=== PATIENT | female | born 2000 | race Caucasian/White ===

== ENCOUNTER 2022-05-25 07:00 | Outpatient (RCR) | payer OTHER, SELFPAY ==
--- NOTE | 2022-05-25 09:00 | BH.COMM_ITS ---
Communication Note - Communication with Client Communication Note: Met with pt to complete initial paperwork. Completed [facility] Screening which indicated high risk due in large part to SI with thoughts of methods which resulted in 2 psych admits in the last 30 days. She reports since discharge from in on 05/11/22 she has had only passive thoughts of and survival ambivalence. Denies active SI, plan, or intent today. Reports that her baseline is passive thoughts about which can be followed by [facility] ghts of methods, however never plan or intent. Consulted with Dr. Mustafa with plan to admit to [facility] level of care with dx of F31.9
--- NOTE | 2022-05-25 09:05 | BH.SGPN.GN ---
Behaviors/Verbalizations/Mental Status: [] Eye contact is good. Motor activity is appropriate. Appearance is casual. Speech is Appropriate. Mood is euthymic. Affect is full. Thoughts are linear and logical. No evidence of psychosis. Reviewed daily check in sheet and pt reports 4/5 for suicidal thoughts and 2/5 for intent. [place] was completed just prior to this and she reports passive thoughts of (long-standing) with no plan or intent. Client Response/Progress/Benefit: [] Pt participated when prompted. Attentive. Daily symptom tracker notes 5/5 for depression and self-harm urges (she superficially cut herself last night), 4/5 for anxiety and 2/5 for irritability. Shared with ther group that this was her first day in PHP. States that her goals for treatment are to get better coping skills for depression, anxiety, stress, and anger. Limited participation as this was her first day in IOP, however was attentive. Plan is to continue in PHP to maintain safety, increase healthy coping, and prevent decompensation/re-admission. Narrative Note: []
--- NOTE | 2022-05-25 10:05 | BH.SGPN.GN ---
Behaviors/Verbalizations/Mental Status: []Pt alert and oriented, neatly dressed and groomed. Eye contact good. Motor activity appropriate. Speech within normal limits. Affect constricted, mood anxious and depressed Thoughts linear, logical, no signs of hallucinations or delusions. Client Response/Progress/Benefit: []Pt participated at times during the group discussion. Attentive during psychoeducation. Participated in experiential activity. Pt took notes during interactive discussion on the consequences of unhealthy expression of emotions.? Attentive while peers identified several consequences which included; pushing people away, ?exploding,? and losing relationships. Attentive during interactive discussion on common potholes to effectively communicating which included; shutting down, assuming, fear of judgement, and not knowing what to say. Pt reported personally struggling with feeling overwhelmed, assuming, and not knowing what to say impacting her ability to communicate. ?Pt was able to relate and make connections between the experiential activity and the overall topic. Benefited from increased awareness of how stress and emotions can impact one's ability to communicate. Will continue in PHP tx to prevent decompensation, maintain safety, and gain healthy coping skills. Narrative Note: []
--- NOTE | 2022-05-25 11:05 | BH.SGPN.GN ---
Behaviors/Verbalizations/Mental Status: []Pt alert and oriented, neatly dressed and groomed. Eye contact good. Motor activity appropriate. Speech within normal limits. Affect constricted, mood anxious. Thoughts linear, logical, no signs of hallucinations or delusions. Client Response/Progress/Benefit: []Pt engaged in session AEB pt listening attentively to peers and taking notes. Attentive during psychoeducation on 4 zones of regulation. Pt able to identify feelings and behaviors for each zone.? Pt identified coping skills one can use to support self in each zone. Pt stated belief that pt is in the yellow/red zones today as pt feels impulsive and fearful. Pt reports playing with her cat and talking with supports she can trust will help pt get out of the yellow and red zone today. Benefited from increased education on zones of regulation or stages of alertness for emotions and healthy coping skills to use for each zone. Pt will continue PHP tx to prevent decompensation, maintain safety, and gain healthy coping skills. Narrative Note: []
--- NOTE | 2022-05-25 13:05 | BH.MDN ---
Multi-Disciplinary Note - Note 45-min Individual Time Started:: 12:05 Date: 05/26/22 Purpose of session/treatment goals addressed:: Met with pt to begun to work with pt on developing treatment plan and gain pertinent history. Met with pt in collaboration with Physician Assistance Student to reduce need for patient to be asked similar questions by different staff. Eye Contact:: Good Motor Activity:: Appropriate Appearance:: Casual Speech:: Appropriate Mood:: Anxious, Depressed Affect:: Congruent Thoughts:: Linear, Logical, No evidence of hallucinations/delusions noted Staff Interventions:: rapport building, treatment planning, goal setting, other - gathered pertinent history Client Response:: Pt reports that her first day in [facility] was anxiety-producing. States that she was so anxious about starting that she utilized unhealthy coping last night and cut her left forearm. She has 5 superficial cuts. Long-standing hx of self-injurious behaviors which have increased in the past several months. Shared that she was admitted to inpatient psychiatric units twice in the past 30 days both for depression and suicidal ideations. No specific trigger to worsening depression. Was admitted to [facility] from 05/02/22-05/09/22 and the night of her discharge returned to the ER with SI. She remained in the ER overnight and was then admitted to [facility] from 05/11/22-05/18/22. Her goals for [facility] are too increase my coping skills and decrease suicidal thoughts. Reports daily passive thoughts of and survival ambivalence. She also discussed panic attacks which occur 1-2 x weekly. Currently on FMLA from work due to mental health. She has been at her job for 5 years. Currently living with a roommate. Conflicted relationship with her father and brother, however gets along with mother. Limited support. Connected with therapist (Radha) and addiction psychiatrist (Harper) at [place] [id number]. Medication compliant. Risks/Concerns:: Denies active suicidal ideations, plan, or intent. Discharged from psych unit on 05/18/22 and reports passive thoughts of and survival ambivalence however denies any suicidal ideations since discharge. Progress Toward Goals/Plan:: No progress noted as this was pt's first day in [facility]. Reports being motivated for treatment. She was quiet however attentive during groups this AM. Plan is to continue in [facility] to maintain safety, increase health coping, and prevent decompensation/re-admission. Time Stopped:: 12:45
--- NOTE | 2022-05-26 09:00 | BH.SGPN.GN ---
Behaviors/Verbalizations/Mental Status: []Pt alert and oriented, casually dressed and groomed. Eye contact good, motor activity appropriate. Mood depressed. Affect flat. Speech within normal limits. Thoughts linear, logical, no signs of delusions or hallucinations. Reviewed pt's symptom tracker, pt's SI is within pt's baseline. Client Response/Progress/Benefit: []Pt responded somewhat well to session, appeared to connect with peers, but quiet. Pt declined to check-in this morning but did participate in the ice-breaker question. Pt started PHP tx yesterday so pt is likely still getting used to the group setting and peers. Pt still appeared to benefit from connecting with peers and getting encouragement on coming to the program. Pt will continue PHP tx to prevent decompensation, maintain safety, and gain healthy coping skills. Narrative Note: []
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
--- NOTE | 2022-05-26 10:31 | BH.MTP ---
Master Treatment Plan - Patient Information Program Physician:: Shari Mustafa Primary Therapist:: Yogesh Hyde - Psychiatric Diagnoses Psychiatric Diagnoses:: Bipolar disorder, NOS (F31.9) Diagnosis Code(s):: F31.9 - Estimated LOS Estimated LOS (in weeks):: 2 Problem/Goal #1 - Problem/Goal #1 Stated Goal:: Stabilize the suicidal crisis AEB reduction of suicide domain on the DSM-5 outcome and self-report reduction in SI and increase in hope. Description of Barriers: Limited coping skills, 2 psychiatric admissions in past 30 days, hopelessness, financial stressors, limited support, low frustration tolerance. Functional Impact: Pt has not been to work since 05/02/22 due to mental health symptoms and daily suicidal thoughts. Goal Relevant Strengths/Supports: Limited supports aside from roommate, unable to identify strengths. - Objectives Objective #1 Stated Objective: Client will work with therapist to develop a ?crisis plan? which includes emergency telephone numbers, 3-4 coping strategies for SI/overwhelming emotions, lists of supports, warning signs, positive aspects of life, and motivations.? Interventions: Therapist will provide patient with safety plan worksheet and work with pt. to develop individualized plan Discharge Criteria: Complete safety plan and begin to implement internal and external coping skills. Target Date: 06/15/22 Review Date: 06/10/22 Problem/Goal #2 - Problem/Goal #2 Stated Goal:: Stabilize anxiety level while increasing ability to function on a daily basis AEB self-report. Description of Barriers: Anxiety/worry about finances, future, and other psychosocial stressors impacting depression and SI. Functional Impact: Has not been to work since 05/02/22 due to mental health. - Objectives Objective #1 Stated Objective: Develop a concrete list of calming skills for anxiety to use when in crisis or overwhelmed with thoughts. Interventions: Through individual and group counseling will teach the client calming/relaxation skills (e.g., muscle relaxation, mindful breathing) and how to discriminate better between relaxation and tension; teach the client how to apply these skills to his/her daily life. Discharge Criteria: Will have completed concrete list of skills to utilize when in crisis. Target Date: 06/10/22 Review Date: 06/15/22
--- NOTE | 2022-05-26 14:49 | BH.MDN ---
Multi-Disciplinary Note - Note 45-min Individual Time Started:: 12:05 Date: 05/26/22 Purpose of session/treatment goals addressed:: Reviewed current symptoms and progress in PHP. Reviewed current safety plans. Introduced mistaken beliefs. Eye Contact:: Good Motor Activity:: Appropriate Appearance:: Casual Speech:: Appropriate Mood:: Depressed Affect:: Flat Thoughts:: Linear, Logical, No evidence of hallucinations/delusions noted Staff Interventions:: psychoeducation on: - mistaken beliefs, completed risk assessment / safety planning - reviewed safety plans Client Response:: Pt reports that her anxiety is less today than yesterday. No self-injurious behaviors last evening. Stressor is that her friend is out of town this week meaning she will be home alone. When asked about current safety plan pt reports I have 4 of those. Shared that at home she has safety plan from an ER visit in [place], [facility] (psych unit), [facility] (psych unit), and a plan that she created with her outpatient therapist ([phone]). Grounding skills are her primary choice to manage her overwhelming emotions. She is also aware of crisis numbers to call and states if it gets bad I will get to the ER. Her goal in [facility] is to learn coping skills and when asked what skills she has worked on in the past she listed CBT skills, mindfulness, distraction, progressive muscle relaxation, deep breathing, and few others. She has not seen much benefit from any of these interventions. Agreeable to working on mistaken beliefs which will incorporate the above skills and some increased focus on core perceptions/thoughts which are impacting emotions/behaviors. Attentive and engaged during psychoeducation. Risks/Concerns:: Denies active suicidal ideations, plan, or intent. Reports passive thoughts of and survival ambivalence. She states things may get worse though. When asked to elaborate she states well my roommate is out of town stating that she has less distractions and more time alone. Asked about possibility of spending week with parents or other support however she declined. Denies access to guns. No active SI however pt suspects this will occur this evening. Aware of safety plan and crisis numbers. Progress Toward Goals/Plan:: Limited progress noted and is disheartened with current and past coping skills. I been in counseling for 10 years so I know most everything. Admits to low frustration tolerance when depressed as trigger to 2nd psych admission was coming home and the apartment being a mess. Overwhelmed and angry that she had to clean which led to catastrophizing and ultimately going to the ER to get re-admitted. While she has knowledge of cognitive distortions, thought-reframing skills, and numerous other coping skills she has not been able to consistently implement these skills in the past 30 days. Consistent and attentive for first 2 days of PHP. Reports being motivated and responded well to discussion on identifying core mistaken beliefs. We reviewed previous safety plans and will create another one tomorrow. Time Stopped:: 12:45
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
[2022-05-27 10:53] VITALS: BP 119/74; PULSE 64
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
--- NOTE | 2022-05-27 12:26 | BH.DR.ITP ---
Initial Treatment Plan Patient Information Visit Information: ADMISSION DATE: EXPECTED LOS: 4-6 weeks Problems/Symptoms Problem #1:: Depression Symptom:: Sadness, hopelessness, worthlessness, anhedonia, passive thoughts of , passive suicidal ideation, low energy, guilt, thoughts of self-harm Problem #2:: Anxiety Symptom:: Rumination, worry, avoidance, exaggerated startle, flashbacks
--- NOTE | 2022-05-27 14:54 | BH.MDN_ITS ---
Multi-Disciplinary Note - Note 45-min Individual Time Started:: 12:05 Date: 05/27/22 Purpose of session/treatment goals addressed:: Reviewed progress and current symptoms. Risk assessment. Safety planning. Eye Contact:: Fair Motor Activity:: Appropriate Appearance:: Neat Speech:: Appropriate Mood:: Depressed Affect:: Flat Thoughts:: Linear, Logical, No evidence of hallucinations/delusions noted Staff Interventions:: completed risk assessment / safety planning Client Response:: Pt reports that after she returned home yesterday she implemented distraction skills mostly to make it through the night. She reports deep cleaning her living room. She also played with her cat. She was tired after this and feel asleep at a reasonable time. She reported urges to perform self-injurious behaviors however did not. She woke up this AM and checked her bank account which indicated that she has was only paid half of what she expected. This led to stress and rumination regarding financial stress I will be short this month. She prepared for PHP today and while driving reported thoughts about crashing her car. Having these thoughts is not uncommon for patient as she reports fleeting SI (mainly passive) most days in the past 3 months. Completed [place] Suicide screener (since last visit) and pt endorses wish to be , thoughts of wanting to end her life, and thoughts about methods; however denies specific plan, intent, nor has she started to do anything or prepared to end her life. Screener indicates moderate risk and she is currently in PHP program and this is close to baseline for patient since 05/02/22 as she fluctuates between fleeting SI with methods and passive thoughts depending on situational stressors (today was financial stress). Pt declined seeking voluntary admission and verbalized that if urges became overwhelming she was go to [facility] or call crisis (which she has done in the past). Protective factors reported are her family, friend, and pet. When asked how she managed suicidal thoughts this AM she stated I didn't want to hurt anyone on the road. Also thought about her family. Allowed pt to vent her financial stressors and we problem-solved in which she is going to set a budget, call hospital where she received a bill, and therapist will send in her disability paperwork this afternoon. With assistance able to see that this stressor is temporary and can be alleviated. Towards the end of the session she was less flat, smiling, and future-oriented discussing [place] plan to return to work. We completed an additional safety plan and she contracted for safety. Developed plan for this evening which included self-care skills and distraction. Risks/Concerns:: Refer above for risk assessment. Long-standing fleeting SI which has resulted in 2 psychiatric admissions since 05/02/22. Currently close to baseline since discharge and able to contract for safety. Future-oriented. Protective factors. Does not present as imminent danger to herself due to no specific plan or intent. Thoughts to crash car are noted to be common fleeting thoughts and she was able to control them this AM with little difficulty. Reduced intensity since this AM after groups, distractions, and processing with therapist. Progress Toward Goals/Plan:: Has consistently attended [facility] for the past 2 days. Limited engagement in groups however interacts and smiling with peers during breaks and experiential activities. Limited progress noted. She is resistant to most treatment interventions reporting that I've tried most coping skills and they don't work. Low frustration tolerance and limited support. Medication non- compliant as she has missed the past 2 days. When therapist began to have discussion about incorporating strategies to remember to take pills she appears dismissive. Reports that she knows all about CBT, mindfulness, and cognitive distortions as well as thought reframing however does not utilize these strategies. Rolls her eyes when discussing safety plans (which she has 4). When talking about her psychiatric admission to [facility] she smiles and reports good relationship with psychiatrist there I'm sure will be happy to see me again when we discussed voluntary admission. She was irritated when they did not re-admit her on 05/11/22. She has reached out when in crisis in the past and is familiar with crisis. She has strong positive experiences at [facility] psychiatric unit as she presented to their ER on two occasions 05/02/22 and 05/11/22 (day after she was discharged from [facility]) and [facility] which is good and indicates if in crisis will reach out. Plan is to continue in [facility] level of care to maintain safety, stabilize mood, prevent decompensation, and increase healthy coping. Will reach out to outpatient therapist for collateral. Time Stopped:: 12:45
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
--- NOTE | 2022-05-28 13:09 | BH.DS ---
Discharge Summary - Demographics Date of Admission:: 05/25/22 Discharge Date: 05/28/22 Presenting Problems at Admission:: Pt is a 21-year-old female with a history of BPD, bipolar NOS, PTSD, and Bulimia who was referred to [facility] tx after discharging from [facility] due to suicidal ideations with a plan to OD and cut her wrists. Pt was at [facility] from 05/11/22-05/18/22. At admission to [facility], pt reported daily suicidal ideations that are chronic, but at the time not active. Pt also endorsed a depressed mood, increased irritability, poor memory, lack of energy, worthlessness, poor sleep, and frequent mood changes. Pt is off work on FMLA due to mental health symptoms and pt has not been able to complete ADLs. Pt also reported history of binging and purging, self-harm, and pt has history of a suicide attempt via overdose 10 years ago. Discharge Diagnoses:: Bipolar disorder, NOS (F31.9); Borderline personality disorder; Generalized anxiety disorder; Bulimia nervosa with purging by emesis; Rule out PTSD Reason for Discharge:: Due to presenting suicidal ideations with intent and plan to OD or wreck her car, it was determined that pt was in need of higher level of care to maintain safety. Pt voluntarily went to the [facility] Emergency Room to be further evaluated for her suicidal ideations. Pt will be discharged from [facility] at this time due to needing a higher level of care. - Treatment Progress During Treatment & Response: Limited progress while in [facility] level of care. Pt started [facility] on 05/25 and discharged on 05/28. Per pt's self-report, pt's symptoms were worsening each day this week, so pt was not seeing benefit from [facility] level of care. Pt admitted she was not taking her medications consistently and pt was passive during group sessions. In individual sessions, pt reported she knows a lot of coping skills but these do not work for pt. See multidisciplinary notes for additional details. Issues Still to be Addressed:: Mood instability, SI, low distress and frustration tolerance, lack of support, negative thinking, use of unhelpful coping skills, self-harm, work stress, and medication noncompliance. Discharge Recommendations/Instructions:: Due to presenting suicidal ideations with a plan to either drive her car off the road or overdose on her medications at home, and inability to contract for safety, it was determined that pt was in need of higher level of care to maintain safety. Pt voluntarily went to the [facility] Emergency Room to be further evaluated for her suicidal ideations. Pt will be discharged from [facility] at this time due to needing a higher level of care. Pt will follow up with the recommendations of the inpatient treatment team. Discharge Handout: Complete Discharge Handout with client on aftercare options and continuity of care.
== END 2022-05-28 12:10 | disposition short-term general hospital (02) ==
LOC: BHPHP 07:00
PROVIDERS: PCP Nurse Practitioner Family; Visit Provider Psychiatry & Neurology Psychiatry
DX: F31.9 Bipolar disorder, unspecified (principal); F60.3 Borderline personality disorder; F50.2 Bulimia nervosa; R45.851 Suicidal ideations; F41.1 Generalized anxiety disorder; Z79.899 Other long term (current) drug therapy
CPT/HCPCS: H0035; 90832; 90834; G0410

== ENCOUNTER 2022-05-28 10:47 | Emergency (ER) | payer OTHER, SELFPAY ==
[2022-05-28 10:48] VITALS: BP 125/88; PULSE 90; RESP 17; TEMP 36.3; O2SAT 97; BMI 38.7
--- NOTE | 2022-05-28 10:50 | CM.ED ---
Social Work Note SW received call from JONATHAN Otero therapist at [facility]. Shanna states she is bringing pt to [facility] ED. Shanna states pt is suicidal with plans to drive her car off the road or OD on pills. Shanna rolon pt was not able to contract for safety. Pt here at [facility]. Shanna stopped and spoke to this worker more. Shanna rolon pt has been to [facility] before and states it was a bad experience. Shanna again states pt was not able to contract for safety and pt lives alone, would not have any supervision. Shanna rolon pt has chronic suicidal ideations but states they have been more frequent lately. ABAD to assess pt. Jennifer Patel [employer], [employer]
--- NOTE | 2022-05-28 11:10 | EDS_ITS ---
HPI HPI - Psych History of Present Illness Chief Complaint: Suicidal Narrative Narrative: 21-year-old female presenting for evaluation of suicidal thoughts with a plan to kill herself by writing her car into something at high-speed or taking her leftover antidepressants. She states she has been depressed for a very long time and has a history of Tylenol overdose distantly. Patient states has been at [facility] twice this month inpatient and she states that she there voluntarily. Patient states that she is on Lamictal and Abilify and does not feel any different. She denies any homicidal ideation. She has been trying to deal with the feelings that she is having by cutting behavior on her left arm. [facility] Medical History Bipolar disorder, unspecified Borderline personality disorder Bulimia nervosa, purging type Generalized anxiety disorder Home Medications aripiprazole 5 mg tablet (Abilify) 5 mg PO QHS 05/27/22 [History Last Taken Unknown] hydroxyzine pamoate 50 mg capsule (Vistaril) 50 mg PO BID PRN PRN Anxiety 05/27/22 [History Last Taken Unknown] lamotrigine 25 mg tablet (Lamictal) 50 mg PO DAILY 05/27/22 [History Last Taken Unknown] meclizine 25 mg tablet 25 mg PO TID PRN PRN Nausea And Vomiting 05/27/22 [History Last Taken Unknown] Allergy/AdvReac Type Severity Reaction Status Date / Time amoxicillin [From Augmentin] Allergy Rash Verified 05/28/22 10:47 clavulanic acid Allergy Rash Verified 05/28/22 10:47 [From Augmentin] Penicillins Allergy Rash Verified 05/28/22 10:47 Social History Smoking Status: Never smoker ROS ROS ED Constitutional Constitutional ED: Denies chills, fever(s) or subjective Eyes Eyes: Denies change in vision or diplopia ENT ENT ED: Denies ear pain or rhinorrhea Cardiovascular Cardiovascular: Denies chest pain or palpitations Respiratory/Chest Respiratory/Chest: Denies cough, dyspnea or dyspnea on exertion Gastrointestinal Gastrointestinal: Denies abdominal pain or constipation Genitourinary Genitourinary ED: Denies dysuria Musculoskeletal Musculoskeletal: Reports other Integumentary Reports other Details: Superficial abrasions to left forearm Neurologic Neurologic: Denies headache(s) or paresthesias Psychiatric Psychiatric: Reports anxiety, depression and suicidal ideation EXAM Physical Exam Const Vital Signs: 05/28/22 10:48 05/28/22 13:09 05/28/22 15:00 Temperature 97.3 F L Temperature Source Temporal Pulse Rate 90 72 Respiratory Rate 17 18 18 Blood Pressure 125/88 H 126/71 H Blood Pressure Mean 100 89 Pulse Ox 97 100 Oxygen Delivery Method Room Air Room Air Room Air Positive well nourished General Appearance ED: NAD; Negative for pallor HEENT Reports moist mucous membranes normocephalic Eyes PERRL and EOMs intact bilaterally Resp normal respiratory effort and clear to auscultation bilaterally Auscultation: Negative for rales, rhonchi or wheezes Cardio Rate: regular rate Rhythm: regular rhythm GI non-tender Extremity General Extremety ED: Negative for edema or tenderness General Extremity: Negative for edema Neuro oriented x3 and CN's II-XII intact bilaterally Sensorium / Orientation: alert Psych speech normal and denies homicidal ideation Attitude: calm Activity / Motor Behavior: appropriate eye contact Speech: normal speech Mood & Affect: depressed and flat affect; Negative for tearful or fearful Thought Content: suicidality and No homicidality Attention / Concentration: attention grossly intact and concentration grossly intact Insight: poor Judgement: poor Skin Skin Narrative: Superficial linear abrasions and a horizontal lie on the left volar forearm. No active bleeding. No crepitance. No evidence of cellulitic change. General Skin Exam: Negative for jaundice or pallor MDM MDM MDM Narrative Medical decision making narrative: Patient presenting with suicidal thoughts and a plan to kill herself either by crashing her car into something a high-speed or overdosing on her antidepressants. She has a distant history of Tylenol overdose. Patient was pink slipped. Blood work is obtained and her CBC and BMP are normal. Urine drug screen negative. EtOH negative. test negative. Patient was evaluated by social work and given her suicidal thoughts with a plan currently she will be placed. Patient is medically cleared. Currently working on a bed. Patient will be signed out to incoming ED physician for monitoring until placement can be achieved. Impression: 1. Suicidal ideation with plan assignment 2. history of suicide attempt 3. Depression 4. history of bipolar disorder Lab Data Attestation: I reviewed the patient's lab results. Labs: Laboratory Results - last 24 hr 05/28/22 05/28/22 05/28/22 11:00 11:10 11:10 WBC 11.6 H RBC 5.09 Hgb 14.2 Hct 42.3 MCV 83.1 MCH 27.9 MCHC 33.6 RDW Std Deviation 38.5 RDW Coeff of Seth 12.9 Plt Count 333 MPV 8.4 Immature Gran % (Auto) 0.500 Neut % (Auto) 64.3 Lymph % (Auto) 28.4 Curry % (Auto) 4.3 Eos % (Auto) 1.7 Baso % (Auto) 0.8 Absolute Neuts (auto) 7.5 Absolute Lymphs (auto) 3.29 Nucleated RBC % 0 Sodium 140 Potassium 4.0 Chloride 107 Carbon Dioxide 28.0 Anion Gap 5 BUN 15 Creatinine 0.73 Estim Creat Clear Calc 113.16 Est GFR (MDRD) Af Amer 127 Est GFR (MDRD) Non-Af 105 BUN/Creatinine Ratio 20.5 H Glucose 110 H Calcium 9.2 Serum , Qual Urine Opiates Screen NEGATIVE Urine Methadone Screen NEGATIVE Ur Barbiturates Screen NEGATIVE Ur Phencyclidine Scrn NEGATIVE Ur Amphetamines Screen NEGATIVE MDMA (Ecstasy) Screen NEGATIVE U Benzodiazepines Scrn NEGATIVE Urine Cocaine Screen NEGATIVE U Cannabinoids Screen NEGATIVE Ur Drug Screen Comment Ethyl Alcohol 05/28/22 05/28/22 11:10 11:10 WBC RBC Hgb Hct MCV MCH MCHC RDW Std Deviation RDW Coeff of Seth Plt Count MPV Immature Gran % (Auto) Neut % (Auto) Lymph % (Auto) Curry % (Auto) Eos % (Auto) Baso % (Auto) Absolute Neuts (auto) Absolute Lymphs (auto) Nucleated RBC % Sodium Potassium Chloride Carbon Dioxide Anion Gap BUN Creatinine Estim Creat Clear Calc Est GFR (MDRD) Af Amer Est GFR (MDRD) Non-Af BUN/Creatinine Ratio Glucose Calcium Serum , Qual NEGATIVE Urine Opiates Screen Urine Methadone Screen Ur Barbiturates Screen Ur Phencyclidine Scrn Ur Amphetamines Screen MDMA (Ecstasy) Screen U Benzodiazepines Scrn Urine Cocaine Screen U Cannabinoids Screen Ur Drug Screen Comment Ethyl Alcohol < 3.0 Discharge Plan Triage Chief Complaint: Suicidal ED Provider: Jason Shi Dx/Rx/DC Orders Prescriptions: No Action lamotrigine [Lamictal] 25 mg Tablet 50 mg PO DAILY hydroxyzine pamoate [Vistaril] 50 mg Capsule 50 mg PO BID PRN PRN (Reason: Anxiety) meclizine [Antivert] 25 mg Tablet 25 mg PO TID PRN PRN (Reason: Nausea And Vomiting) aripiprazole [Abilify] 5 mg Tablet 5 mg PO QHS Primary Care Provider: Hellen Phillips Referrals: Hellen Phillips, [employer] [Primary Care Provider] -
[2022-05-28 11:27] LABS: Absolute Lymphocyte Count 3.29 X10^3/uL (0.83-4.51); Absolute Neutrophil Count 7.5 X10^3/uL (2.0-7.7); Basophil# 0.09 X10^3/uL; Basophil% 0.8 % (0-1); Eosinophils% 1.7 % (0-5); Hematocrit 42.3 % (37-47); Hemoglobin 14.2 g/dL (12.0-15.0); Lymphocyte # 3.29 X10^3/ul (0.83-4.51); Lymphocyte % 28.4 % (19-41); Mean Corp Hgb Conc 33.6 g/dL (32-36); Mean Corpuscular Hgb 27.9 pg (27.0-32.0); Mean Corpuscular Volume 83.1 fL (81-99); Mean Platelet Vol. 8.4 fl (6.2-12.0); Monocyte% 4.3 % (0-10); NRBC Flagged by Analyzer 0 % (0-5); Neutrophil # 7.45 X10^3/uL (2.7-7.7); Neutrophil % 64.3 % (47-70); Platelet Count 333 K/mm3 (150-450); RBC Distribution Width CV 12.9 % (11.6-14.6); RBC Distribution Width SD 38.5 fl (35.1-43.9); Red Blood Count 5.09 M/mm3 (4.2-5.4); White Blood Count 11.6 K/mm3 (4.4-11.0)
[2022-05-28 11:46] LABS: Anion Gap 5 (5-15); BUN 15 mg/dL (7-18); BUN/Creat Ratio 20.5 RATIO (10-20); Calcium,Total 9.2 mg/dL (8.5-10.1); Chloride 107 mmol/L (98-107); Creatinine, Serum 0.73 mg/dL (0.55-1.02); EST Glomerular Filtration Rate 105 mL/min (>60); Est Glom Filt Rate - Afr Amer 127 mL/min (>60); Estimated Creatinine Clearance 113.16 ml/min; Glucose 110 mg/dL (74-106); Sodium Level 140 mmol/L (136-145)
[2022-05-28 11:47] LABS: Amphetamine Urine VISTA NEGATIVE (<1000 ng/mL); Barbiturate Urine VISTA NEGATIVE (< 200 ng/mL); Benzodiazepine Urine VISTA NEGATIVE (< 200 ng/mL); Cocaine Urine VISTA NEGATIVE (< 300 ng/mL); Ecstacy Urine VISTA NEGATIVE (< 500 ng/mL); Methadone Urine VISTA NEGATIVE (< 300 ng/mL); PCP Urine VISTA NEGATIVE (< 25 ng/mL); THC Urine VISTA NEGATIVE (< 50 ng/mL); Vista UDS pH Range 5
[2022-05-28 11:48] LABS: Internal QC Validated? YES +Cl - CLEAR BKGD; Pregnancy, Serum, hCG Quali. NEGATIVE Negative
[2022-05-28 11:54] LABS: Alcohol, Blood (Medical)-Serum < 3.0 mg/dL
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
--- NOTE | 2022-05-28 12:17 | CM.ED ---
Social Work Note Since pt was recently at [facility], ABAD placed a call to [facility] and spoke with Edyta. Edyta states they should have female adult beds available and to fax referral over. ABAD faxed referral to [facility]. Jennifer Patel SHIP'S OFFICER, SKIP HOIST OPERATOR
[2022-05-28 13:09] VITALS: BP 126/71; PULSE 72; RESP 18; O2SAT 100
[2022-05-28 15:00] VITALS: RESP 18
--- NOTE | 2022-05-28 16:18 | CM.ED ---
Addendum entered by Jennifer Patel 05/28/22 17:29: SW in to speak with pt. SW updated pt that she has been accepted to [facility]. Pt states understanding, agreeable to signing the voluntary form. SW faxed voluntary form over to [facility]. [facility] to call this worker back with accepting information once they received the signed voluntary form. ABAD updated etl informatica developer. Jennifer Patel MSW, REVENUE STAMPER Original Note: Social Work Note ABAD received message from Edyta at [facility] requesting call back. ABAD placed a call back to Edyta. Edyta states Dr. Rodriguez is able to accept pt. Edyta states that she will fax over the voluntary form for pt to sign and then states to have SW fax the form back to her. Edyta states that she will review the form and make sure it is correct and then SW will put pt in the system. Edyta states once that is completed she will call this worker back with accepting information. Edyta states that they are receiving a few other admissions from their own hospital so when she calls back with accepting information she will also let this SW know what time transportation can be arranged. SW to continue to facilitate inpatient psych hospitalization for pt. Jennifer Patel MSW, REVENUE STAMPER
[2022-05-28 18:20] VITALS: BP 122/82; PULSE 72; RESP 18; O2SAT 99
--- NOTE | 2022-05-28 18:56 | CM.ED ---
Addendum entered by Jennifer Patel 05/28/22 19:08: ABAD updated MD Camacho on acceptance to [facility]. Original Note: Social Work Note ABAD received call from Edyta stating their fax machine is acting up, states it looks like the signed voluntary form was attempted to send to them. Edyta asked if pt signed the voluntary. ABAD informed Edyta that pt did sign the Voluntary. Edyta states to just make sure the original copy comes with pt. ABAD informed Edyta that there is also a [place] for pt and Edyta states that can come with pt too as their doctor likes to see the [place]. Edyta states Accepting physician is Dr. Rodriguez. Pt is going to [address] Room 3309. RN to RN [phone]. ABAD updated water main inspector. Jennifer Patel GRAPHITE GRINDER, WAREHOUSE MATERIAL HANDLER
--- NOTE | 2022-05-28 19:35 | ED.RN ---
report tried to be given at 1930. RN stated they would call back. Report not given at this time.
--- NOTE | 2022-05-28 19:49 | ED.RN ---
report given to laura SALEH @ [id number].
== END 2022-05-28 19:27 ==
LOC: ED 11:14
PROVIDERS: Emergency Provider Student in an Organized Health Care Education/Training Program; PCP Nurse Practitioner Family; Visit Provider Student in an Organized Health Care Education/Training Program
DX: F31.9 Bipolar disorder, unspecified (principal); F60.3 Borderline personality disorder; R45.851 Suicidal ideations; Z79.899 Other long term (current) drug therapy; Z91.51 Personal history of suicidal behavior; F41.1 Generalized anxiety disorder
CPT/HCPCS: 36415; 80048; 80307; 82077; 84703; 85025; 87811; 99283

== ENCOUNTER 2022-06-11 09:00 | Outpatient (RCR) | payer OTHER, SELFPAY ==
--- NOTE | 2022-06-11 09:05 | BH.SGPN.GN ---
Behaviors/Verbalizations/Mental Status: [] Client alert and oriented, casually dressed and groomed. Eye contact good. Motor activity appropriate. Speech within normal limits. Affect constricted, mood depressed. Thoughts linear, logical, no signs of hallucinations or delusions. Reviewed client?s symptom tracker, no risk for suicidal ideation, plan, or intent as of 06/11/22 Client Response/Progress/Benefit: [] Client's first day back in program and getting adjusted into group dynamic again. Client did not share too much with indicating that she was tired. Client was attentive to other group members as they shared. Client seemed to benefit from group discussion. She will continue PHP tx to decrease cognitive distortions,increase functioning, and prevent decompensation. Narrative Note: []
--- NOTE | 2022-06-11 10:10 | BH.SGPN.GN ---
Behaviors/Verbalizations/Mental Status: [ ] Client alert and oriented, casually dressed and groomed. Eye contact good. Motor activity appropriate. Speech within normal limits. Affect congruent, mood euthymic. Thoughts linear, logical, no signs of hallucinations or delusions. Client Response/Progress/Benefit: [] Client responded well to session, contributing to discussion and engaged during the activity. Attentive during discussion with connecting to quote and discussed that when she genuinely wants to get better, it invokes change. Group identified the things that keep them stuck and prevent change that included: lack of supports, relying on other's opinions of us, and fear of failure. Client identified things she want's to get rid of and take control in her life are not setting boundaries, lashing out, and poor communication. Client shared that if these things were gone she would be more secure. Client reported she started changes so far by reducing over-sharing info to her co workers. Benefited from increased awareness and understanding of emotions, benefits, and barriers related to change. Will continue IOP tx to prevent decompensation, gain healthy coping skills, and increase overall functioning. Narrative Note: []
--- NOTE | 2022-06-11 11:10 | BH.SGPN.GN ---
Behaviors/Verbalizations/Mental Status: []Pt alert and oriented, casually dressed and groomed. Eye contact good. Motor activity appropriate. Speech within normal limits. Affect constricted, mood dysthymic. Thoughts linear, logical, no signs of hallucinations or delusions. Client Response/Progress/Benefit: []Pt was an active participant in group discussion. Attentive during psychoeducation on the Zones of Change which included the comfort zone, learning zone, and danger zone. Pt along with peers participated in interactive discussion regarding behaviors, thoughts, and feelings associated with each zone. Participated in group activity in which they developed a plan to take action on something they wished to change. Pt chose to take action on poor communication skills with feelings in which pt identified a SMART goal to ?write down how certain situations make me feel once a week.? Identified supports that pt needed as setting a reminder, journaling apps, and self-awareness. Benefited from increased self-aware of zones of change and developing an action plan. Will continue PHP level of care to prevent rehospitalization, reduce SI, and improve distress tolerance skills. ? Narrative Note: []
--- NOTE | 2022-06-11 13:46 | BH.COMM_ITS ---
Communication Note - Communication with Client Communication Note: Met with pt to update intake assessment. Pt was in [facility] 2 weeks ago and due to danger to self was admitted to a higher level of care. She was discharged from [facility] Psych unit on 06/05/22 and presents today to be admitted to [facility]. Completed intake and she meets criteria. Consulted with Dr. Mustafa with plan to admits to [facility] with dx of Bipolar, NOS.
--- NOTE | 2022-06-11 13:46 | BH.COMM ---
Communication Note - Communication with Client Communication Note: Met with pt to update intake assessment. Pt was in [facility] 2 weeks ago and due to danger to self was admitted to a higher level of care. She was discharged from [facility] Psych unit on 06/05/22 and presents today to be admitted to [facility]. Completed intake and she meets criteria. Consulted with Dr. Mustafa with plan to admits to [facility] with dx of Bipolar, NOS.
--- NOTE | 2022-06-11 14:36 | BH.MDN_ITS ---
Multi-Disciplinary Note - Note 45-min Individual Time Started:: 12:10 Date: 06/11/22 Purpose of session/treatment goals addressed:: Met with pt to begin to discuss treatment plan and goals for [facility] level of care. Safety planning. Eye Contact:: Good Motor Activity:: Appropriate Appearance:: Casual Speech:: Appropriate Mood:: Depressed Affect:: Flat Thoughts:: Linear, Logical, No evidence of hallucinations/delusions noted Staff Interventions:: treatment planning Client Response:: Pt report being more motivated and open-minded than she was during last PHP visit. Admits that she had likes being in the hospital due to routines, structure, and feeling safe. Less urges to do bad things b/c staff is always around. States that there are times when she misses aspects of the hospital however knows that I can't spend the rest of my life there. She was more engaged in PHP group this AM and was interacting with peers. Smiling more and reports increased confidence in herself. We talked at length regarding the importance of a routine and structure. She feels [facility] will provide this during the AM and we brainstormed strategies for routine in the afternoon She was able to identify some possibilities. Given goal to identify routines this afternoon so we can discuss more. Currently fighting with her roommate who is her primary support. According to pt her roommate is struggling with mental health and depression as well which has made effective communication difficult. Currently they are avoiding each other. Insight that she struggles with maintaining relationships and making new friends due to oversharing about her mental health. Risks/Concerns:: No risks or concerns identified. Albert active SI, plan, or intent. Has had fleeting SI (minutes) since discharge however its not as in tense as before hospitalization. Contracts for safety. Aware of crisis numbers. Progress Toward Goals/Plan:: Limited progress as this is her first day in [facility]. Staff did identify that she was more engaged in 2nd and 3rd group today than she was during previous [facility] admission before hospitalization. She was also interacting more with peers during and between groups than previous admission. Smiling and joking at times during session which is significant improvement again from previous PHP. Pt identified oversharing, difficulty with maintaining relationships, and lack of routine and structure as choi areas to work on to prevent decompensation, maintain safety, and stabilize mood. Time Stopped:: 12:50
--- NOTE | 2022-06-12 09:05 | BH.SGPN.GN ---
Behaviors/Verbalizations/Mental Status: [] Eye contact is good. Motor activity is appropriate. Appearance is disheveled. Speech is Appropriate. Mood is depressed. Affect is flat. Thoughts are linear and logical. No evidence of psychosis. Reviewed daily check in sheet and pt reports 2/5 for suicidal thoughts and 1/5 for intent which is below previous baseline. Client Response/Progress/Benefit: [] Pt participated at times during the group discussion. Attentive. Daily symptom tracker notes 3/5 for depression and 2/5 for anxiety, anger, and self-harm urges. Mental health win was that she created a daily routine yesterday. Shared the importance of a routine for her mental health and to keep from being re-admitted to psych hospital. She also reports that she continues to be medication compliant since discharge from the hospital. Emotion for today is ?anxious?. Stressors are ?financial stuff?. Progress noted per pt report. Benefited from group support, encouragement, and feedback. Will continue in PHP to maintain safety, prevent decompensation/re-admission, and to improve functioning to return to work. Narrative Note: []
--- NOTE | 2022-06-12 11:10 | BH.SGPN.GN ---
Behaviors/Verbalizations/Mental Status: []Pt alert and oriented, casually dressed and groomed. Eye contact good. Motor activity appropriate. Speech within normal limits. Affect flat, mood depressed. Thoughts linear, logical, no signs of hallucinations or delusions. Client Response/Progress/Benefit: []Pt receptive of session, engaged throughout AEB pt actively listening and contributing to discussion, as well as taking notes.? Pt participated in the experiential activity and did well to communicate ideas with peers and manage emotions. Pt identified she felt frustrated and anxious and wanted to quit. Pt and group processed how the emotions and perspective of the group impacted the activity. Group worked together to identify different coping skills to help manage pitfalls. Pt identified pitfalls they struggle with such as high expectations for self and others and not saying ?no.? Pt plans to work on these pitfalls by slowing down and breathing before reacting. Benefited from identifying personal pitfalls and strategies to overcome these pitfalls. Will continue PHP tx to maintain safety, prevent rehospitalization, and increase distress tolerance skills. ??? Narrative Note: []
--- NOTE | 2022-06-12 14:05 | BH.MDN ---
Multi-Disciplinary Note - Note 45-min Individual Time Started:: 12:10 Date: 06/12/22 Purpose of session/treatment goals addressed:: Met with patient and Dr. 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 Eye Contact:: Good Motor Activity:: Appropriate Appearance:: Casual Speech:: Appropriate Mood:: Depressed Affect:: Flat Thoughts:: Linear, Logical, No evidence of hallucinations/delusions noted Staff Interventions:: treatment planning, goal setting Client Response:: Pt answered questions and both psychosocial and psychiatric evaluation was update. We thought it best to meet with pt together to avoid her unnecessarily repeating herself. Once this was complete PA student left and pt continued with therapist. Pt followed through with her assignment to develop a routine for herself which she reviewed with therapist. Her routine was very detailed and started at 6am and went through bedtime. She feels confident that she can maintain this routine and it will be helpful to her mental health. Pt was also open to discussion on previous dx of Borderline Personality Disorder however has limited understanding of it. Brief psychoeducation was provided and she is agreeable too working on some worksheets from the Borderline Personality Workbook. This may be helpful in her goal to improve relationships in her life. She describes her mood as anxious. Risks/Concerns:: Denies any suicidal ideations, plan, or intent. No self-harm behaviors since last session. Progress Toward Goals/Plan:: Progress noted. States I'm actually putting effort into things this time. Shared decreased conflict with her roommate since yesterday which is beneficial. Followed through with developing a routine. She has plans for the weekend. More hopeful and future-oriented. Continues to reports passive thoughts of or survival ambivalence however this has not escalated to SI. No self-harm behaviors since last meeting. Plan is continue in PHP to maintain safety, prevent decompensation/re-admission, and to increase healthy coping skills. Time Stopped:: 12:50
--- NOTE | 2022-06-12 14:18 | BH.MTP_ITS ---
Master Treatment Plan - Patient Information Program Physician:: Shari Mustafa Primary Therapist:: Yogesh Hyde - Psychiatric Diagnoses Psychiatric Diagnoses:: Bipolar disorder, NOS (F31.9) Diagnosis Code(s):: F31.9 - Estimated LOS Estimated LOS (in weeks):: 2 Problem/Goal #1 - Problem/Goal #1 Stated Goal:: Stabilize the suicidal crisis AEB reduction of suicide domain on the DSM-5 outcome and self-report reduction in SI and increase in hope. Description of Barriers: Limited coping skills, 3 psychiatric admissions in past 30 days, hopelessness, financial stressors, limited support, low frustration tolerance. Functional Impact: Pt has not been to work since 05/02/22 due to mental health symptoms and daily suicidal thoughts. Goal Relevant Strengths/Supports: Limited supports aside from roommate and pt's mother. Pt reports self-esteem and struggled to identify supports. - Objectives Objective #1 Stated Objective: Client will work with therapist to develop daily routine, track medication compliance, and update and review ?crisis plan? which includes emergency telephone numbers, 3-4 coping strategies for SI/overwhelming emotions, lists of supports, warning signs, positive aspects of life, and motivations. Interventions: Through individual and group counseling will provide education and resources on internal/external coping skills as well as developing healthy routines. Discharge Criteria: Pt will have developed and followed through with daily routine plan, medication compliance, and completion of crisis/safety plan. Target Date: 06/25/22 Review Date: 06/22/22 Problem/Goal #2 - Problem/Goal #2 Stated Goal:: Stabilize anxiety level while increasing ability to function on a daily basis AEB self-report. Description of Barriers: Anxiety/worry about finances, future, and other psycho social stressors impacting depression and SI. Functional Impact: Has not been to work since 05/02/22 due to mental health. Goal Relevant Strengths/Supports: Has not been to work since 05/02/22 due to mental health. - Objectives Objective #1 Stated Objective: Develop a concrete list of calming skills for anxiety to use when in crisis or overwhelmed with thoughts. Interventions: Through individual and group counseling will teach the client calming/relaxation skills (e.g., muscle relaxation, mindful breathing) and how to discriminate better between relaxation and tension; teach the client how to apply these skills to his/her daily life. Discharge Criteria: Will have completed concrete list of skills to utilize when in crisis. Target Date: 06/25/22 Review Date: 06/22/22
--- NOTE | 2022-06-15 09:00 | BH.SGPN.GN ---
Behaviors/Verbalizations/Mental Status: []Pt alert and oriented, neatly dressed and groomed. Eye contact good. Motor activity appropriate. Speech within normal limits. Affect incongruent-smiling while reporting being suicidal, mood depressed and anxious. Thoughts linear, logical, no signs of hallucinations or delusions. Reviewed pt?s symptom tracker and pt will need further assessing today as pt is expressing increased urges to harm self. Client Response/Progress/Benefit: [] Pt was restless during session, but attentive. Pt reports feeling depressed this morning and stated that she is not coping well. Pt had many stressors over the weekend and this resulted in pt having increased urges to self-harm and increase suicidality. Pt's mental health win today is that I didn't off myself. Pt will meet with her individual therapist today to further assess. Group and agricultural service worker helped pt identify resilience traits, but pt struggled to accept these due to her distress. Pt will continue PHP tx to prevent rehospitalization and maintain safety. Narrative Note: []
--- NOTE | 2022-06-15 10:00 | BH.SGPN.GN ---
Behaviors/Verbalizations/Mental Status: [] Eye contact is poor. Motor activity is appropriate. Appearance is casual. Speech is Appropriate. Mood is depressed. Affect is flat. Thoughts are linear and logical. No evidence of psychosis. Client Response/Progress/Benefit: [] Pt did not participate in group discussions. Attentive during psychoeducation. Participated with peers in experiential activity. Attentive during interactive discussion in which peers worked together to define what coping skills are. Attentive as peers identified unhealthy coping skills which included; lashing out, hurting oneself, isolating, substance abuse, ignoring, sleeping to escape, and retail therapy. Psychoeducation on internal vs external coping skills. After experiential activity pt identified that I would benefit from building both my external and internal coping skills. Benefited from increased awareness and education the benefits of have both internal and external coping skills. Will continue in [facility] to maintain safety and prevent decompensation/re-admission. Narrative Note: []
--- NOTE | 2022-06-15 14:57 | BH.MDN_ITS ---
Multi-Disciplinary Note - Note 60-min Individual Time Started:: 12:00 Date: 06/15/22 Purpose of session/treatment goals addressed:: Reviewed progress and current symptoms. Pt notes /5 for SI and 2/5 for suicidal intent this AM. Risk assessment. Eye Contact:: Poor Motor Activity:: Appropriate Appearance:: Casual Speech:: Appropriate Mood:: Irritable, Depressed Affect:: Flat Thoughts:: Linear, Logical, No evidence of hallucinations/delusions noted Staff Interventions:: thought challenging, CBT techniques, mindfulness skills, rapport building, strengths perspective, completed risk assessment / safety planning, taught coping skills Client Response:: Pt reports that yesterday was bad. She last attended [facility] on Wednesday06/12/22 and was worried about the weekend. She was encouraged to develop a routine or plan for the weekend which she did on Wednesday which went well, however reports depressive episode on Wednesday afternoon. Trigger revolved around ongoing conflict with her roommate and feelings of abandonment and rejection. Roommate took the cat over another friend's house on Wednesday and did not talk with pt over the weekend. They are avoiding each other. According to pt she thinks that I'm always grumpy. The act of leaving the apartment with the cat and going over another friend's house led to negative thoughts including She doesn't want to be around me, We will never be friends again and then suicidal thoughts. Pt had suicidal thoughts with plan to overdose at that point. She denies that she took any pills. Also denies any self-injurious behaviors. The thoughts with plan lasted about 1-3 hours. I just got in the car and drove around for an hour and then I thought well this is just stupid and she returned home. Very low frustration tolerance as single stressor (roommate going over a friends) led thoughts of killing herself. Very absolute thinking. Well I just erased any progress that I had. This happens every time I leave the hospital ... I'm back where I started. We challenged these thoughts. Pt did implement coping skills when she was suicidal which included thought reframing and challenging. Also utilized distraction. We went over skills and safety plans and identified other skills she could have utilized including calling support, mindfullness, grounding, breathing, and affirmations. I also encouraged her to call crisis if needed as well. Pointed out that she managed through a crisis event and was resilient as she did not follow through with plan, did not utilize unhealthy coping like self-injurious behaviors, and implemented skills. Pointed out progress. She reports not feeling as bad today. Long-standing SI which she continues to have however denies plan or intent. Contracts for safety. Future- oriented talking about her appointment with her outpatient psychiatrist and therapist tomorrow. Protective factors reported. Motivated to follow through with her daily routine schedule this afternoon. We briefly discussed the importance of her relationship with her roommate and went over some healthy ways to initiate conversation this evening to mend relationship as pt has been avoiding and isolating from roommate not making any effort. Risks/Concerns:: Refer above. Pt has had long standing fleeting SI with thoughts of methods since 04/22/22 which has resulted in 3 psychiatric admissions. The intensity varies with situational stressors. Pt has SI with plan last evening which lasted 1-3 hours. Currently reports fleeing SI however denies plan or intent. Contract for safety. Future-oriented. States numerous times during the session I don't need to go to the hospital again. Worked through crisis last evening by utilizing skills and is feeling better today. Progress Toward Goals/Plan:: Regression noted last evening however per pt report she did implement skills and did not utilize unhealthy coping (cutting). Notes feeling better today. Pt has low frustration tolerance and absolute thinking I'm either doing OK or I want to kill myself. Insight and awareness and we reviewed crisis management plan and added new skills. Developed plan for this afternoon and evening. We discussed the role of Borderline PD in feelings of abandonment and began to work on psychoeducation. Will continue in PHP to maintain safety, prevent decompensation, and stabilize mood. She is aware of crisis numbers and has called in the past. Encouraged her to phone crisis or go to the ER if urge to harm self and she is agreeable. I don't want to go back to hospital but I know I can. Time Stopped:: 12:50
--- NOTE | 2022-06-16 09:05 | BH.SGPN.GN ---
Behaviors/Verbalizations/Mental Status: [] Eye contact is good. Motor activity is appropriate. Appearance is casual. Speech is Appropriate. Mood is depressed. Affect is flat. Thoughts are linear and logical. No evidence of psychosis. Reviewed daily check in sheet and pt reports 5/5 for suicidal ideations and self-harm urges. Will be seen by therapist for risk assessment. Client Response/Progress/Benefit: [] Pt did not participated in group discussions and declined to show when called on. Daily symptom tracker notes 5/5 for depression, 4/ for anger and 5/5 for suicidal ideations and self-harm urges. Stated her win was ?I didn?t off myself?. Appeared irritable and disengaged throughout the group. No progress noted. Appears to have regressed. Limited benefit from group. Therapist will meet with her to complete risk assessment. Will continue in IOP to maintain safety. Narrative Note: []
--- NOTE | 2022-06-16 12:35 | BH.MDN ---
Multi-Disciplinary Note - Note 60-min Individual Time Started:: 10:15 Date: 06/16/22 Purpose of session/treatment goals addressed:: Risk assessment Eye Contact:: Poor Motor Activity:: Appropriate Appearance:: Disheveled Speech:: Appropriate Mood:: Irritable, Depressed Affect:: Flat Thoughts:: Linear, Logical, No evidence of hallucinations/delusions noted Staff Interventions:: completed risk assessment / safety planning Client Response:: Pt reported a 5/5 for suicidal ideations and a 3/5 for intent on symptom tracker this AM. During process group she verbalized that her only win yesterday was I didn't off myself. She is very resistant to any discussion on skills or following through with safety plan today stating Nothing works Nothing is changing I constantly just want to kill myself I just want to kill myself 26/04. Pt has had 3 psychiatric admissions since 05/02/22 and there is concern she is becoming very dependent on hospitalization to make her feel safe therefore the team has been focused on not re-admitting her since her most recent admission. She was suicidal with plan and intent on Wednesday night reporting that she was driving around with a bag of pills. Last evening she was again suicidal all evening which resulted in calling crisis twice. Attempted to develop a plan again for this evening however she was again resistant and dismissive of all suggestions and skills. Attempted to safety plan for the afternoon until appointment with her outpatient therapist and she was unwilling. Active SI, with plan and intent. She presented to [facility] with a bag of pills today which she willing handed over the therapist. States I can always find ways to kill myself or get more pills. The pills brought in today are reported to be previously prescribed medications. Attempted to highlight resiliency and her ability to manage thoughts yesterday however states I will be all alone tonight which is bad. She continued to make remarks throughout the session which were suggestive of killing herself which was concerning and could not be overlooked. Joaquin discussion was had regarding benefits and consequences of another hospital admission and she made a decision to walk to the ER for an admission. Therapist was agreeable with her decision for her own safety and was walked over to the hospital. Pt stopped at car on the way over and already had a bag packed for hospitalization. Risks/Concerns:: Refer above. SI with plan and intent. Unable to contract for safety. Progress Toward Goals/Plan:: No progress noted. Pt has reported decompensation since 06/14/22 with primary trigger noted to be conflict with roommate and fear of rejection/abandonment. Treatment team has been working on safety planning, encouragement, and crisis management coping skills with pt and while she initially responded well, was engaged in groups, and was medication compliant she has had significant struggles since 06/14/22. Non-compliant with medications this AM, did not participate in groups yesterday, and is dismissive of safety plan, crisis management skills, or any suggested interventions. Due to SI, plan, intent, and refusal to contract for safety she was walked over to the ER for evaluation and admission. Time Stopped:: 11:30
--- NOTE | 2022-06-16 14:00 | BH.DS_ITS ---
Discharge Summary - Demographics Date of Admission:: 06/11/22 Discharge Date: 06/16/22 Presenting Problems at Admission:: Pt is a 21 y/o F with hx of Bipolar, NOS, Borderline PD, ARMIN, and Bulimia Nervosa. Referred back to [facility] after psychiatric admission to [facility] for SI with plan on 05/28/22. Pt was sent to [facility] ER on 05/28/22 from [facility] program as she was unable to contract for safety. Her inpatient admission is her 3rd since 05/02/22 for SI with plan. Pt reported that most recent hospitalization was helpful due to medication changes. Upon re-admission to [facility] on 06/11/22 she denied active suicidal ideations, plan, or intent. Reported fleeting SI since discharge from [facility] however her thoughts were not as intense. Has been on FMLA from work since 05/02/22 due to mental health symptoms. Primary stressors are relationship with supports and work. Currently lives with a roommate. Hx of suicide attempt 10 years ago. Denies substance abuse. Discharge Diagnoses:: Bipolar, Depressed, Severe (F31.4) per discharge notes from [facility]. Borderline PD Reason for Discharge:: Pt presented this AM reporting suicidal ideations with plan an intent. She was unable to contract for safety and was escorted to [facility] ER for evaluation. After evaluation in the ER she was placed in a higher level of care. Transferred to [facility] Inpatient Psych Unit. - Treatment Progress During Treatment & Response: No progress noted during [facility] admission. Pt was admitted on 06/11/22 and was sent to higher level of care on 06/16/22. Pt appeared motivated and engaged in treatment for the first two days in [facility] however noted decompensation since 06/14/22. She noted today that her medications were not working, her skills were ineffective, and there is no point in trying. She was unwilling to safety plan or identify skills to manage distress and avoid hospitalization. Hx of non-compliance with medications and she reported that she did not take her medications this AM. Significant decompensation. Primary trigger and stressor is conflict with roommate. This will be her fourth psych admission since 05/02/22 and there is concern that she is becoming dependent on hospitalization to ease distress rather than attempting to implement coping skills. Issues Still to be Addressed:: Mood instability, SI, low distress and frustration tolerance, lack of support, negative thinking, use of unhelpful coping skills, self-harm, work stress, and medication noncompliance. Discharge Recommendations/Instructions:: This therapist reached out to pt's Psychiatric Nurse Practitioner (Harper Siddiqui) to discuss the case. Pt has failed [facility] PHP for the second-time and team is concerned that this level of care has not been beneficial. This therapist believes that pt's strong Borderline traits are a significant factor in her inability to mange any type of distress. Her fear of rejection and abandonment as the result of her conflicted relationship with her roommate is an ongoing trigger which has led to numerous hospitalizations. We strongly recommended an intensive DBT program and psychologist chief was in agreement. Discharge Handout: Complete Discharge Handout with client on aftercare options and continuity of care.
== END 2022-06-17 07:31 ==
LOC: BHPHP 09:00
PROVIDERS: PCP Nurse Practitioner Family; Visit Provider Psychiatry & Neurology Psychiatry
DX: F31.9 Bipolar disorder, unspecified (principal); Z79.899 Other long term (current) drug therapy
CPT/HCPCS: H0035; 90834; 90837; G0410

== ENCOUNTER 2022-06-16 11:30 | Emergency (ER) | payer OTHER, SELFPAY ==
[2022-06-16] VITALS (9 sets, daily range): BP systolic 117–150; BP diastolic 74–92; PULSE 71–102; RESP 14–16; TEMP 36.3; O2SAT 97–99; BMI 38.7
--- NOTE | 2022-06-16 11:42 | EX.ED.VIS.PS ---
HPI HPI - Psych History of Present Illness Chief Complaint: Suicidal Informant: patient Onset/Context/Timing Onset: Yesterday Context: Gradual Onset Timing: Continuous Worsened by: - (Being by herself) Relieved by: Nothing Associated Symptoms Associated Symptoms - Psych: Positive for Depressed and Suicidal Thoughts; Negative for Paranoia, Visual Hallucinations or Auditory Hallucinations Specific plan (suicidal thought): Overdose on medications Narrative Narrative: Patient presents with suicidal ideations that have been getting progressively worse since yesterday. Patient states it is gradually gotten worse. Patient states nothing in particular brought it on. Patient states she has been having thoughts of overdosing on medications. Patient states her feelings are worse whenever she is by herself. Patient states nothing seems to help. Patient denies any paranoid ideations. Patient denies any visual or auditory hallucinations. [facility] Medical History (Updated 06/16/22 @ 14:[address] Eric Olivares DO) Bipolar disorder, unspecified Borderline personality disorder Bulimia nervosa, purging type Generalized anxiety disorder Hypothyroidism Home Medications lamotrigine 25 mg tablet (Lamictal) 50 mg PO BID 05/27/22 [History Last Taken Unknown] meclizine 25 mg tablet 25 mg PO TID PRN PRN Nausea And Vomiting 05/27/22 [History Last Taken Unknown] bupropion HCl 150 mg 24 hr tablet, extended release 150 mg PO LUNCH 06/16/22 [History Last Taken Unknown] levothyroxine 175 mcg tablet 175 mcg PO DAILY 06/16/22 [History Last Taken Unknown] quetiapine 200 mg tablet,extended release 24 hr 200 mg PO QHS 06/16/22 [History Last Taken Unknown] Allergy/AdvReac Type Severity Reaction Status Date / Time amoxicillin [From Augmentin] Allergy Rash Verified 06/16/22 11:31 clavulanic acid Allergy Rash Verified 06/16/22 11:31 [From Augmentin] Penicillins Allergy Rash Verified 06/16/22 11:31 Surgical History (Updated 06/16/22 @ 11:[address] Eric Olivares DO) Hx of eye surgery Social History Smoking Status: Never smoker ROS ROS ED Constitutional Constitutional ED: Denies chills or fever(s) Eyes Eyes: Denies blurry vision or change in vision ENT ENT ED: Denies rhinorrhea or sore throat Cardiovascular Cardiovascular: Denies chest pain or palpitations Respiratory/Chest Respiratory/Chest: Denies cough or dyspnea Gastrointestinal Gastrointestinal: Denies nausea or vomiting Genitourinary Genitourinary ED: Denies dysuria or hematuria Musculoskeletal Musculoskeletal: Denies back pain or neck pain Integumentary Denies abscess or rash Neurologic Neurologic: Denies headache(s) or weakness Psychiatric Psychiatric: Reports depression, suicidal ideation and suicidal thoughts Allergic/Immunologic Allergic/Immunologic ED: Denies mouth swelling or urticaria EXAM Physical Exam Const Vital Signs: 06/16/22 11:31 06/16/22 12:36 06/16/22 13:26 Temperature 97.4 F L Temperature Source Temporal Pulse Rate 102 H Respiratory Rate 14 16 14 Blood Pressure 150/92 H Blood Pressure Mean 111 Pulse Ox 98 Oxygen Delivery Method Room Air Room Air 06/16/22 14:27 Temperature Temperature Source Pulse Rate 71 Respiratory Rate 16 Blood Pressure 117/74 Blood Pressure Mean 88 Pulse Ox 99 Oxygen Delivery Method Room Air Positive well nourished and well developed General Appearance ED: well developed HEENT normocephalic and atraumatic Neck supple and no JVD Resp normal respiratory effort and clear to auscultation bilaterally Cardio no murmurs Rate: regular rate Rhythm: regular rhythm GI non-tender and non-distended Auscultation: normoactive bowel sounds Palpation: soft Extremity normal to inspection General Extremety ED: Negative for edema or tenderness General Extremity: Negative for edema Neuro oriented x3, CN's II-XII intact bilaterally and no sensory deficits noted Sensorium / Orientation: alert Motor Exam: strength 5/5 throughout Psych mental status grossly normal Appearance: grossly normal, appropriate and well kempt Attitude: calm Activity / Motor Behavior: appropriate eye contact Speech: minimal and soft Mood & Affect: depressed and flat affect Thought Content: suicidality and No homicidality Skin Rashes: no rashes MDM MDM MDM Narrative Medical decision making narrative: CBC shows a mild leukocytosis of 12.4. Basic metabolic profile was obtained and was within normal limits. TSH was slightly low at 0.21. Serum alcohol level was negative. Serum hCG was negative. Urine tox screen was positive for MDMA. Patient is medically cleared. pond worker was in to evaluate the patient and felt the patient would benefit from inpatient treatment. She will attempt to have the patient transferred to a psychiatric facility. Patient understands and is agreeable with the plan. All questions were answered. Lab Data Attestation: I reviewed the patient's lab results. Labs: Laboratory Results - last 24 hr 06/16/22 06/16/22 06/16/22 12:00 12:00 12:00 WBC 12.4 H RBC 4.87 Hgb 13.5 Hct 40.7 MCV 83.6 MCH 27.7 MCHC 33.2 RDW Std Deviation 39.5 RDW Coeff of Seth 13.0 Plt Count 303 MPV 8.2 Immature Gran % (Auto) 0.400 Neut % (Auto) 71.6 H Lymph % (Auto) 21.7 Dickinson % (Auto) 4.4 Eos % (Auto) 1.3 Baso % (Auto) 0.6 Absolute Neuts (auto) 8.9 H Absolute Lymphs (auto) 2.69 Nucleated RBC % 0 Sodium 139 Potassium 4.0 Chloride 107 Carbon Dioxide 23.0 Anion Gap 9 BUN 15 Creatinine 0.75 Estim Creat Clear Calc 110.14 Est GFR (MDRD) Af Amer 123 Est GFR (MDRD) Non-Af 102 BUN/Creatinine Ratio 19.9 Glucose 100 Calcium 9.2 TSH 0.21 L Serum , Qual Urine Opiates Screen Urine Methadone Screen Ur Barbiturates Screen Ur Phencyclidine Scrn Ur Amphetamines Screen MDMA (Ecstasy) Screen U Benzodiazepines Scrn Urine Cocaine Screen U Cannabinoids Screen Ur Drug Screen Comment Ethyl Alcohol < 3.0 06/16/22 06/16/22 12:00 12:00 WBC RBC Hgb Hct MCV MCH MCHC RDW Std Deviation RDW Coeff of Seth Plt Count MPV Immature Gran % (Auto) Neut % (Auto) Lymph % (Auto) Dickinson % (Auto) Eos % (Auto) Baso % (Auto) Absolute Neuts (auto) Absolute Lymphs (auto) Nucleated RBC % Sodium Potassium Chloride Carbon Dioxide Anion Gap BUN Creatinine Estim Creat Clear Calc Est GFR (MDRD) Af Amer Est GFR (MDRD) Non-Af BUN/Creatinine Ratio Glucose Calcium TSH Serum , Qual NEGATIVE Urine Opiates Screen NEGATIVE Urine Methadone Screen NEGATIVE Ur Barbiturates Screen NEGATIVE Ur Phencyclidine Scrn NEGATIVE Ur Amphetamines Screen NEGATIVE MDMA (Ecstasy) Screen POSITIVE H U Benzodiazepines Scrn NEGATIVE Urine Cocaine Screen NEGATIVE U Cannabinoids Screen NEGATIVE Ur Drug Screen Comment Ethyl Alcohol Discharge Plan Triage Chief Complaint: Suicidal ED Provider: Eric Olivares Dx/Rx/DC Orders Clinical Impression: Depression with suicidal ideation, Hypothyroidism Prescriptions: No Action lamotrigine [Lamictal] 25 mg Tablet 50 mg PO BID meclizine [Antivert] 25 mg Tablet 25 mg PO TID PRN PRN (Reason: Nausea And Vomiting) levothyroxine 175 mcg tablet 175 mcg PO DAILY bupropion HCl 150 mg tablet extended release 24 hr 150 mg PO LUNCH quetiapine 200 mg tablet extended release 24 hr 200 mg PO QHS Primary Care Provider: Hellen Phillips Referrals: Hellen Phillips, [facility] [Primary Care Provider] - Disposition Disposition: Psychiatric Hospital or Unit Discharge Location: [facility]
[2022-06-16 12:09] LABS: Absolute Lymphocyte Count 2.69 X10^3/uL (0.83-4.51); Absolute Neutrophil Count 8.9 X10^3/uL (2.0-7.7); Basophil# 0.08 X10^3/uL; Basophil% 0.6 % (0-1); Eosinophil# 0.16 X10^3/uL; Eosinophils% 1.3 % (0-5); Hematocrit 40.7 % (37-47); Hemoglobin 13.5 g/dL (12.0-15.0); Lymphocyte # 2.69 X10^3/ul (0.83-4.51); Lymphocyte % 21.7 % (19-41); Mean Corp Hgb Conc 33.2 g/dL (32-36); Mean Corpuscular Hgb 27.7 pg (27.0-32.0); Mean Corpuscular Volume 83.6 fL (81-99); Mean Platelet Vol. 8.2 fl (6.2-12.0); Monocyte# 0.55 X10^3/uL; Monocyte% 4.4 % (0-10); NRBC Flagged by Analyzer 0 % (0-5); Neutrophil # 8.89 X10^3/uL (2.7-7.7); Neutrophil % 71.6 % (47-70); Platelet Count 303 K/mm3 (150-450); RBC Distribution Width SD 39.5 fl (35.1-43.9); Red Blood Count 4.87 M/mm3 (4.2-5.4); White Blood Count 12.4 K/mm3 (4.4-11.0)
[2022-06-16 12:19] LABS: Internal QC Validated? YES +Cl - CLEAR BKGD; Pregnancy, Serum, hCG Quali. NEGATIVE Negative
[2022-06-16 12:22] LABS: Amphetamine Urine VISTA NEGATIVE (<1000 ng/mL); Barbiturate Urine VISTA NEGATIVE (< 200 ng/mL); Benzodiazepine Urine VISTA NEGATIVE (< 200 ng/mL); Cocaine Urine VISTA NEGATIVE (< 300 ng/mL); Ecstacy Urine VISTA POSITIVE (< 500 ng/mL); Methadone Urine VISTA NEGATIVE (< 300 ng/mL); PCP Urine VISTA NEGATIVE (< 25 ng/mL); THC Urine VISTA NEGATIVE (< 50 ng/mL); Vista UDS pH Range 5
[2022-06-16 12:32] LABS: Anion Gap 9 (5-15); BUN 15 mg/dL (7-18); BUN/Creat Ratio 19.9 RATIO (10-20); Calcium,Total 9.2 mg/dL (8.5-10.1); Chloride 107 mmol/L (98-107); Creatinine, Serum 0.75 mg/dL (0.55-1.02); EST Glomerular Filtration Rate 102 mL/min (>60); Est Glom Filt Rate - Afr Amer 123 mL/min (>60); Estimated Creatinine Clearance 110.14 ml/min; Glucose 100 mg/dL (74-106); Sodium Level 139 mmol/L (136-145); Thyroid Stim Hormone (TSH) 0.21 uIU/mL (0.358-3.74)
[2022-06-16 12:52] LABS: Alcohol, Blood (Medical)-Serum < 3.0 mg/dL
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
--- NOTE | 2022-06-16 15:23 | ED.RN ---
1st attempt made to call report to receiving facility. terence weinstein, rn [id number]
--- NOTE | 2022-06-16 15:48 | CM.ED ---
ABAD Note SW received call from [facility]. [facility] advised that they can accept patient and the accepting MD is Dr. Cr. Patient is going to [address] and the phone number is [phone]. ABAD received call from [facility]. Patient has already found placement. SW called [facility] and advised placement is not needed. SW was called to patient's room and patient said that she was on the phone with her therapist. Patient gave consent to speak to her counselor from [facility]. [facility] said that patient is concerned about going to [facility] as it is so far away and there is no visitors currently. Patient said that she has no ride home. Patient said that she wanted to go someplace closer to home. Patient voiced that she is not going to get treatment at [facility]. SW encouraged patient to have a positive attitude regarding placement. Patient said that [facility] has visiting hours currently. Patient said that she didn't realize I lost all my rights when I came here. SW noted that patient presents as suicidal. Patient said well I can drive to [facility] and psych social worker explained that since patient presents with SI she cannot go and drive to [facility]. Patient again voiced that she is not going to get anything from [facility]. SW called Yogesh at [facility] and updated him that patient is going to [facility]. Plan: [facility] Ara MURRAY
[2022-06-16] MEDS: LORazepam 1 MG Tablet PO (18:35)
== END 2022-06-16 19:48 ==
PROVIDERS: Emergency Provider Emergency Medicine; PCP Nurse Practitioner Family; Visit Provider Emergency Medicine
DX: R45.851 Suicidal ideations (principal); F60.3 Borderline personality disorder; F31.9 Bipolar disorder, unspecified; E03.9 Hypothyroidism, unspecified; Z79.899 Other long term (current) drug therapy; F41.1 Generalized anxiety disorder; F16.90 Hallucinogen use, unspecified, uncomplicated
CPT/HCPCS: 36415; 80048; 80307; 82077; 84443; 84703; 85025; 87811; 99284

== ENCOUNTER 2022-06-23 08:47 | Outpatient (RCR) | payer OTHER, SELFPAY ==
--- NOTE | 2022-06-23 09:00 | BH.SGPN.GN ---
Behaviors/Verbalizations/Mental Status: [] Eye contact is good. Motor activity is appropriate. Appearance is casual. Speech is Appropriate. Mood is depressed. Affect is flat. Thoughts are linear and logical. No evidence of psychosis. Reviewed daily check in sheet and pt reports 2/5 for suicidal ideations and 0/5 for intent. Client Response/Progress/Benefit: []P Pt was an active participant in group discussion. Attentive. Daily symptom tracker notes 4/5 for anxiety and 2/5 for self-harm urges. Mental health win was I kept myself out of the hospital this weekend. Pt was admitted to inpatient psychiatric unit last week due to SI with plan. She returns today to enter into [facility] for a 3rd time. She is engaged and volunteered to share first. When asked what skills she used this weekend she reported distraction and spending time with support. Her emotion for today is scrambled stating that she feels like a hot potato referring to her 4 psych admissions, 3 PHP admissions, and continuing to see her outpatient providers. Group and therapist emphasized with her feelings. She appears motivated today. No progress noted as this is her first day in [facility]. Benefited from group support, encouragement, and feedback. Will continue in [facility] to maintain safety and prevent re-admission. Narrative Note: []
--- NOTE | 2022-06-23 11:02 | BH.SGPN.GN ---
Behaviors/Verbalizations/Mental Status: []Client alert and oriented, casually dressed and groomed. Eye contact fair to good. Motor activity appropriate. Speech within normal limits. Affect congruent, mood depressed. Thoughts linear, logical, no signs of hallucinations or delusions. Client Response/Progress/Benefit: []Client responded well to session AEB completing the resilience worksheet provided. Client participated in the discussion of how each resiliency component can help increase personal resiliency and worked cooperatively with group to identify strategies to enhance each of the components discussed. Client reported she feels she is doing well with the resilience traits of ?take decisive action? and ?move towards your goals?. Client stated she would like to continue to develop resilience trait of ?avoid seeing crises as insurmountable? by challenging herself to remind herself she can make it through this as she has made it through crises in the past. Client seemed to benefit from discussing strategies for improving personal resilience and identifying resilience traits client already possesses. Progress limited as pt still new to IOP program following recent hospitalization. Will continue IOP tx to prevent decompensation, continue to promote use of healthy coping skills, and maintain safety. Narrative Note: []
--- NOTE | 2022-06-23 13:42 | BH.MTP ---
Master Treatment Plan - Patient Information Program Physician:: Dr. Shari Modi Primary Therapist:: Shanna WANG - Psychiatric Diagnoses Psychiatric Diagnoses:: Bipolar disorder, NOS (F31.9); borderline personality disorder Diagnosis Code(s):: F 31.9 - Estimated LOS Estimated LOS (in weeks):: 1 Problem/Goal #1 - Problem/Goal #1 Stated Goal:: Stabilize the suicidal crisis AEB reduction of suicide domain on the DSM-5 outcome and self-report reduction in SI and increase in resilience. Description of Barriers: Limited coping skills, 4 psychiatric admissions in past 30 days, hopelessness, financial stressors, limited support, low frustration tolerance, and self-reported lack of motivation. Functional Impact: Pt has not been to work since 05/02/22 due to mental health symptoms and daily suicidal thoughts. Pt's relationships are impacted by pt's daily SI and hospitalizations. Pt reported not working impacts pt's self-esteem. Goal Relevant Strengths/Supports: Limited supports aside from roommate and pt's mother. Connected to outpatient counseling and psychiatry. Pt will do the DBT group through [id number] when she finishes PHP/IOP. - Objectives Objective #1 Stated Objective: Pt will identify 2 triggers and 2 coping skills to use when pt experiences mood dysregulation and has increased urges to engage in unhealthy, impulsive coping skills. Interventions: through individual and group counseling pt will be provided with education on healthy coping skills to manage mood symptoms, impulse, and crisis behaviors. Therapist will provide information on healthy alternatives to emotion release. Individual therapist will teach pt DBT techniques to increase emotional regulation and distress tolerance. Therapist will also use the BPD workbook to help pt gain insight to her symptoms, behaviors, and thought patterns. Discharge Criteria: pt will have accomplished this goal when pt can identify at least 2 triggers and 2 coping skills to increase mood stability and reduce unhealthy action urges. Target Date: 06/30/22 Review Date: 06/30/22 Status: open Objective #2 Stated Objective: Pt will learn and utilize 2-3 healthy coping strategies to better manage mood symptoms as shown by reduced DSM-5 scores. Interventions: Through group and individual sessions, therapist will help pt identify triggers and warning signs of depression and emotional dysregulation including emotional, physical, and behavioral changes. Therapist will teach pt various coping skills to manage her symptoms and give pt tangible resources to use to regulate emotions. Therapist will help pt incorporate behavioral activation and assist pt in setting SMART goals. Discharge Criteria: Pt will have met this goal when she can report learning and using at least 2 coping skills to manage mood symptoms and show a reduction in DSM-5 symptoms. Target Date: 06/30/22 Review Date: 06/30/22 Status: open
--- NOTE | 2022-06-23 13:42 | BH.MDN_ITS ---
Multi-Disciplinary Note - Note 60-min Individual Time Started:: 12:00 Date: 06/23/22 Purpose of session/treatment goals addressed:: To gather information on pt's current stressors, symptoms, triggers, and tx goals. Another goal was to build rapport and provide emotional support. Eye Contact:: Fair Motor Activity:: Appropriate Appearance:: Casual Speech:: Appropriate Mood:: Dysthymic Affect:: Flat Thoughts:: Linear, Logical, No evidence of hallucinations/delusions noted Staff Interventions:: motivational interviewing, mindfulness skills, rapport building, strengths perspective, completed risk assessment / safety planning, taught coping skills, other - DBT skills- distress tolerance and behavior chain analysis. Client Response:: Pt responded well to session, open to meeting with therapist. Pt shared her goals for [facility] as staying out of the hospital and understanding why I go there, gain stability, set boundaries without ghosting or being mean, and coping with suicidal ideations. Pt shared feeling like she is a hot potato being tossed around from the hospital to [facility]. Pt receptive to emotional support from therapist and validation. Discussed why pt keeps going to the hospital and pt self-reported that anytime there is stress or a stressor, pt has thoughts of killing herself. Pt shared the thoughts are more as a form of escape and pt connected with the behavior-chain analysis provided by therapist of the cycle of chronic SI. Pt shared she has thoughts of I'd rather not deal with this which then leads to calling crisis, going to the ER, or researching ways to kill self. Pt able to see how going to the hospital has been causing more issues for pt such as more lack of stability, issues with her relationships, and not getting better. Discussed how the hospital is still a support, but pt wants to use it as a last resort instead of an initial coping skills. Pt receptive to learning about distress tolerance and completing a worksheet. Pt will practice the self-talk statements for homework and tomorrow pt will work on identifying ways her supports can help her. Risks/Concerns:: Pt admits to chronic suicidal ideations that are triggered by stress. Pt reports last night she had fleeting SI triggered by anxiety of coming back to [facility]. Pt was able to control these thoughts with little difficulty. Pt denies any active SI, plan, or intent today. Future oriented. Reports ability to maintain safety. Progress Toward Goals/Plan:: First day back in PHP tx. Pt reports her ultimate goal this time is to stay out of the hospital. Pt self-reported she has been over-relying on the hospital which is progress. Pt continues to endorse daily, chronic SI, low self-worth, negative thinking, mood instability, and a depressed mood. Pt plans to participate in the DBT group through [id number] following her discharge from PHP/IOP. Pt will continue PHP tx to prevent decompensation and rehospitalization. Time Stopped:: 12:53
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
--- NOTE | 2022-06-24 09:00 | BH.SGPN.GN ---
Behaviors/Verbalizations/Mental Status: []Pt alert and oriented, casually dressed and groomed. Eye contact good. Motor activity appropriate. Speech within normal limits. Affect incongruent-smiling while talking about stressors, mood agitated. Thoughts linear, logical, no signs of hallucinations or delusions. Reviewed pt?s symptom tracker, no risk for suicidal ideation, plan, or intent as of 06/24/22. Pt's scores are at pt's baseline per her report. Client Response/Progress/Benefit: [] Pt responded well to session, engaged and receptive to peer feedback. Pt report feeling agitated this morning as pt and her roommate continue to have ongoing tension. Pt reported on the daily symptom tracker that she has been taking her medications and pt self-reported that she used healthy coping skills last night. Pt wanted to self-harm and was able to stop herself which is progress. The group offered pt additional ideas to prevent self-harm. Pt's stressor is feeling like her supports are overwhelming pt. Appeared to benefit from peers support and thought challenging. Pt will continue PHP tx to prevent rehospitalization and increase distress tolerance skills. Narrative Note: []
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
--- NOTE | 2022-06-24 11:10 | BH.SGPN.GN ---
Behaviors/Verbalizations/Mental Status: []Client alert and oriented, casually dressed and groomed. Eye contact fair to good. Motor activity appropriate. Speech within normal limits. Affect congruent, mood depressed and anxious. Thoughts linear, logical, no signs of hallucinations or delusions. Client Response/Progress/Benefit: []Client engaged during activity and contributed some input when prompted as group brainstormed ideas on how to cope with internal barriers that keep clients stuck from moving towards goals. Able to identify barriers to desired reality. Client identified wanting to work on overcoming the barrier of intrusive suicidal thoughts by more consistently challenging herself to practice ?riding the wave? and remember that thoughts are thoughts, not facts. Shared that this will help to reduce overall depression levels and prevent escalating to point of crisis. Benefited from group by identifying obstacles and solutions to desired reality. Client will continue IOP tx to continue to promote use of healthy coping skills, as well as further improve mood management, prevent decompensation, and improve and overall functioning. Narrative Note: []
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
--- NOTE | 2022-06-24 11:45 | PCM.BH.PN_ITS ---
Progress Note Progress Note: History of Present Illness/Interim History: [] The patient is a 21-year-old female who is known to the [facility] IOP program having participated in the program several times in May 2022. She was last seen by me on May 27, 2022 and the patient has since been sent to the emerg ency room and been admitted to psychiatric units 2 times since that visit. This center is an interim note and for further detail please see the initial psychiatric evaluation done on May 27, 2022. This is the third time the patient has started the PHP program in the past month. She for started on May 25 but was subsequently discharged on May 28 when she was admitted for suicidal ideation to [facility] from May 28 to June 05. She then again started the PHP program but was sent to the emergency room for suicidal ideation with a plan to overdose on June 16 and was then admitted to the [facility] again and was discharged from [facility] on June 19, 2022. At the time of her second admission she had suicidal ideation with a plan to overdose on a mixture of old pills which included Wellbutrin, trazodone, Abilify, Celexa and Seroquel. Since discharge from the hospital the patient states her mood remains depressed and she does still endorse feeling hopelessness. She is still guilty but denies worthlessness. She is sleeping 7 to 8 hours a night and her energy level is okay overall. She is a worrier still and somewhat fearful at times of what she does not know. She has constant chronic suicidal ideation for the past year which is currently passive only for the last week although it does occur daily and she has no definite plan for how she would commit suicide now. She does endorse passive thoughts that she would not care if she . She did not denies hallucinations or delusions. She denies homicidal ideation or thoughts of self-harm. The patient was supposed to return to work on May 29, 2022 and needs to extend her short-term disability and request this during the visit. Current Psychiatric Medications: [] Lamictal 50 mg p.o. twice daily; Seroquel 200 mg p.o. nightly (started May 30, 2022); Wellbutrin 150 mg p.o. once in the afternoon (started May 30 while inpatient 2021); levothyroxine 175 MCG p.o. every morning (started May 30, 2022); Antivert 25 mg p.o. as needed for vertigo due to patient's history of nystagmus and for previous eye surgeries. Mental Status Examination: [] The patient is an overweight 21-year-old female who appears her normal for stated age and is casually dressed and groomed with good hygiene. She is cooperative during the evaluation and he is ambulatory with a normal gait. She has no psychomotor retardation or agitation. Eye contact is good and speech is regular rate and rhythm and fluent with no pressure. Mood is anxious and depressed. Affect is constricted. Thought process is goal-directed and organized. Thought content: The patient admits to passive thoughts that she would not care if she . The patient states admits that she has constant chronic suicidal ideation but in recent days it has been passive only and she there is no evidence of a plan. Reality testing is intact. There is no evidence of homicidal ideation, hallucinations or delusions. Intelligence is average. Impulsivity is high. Judgment is poor. Insight is limited. Diagnoses: [] 1. Bipolar disorder, NOS (F31.9) 2. Borderline personality disorder 3. Generalized anxiety disorder 4. Bulimia nervosa with purging by emesis 5. Primary support and work issues 6. Rule out PTSD Plan: [] The patient will start the PHP program at [facility] as the structure, support, education, group and individual therapy will hopefully prevent worsening of the patient's symptoms which could require another rehospitalization. She felt safe during the interview and if any at anytime she does not feel safe she agrees to let us know or go to the emergency room. The risks, options, possible complications and side effects of the medications were again discussed with the patient and she understands and accepts these. No medication changes were made today. The patient will continue to follow-up with her outpatient psychiatric providers and I will see the patient in follow-up in several in 1 week.
--- NOTE | 2022-06-24 11:52 | BH.DR.ITP ---
Initial Treatment Plan Patient Information Visit Information: ADMISSION DATE: EXPECTED LOS: 4-6 weeks Problems/Symptoms Problem #1:: Mood instability Symptom:: Depression, sadness, hopelessness, guilt, passive thoughts of , passive, chronic suicidal ideation, thoughts of self-harm Problem #2:: Anxiety Symptom:: Worry, rumination, avoidance
[2022-06-24 12:02] VITALS: BP 108/72; PULSE 76
--- NOTE | 2022-06-24 14:10 | BH.MDN ---
Multi-Disciplinary Note - Note 45-min Individual Time Started:: 12:15 Date: 06/24/22 Purpose of session/treatment goals addressed:: To process current stressors, triggers, and application of coping skills. To practice the DBT STOP and ho mind skills. Eye Contact:: Good Motor Activity:: Appropriate Appearance:: Casual Speech:: Soft Mood:: Irritable, Dysthymic Affect:: Constricted - mostly constricted, but at times pt would smile while talking about her stressors. Thoughts:: Linear, No evidence of hallucinations/delusions noted Staff Interventions:: thought challenging, motivational interviewing, mindfulness skills, strengths perspective, other - DBT skills including ho mind and stop Client Response:: Pt responded well to session, open to meeting with therapist. Pt reports last night she was frustrated with her roommate because her roommate did not turn off the lights. Pt shared she wanted to self-harm, but she was able to prevent herself from doing so. Pt looked over her DBT worksheet, watched a movie, and took her nighttime medications instead of self-harming. Discussed the pros and cons of her relationship with her roommate. Pt sees that this is unhealthy, but pt reports she is not able to tell her roommate how she feels without backlash. Pt also reports she cannot move out, so pt has to make the most of her current situation. Used ho mind and radical acceptance to help with this stressor. Pt is still encouraged to have more direct communication as pt admits right now she and her roommate are most passive or passive-aggressive to each other. Pt also created her three intentions for the day which included doing the dishes, writing in her journal, and cleaning the litterbox. Risks/Concerns:: Pt admits to passive suicidal ideations today that are chronic and always there per pt's report. Pt denies any active SI, plan, or intent today. Reports ability to control the thoughts. Future oriented. Progress Toward Goals/Plan:: Second day of PHP and pt continues to report motivation to stay out of the hospital and get better. Pt practiced coping skills last night that were discussed in session. Pt continues to have interpersonal relationship issues with her roommate, chronic SI, support issues, and mood instability. Pt is receptive to learning skills in session, but will state I don't know if that will help. Pt will continue PHP tx to prevent rehospitalization and increase distress tolerance skills. Time Stopped:: 12:55
--- NOTE | 2022-06-25 09:05 | BH.SGPN.GN ---
Behaviors/Verbalizations/Mental Status: [] Eye contact is good. Motor activity is appropriate. Appearance is casual. Speech is Appropriate. Mood is depressed. Affect is flat. Thoughts are linear and logical. No evidence of psychosis. Reviewed daily check in sheet. Pt utilizes a special check in sheet for chronic SI which is reviewed daily by therapist Client Response/Progress/Benefit: [] Pt participated at times during the group discussion. Attentive. Daily symptom tracker notes 4/5 for depression, 2/5 for anxiety, and 5/5 for self-harm urges. Mental health win was that she completed ? 2 out of 3 good intentions? which was an assignment given to her by her therapist. She briefly explained this to the group. Shared that she utilized an unhealthy coping skill last night (cutting) and believes that she is a failure. Group worked hard to reframe and challenge absolute thinking. Pt utilized several health coping and completed multiple responsibilities yesterday which group pointed out. Emphasized that with mental health progress should be praised. Pt focused entirely on one negative yesterday and discounted all positive and healthy skills utilized. Benefited from group support and encouragement. She continues to be reporting daily SI which is triggered by the slighted stressor. Will continue in PHP to maintain safety, stabilize mood, and prevent re-admission. Narrative Note: []
--- NOTE | 2022-06-25 10:10 | BH.SGPN.GN ---
Behaviors/Verbalizations/Mental Status: []Pt alert and oriented, casually dressed and groomed. Eye contact good. Motor activity appropriate. Speech within normal limits. Affect congruent, mood stressed and depressed. Thoughts linear, logical, no signs of hallucinations or delusions. Client Response/Progress/Benefit: []Pt responded well to session AEB taking notes throughout and listening attentively to others. Pt was attentive throughout group activity identifying famous individuals and how they overcame failure to be successful. Pt helped group identify how fear of failure can impact mental health and relationships. Pt personally identified it leads to avoiding asking for help and getting ?better.? Pt participated in experiential activity and pt made the connect of progress requires challenging assumptions. Appeared to benefit from increased knowledge of fear of failure. Pt showing progress in her consistent engagement in group all week. Will continue PHP tx to prevent rehospitalization and increase distress tolerance skills. ?? Narrative Note: []
--- NOTE | 2022-06-25 11:10 | BH.SGPN.GN ---
Behaviors/Verbalizations/Mental Status: []Pt alert and oriented, casually dressed and groomed. Eye contact good. Motor activity appropriate. Speech within normal limits. Affect constricted, mood depressed. Thoughts linear, logical, no signs of hallucinations or delusions. Client Response/Progress/Benefit: []Pt responded well to session, engaged in the experiential activity and attentive throughout group processing. Pt reported fear of failure has kept pt from healthy relationships, trying new things, and getting better. Pt completed fear of failure worksheet and was able to identify thoughts and behaviors that reinforce personal fear of failure including all or nothing thinking, expecting immediate results, and fear of vulnerability. Pt participated in small group discussion regarding strategies to overcome fear of failure. Identified wanting to work on ?finding the locke? to combat all or nothing thinking. Appeared to benefit from increased knowledge of strategies to combat fear of failure and gaining self-awareness. Pt will continue PHP tx to prevent rehospitalization and increase distress tolerance skills. ? Narrative Note: []
--- NOTE | 2022-06-25 14:43 | BH.MDN ---
Multi-Disciplinary Note - Note 45-min Individual Time Started:: 12:10 Date: 06/25/22 Purpose of session/treatment goals addressed:: To work on distress tolerance skills, thought challenging, and harms reduction strategies. Another goal was to help pt give self credit. Eye Contact:: Fair Motor Activity:: Appropriate Appearance:: Casual Speech:: Soft Mood:: Depressed Affect:: Other - incongruent- often smiles when talking about stressors and SI Thoughts:: Circular, No evidence of hallucinations/delusions noted Staff Interventions:: thought challenging, motivational interviewing, strengths perspective, completed risk assessment / safety planning, goal setting, other - DBT skills- dialectical thinking. Also discussed beginning an accomplishment log Client Response:: Pt responded well to session, open to meeting with therapist. Pt reported feeling embarrassed because she cut herself last night and now is struggling to give herself credit. Pt used did accomplish other goals and tried using healthier coping skills before this, so there were some positives. Pt acknowledges her all or nothing thinking keeps her stuck and feeling like a failure when she has a setback. Pt able to challenge these thoughts in session and realize that she cannot quit unhealthy coping skills cold turkey. Pt receptive to keeping a log of her wins/accomplishments. Also discussed pt spending more time out her room when her roommate is away. Pt is anxious about returning to work and we discussed what this may look like. Pt is not ready to go back to work, but she also struggles because work gave her routine and structure. Therapist attempted to help pt develop a routine outside of work, but pt shared nothing has been working. Pt reports this is very frustrating for her as in the past coping skills did work. Discussed pt's mindset towards using the coping skills and practicing thinking in the duran about her progress/skill application. Pt is learning more about her chronic suicidality and reports using a more descriptive suicide scale has been helpful for pt. This also takes away some anxiety of returning to the hospital. Pt has homework to begin her thought log and practice distress tolerance skills. Risks/Concerns:: Pt admits to having fleeting suicidal ideations last night and pt did research methods online, but pt denied intent to act. Pt relapsed with self-harm last night with the intention to deal with her emotions, not to kill herself. Pt denies any active SI, plan, or intent today. Pt able to contract for safety. Progress Toward Goals/Plan:: Pt continues to be motivated to stay out of the hospital and her engagement in group sessions has been active the past three days which is progress. Pt continues to have daily, chronic SI that is fleeting and mostly passive. Pt is still able to contract for safety. Pt is still reliant on external support or unhealthy coping skills to manage her negative thinking and SI. Pt will continue PHP tx to prevent rehospitalization and increase distress tolerance skills. Time Stopped:: 12:50
--- NOTE | 2022-06-26 10:00 | BH.SGPN.GN ---
Behaviors/Verbalizations/Mental Status: [] Eye contact is good. Motor activity is appropriate. Appearance is casual. Speech is Appropriate. Mood is depressed. Affect is congurent. Thoughts are linear and logical. No evidence of psychosis. Client Response/Progress/Benefit: [] Pt participated at times during the group discussion. Attentive during psychoeducation. Active during experiential activity. Participated during interactive discussion on aspects of fixed mindset. Group identified several aspects of fixed mindset which included; inflexible, belief that one cannot grow, absolute thinking, and all of one's skills, traits, and behaviors are set in stone and can't change. Group then identified examples of fixed thinking which included; Im never going to get better, I'm always going to be like this, I'm going to fail, I'm broken and will always be like this. Pt did well in experiential activity in which they were given a seemingly impossible task and were asked to identify fixed thoughts that arose. Benefited from increased understanding of fixed mindsets and how they can impact mental health. Will continue in [facility] to prevent decompensation/ re-admission, maintain safety, and improve functioning to return to work. Narrative Note: []
--- NOTE | 2022-06-26 11:00 | BH.SGPN.GN ---
Behaviors/Verbalizations/Mental Status: []Pt alert and oriented, casually dressed and groomed. Eye contact good. Motor activity appropriate. Speech within normal limits. Affect incongruent and self-reported she laughs and smiles when struggling, mood overwhelmed and depressed. Thoughts linear, logical, no signs of hallucinations or delusions. Client Response/Progress/Benefit: []Pt was an active participant in group discussion. Participated in their small group and was attentive during group psychoeducation on growth mindset vs fixed mindset. Pt and peers identified and shared examples of growth mindset. Pt participated in interactive discussion and practiced changing a fixed mindset thought to a growth mindset thought. Pt reframed his fixed thought of ?I have to do this by myself? and challenged this with ?I don?t have a lot of support, but I have some support.? Benefited from increased awareness and insight of growth mindset and strategies to change from fixed mindset thoughts to growth mindset thoughts. Plan to continue in PHP tx to prevent rehospitalization, increase distress tolerance skills, and improve functioning. Narrative Note: []
--- NOTE | 2022-06-26 15:51 | BH.MDN ---
Multi-Disciplinary Note - Note 30-min Individual Time Started:: 12:05 Date: 06/26/22 Purpose of session/treatment goals addressed:: To create a plan for the weekend to promote structure, routine, and distress tolerance. Another goal was to identify recent wins to increase self-motivation. Eye Contact:: Fair Motor Activity:: Appropriate Appearance:: Casual Speech:: Appropriate Mood:: Anxious, Dysthymic Affect:: Other - incongruent at times AEB smiling while talking about thoughts of and stressors. Thoughts:: Linear, Logical, No evidence of hallucinations/delusions noted Staff Interventions:: thought challenging, motivational interviewing - regarding returning to the hospital vs using distress tolerance skills., strengths perspective, completed risk assessment / safety planning, other - created a routine for the weekend Client Response:: Pt responded well to session, open to meeting with therapist. It has been over a week that pt was last admitted to a psychiatric hospital and pt is able to acknowledge this as progress. Pt reports feeling torn because pt both wants to stay out of the hospital and return to the hospital. Pt can admit that she gets a secondary gain from going to the hospital. Pt identified the things she likes about the hospital including: the structure, less stimulation and no phone, safety (from self and others), control over who she sees, and no roommate. Pt able to see how returning to the hospital has short-term gains and many long-term consequences such as less stability and more interpersonal stressors. Process which of these pt could incorporate into her daily life in which pt identified structure, reducing her phone use, and creating a routine. Pt used an hourly schedule and wrote out different things she will do this weekend. Pt put down coping skills such as journaling, her three intentions, and writing down one thing she looks forward to each day. Pt is also going to work on improving her hygiene and regulating her sleep schedule to help for when she returns to work. Pt receptive to this plan and willing to practice the skills discussed as well as write down what additional tasks she does over the weekend. Risks/Concerns:: Pt denies any active SI, plan, or intent as of 06/26/22. Pt did not self-harm last night even though she had urges. Pt had chronic SI that is passive today per her report. Still able to contract for safety. Pt self-reports she is wanting to go to the hospital as pt likes the structure and safety. So there is a concern that pt will admit themselves this weekend due to wanting that structure and safety. Does not present as an immediate threat to self. Progress Toward Goals/Plan:: Pt is making progress towards her treatment goals AEB pt staying out of the hospital for over a week. Pt has also been consistently more engaged in group sessions and she is connecting with peers. Pt also reports she has been incorporating coping skills more consistently, but pt still has daily passive suicidal ideations and urges to self-harm. Pt also admits that without work she does not have a routine which impacts pt's mood and thinking patterns. Pt will continue PHP tx to prevent rehospitalization, increase distress tolerance skills, and improve daily functioning. Time Stopped:: 12:40
--- NOTE | 2022-06-29 09:00 | BH.SGPN.GN ---
Behaviors/Verbalizations/Mental Status: []Pt alert and oriented, casually dressed and groomed. Eye contact good. Motor activity appropriate. Speech within normal limits. Affect full-smiling and laughing with peers, mood euthymic. Thoughts linear, logical, no signs of hallucinations or delusions. Reviewed pt?s symptom tracker, no risk for suicidal ideation, plan, or intent as of 06/29/22. Client Response/Progress/Benefit: []Pt responded well to session, attentive and providing supportive feedback to others. Pt reports feeling both exhausted and content this morning. Pt's mental health wins included not going to the hospital over the weekend and getting out of the house with her mother. Pt shared on Wednesday she wanted to go to the hospital, but pt told herself no I don't I just want an escape. Pt also followed through with her goal to write down her mental health wins and stressors in a journal. Pt's stressor today is her recent medication change. Pt appeared to benefit from connecting with peers and reflecting on progress. Will continue PHP tx to increase distress tolerance skills and further reduce SI. Narrative Note: []
--- NOTE | 2022-06-29 10:10 | BH.SGPN.GN ---
Behaviors/Verbalizations/Mental Status: []Client alert and oriented, casually dressed and groomed. Eye contact good. Motor activity appropriate. Speech normal. Affect congruent, mood anxious and depressed, Thoughts linear, logical, no signs of hallucinations or delusions. Client Response/Progress/Benefit: []Client was engaged participant AEB listening attentively to others and providing input in group. Attentive during psychoeducation on communication styles. Assisted group with identifying barriers of effective communication which included: ?assumptions, shutting down, and mood.? Client identified they most often use passive or passive-aggressive communication styles, which often leads to increased stress and anger when their needs are not met as a result.? Client reports using passive communication with her roommate which has continued to cause conflict in the relationship. Reports trying to be more assertive within interpersonal relationships. Benefited from increased awareness of different communication barriers, styles, and the importance of communicating effectively to improve mental wellness. Will continue PHP tx to prevent decompensation and maintain safety, as well as increase healthy communication, and stabilize functioning. Narrative Note: []
--- NOTE | 2022-06-29 10:10 | BH.SGPN.GN ---
Behaviors/Verbalizations/Mental Status: []Client alert and oriented, casually dressed and groomed. Eye contact good. Motor activity appropriate. Speech within normal limits. Affect congruent, mood anxious and depressed, Thoughts linear, logical, no signs of hallucinations or delusions Client Response/Progress/Benefit: []Client responded well to session AEB client listening attentively to others and providing input during group discussion on the pay offs and costs of the different communication styles. Client recognizes negative impact on her ability to get her needs met and prevent crisis escalation when she doesn't use healthy communication. Client did well in the activity to be assertive and ask for help and direction from the group. Recognizes if group couldn?t actively listen to one another in the activity, they wouldn?t have been successful. Attentive during psychoeducation on interpersonal DBT skill PETERSON. Client set a goal to work on being more expressive in communicating with goal of trying to use more ?I? statements to communicate her needs. Client seemed to benefit from increasing awareness of healthy strategies to improve communication. Client will continue PHP tx to improve successful communication, improve stability, and prevent decompensation. Narrative Note: []
--- NOTE | 2022-06-29 15:43 | BH.MDN ---
Multi-Disciplinary Note - Note 45-min Individual Time Started:: 12:15 Date: 06/29/22 Purpose of session/treatment goals addressed:: To process current stressors, triggers, and symptoms over the weekend. Another goal was to review coping skills pt used and homework from last session. Eye Contact:: Good Motor Activity:: Appropriate Appearance:: Casual Speech:: Appropriate Mood:: Euthymic, Anxious Affect:: Congruent Thoughts:: Linear, Logical, No evidence of hallucinations/delusions noted Staff Interventions:: thought challenging, CBT techniques, strengths perspective, goal setting, other - Worked on beliefs and behaviors that keep her stuck from the [employer] workbook. Client Response:: Pt responded well to session, open to meeting with therapist. Pt shared she had some conflict with her roommate this weekend and pt wanted to go to the hospital. Pt reported I told myself I just want to escape, so I didn't. This is significant progress for pt as the hospital has been her safety net. Pt followed her routine over the weekend and had some positive moments like going shopping with her mother. Pt receptive to learning about the beliefs that keep her stuck and pt connected with the belief that she cannot make mistakes and she cannot trust others. Pt shared these stem from previous experiences and fear of not being perfect. Pt receptive to completing homework on identifying patterns that keep her stuck. Risks/Concerns:: Pt admits to having fleeting SI with thoughts of wrecking her car over the weekend, but denied any intent. Pt also had urges to hospitalize herself on Wednesday night due to stressors with her roommate, but pt was able to self-sooth and talk with the crisis line. Denies any active SI, plan, or intent today. Continues to respond well to the new SI self-assessment. Progress Toward Goals/Plan:: Pt demonstrated progress as pt did not self-harm or go to the ER over the weekend despite dealing with stressors. Pt completed her goals and followed her routine that pt established last week. Pt continues to struggle with negative thinking, low distress tolerance, poor sleep, and is having some medication withdrawal. Pt was encouraged to call her outpatient psych provider today. Pt will continue PHP tx to further reduce SI and self-harm and increase distress tolerance. Pt understands and is agreeable to drop down to IOP later this week. Time Stopped:: 13:00
--- NOTE | 2022-06-30 09:00 | BH.SGPN.GN ---
Behaviors/Verbalizations/Mental Status: [] Client alert and oriented, casually dressed and groomed. Eye contact good. Motor activity appropriate. Speech within normal limits. Affect constricted, mood euthymic. Thoughts linear, logical, no signs of hallucinations or delusions. Reviewed client?s symptom tracker, no risk for suicidal ideation, plan, or intent as of 06/30/22. Client Response/Progress/Benefit: [] Client responded well to group by participating and being attentive in group. Reported that her emotion was exhausted. Client shared that she has been being more mindful as of lately with last night taking a shower for relaxation. Client reported that she is feeling some stress with medication changes. Client seemed to benefit from feedback from group members, along with validation and encouragement. She will continue IOP tx to increase coping skills and increase overall functioning. Narrative Note: []
--- NOTE | 2022-06-30 10:10 | BH.SGPN.GN ---
, Behaviors/Verbalizations/Mental Status: [] Client alert and oriented, casually dressed and groomed. Eye contact good. Motor activity appropriate. Speech within normal limits. Affect congruent, mood euthymic. Thoughts linear, logical, no signs of hallucinations or delusions. Client Response/Progress/Benefit: [] Client responded well to session AEB sharing and listening attentively to others. Client provided examples of benefits of having social support indicating that you are not doing things alone. Clinician provided psychoeducation on types of support including internal and external support, with client identifying family and hobbies as other supports. Client participated in experiential activity illustrating the importance of having multiple social supports. Client provided supportive feedback and problem solving throughout group activity. Client participated in group processing of the activity. Client appeared to benefit from increased knowledge of the benefits of social support and greater self-awareness. Will continue IOP treatment to continue increasing use of coping skills, prevent decompensation and improve daily functioning. Narrative Note: []
--- NOTE | 2022-06-30 11:10 | BH.SGPN.GN ---
Behaviors/Verbalizations/Mental Status: [] Client alert and oriented, casually dressed and groomed. Eye contact good. Motor activity appropriate. Speech within normal limits. Affect congruent, mood euthymic. Thoughts linear, logical, no signs of hallucinations or delusions. Client Response/Progress/Benefit: [] Client was an active participant throughout AEB contributing to discussion, providing personal examples, and taking notes. Client provided input during discussion on the types of support our supports can provide. Client able to identify current support system and barriers that get in the way of using supports by drawing out their own support net. Client reported after identifying what type of supports they receive; they gained awareness that they could benefit from more emotional supports. Client identified steps to achieve this by reconnecting with friends and family and get into a support group. Client shared increasing emotional supports will help her have healthier outlets. Client seemed to benefit from identifying the type of support client needs to work on improving. Client recommended to continue IOP tx to prevent decompensation, reduce isolation, and increase emotional regulation skills. Narrative Note: []
--- NOTE | 2022-06-30 13:39 | BH.MDN_ITS ---
Multi-Disciplinary Note - Note 30-min Individual Time Started:: 12:00 Date: 06/30/22 Purpose of session/treatment goals addressed:: To identify and begin challenging dysfunctional beliefs. Eye Contact:: Good Motor Activity:: Appropriate Appearance:: Casual Speech:: Soft Mood:: Other - tired and in pain per her report Affect:: Constricted Thoughts:: Linear, Logical, No evidence of hallucinations/delusions noted Staff Interventions:: thought challenging, strengths perspective, taught coping skills, other - reviewed homework and began identifying and challenging dysfunctional beliefs. Client Response:: Pt responded well to session, open to meeting with therapist. Pt shared she took a long shower yesterday because the shower is the only place I don't feel like garbage. Pt is having some withdrawal symptoms from being ta [place] off of Seroquel, but she spoke with her psychiatrist and they are putting her back on it. Pt will then be weaned slowly. Pt completed her homework from last session and identified one of her patterns of thinking as I'm perfect or I'm nothing. Pt able to see how this belief leads to burnout, isolation, and not asking for help. Pt receptive to learning how to begin challenging this belief and other dysfunctional beliefs. Pt practiced reframing these beliefs in session and is encouraged to practice this again for homework. Pt also will keep up with her goals from earlier this week for self-care and maintaining a routine. Risks/Concerns:: Pt's daily symptom tracker scores for SI are the lowest they have been in over a week. Pt continues to report daily SI that is passive, but denies any active SI, plan, or intent. Pt is managing stressor much better and has been isolating less. Denies that she self-harmed last night. Progress Toward Goals/Plan:: Pt continues to make progress towards her tx goals AEB her daily symptom tracker scores decreasing for SI, staying out of the hospital for over a week, and consistently following through with her homework. Pt continues to struggle with negative core beliefs, low distress tolerance (but this is improving), and sleep issues. Pt is having some side effects since being taken off her Seroquel, but pt spoke with her outpatient psych today. Pt will continue with PHP tx for one more day and discharge to [facility] level of care. Time Stopped:: 12:35
--- NOTE | 2022-07-01 09:02 | BH.SGPN.GN ---
Behaviors/Verbalizations/Mental Status: []Pt alert and oriented, casually dressed and groomed. Eye contact good. Motor activity appropriate. Speech within normal limits. Affect congruent, mood depressed and anxious. Thoughts linear, logical, no signs of hallucinations or delusions. Reviewed pt?s symptom tracker, risk for suicidal ideation reported as within pt baseline, denies plan, or intent as of 07/01/22 Client Response/Progress/Benefit: []Pt responded well to session, attentive and providing supportive feedback. Pt reports feeling distressed this morning as pt shared she is worried about returning to work the end of next month. Recognizes she has time to develop more skills and create a return to work plan prior to doing so. Noted mental health wins as addressing her medication concerns with outpatient psychiatrist, as well as practicing self-care yesterday. Pt appeared to benefit from reflecting on her use of coping skills and reduced depressive sx. Pt will drop down to IOP level of care as pt has made significant gains and is no longer expressing acute suicidality. Pt in agreement to begin IOP tx tomorrow to continue to improve emotional regulation skills, reduce negative thinking, and further improve mood stability. Narrative Note: []
--- NOTE | 2022-07-01 10:10 | BH.SGPN.GN ---
Behaviors/Verbalizations/Mental Status: []Pt alert and oriented, disheveled appearance but hair looked clean. Eye contact good. Motor activity appropriate. Speech within normal limits. Affect constricted, mood anxious. Thoughts linear, logical, no signs of hallucinations or delusions. Client Response/Progress/Benefit: []Pt engaged throughout AEB taking notes, listening attentively, and providing input throughout. Attentive during psychoeducation and discussed the importance of goal-setting with the group. Group identified potential benefits of having goals to include: they motivate, increase self-confidence, provide a sense of accomplishment and give direction. Group also worked together to identify barriers to goal-setting which included; high expectations, negative thinking, and lack of motivation. Pt identified personal barriers to include wanting instant gratification and lack of motivation. Benefited from increased awareness of benefits and barriers to goal-setting. Pt will discharge from [facility] level of care and continue in IOP tx to increase mood stability, reduce impulsivity, and improve daily functioning. Narrative Note: []
--- NOTE | 2022-07-01 11:45 | PCM.BH.PN ---
Progress Note Progress Note: History of Present Illness/Interim History: [] The patient is a 21-year-old female who is seen in follow-up at the [facility] PHP program. The patient has participated in the program several times in May and has been sent to the emergency room and been admitted to the psych unit 2 times since we started seeing her. I last saw the patient 1 week ago. When asked how she has been doing in the past week since I saw her last the patient says well I am not in the hospital. Patient states that she has had suicidal ideation in the past week since being discharged from the hospital but it has been passive and has only been intense or lasting longer a few days last week. She was able to not have it become active suicidal ideation and she was able to not attempt suicide she states by using her coping skills. The patient was stopped taken off her Seroquel last week but said she had withdrawal and was put back on it now they are weaning slowly. The patient did engage in self-harm 3 days ago but it was a superficial cut only and did not require any treatment. She still feels hopeless on occasion but not all the time. Sleep is still good and energy level is okay. She denies passive thoughts of , active suicidal ideation, hallucinations or delusions. Letter was sent to extend her short-term disability. Current Psychiatric Medications: [] 1. Lamictal 50 mg p.o. twice daily; Seroquel now 150 mg p.o. nightly and weaning it down every week by her outpatient provider; Wellbutrin 150 mg p.o. once in the afternoon; Celexa 10 mg p.o. daily (started 4 days ago); levothyroxine and Antivert as needed for vertigo Mental Status Examination: [] The patient is an overweight 21-year-old female who appears normal for stated age and is casually dressed and groomed with good hygiene and he has purple hair. She is ambulatory with a normal gait and is has no psychomotor retardation or agitation. Eye contact is good and speech is regular rate and rhythm and fluent with no pressure. Mood is depressed. Affect is minimally constricted. Thought process is goal-directed and organized. Thought content: The patient admits to passive suicidal ideation off and on in the last week. She denies passive thoughts of , active suicidal ideation, homicidal ideation, hallucinations or delusions. Reality testing is intact. Intelligence is average. Impulsivity is very high. Judgment is poor and insight is limited. Diagnoses: [] 1. Bipolar disorder, NOS (F31.9) 2. Borderline personality disorder 3. Generalized anxiety disorder 4. History of bulimia nervosa with purging by emesis 5. Primary support and work issues Plan: [] The patient will drop down from PHP down to IOP this week as she appears to be somewhat more stable then in recent weeks. She will continue the IOP program as the structure, support, education and group therapy will hopefully prevent worsening of the patient's symptoms which could require another rehospitalization. She felt safe during the interview and if it anytime she does not feel safe she agrees to let us know or go to the emergency room. The risks, options, possible complications and side effects of the medications were again discussed with the patient and she understands and accepts these. No medication changes were made today. The patient will continue to follow-up with her outpatient providers and I will see the patient in follow-up on a regular basis while in the IOP program.
--- NOTE | 2022-07-01 14:29 | BH.DS_ITS ---
Discharge Summary - Demographics Date of Admission:: 06/23/22 Discharge Date: 07/01/22 Presenting Problems at Admission:: Pt is a 21 y/o F with hx of Bipolar, NOS, Borderline PD, ARMIN, and Bulimia Nervosa. Referred back to [facility] after [facility] to [facility]/16[facility]-06/18/22. Fourth hospitalization since 05/02/22 for SI with plan. Has been on FMLA from work since 05/02/22 due to mental health symptoms. Primary stressors are relationship with supports and work. Currently lives with a roommate. Hx of suicide attempt 10 years ago. Denies substance abuse. Discharge Diagnoses:: Bipolar disorder, NOS (F31.9); borderline personality disorder Reason for Discharge:: Pt has successfully competed [facility] tx AEB pt not being hospitalized in two weeks, report of no self-harm in two weeks, and pt's reduced intensity of SI. Pt will step down to IOP level of care. - Treatment Progress During Treatment & Response: Pt responded well to tx AEB her consistent attendance and engagement in group and individual sessions. Pt demonstrated progress in reducing self-harm and preventing rehospitalization. Pt will continue to work on increasing distress tolerance skills to improve her daily functioning. Issues Still to be Addressed:: Chronic SI, negative core beliefs, poor communication and distress tolerance, work stress, interpersonal relationship issues, medication concerns (Seroquel), sleep issues, and mood instability. Discharge Recommendations/Instructions:: Pt will begin IOP tx tomorrow, 07/02/22. Pt will continue with her outpatient providers when she finishes IOP. Discharge Handout: Complete Discharge Handout with client on aftercare options and continuity of care.
--- NOTE | 2022-07-01 14:29 | BH.MDN ---
Multi-Disciplinary Note - Note 30-min Individual Time Started:: 12:00 Date: 07/01/22 Purpose of session/treatment goals addressed:: To review progress made in [facility] level of care, help pt give self credit, and identify IOP tx goals. Eye Contact:: Fair Motor Activity:: Appropriate Appearance:: Casual Speech:: Soft Mood:: Anxious Affect:: Constricted Thoughts:: Linear, Logical, No evidence of hallucinations/delusions noted Staff Interventions:: strengths perspective, treatment planning, other - reviewed progress in PHP. Processed returning to work stress. Client Response:: Pt responded well to session, open to meeting with therapist. Pt feels better today after getting back on Seroquel. Pt felt that she was having side effects from going off her Seroquel cold turkey so her outpatient therapist is slowly weaning her. Pt is anxious about returning to work on the 27 of July as well as finances, but pt recognizes that it is more helpful to focus on what is in her control this week. Pt and therapist will begin working on returning to work this Wednesday. Pt reflected on her progress since starting IOP tx which included not isolating as much, coping better with stressors, not always wanting to kill myself, and staying out of the hospital despite stressors. Pt still struggles with managing her moods and challenging her negative thoughts. Pt's goals for IOP tx include improving work-related functioning, combating distortions, and creating more of a routine and structure while off work. Risks/Concerns:: Pt continues to endorse chronic, daily suicidal ideations that are passive. However, the intensity of pt's suicidal ideations have decreased since admission and pt can manage her suicidal thoughts better now. Pt has reduced self-harm and has not been to the hospital in over a week. Pt is future oriented and reports ability to maintain safety. Progress Toward Goals/Plan:: Pt has made progress and has accomplished her PHP tx goals. Pt's suicidality has decreased, pt has been able to stay out of the hospital, and pt is improving with distress tolerance. Pt continues to have severe anxiety about returning to work, but she is not wanting to kill herself because of the stress now which is significant. Pt's thought patterns are still very negative, pt has interpersonal conflict, and pt struggles with lack of motivation. Pt will begin IOP tx tomorrow, 07/02/22. Time Stopped:: 12:25
== END 2022-07-01 12:31 | disposition home or self-care (01) ==
LOC: BHPHP 08:47
PROVIDERS: PCP Nurse Practitioner Family; Visit Provider Psychiatry & Neurology Psychiatry
DX: F31.9 Bipolar disorder, unspecified (principal); F60.3 Borderline personality disorder; F41.9 Anxiety disorder, unspecified; Z79.899 Other long term (current) drug therapy
CPT/HCPCS: H0035; S9480; 90832; 90834; 90837; G0410

== ENCOUNTER 2022-07-02 08:00 | Outpatient (RCR) | payer OTHER, SELFPAY ==
--- NOTE | 2022-07-02 09:01 | BH.SGPN.GN ---
Behaviors/Verbalizations/Mental Status: [] Pt eye contact poor, casually dressed, motor activity appropriate, speech normal rate and tone, mood anxious and dysthymic, congruent affect, tearful, thoughts linear and intact, no evidence of delusions or hallucinations. Per client's daily symptom tracker she indicated passive thoughts of , denies current intention and indicated able to self-soothe. Client does not appear to be imminent risk to harm self or others. Client Response/Progress/Benefit: [] Client respond well to session as evidenced by her sharing thoughts and feelings and listening attentively to others. Client stated she is having a rough morning because she got a speeding ticket which she stated is her first ever. Client reports she is already feeling stressed coming to group today because it is her first day in IOP after being in PHP for a while. Client admitted her first automatic negative thought when she got pulled over was I want to kill myself. Client recognizes this is her typical immediate thought following a crisis situation from her perception. Client receptive to feedback from peers about allowing self to feel upset about the situation but not allowing it to control the rest of her day. Client seemed to benefit from support and feedback from peers. Affect appeared to improve after having a chance to talk about current emotions. Client to continue IOP to increase utilization of healthy coping skills, continue to challenge disorder thought patterns, and prevent decompensation. Narrative Note: []
--- NOTE | 2022-07-02 10:15 | BH.SGPN.GN ---
Behaviors/Verbalizations/Mental Status: []Eye contact is good. Motor activity is appropriate. Appearance is casual. Speech is Appropriate. Mood is anxious and depressed. Affect is flat. Thoughts are linear and logical. No evidence of psychosis. Client Response/Progress/Benefit: []Pt was disengaged during group discussion. Attentive during psychoeducation on problem-solving strategies. Participated in group experiential activity. Pt participated during interactive group discussion in which pt and peers worked through an example of a problem (Managing Anxiety) in which they identified a goal (minimizing anxiety) and identified barriers. Group was able to complete the activity and pt was able to practice in the moment problem-solving and make connections between problem-solving for activity and in real-life situations. Increased awareness of how pt often shuts down or gets overwhelmed when faced with problems. Will continue IOP tx to prevent decompensation, increase distress tolerance, and help pt increase mood stability to return to work. Narrative Note: []
--- NOTE | 2022-07-02 11:12 | BH.SGPN.GN ---
Behaviors/Verbalizations/Mental Status: []Pt alert and oriented, casual dress, hygiene tended to. Eye contact fair. Motor activity WNL. Speech appropriate rate and tone. Affect constricted, mood anxious and depressed.? Thoughts linear, logical, no signs of hallucinations or delusions. Client Response/Progress/Benefit: []Pt engaged in session as evidenced by pt listening to others throughout, though provided limited input herself. Reports struggling with her own intrusive thoughts today regarding a stressor which occurred prior to group. Reports this has impeded her ability to focus in the session and pt did not complete the problem solving worksheet provided as a result. Pt seemed to benefit from learning about problem solving method and reviewing strategies for implementing this skill with her own mental health issues. Pt will continue IOP tx to promote gains, further increase mood management, and further reduce depressive sx. Narrative Note: []
--- NOTE | 2022-07-02 14:40 | BH.MTP_ITS ---
[facility] Treatment Plan - Patient Information Program Physician:: Dr. Shari Modi Primary Therapist:: Shanna WANG - Psychiatric Diagnoses Psychiatric Diagnoses:: Bipolar disorder, NOS (F31.9); borderline personality disorder Diagnosis Code(s):: F 31.9 - Estimated LOS Estimated LOS (in weeks):: 6 Problem/Goal #1 - Problem/Goal #1 Stated Goal:: Pt will decrease depressive symptoms, hopelessness, worthlessness, negative self-talk, and reduce chronic SI. Description of Barriers: self-report of limited benefit from coping skills, 4 psychiatric admissions in past 30 days, hopelessness, financial stressors, limited support, low frustration tolerance, and self-reported lack of motivation. Functional Impact: Pt has not been to work since 05/02/22 due to mental health symptoms and daily suicidal thoughts. Pt's relationships are impacted by pt's daily SI and hospitalizations. Pt reported not working impacts pt's self-esteem. Ongoing difficulty with completing ADLs and easily overwhelmed which triggers SI. Goal Relevant Strengths/Supports: Pt successfully completed PHP and prevent rehospitalization. Pt has outpatient therapy and psychiatry. Pt will be participating in [place] [id number]'s DBT group after IOP tx. - Objectives Objective #1 Stated Objective: Pt will learn and utilize 2-3 healthy coping strategies to better manage depressive symptoms and decrease DMS-5 symptoms for depression. Interventions: Through group and individual sessions, therapist will help pt identify triggers and warning signs of depression and guilt including emotional, physical, and behavioral changes. Therapist will teach pt various coping skills to manage symptoms and give pt tangible resources to use to regulate emotions. Therapist will use cognitive restructuring techniques and help pt gain awareness of negative thoughts that reinforce guilt and depression. Therapist will provide psychoeducation on maintenance cycles and help pt learn ways to break unhealthy maintenance cycles. Therapist will help pt incorporate behavioral activation and assist pt in setting SMART goals. Discharge Criteria: Pt will have met this goal when can report learning and using at least 2 coping skills to manage depressive symptoms and when pt's DSM- 5 scores for depression decrease. Target Date: 08/13/22 Review Date: 07/23/22 Status: open Objective #2 Stated Objective: Pt will identify at least 2-3 negative self-talk messages used to reinforce negative core beliefs, worthlessness, and isolation and replace thoughts with balanced, realistic messages. Interventions: Therapist will help pt identify distorted, negative beliefs about self and replace with more realistic, affirmative messages. Therapist will use CBT and DBT to help pt increase insight to the connection between thoughts, emotions, and behaviors. Therapist will encourage pt to practice thought challenging. Discharge Criteria: Pt will have achieved this goal when can verbalize at least 2 cognitive distortions and effectively replace those thoughts with affirmative messages. Target Date: 08/13/22 Review Date: 07/23/22 Status: open Problem/Goal #2 - Problem/Goal #2 Stated Goal:: Will reduce impulsivity and anxiety through increasing emotional regulation and distress tolerance skills Description of Barriers: self-report of limited benefit from coping skills, 4 psychiatric admissions in past 30 days, hopelessness, financial stressors, limited support, low frustration tolerance, and self-reported lack of motivation. Functional Impact: Pt has not been to work since 05/02/22 due to mental health symptoms and daily suicidal thoughts. Pt's relationships are impacted by pt's daily SI and hospitalizations. Pt reported not working impacts pt's self-esteem. Ongoing difficulty with completing ADLs and easily overwhelmed which triggers SI. Goal Relevant Strengths/Supports: Pt successfully completed PHP and prevent rehospitalization. Pt has outpatient therapy and psychiatry. Pt will be participating in [place] [id number]'s DBT group after IOP tx. - Objectives Objective #1 Stated Objective: Pt will identify 2 triggers and 2 coping skills to use when pt experiences mood dysregulation and has increased urges to engage in unhealthy, impulsive coping skills. Interventions: Through individual and group counseling pt will be provided with education on healthy coping skills to manage mood symptoms, impulse, and crisis behaviors. Therapist will provide information on healthy alternatives to emotion release. Individual therapist will teach pt DBT techniques to increase emotional regulation and mindfulness. Therapist will also engage pt to use self-compassion while working to change behaviors. Discharge Criteria: pt will have accomplished this goal when pt can identify at least 2 triggers and 2 coping skills to increase mood stability and reduce unhealthy action urges. Target Date: 08/13/22 Review Date: 07/23/22 Status: open Objective #2 Stated Objective: Pt will identify 2-3 anxiety/panic triggers and 2 coping skills to use when feeling anxious to manage anxiety as shown by reducing DSM-5 scores for anxiety. Interventions: Therapist will provide education on anxiety, avoidance behaviors, and maintenance cycles. Therapist will help pt explore personal symptoms and warning signs of anxiety. Therapist will teach pt coping skills to improve emotional regulation, mindfulness, and distress tolerance to help pt cope with anxiety in the moment. Discharge Criteria: Pt will have accomplished this goal when he can identify at least 2 triggers and report using 2 coping skills to manage anxiety. Additionally, pt will have accomplished this goal AEB reduction of DSM-5 scores for anxiety. Target Date: 08/13/22 Review Date: 07/23/22 Status: open
--- NOTE | 2022-07-03 10:10 | BH.SGPN.GN ---
Behaviors/Verbalizations/Mental Status: []Eye contact is good. Motor activity is appropriate. Appearance is casual. Speech is Appropriate. Mood is depressed. Affect is constricted. Thoughts are linear and logical. No evidence of psychosis. Client Response/Progress/Benefit: []Pt was an active participant in group discussions. Attentive during psychoeducation and participated in interactive discussions in which group defined self-care, discussed the benefits to self-care, and identified common myths surrounding self-care. Pt shared that she was struggling with rumination about her own stressors which has prevented engagement in personal self-care in the past. Group identified that self-care myths include; self-care is selfish, self-care is just personal hygiene, self-care should be fun, self-care is too time consuming, and I don?t deserve it. Pt and peers broke into smaller group and worked together to bust the myths associated with self-care. Benefited from increased awareness of the importance of self-care and its benefits. Progress limited as pt continues to struggle with limited ability to self-regulate when experiencing new and unexpected stressors. Will continue in IOP to prevent decompensation, increase emotion regulation skills and depression management, and improve functioning. Narrative Note: []
--- NOTE | 2022-07-03 11:10 | BH.SGPN.GN ---
Behaviors/Verbalizations/Mental Status: []Pt alert and oriented, casually dressed and groomed. Eye contact good. Motor activity appropriate. Speech within normal limits. Affect constricted, mood anxious and agitated. Thoughts linear, logical, no signs of hallucinations or delusions. Client Response/Progress/Benefit: []Pt engaged participant AEB completing self-assessment worksheet, but pt was mostly quiet during discussion. Participated throughout group discussion on the various areas of self-care. Pt completed worksheet which identified current self-care practices and what self-care activities pt wants to start using. Pt selected psychological self-care to begin practicing more consistently. Pt plans to do this by continuing to come to IOP and being honest in therapy. Appeared to benefit from completing the self-care evaluation and gaining insights into current self-care practices, as well as identifying areas in which she would like to improve upon. Will continue IOP tx to prevent decompensation, increase use of distress tolerance skills, and improve ability to manage stressors. Narrative Note: []
--- NOTE | 2022-07-03 14:39 | BH.MDN ---
Multi-Disciplinary Note - Note 30-min Individual Time Started:: 09:20 Date: 07/03/22 Purpose of session/treatment goals addressed:: To work on goal #1 of pt's treatment plan as well as process recent stressor of getting a speeding ticket. Eye Contact:: Fair Motor Activity:: Slowed Appearance:: Casual Speech:: Soft Mood:: Dysthymic Affect:: Flat Thoughts:: Other - ruminating, No evidence of hallucinations/delusions noted Staff Interventions:: thought challenging, motivational interviewing, strengths perspective, goal setting, other - problem-solving Client Response:: Pt responded well to session, open to meeting with therapist. Pt reported she is struggling since getting a speeding ticket yesterday. Pt shared I know I'm not the only person in the world that has gotten one, but this is terrible. Pt is also having increase suicidal ideations because of this stressor. Pt has gained awareness that suicidal ideations are her automatic thoughts when she is stressed. Pt reports the thoughts are because she wants an escape and that she does not have any intention to act on the thoughts. Practiced calming skills in session, but pt did share feeling like nothing is working. Pt is having urges to stop using her healthy coping skills, but was able to challenge this. Pt receptive to problem-solving her speeding ticket stressor. Discussed what anxiety does to her thinking and reminded pt that she has resources and time to pay off this ticket. Pt was still anxious at the end of session, but less anxious per her report. Risks/Concerns:: Pt admits to having suicidal thoughts today with thoughts of overdosing on her Seroquel. Pt has chronic SI and reports she is able to control these thoughts and self-soothe. Pt does not have any intent today. Pt is future oriented. Progress Toward Goals/Plan:: Pt continues to make progress towards her tx goals AEB her report of no self-harm in the last two weeks and the prevention of rehospitalization. Pt's distress tolerance is improving from admission, but it is still low as pt continues to have increased SI especially when under stress. Continues to endorse negative thinking patterns, poor distress tolerance, low motivation, and anxiety. Pt is highly upset about getting a speeding ticket and returning to work, but she is still able to manage her suicidal ideations which is significant progress for pt. Will continue IOP tx to prevent decompensation, improve overall functioning, and increase distress tolerance skills. Time Stopped:: 09:55
--- NOTE | 2022-07-08 08:55 | BH.SGPN.GN ---
Behaviors/Verbalizations/Mental Status: []Eye contact fair, casually dressed, motor activity appropriate, speech normal rate and tone, mood depressed and anxious, flat affect, thoughts linear and intact, no evidence of delusions or hallucinations. Reviewed pt's symptom tracker, reports suicidal ideation, however indicates this is within pt typical baseline and denies plan or intent as of this date 07/08/22. Client Response/Progress/Benefit: []Pt responded well to session, attentive and nodding as other?s shared throughout. Pt reports feeling indifferent this morning and shared that she was able to get some laundry done and come to group despite not wanting to which was a win. Current stressor identified as managing her finances but noted trying to use healthier coping skills to cope with stress related to this. Expressed some progress in being able to better manage her emotions without escalating to point of crisis. Pt appeared to benefit from group support and encouragement. Recommended continued IOP tx to continue to improve consistency of healthy skill application, reduce depressive sx, and further improve mood stability. Narrative Note: []
== END 2022-07-03 23:59 ==
LOC: BHIOP 08:00
PROVIDERS: PCP Nurse Practitioner Family; Visit Provider Psychiatry & Neurology Psychiatry
DX: F31.9 Bipolar disorder, unspecified (principal); F60.3 Borderline personality disorder
CPT/HCPCS: S9480; 90832; 90853

== ENCOUNTER 2022-07-06 09:01 | Outpatient (RCR) | payer OTHER, SELFPAY ==
--- NOTE | 2022-07-06 09:05 | BH.SGPN.GN ---
Behaviors/Verbalizations/Mental Status: []Pt alert and oriented, casually dressed and groomed. Eye contact good. Motor activity appropriate. Speech within normal limits. Affect constricted, mood anxious and depressed. Thoughts linear, logical, no signs of hallucinations or delusions. Reviewed pt?s symptom tracker, no risk for suicidal ideation, plan, or intent as of 07/06/22 Client Response/Progress/Benefit: []Pt responded well to session, open to feedback and attentive. Pt reports feeling stressed this morning due to worry about returning to work in a few weeks. Pt received encouragement from shoe folder and peers about pt's return to work, reminding pt of her strengths. Pt reflected on her progress in preventing rehospitalization and improving functioning at home. Pt continues to report fear of regression and she is receptive when thought challenged. Pt will continue IOP tx to prevent decompensation, improve distress tolerance, and improve resilience. Narrative Note: []
--- NOTE | 2022-07-06 10:10 | BH.SGPN.GN ---
Behaviors/Verbalizations/Mental Status: [] Eye contact is poor.. Motor activity is appropriate. Appearance is casual. Speech is Appropriate. Mood is depressed. Affect is mojgan. Thoughts are linear and logical. No evidence of psychosis. Client Response/Progress/Benefit: [] Pt participated at times in group discussion. Attentive AEB by note taking during psychoeducation on the types cognitive distortions, the CBT triangle, and automatic thoughts. This group was very information heavy as group was introduced to the various cognitive distortions however pt did participate at times in interactive discussions with peers in which they gave examples of certain cognitive distortions. Benefited from increased awareness and education on cognitive distortions and how they impact mental health. Will continue in IOP to prevent decompensation/re-admission, maintain safety, and increase healthy coping skills. Narrative Note: []
--- NOTE | 2022-07-06 15:18 | BH.MDN ---
Multi-Disciplinary Note - Note 45-min Individual Time Started:: 11:20 Date: 07/06/22 Purpose of session/treatment goals addressed:: To process negative, anxious thoughts and practice coping skills in the moment. Another goal was to review return to work strategies to reduce anxiety. Eye Contact:: Fair Motor Activity:: Restless Appearance:: Casual Speech:: Soft Mood:: Anxious, Irritable, Depressed Affect:: Flat Thoughts:: Circular, No evidence of hallucinations/delusions noted Staff Interventions:: thought challenging, motivational interviewing, mindfulness skills, strengths perspective, completed risk assessment / safety planning, other - discussed strategies to help pt return to work Client Response:: Pt responded somewhat well to session, restless and slightly irritable. Pt was receptive to practicing grounding skills in the moment. Therapist walked pt through a progressive muscle relaxation and pt reported it kind of helped. Pt can identify coping skills and often reports that she knows many, but pt struggles with self-implementation. Pt shared today that I've regressed a lot and reports feeling this way since Wednesday. Discussed triggers and pt admitted that she stopped using coping skills and taking her medications Wednesday. Pt has refrained from cutting which is progress, but pt shared she is having increased urges to cut. Pt receptive to motivational interviewing and encouragement to get back into using her healthy skills. Processed stress and anxious about returning to work in a few weeks. Identified things pt can do and ways she can advocate for herself. 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 Pt encouraged to practice mindfulness again today before she leaves. Risks/Concerns:: Pt reports increased passive SI today due to stress around returning to work in a few weeks. Pt's self-report on the daily symptom tracker was at her baseline as pt has chronic, passive SI. Pt denies any active SI, plan, or intent today. Pt able to contract for safety and is future oriented. Pt has increased urges to self-harm, but has not self-harmed in two weeks. Pt does not want to self-harm with the intent to kill herself. Progress Toward Goals/Plan:: Pt continues to make progress towards her tx goals AEB her report of no self-harm in the last two weeks and the prevention of rehospitalization. Pt's distress tolerance is improving from admission, but it is still low as pt continues to have increased SI when under stress. Continues to endorse negative thinking patterns, lack of interest, low motivation, and anxiety. Pt is not ready to return to work and she is ruminating excessively about this. Will continue IOP tx to prevent decompensation, improve overall functioning, and increase distress tolerance skills. Time Stopped:: 12:00
--- NOTE | 2022-07-08 10:00 | BH.SGPN.GN ---
Behaviors/Verbalizations/Mental Status: []Pt alert and oriented, neatly dressed and groomed. Eye contact fair. Motor activity appropriate. Speech within normal limits. Affect flat, mood anxious and depressed. Thoughts linear, logical, no signs of hallucinations or delusions. Client Response/Progress/Benefit: []Pt responded well to session AEB sharing when prompted and listening attentively to others. Pt ?was quiet throughout group, but she appeared to be taking notes and nodding at times. Pt appeared to connect to psychoeducation on types of boundaries, including physical, emotional, and intellectual. Pt listened attentively and nodding throughout discussion in which group members shared personal examples of different types of boundaries. Pt appeared to benefit from increased knowledge of the types of boundaries and increased self-awareness of personal boundaries. Will continue IOP tx to prevent decompensation, increase overall functioning, and increase distress tolerance. Narrative Note: []
--- NOTE | 2022-07-08 11:52 | PCM.BH.PN ---
Progress Note Progress Note: History of Present Illness/Interim History: [] The patient is a 21-year-old female who has a history of bipolar disorder, NOS, anxiety and borderline personality disorder who is seen in follow-up at the [facility] behavioral health PHP program. I last saw the patient 1 week ago and since that time the patient has been engaged in treatment with good attendance and compliance with medication. Patient has been able to stay out of the hospital after being admitted twice since starting the PHP program. The patient states that her mood has been up-and-down lately. She says today her mood is more down than up. She states that she feels she is learning from the IOP program how to manage her mental health issues. She has some financial stressors as some of her bills are due soon. She admits to some thoughts of wanting to cut herself but she has not engaged in any self-harm for several weeks now. She does say that at times she has passive thoughts that she would not care if she . She had some passive, suicidal ideation in the last few days but she has not had any suicidal ideation today so far. Sleep is good and energy level is okay. She denies homicidal ideation, active suicidal ideation, plan for suicide, hallucinations, delusions or symptoms of lolis. Current Psychiatric Medications: [] Lamictal 50 mg p.o. twice daily; Seroquel 150 mg p.o. nightly and weaning it down by her outpatient provider; Wellbutrin 150 mg p.o. once in the afternoon according to the patient; Celexa 10 mg p.o. daily (started 11 days ago); levothyroxine and Antivert Mental Status Examination: [] The patient is an overweight 21-year-old female who appears normal for stated age and is casually dressed and groomed with good hygiene. She is ambulatory with a normal gait and has no psychomotor return eye contact is fair only and speech is regular rate and rhythm and fluent with no pressure. Mood is depressed. Affect is mildly constricted. Thought process is goal-directed and organized. Thought content: The patient admits to urges to self-harm. She also admits to passive thoughts of and occasional passive suicidal ideation. There is no evidence of active suicidal ideation, homicidal ideation, hallucinations or delusions. Reality testing is intact. Intelligence is average. Impulsivity is very high. Judgment is limited and insight is limited. Diagnoses: [] 1. Bipolar disorder, NOS (F31.9 2. Borderline personality disorder 3. Generalized anxiety disorder 4. History of bulimia nervosa with purging by emesis 5. Primary support and work issues Plan: [] The patient will drop down from [facility] to [facility] this week as she has continued to be relatively stable. She will be continued in [facility] as the structure, support, education and group therapy will hopefully prevent rehospitalization. She felt safe during the interview and if it anytime she does not feel safe she agrees to let us know or go to the emergency room. The risk, options, possible complications and side effects of the medications were again discussed with the patient and she understands accepts these. No medication changes were made today. She will continue to follow-up with her outpatient providers and I will see the patient in follow-up on a regular basis while in the IOP program.
--- NOTE | 2022-07-08 11:58 | BH.DR.ITP ---
Initial Treatment Plan Patient Information Visit Information: ADMISSION DATE: EXPECTED LOS: 4-6 weeks Problems/Symptoms Problem #1:: Depression Symptom:: Sadness, mood instability and lability, hopelessness, thoughts of self-harm, passive thoughts of , Symptom:: Suicidal ideation Problem #2:: Anxiety Symptom:: Worry, rumination
--- NOTE | 2022-07-08 16:25 | BH.MDN ---
Multi-Disciplinary Note - Note 45-min Individual Time Started:: 11:50 Date: 07/08/22 Purpose of session/treatment goals addressed:: To work on goal #2 of pt's treatment plan and to practice thought challenging for all or nothing thinking. Eye Contact:: Fair Motor Activity:: Appropriate Appearance:: Casual Speech:: Soft Mood:: Anxious, Dysthymic Affect:: Congruent - tearful Thoughts:: Other - ruminations, No evidence of hallucinations/delusions noted Staff Interventions:: thought challenging, CBT techniques, mindfulness skills, strengths perspective, other - helped pt challenge distorted thinking patterns and write down positive self-talk statements. Client Response:: Pt responded well to session, open to meeting with therapist. Pt was visibly anxious and therapist commented on pt's change in engagement in group throughout the week. Pt admitted that she has not been able to engage or focus because she has been stuck in my head. Pt is anxious about returning to work and has thoughts of what if I go back and I mess up and I go back to the hospital. Pt fears not only disappointing people, but the financial component if this were to happen. Pt self-reports that she has not tried in group or with using her skills because what if I try and then I mess up and this was all for nothing. Pt was tearful and receptive to emotional support and validation. Pt completed two rounds of deep breathing which helped calm pt's breathing. Pt did well with gentle thought challenging and willing to write down some reframed thoughts. Pt struggled to give herself credit, but pt was able to see how she has progressed in two weeks. Discussed how this progress seemed impossible to pt a month ago, but pt has been able to avoid the hospital and cutting. Pt encouraged to remind herself of this when she convinces herself that she cannot cope with returning to work in three weeks. Pt wrote out four different reframed messages and will keep these in her car. Pt also is working on writing out a message to her supervisor [employer] to advocate for herself. Pt understands this therapist will be gone on vacation starting Wednesday07/10/22 and pt will meet with one of the other [facility] therapists during that time. Risks/Concerns:: Pt admits to having passive suicidal ideations today triggered by stress and fear of failure. Pt did self-harm via purging last night, but has not cut in over two weeks. Pt reports she is still able to self-soothe and contracts for safety. Pt denies any plan or intent as of 07/08/22. Pt is future oriented. Progress Toward Goals/Plan:: Pt's stressors are ongoing and pt has significant anxiety about returning to work and then regressing with her mental health. Pt receptive to thought challenging and emotional support. Pt is still managing her anxiety and stressors much better than she was a month ago. A month ago a trigger like this would have led to a hospitalization. Pt admits to not using healthy coping skills and shutting down in group due to her negative thinking. Pt will continue IOP tx to prevent decompensation, improve distress tolerance, and help pt increase skills to return to work. Time Stopped:: 12:28
--- NOTE | 2022-07-10 09:05 | BH.SGPN.GN ---
Behaviors/Verbalizations/Mental Status: [] Eye contact is good. Motor activity is appropriate. Appearance is casual. Speech is Appropriate. Mood is euthymic. Affect is full. Thoughts are linear and logical. No evidence of psychosis. Reviewed daily check in sheet and pt reports 3/5 for suicidal ideations and 3/5 for intent on chronic SI check-in sheet (baseline). Client Response/Progress/Benefit: [] Pt was an active participant in group discussion. Attentive. Daily symptom tracker notes 3/5 for depression and self-harm urges. Mental health win was that she spoke with her employer regarding her return to work. She went in to discuss this face to face which she reports helped her ?get a better feel? and decrease her overall anxiety regarding returning to work. The conversation went well and has somewhat decrease her stress, anxiety, and fear about returning to work. Asked and received feedback on language to use to discus her absence with her co-workers. Emotion is ?cautiously optimistic?. Benefited from support and feedback from peers. Will continue in IOP to maintain safety and prevent decompensation/re-admission. Narrative Note: []
--- NOTE | 2022-07-10 10:13 | BH.SGPN.GN ---
Behaviors/Verbalizations/Mental Status: []Client alert and oriented, casually dressed and groomed. Eye contact good. Motor activity WNL. Speech appropriate rate/tone. Affect congruent, mood dysthymic. Thoughts linear, logical, no signs of hallucinations or delusions.?? Client Response/Progress/Benefit: []Pt responded well to session, provided input and supportive feedback throughout. Pt participated in group discussion regarding mental health benefits of change. Noted that change can result in improved mood and prevent depression maintenance cycles. Pt identified three small personal changes to improve their mental health as: increased consistency of healthy coping, improved self-care, and better boundaries. Identified current barriers keeping pt from making those changes to be fear of other?s reactions, lack of motivation, and not knowing where to begin. Pt appeared to benefit from gaining awareness of personal changes that would improve mental health and the barriers keeping client stuck. Progress noted in pt reports of reduced anxiety and improved overall mood. Pt to continue IOP tx to further increase healthy coping skills, improve mood stability, and maintain current gains. Narrative Note: []
--- NOTE | 2022-07-10 11:14 | BH.SGPN.GN ---
Behaviors/Verbalizations/Mental Status: []Client alert and oriented, casually dressed and groomed. Eye contact fair to good. Motor activity appropriate. Speech within normal limits. Affect congruent, mood anxious and dysthymic. Thoughts linear, logical, no signs of hallucinations or delusions. Client Response/Progress/Benefit: []Pt responded well to session, participating in activity, and providing input throughout which is progress for pt. Did well to process the activity and identify how skills used in accomplishing the task related to making healthy changes in one?s own life. Pt selected one change they would like to make and created a SMART goal to help make this change. Shared she wants to work on increasing her ability to make self-care a priority daily. Discussed that this change would help client reduce depression and feel more positive. Client?s goal was to start actively identifying small self-care goals she can begin completing each day at the same time. Client benefited from working with group to identify strategies to overcome barriers to change and create a plan for implementing one small change promoting personal growth. Client recommended to continue IOP tx to improve stress management and further stabilize moods, as well as prevent decompensation. Narrative Note: []
--- NOTE | 2022-07-13 09:05 | BH.SGPN.GN ---
Behaviors/Verbalizations/Mental Status: [] Client alert and oriented, casually dressed and groomed. Eye contact avoidant Motor activity appropriate. Speech normal. Affect constricted, mood dysthymic, Thoughts linear, logical, no signs of hallucinations or delusions. Reviewed client?s symptom tracker, no risk for suicidal ideation, plan, or intent as of 07/13/22 Client Response/Progress/Benefit: []Client responded to session by being attentive in listening to peers. Client reports feeling anxious this morning as client reflected on anxiety with going back to work in two weeks. Client initially said she did not have any MH wins, but was able to identify that she set healthy boundaries with her boss at work to ensure her mental health and stress levels stay healthy. Client appeared to benefit from receiving validation of her progress in group. Client will continue IOP tx as client continues to struggle with negative self-talk, and anxious thoughts. Narrative Note: []
--- NOTE | 2022-07-13 10:10 | BH.SGPN.GN ---
Behaviors/Verbalizations/Mental Status: [] Client alert and oriented, casually dressed and groomed. Eye contact good. Motor activity appropriate. Speech within normal limits. Affect congruent, mood euthymic. Thoughts linear, logical, no signs of hallucinations or delusions. Client Response/Progress/Benefit: [] Client responded well to session, attentive and providing input throughout. Participated in discussion of things that can keep people feeling trapped or stuck in life including; avoidance, unhealthy coping, isolation, inconsistent boundaries, and surrounding self with toxic people. Group discussed the connection between thoughts, emotions, and behaviors as well as how negative thinking can keep a person stuck. Client attentive during psychoeducation on maintenance cycles. Client able to identify negative thoughts that have kept client stuck which included ? everything is a mess and I don't deserve to feel good. Appeared to benefit from gaining awareness of how negative thoughts reinforce mental health symptoms and keep people stuck. Will continue IOP tx to prevent decompensation, increase coping skills and increase overall functioning. Narrative Note: []
--- NOTE | 2022-07-13 11:10 | BH.SGPN.GN ---
Behaviors/Verbalizations/Mental Status: [ ]Client alert and oriented, casually dressed and groomed. Eye contact good. Motor activity appropriate. Speech within normal limits. Affect constricted, mood dysthymic. Thoughts linear, logical, no signs of hallucinations or delusions. Client Response/Progress/Benefit: [] Client responded well to session, contributing to discussion and providing supportive feedback. Client identified a negative thought that has kept her stuck. Client's thought was I feel not control of myself. Client reported when she thinks this way, she shuts down and lets responsibilities go. Client worked to reframe the thought by finding more rational, realistic ways to look at the thoughts and then processed within group setting. Client reframed the thought to ?I can control my actions.? Client stated she will use positive self-talk to continue challenging negative self-talk. Client appeared to benefit from practicing challenging negative thinking. Client will continue IOP tx to promote use of healthy coping skills that will support client in her return to work. Narrative Note: []
--- NOTE | 2022-07-13 16:18 | BH.COMM ---
Communication Note - Communication with Client Communication Note: Pt's primary therapist is on vacation this week therefore briefly met with pt to check-in. Denies active SI, plan, or intent. Future-oriented (work, nephew's constitution party this afternoon). We briefly discussed progress over the past week. Praised pt for her effort. Briefly reviewed strategies and ways to discuss her absence and hospitalizations with family this afternoon which helped ease anxiety.
--- NOTE | 2022-07-15 09:00 | BH.SGPN.GN ---
Behaviors/Verbalizations/Mental Status: [] Eye contact is good. Motor activity is appropriate. Appearance is casual. Speech is Appropriate. Mood is euthymic. Affect is full. Thoughts are linear and logical. No evidence of psychosis. Reviewed daily check in sheet and pt reports 3/5 for SI and 2/5 for intent which is baseline. Client Response/Progress/Benefit: [] Pt participated at times during the group discussion on skills to combat negative thoughts. Attentive. Daily symptom tracker notes 3/5 for depression and 2/5 for anxiety, irritability, and self-harm urges. Mental health win was that she completed tasks such as laundry around the house. She why this is a mental health win for her. Her stressor is that she is starting TMS for her depression this afternoon. She briefly described the procedure to the group. Anxious that ?something will go wrong? or that ?they will find something and not be able to start?. Group challenged and reframed these thoughts which was beneficial. Will continue in IOP to maintain safety, prevent decompensation/re-admission, stabilize mood, and improve functioning to return to work. Narrative Note: []
--- NOTE | 2022-07-15 10:05 | BH.SGPN.GN ---
Behaviors/Verbalizations/Mental Status: [] Client alert and oriented, neatly dressed and groomed. Eye contact good. Motor activity appropriate. Speech within normal limits. Affect congruent, mood euthymic. Thoughts linear, logical, no signs of hallucinations or delusions. Client Response/Progress/Benefit: [] Client active in group AEB taking notes. Attentive during psychoeducation on 4 types of conflict styles (Competing, Collaborating, Avoiding, and Accommodating). Worked with group to define conflict and identify how conflict is helpful. With peers identified barriers to addressing or managing conflict which included: wanting to avoid difficult feelings/emotions, lack of communication skills, and cognitive distortions. Client believes they use the accommodating style the most. Client shared when she utilize this style she feels that she doesn't think for herself and taking on what the other person wants. Benefited from group due to increase insight and awareness of benefits to conflict, conflict styles, and obstacles to managing conflict. Will continue in IOP to increase overall functioning, gain healthier core beliefs, and increase healthy communication. Narrative Note: []
--- NOTE | 2022-07-15 11:10 | BH.SGPN.GN ---
Behaviors/Verbalizations/Mental Status: [] Client alert and oriented, neatly dressed and groomed. Eye contact good. Motor activity appropriate. Speech within normal limits. Affect congruent, mood euthymic. Thoughts linear, logical, no signs of hallucinations or delusions. Client Response/Progress/Benefit: [] Client engaged in session AEB contributing to discussion and engaging in activity. Client did well to review current conflict style and its impact on mental health. Attentive and taking notes during discussion on strategies for more effectively managing conflict in personal life. Client participated in activity and did well to be assertive and collaborating. Client given handout on fair fighting rules and identified that they want to work on asking themselves why they are upset when faced with conflict. Appeared to benefit from gaining strategies to help client better manage conflict. Will continue IOP tx to increase self care, increase overall functioning, and prevent decompensation. Narrative Note: []
--- NOTE | 2022-07-16 09:05 | BH.SGPN.GN ---
Behaviors/Verbalizations/Mental Status: [] Eye contact is poor. Motor activity is appropriate. Appearance is casual. Speech is Appropriate. Mood is depressed. Affect is flat. Thoughts are linear and logical. No evidence of psychosis. Reviewed daily check and pt reports 3/5 for suicidal ideations and 2/5 for intent which is baseline. Client Response/Progress/Benefit: [] pt participated at times during the group discussions. Attentive. Daily symptom tracker notes 3/5 for depression and 2/5 for anxiety, anger, and self-harm urges. Mental health win includes that she ?made it through TMS? yesterday. This was her first session. She briefly described it to the group. Feeling emotionally exhausted due to IOP and then TMS yesterday. Stressor is that ?all my support with be out of town next week?. She reports that ?last time this happened I ended up in the hospital?. Cognitive distortions such as Catastrophizing and predicting the future causing anxiety and fear that she will decompensate next week. Group pointed out cognitive distortions and attempted to reframe and challenge with realistic thoughts which was beneficial. Will continue in IOP to maintain safety, prevent decompensation/re-admission, and improve functioning to transition back to work Narrative Note: []
--- NOTE | 2022-07-16 10:05 | BH.SGPN.GN ---
Behaviors/Verbalizations/Mental Status: [] Client alert and oriented, casually dressed and groomed. Eye contact good. Motor activity appropriate. Speech within normal limits. Affect congruent, mood dysthymic, Thoughts linear, logical, no signs of hallucinations or delusions. Client Response/Progress/Benefit: [] Client was an active participant in group discussions and activity. Attentive during psychoeducation. Client along with peers were able to identify several negatives on the picture given to the group. Client and peers also identified positives in the picture and made the connect that finding positives is much more difficult. Interactive discussion on the definition of perspective, how perspective is formed, and why perspective is important in treatment. Client along with group members came up with benefits of having a hopeful perspective for their mental health, which included feeling more encouraged, feeling less depressed, and increased motivation. Will continue in IOP to promote gains, increase overall functioning and prevent decompensation. Narrative Note: []
--- NOTE | 2022-07-16 11:05 | BH.SGPN.GN ---
Behaviors/Verbalizations/Mental Status: [] Client alert and oriented, casually dressed and groomed. Eye contact good. Motor activity appropriate. Speech within normal limits. Affect congruent, mood dysthymic. Thoughts linear, logical, no signs of hallucinations or delusions Client Response/Progress/Benefit: [] Client was attentive and contributed in small and larger group discussion. Client completed strengths exploration worksheet. Client able to acknowledge how these strengths are helping her and can continue to help client in her mental health journey. Shared wanting to focus on journaling her thoughts and strengths as a way of giving gratitude to them. Benefited from identifying personal strengths and strategies for enhancing use of identified strengths. Client to continue IOP tx to promote use of healthy coping skills, increase overall functioning and reduce negative thinking patterns. Narrative Note: []
--- NOTE | 2022-07-20 10:10 | BH.SGPN.GN ---
Behaviors/Verbalizations/Mental Status: [] Client alert and oriented, casually dressed and appropriately groomed. Eye contact fair. Motor activity appropriate. Speech within normal limits. Affect flat, mood depressed. Thoughts linear, logical, no signs of hallucinations or delusions. Client Response/Progress/Benefit: [] Client connected with topic of anxiety and participated throughout, providing input and taking notes. Attentive during psychoeducation on different anxiety disorders and participated throughout interactive discussion defining anxiety and identifying cognitive and physiological symptoms of anxiety. Common cognitive symptoms identified by group included: ?what if thoughts?, all or nothing thinking, and predicting the future type thoughts. Physiological symptoms reported by patient included: leg twitch, light headed, nausea, temperature regulation issues, and stomach issues. Benefited from increased awareness and insight on anxiety and its impact. Will continue IOP tx to continue use of healthy coping and thought challenge skills and prevent decompensation.
--- NOTE | 2022-07-20 11:15 | BH.SGPN.GN ---
Behaviors/Verbalizations/Mental Status: []Pt alert and oriented, casually dressed and groomed. Eye contact good. Motor activity appropriate. Speech within normal limits. Affect flat, mood anxious and depressed. Thoughts linear, logical, no signs of hallucinations or delusions. Client Response/Progress/Benefit: []Pt was a passive participant, but engaged when prompted. Reviewed safety behaviors she engages in that reinforce anxiety. Attentive during psychoeducation on mindfulness coping skills and their impact on mental health wellness. The group worked together to brainstorm anxiety reduction strategies. Pt participated as group practiced two mindfulness strategies. Pt selected using the 5-senses today to practice mindfulness. Pt seemed to benefit from increased repertoire of anxiety reduction skills. ?Pt will continue IOP tx to improve work-related functioning, improve distress tolerance skills, and prevent decompensation. ? Narrative Note: []
--- NOTE | 2022-07-20 13:17 | BH.MDN ---
Multi-Disciplinary Note - Note 30-min Individual Time Started:: 09:15 Date: 07/20/22 Purpose of session/treatment goals addressed:: To work on goal #2 of pt's treatment plan as well as practice thought challenging. Eye Contact:: Fair Motor Activity:: Appropriate Appearance:: Casual Speech:: Soft Mood:: Anxious, Depressed Affect:: Flat - tearful Thoughts:: Racing, No evidence of hallucinations/delusions noted Staff Interventions:: thought challenging, CBT techniques, strengths perspective, completed risk assessment / safety planning, goal setting Client Response:: Pt responded well to session, open to meeting with therapist. Pt tearful and sharing that last night was really hard and that pt cut. Pt was critical of herself and stated all her progress is erased. Pt receptive to thought challenging and was able to see how this thinking is all or nothing. Pt able to recognize progress in staying out of the hospital and increased distress tolerance skills. Pt's self-harm and increased anxiety were triggered by her mother leaving for [place] and her roommate leaving for a trip. Pt will be without support all week per her report. Therapist attempted to identify other supports pt could reach out to, but pt shared there's no one. Discussed coming an extra day, going to a community center, and scheduling one thing to do each day. Pt is going to TMS treatment after IOP each day this week which is giving pt something to do. Pt is looking forward to some things and is still future oriented. Overwhelmed about returning to work and feeling like this but did much better than she has in the past with problem-solving solutions. 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 Pt able to regulate better by the end of session. Pt will attend tomorrow. Risks/Concerns:: Pt denies any active suicidal ideations, plan, or intent today. Pt admits to cutting last night with the intent to feel emotional release, not to kill herself. Pt reports ability to keep herself safe today. Pt's supports are all going out of town this week which is a significant stressor and pt will be encouraged to attend an extra day this week to avoid hospitalization. Progress Toward Goals/Plan:: Pt reports self-harming last night which was the first time in a month. Pt is disappointed in this, but overall that is progress. Pt was able to control her suicidal ideations last night and not act on impulse which is also progress. Pt very tearful and anxious today about her supports being gone and returning to work. Pt responded well to thought challenging and less tearful by the end of session. Due pt's history of hospitalizations triggered by significant stress, pt was encouraged to attend an extra day of IOP this week to prevent hospitalization. Pt still plans to return to work two days next week. Time Stopped:: 09:45
--- NOTE | 2022-07-20 14:21 | BH.MTP_ITS ---
Treatment Plan Review Date of Admission:: 07/02/22 Date of Treatment Plan Review:: 07/20/22 Admitting Diagnoses:: Bipolar disorder, NOS (F31.9); borderline personality disorder Current Diagnoses:: Bipolar disorder, NOS (F31.9); borderline personality disorder Patient's Response to Treatment:: Pt has responded well to treatment AEB pt consistently attending IOP sessions and reduction of symptoms by 20% since admission. Pt's engagement in group and individual sessions is variable and depends on pt's mood for the day. Pt has been able to prevent rehospitalization and has reduced self-harm since admission. Status of Current Problems and Symptoms: Pt's symptoms and stressors are ongoing, but pt's depression and SI are resolving AEB 33% reduction in both of these areas on the DSM-5. Pt is improving in her distress tolerance skills, but pt still endorses low distress tolerance. Pt's biggest stressors are returning to work, maintaining progress, her living situation, and lack of support. Pt struggles with communicating needs to supports and stressors are often trigger crisis thinking. Pt is doing better with managing her moods instead of going to the ER. Problem #1 Problem Name:: Chronic SI, depression, hopelessness, and negative self-talk Status of Goals:: Objective 1-complete with ongoing work encouraged. Pt?s DSM-5 scores for depression and suicidal ideations have decreased by 33% since admission. Pt can identify healthy coping skills such as cleaning, showering, and challenging thoughts. Pt has a lot of stressors this week which often trigger SI, so ongoing work is recommended. Objective 2- in progress. Pt has practiced cognitive reframing and pt can identify distortions. Pt struggles to challenge thoughts without the help of support and pt does not believe the reframed thoughts yet. Team Recommendations:: Treatment team encourages pt to continue working on these goals to reinforce healthy coping skills, increase ability to combat distortions, and improve daily functioning. Therapist continues to encourage pt to build her support system and pt will be participating in the DBT group at [place] [id number] after IOP. Problem #2 Problem Name:: Impulsivity, anxiety, and low distress tolerance Status of Goals:: Objective 1- in progress. Pt has learned about the different kinds of distress tolerance skills and has gained awareness of her self- sabotaging behaviors. Pt has been able to prevent rehospitalization and has reduced self-harm. Pt continues to struggle when her supports are gone/not available. Objective 2-in progress. Pt?s anxiety has not decreased from admission, but it has not increased which is progress. Pt returns to work next week which in the past would have triggered panic and SI, but pt is managing better. Team Recommendations:: Treatment team encourages pt to continue working on this goal as pt's anxiety did not decrease from admission. Pt is improving with distress tolerance skills AEB pt's reduced intensity of SI and prevention of hospitalization. Pt is returning to work next week and this is a significant st ressor for pt. 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
--- NOTE | 2022-07-21 09:05 | BH.SGPN.GN ---
Behaviors/Verbalizations/Mental Status: [] Eye contact is good. Motor activity is appropriate. Appearance is casual. Speech is Appropriate. Mood is depressed. Affect is congruent. Thoughts are linear and logical. No evidence of psychosis. Reviewed daily check in sheet and pt reports a 4 for suicidal ideations and 2 for intent. This is baseline and improved from yesterday. Client Response/Progress/Benefit: [] Pt was an active participant in group discussions. Attentive. Provided appropriate feedback. Daily symptom tracker notes 3/5 for anxiety, depression, and self-harm urges. Mental health wins include not utilizing unhealthy coping skills last evening (self-injurious behaviors). Another win was recognizing that she needs additional support this week, so she asked to come to IOP an extra day. She discussed the challenges of asking for support b/c she feels like ?I don?t deserve it?. She shared several other thoughts that have caused distress including fear that when IOP is completed she will decompensate. Group worked to reframe and challenge some of these thoughts and she was praised for verbalizing them rather than keeping the thoughts to herself and ruminating. She continues with TMS through her outpatient provider. Narrative Note: []
--- NOTE | 2022-07-21 10:10 | BH.SGPN.GN ---
Behaviors/Verbalizations/Mental Status: Client alert and oriented, casually dressed and groomed. Eye contact fair to good. Motor activity appropriate. Speech within normal limits. Affect congruent, mood anxious and dysthymic. Thoughts linear, logical, no signs of hallucinations or delusions. [] Client Response/Progress/Benefit: [] Client receptive to session AEB contributing to discussion, which is progress for pt, as well listening attentively to others. Taking notes. Worked with group to brainstorm the positive and negative aspects of stress on physical and mental health. Group did well to identify the benefits of stress as well as the impact of distress on performance and mental health. Client identified their personal top stressors as: returning to work, managing her mental health, and finances. Client reports when the stress overflows client reacts with isolating, increased SI, and dissociate. Client seemed to benefit from increased awareness of current stressors and impact stress has on mental health. Recommended to continue IOP tx to stabilize moods, reduce anxiety, and prevent decompensation. Narrative Note: []
--- NOTE | 2022-07-21 11:10 | BH.SGPN.GN ---
Behaviors/Verbalizations/Mental Status: []Pt alert and oriented, casually dressed and groomed. Eye contact good. Motor activity appropriate. Speech within normal limits. Affect constricted, mood dysthymic and anxious. Thoughts linear, logical, no signs of hallucinations or delusions. Client Response/Progress/Benefit: []Pt participated at times during group discussions. Attentive during psychoeducation on the 4 A's of Coping with Stress (Avoid, Alter, Adapt, Accept). Participated in experiential activity in which group members had to utilize stress management skills in the moment, providing more input during activity than in psychoeducation portion. Pt agreed with peers that their cooperation and communication was a helpful resource and pt worked well with peers to problem-solve the stressors presented. Pt engaged in review of the 4 A?s and picked wanting to work on adapting her mindset about returning to work using more positive self-talk. Benefited from processing in the moment stress management strategies and identifying new ways to cope with stress. Will continue in IOP to reduce intensity of symptoms, improve consistent skill application, as well as prevent decompensation. Narrative Note: []
--- NOTE | 2022-07-22 09:05 | BH.SGPN.GN ---
Behaviors/Verbalizations/Mental Status: []Pt alert and oriented, casually dressed and groomed. Eye contact good. Motor activity restless. Speech within normal limits. Affect incongruent-smiling while talking about self-harm, mood agitated. Thoughts linear, logical, no signs of hallucinations or delusions. Reviewed pt?s symptom tracker, no risk for suicidal ideation, plan, or intent as of 07/22/22 Client Response/Progress/Benefit: []Pt responded well to session, receptive to feedback. Pt reports feeling overwhelmed today as pt continues to struggle with coping with her supports being gone. Pt shared day two alone and I'm not doing great but pt did not give herself credit for being able to avoid hospitalization. Pt self-reports her all or nothing thinking makes pt feel like she is back at square one whenever she has urges to self-harm or has fleeting SI. Group helped pt see how this is not regression and how pt is coping better than she would have a month ago. Pt appeared to benefit from gorup support. Pt will continue IOP tx to prevent rehospitalization, increase distress tolerance skills, and improve work-related functioning. Narrative Note: []
--- NOTE | 2022-07-22 10:10 | BH.SGPN.GN ---
Behaviors/Verbalizations/Mental Status: [] Eye contact is poor. Motor activity is appropriate. Appearance is casual. Speech is Appropriate. Mood is depressed. Affect is flat. Thoughts are linear and logical. No evidence of psychosis. Client Response/Progress/Benefit: [] Pt participated when prompted. Attentive during psychoeducation AEB note-taking. Attentive during interactive discussion amongst peers on the definition and examples of crisis. Attentive as peers identified unhealthy responses to crisis which included; substance use, avoidance, isolation, sleeping, risky behaviors, retail therapy, over-eating, etc. Pt identified her bella signs to crisis which included self-harm, crying spells, and isolation. Benefited from increased of crisis and personal warning signs. Will continue in IOP to prevent decompensation/re-admission, decrease intrusive thoughts, and stabilize mood. Narrative Note: []
--- NOTE | 2022-07-22 11:10 | BH.SGPN.GN ---
Behaviors/Verbalizations/Mental Status: []Pt alert and oriented, casually dressed and appropriately groomed. Eye contact poor. Motor activity appropriate. Speech within normal limits. Affect constricted, mood anxious. Thoughts linear, logical, no signs of hallucinations or delusions. Client Response/Progress/Benefit: []Pt appeared distracted at times throughout session AEB pt staring off and not contributing to session. Pt made comment in small group she didn't want to be here. Pt identified personal warning signs for crisis and gained further awareness of earliest warning signs. Pt created a crisis action plan to help better manage warning signs for crisis. Pt able to create action plan for warning sign of isolating. Pt's action plan included: reach out to supports, open up to supports, change environment, go outside, grounding, and schedule hangout. Pt appeared to benefit from creating a crisis action plan and increasing self-awareness. Pt will continue IOP tx to increase ability to manage emotions independently, continue consistent use of healthy coping and prevent decompensation.
--- NOTE | 2022-07-24 09:05 | BH.SGPN.GN ---
Behaviors/Verbalizations/Mental Status: []Eye contact good, casually dressed, motor activity appropriate, speech normal rate and tone, mood anxious and depressed, constricted affect, thoughts linear and intact, no evidence of delusions or hallucinations. Reviewed pt's symptom tracker, suicidal ideation within pt baseline, denies any current plan, or intent as of this date 07/24/22. Client Response/Progress/Benefit: []Pt receptive of session. Pt reports feeling ?overwhelmed and stressed this morning. Identified this is related to her upcoming return to work in two days. Shared fears of not being able to maintain stability or manage her emotions when facing potential negative comments from peers. Tearful throughout and struggling to initially identify healthy coping skills she can use or resiliency factors pt has. Receptive of and appearing to benefit from supportive feedback and suggestions from the group. Reports she can try to be more present today to aid in reducing anxiety in the moment. Pt to continue IOP tx to improve healthy coping skills, reduce anxiety, and further improve mood stability. Narrative Note: []
--- NOTE | 2022-07-24 10:20 | BH.SGPN.GN ---
Behaviors/Verbalizations/Mental Status: []Pt alert and oriented, casually dressed and groomed. Eye contact good. Motor activity appropriate. Speech within normal limits. Affect constricted, mood anxious. Thoughts linear, logical, no signs of hallucinations or delusions. Client Response/Progress/Benefit: []Pt was a passive?participant in group discussion. Group worked together to identify benefits of healthy relationships which include; improves mental health, encouragement, motivation, accountability, validation, connection, and personal growth. Group identified factors that lead to unhealthy relationships which included; co-dependence, gaslighting, not addressing issues, name-calling, and not setting boundaries.?Pt did not identify her personal factors, but pt nodding at fear of change and high expectations. Actively participated in group experiential activity and expressed ideas to group. Benefited from increased insight and awareness of benefits of healthy relationships and factors that contribute to unhealthy relationships. Will continue IOP tx to increase work-related functioning and improve distress tolerance skills. ? Narrative Note: []
--- NOTE | 2022-07-28 09:00 | BH.SGPN.GN ---
Behaviors/Verbalizations/Mental Status: [] Eye contact is good. Motor activity is appropriate. Appearance is casual. Speech is Appropriate. Mood is euthymic. Affect is full. Thoughts are linear and logical. No evidence of psychosis. Reviewed daily check in sheet and no reports 3/5 for suicidal ideations and 1/5 for intent which is below baseline. Client Response/Progress/Benefit: [] Pt was an active participant in group discussions. Attentive. Provided appropriate feedback. Daily symptom tracker notes 2/5 for depression, anxiety, and self-harm urges. Emotion for today is ?chilling?. Mental health win was returning to work yesterday. This has been a significant source of fear, anxiety, and depression for the past several weeks. Pt states ? it wasn?t as bad as I thought it would be?. She shared that she had a mild panic attack while driving to work and didn?t sleep well the night before however was surprised that her co-workers were very welcoming. She also reports that she took a break, which she had not done in the past, which was helpful. Insight that self-care and breaks are important to prevent burnout. She continues to catastrophize. Narrative Note: []
--- NOTE | 2022-07-28 10:10 | BH.SGPN.GN ---
Behaviors/Verbalizations/Mental Status: []Pt alert and oriented, casually dressed and groomed. Eye contact good. Motor activity appropriate. Speech within normal limits. Affect constricted, mood euthymic. Thoughts linear, logical, no signs of hallucinations or delusions. Client Response/Progress/Benefit: []Pt was an active participant in group discussions. Attentive during psychoeducation. Participated with peers in experiential activity. Pt participated in an interactive discussion with peers in which they worked together to define what coping skills are. Indicates that she, like peers, struggle with replacing unhealthy coping skills. Group then identified unhealthy coping skills which included; avoidance, distraction, taking on others problems, and shutting down. Pt stated unhealthy coping skills are easier and habitual. Benefited from increased awareness and education the benefits of have both internal and external coping skills. Will continue in IOP to help pt increase distress tolerance skills and emotional regulation skills that will help pt function at work and home. Narrative Note: []
--- NOTE | 2022-07-28 13:11 | BH.MDN_ITS ---
Multi-Disciplinary Note - Note 30-min Individual Time Started:: 11:28 Date: 07/28/22 Purpose of session/treatment goals addressed:: To process pt's first day back to work, evaluate pt's distress tolerance skills, and review strategies for success. Eye Contact:: Good Motor Activity:: Appropriate Appearance:: Casual Speech:: Appropriate Mood:: Euthymic, Anxious Affect:: Full Thoughts:: Linear, Logical, No evidence of hallucinations/delusions noted Staff Interventions:: thought challenging, discharge planning, strengths perspective, other - problem-solving skills Client Response:: Pt responded well to session, open to meeting with therapist. Pt went back to work yesterday and reported it went well. Pt shared she got to take breaks and her coworkers were happy to see her. Pt was very anxious about returning which led to self-harming on Wednesday night, but pt was able to combat negative self-talk and remind herself this is not a failure. Pt continues to talk to her supervisor webbing to advocate for herself at work. Pt still worries about interactions with one of her coworkers, but pt problem-solved ways to prevent pt from getting into conflicts. Also reviewed ways pt could be proactive about cooking, cleaning, and self-care to help pt the first week back to work. Pt reflected on her progress since starting IOP and discussed ideas for aftercare. Pt hopes to complete the DBT group at [place] [id number] and pt has an appointment sche duled with her outpatient therapist on 08/14/22. Risks/Concerns:: Pt admits to self-harming via cutting on Wednesday, but pt reports she was able to stop herself quickly. Pt denies any active SI, plan, or intent today. Pt reports ability to self-soothe and maintain safety. Future oriented. Progress Toward Goals/Plan:: Pt is making progress towards her treatment goals AEB pt's consistent decrease in suicidal ideations, ability to make it through a work day, and increased distress tolerance skills. Pt is improving with challenging distortions and being alone without it resulting in crisis. Pt's distress tolerance skills can continue to improve, but pt is making gains. Pt still endorses low self-esteem, mood dysregulation, negative thinking, and chronic SI. Pt will continue IOP tx and discharge next week. Can benefit from another week of IOP to reinforce healthy coping skills to promote functioning at work. Time Stopped:: 11:58
--- NOTE | 2022-07-30 10:10 | BH.SGPN.GN ---
Behaviors/Verbalizations/Mental Status: []Pt alert and oriented, casually dressed and groomed. Eye contact good. Motor activity appropriate. Speech within normal limits. Affect congruent, mood euthymic. Thoughts linear, logical, no signs of hallucinations or delusions. Client Response/Progress/Benefit: []Pt responded well to session AEB contributing to discussion, taking notes, and listening attentively to others. Group discussed the benefits of managed anger and anger as a secondary emotion. Pt shared perspective on negatives from acting out in anger as stress and more mental health issues.? Pt completed worksheet on anger triggers and personal warning signs of anger. Pt identified her biggest triggers as feeling let down, not getting help, and when people say untrue/hurtful things. Appeared to benefit from increased knowledge of the anger cycle as well as personal triggers. Will continue IOP tx to further reduce negative thinking and promote use of distress tolerance skills. Narrative Note: []
--- NOTE | 2022-07-30 11:10 | BH.SGPN.GN ---
Behaviors/Verbalizations/Mental Status: []Client alert and oriented, casually dressed and groomed. Eye contact good. Motor activity appropriate. Speech within normal limits. Affect constricted at times, mood euthymic. Thoughts linear, logical, no signs of hallucinations or delusions. Client Response/Progress/Benefit: []Pt was engaged throughout AEB contributing to group discussion and self-reflection. Group finished processing cues to anger worksheet. Pt identified behavioral cues to anger include: snapping at others, isolating, doing tasks rapidly, and becoming short with words. Pt contributed as group brainstormed healthy coping skills for better managing anger which included: music, walking/exercise, changing the environment, communicating with supports, and journaling. Pt appeared to benefit from identifying different techniques to manage anger as well as gaining awareness of potential consequences of unmanaged anger. Will continue IOP tx to promote the use of healthy coping skills and prevent decompensation.
--- NOTE | 2022-07-31 09:05 | BH.SGPN.GN ---
Behaviors/Verbalizations/Mental Status: []Eye contact good, casually dressed, motor activity appropriate, speech normal rate and tone, mood euthymic and anxious, congruent affect, thoughts linear and intact, no evidence of delusions or hallucinations. Reviewed pt's symptom tracker pt denies any active SI plan, or intent as of this date 07/31/22. Client Response/Progress/Benefit: [] Pt responded well to session, attentive and engaged. Pt reports feeling content and worn out today as it was pt's first week back to work. Pt reflected on her progress since admission and shared that five weeks ago she thought she would not have been able to make it through work. Pt has been consistently reporting less suicidal ideations and improved ability to manage stressors. Pt shared that her improved mood is also slightly triggering as pt fears it could be lolis, but pt receptive to gentle thought challenging. Pt appeared to benefit from reflecting on her gains and challenging anxious thoughts. Pt will continue IOP tx to promote mood stability, further improve functioning, and increase self-confidence. Narrative Note: []
--- NOTE | 2022-07-31 11:10 | BH.SGPN.GN ---
Behaviors/Verbalizations/Mental Status: []Pt alert and oriented, casually dressed and groomed. Eye contact fair. Motor activity appropriate. Speech within normal limits. Affect constricted, mood dysthymic. Thoughts linear, logical, no signs of hallucinations or delusions. Client Response/Progress/Benefit: []Pt was disengaged at times AEB pt making comments she didn't want to be here and not engaging in discussion. At times appeared attentive during psychoeducation on the Zones of Change which included the comfort zone, learning zone, and danger zone. Pt listened to peers interactive discussion regarding behaviors, thoughts, and feelings associated with each zone. Participated in group activity in which they developed a plan to take action on something they wished to change. Pt chose to take action on negative body image in which pt identified a SMART goal is writing down 3 positive qualities about herself every day. Identified supports that pt needed as getting a journal and using self compassion. Benefited from increased self-aware of zones of change and developing an action plan. Will continue in IOP to improve emotion regulation, challenge negative thoughts and prevent decompensation.
== END 2022-08-03 23:59 ==
LOC: BHIOP 09:01
PROVIDERS: PCP Nurse Practitioner Family; Visit Provider Psychiatry & Neurology Psychiatry
DX: F31.9 Bipolar disorder, unspecified (principal); F60.3 Borderline personality disorder
CPT/HCPCS: S9480; 90832; 90834; 90853

== ENCOUNTER 2022-08-04 08:06 | Outpatient (RCR) | payer OTHER, SELFPAY ==
--- NOTE | 2022-08-04 09:00 | BH.SGPN.GN ---
Behaviors/Verbalizations/Mental Status: []Eye contact good, casually dressed, motor activity appropriate, speech normal rate and tone, mood stressed, congruent affect, thoughts linear and intact, no evidence of delusions or hallucinations. Reviewed pt's symptom tracker pt denies any SI plan, or intent as of this date 08/04/22. Client Response/Progress/Benefit: [] Pt responded well to session, attentive and providing supportive statements. Pt report feeling stressed this morning as pt had to work two days in a row and pt is anxious to leave IOP. Pt reflected on how her stressors are also part of her progress as pt will successfully complete IOP and she has been able to successfully return to work. Pt is anxious about the future, but pt also can give herself credit for the progress she has made. Pt reports plan to continue working on managing her BPD and will participate in aftercare. Pt will continue IOP tx to reinforce healthy coping skills and establish aftercare. Narrative Note: []
--- NOTE | 2022-08-04 10:05 | BH.SGPN.GN ---
Behaviors/Verbalizations/Mental Status: [] Eye contact is good. Motor activity is appropriate. Appearance is casual. Speech is Appropriate. Mood is euthymic. Affect is full. Thoughts are linear and logical. No evidence of psychosis. Client Response/Progress/Benefit: [] Pt was an active participant in group discussions. Attentive during psychoeducation on SMART goals (Specific, Measurable, Achievable, Realistic, and Time-bound) Engaged in group experiential activity. Participated in an interactive discussion with peers in which they worked together to define what a goal is and the benefits of having goals. Benefits identified included; something to look forward too, needed for growth, keeps one motivated, helps us track our progress, given one a sense of purpose, and keeps one busy and engaged. Participated in interactive discussion in which group identified barrier to setting goals and following through with goals. Barriers identified included; too much time and effort, criticism from self/others, unrealistic expectations, outside stressors, and fear of failure. Benefited from increased awareness of benefits and strategies for goal-setting. Will continue in IOP to prevent decompensation/re-admission, maintain safety, and transition back to full-time work. Narrative Note: []
--- NOTE | 2022-08-04 11:10 | BH.SGPN.GN ---
Behaviors/Verbalizations/Mental Status: []Eye contact is fair. Alert and oriented. Motor activity is appropriate. Appearance is casual. grooming is appropriate. Speech is Appropriate. Mood is euthymic. Affect is congruent.. Thoughts are linear and logical. No evidence of psychosis or hallucinations. Client Response/Progress/Benefit: []Client was engaged during discussion, did well to complete activity and process with the group. Client was willing to complete the worksheet in which was challenged to develop a personal SMART goal. Client chose the goal of completing three tasks in one room of apartment each day for a week. Client stated this will benefit her by alleviating stress and negative feelings about having a messy house. Client identified barriers which included: lack of motivation, lack of time, unsure where to start and feeling overwhelmed. Client receptive to identifying solutions for these barriers and willing to begin working on this goal. Benefited from this group by developing a short-term SMART goal related to mental health. Will continue IOP tx to maintain gains and prevent decompensation.
--- NOTE | 2022-08-06 10:05 | BH.SGPN.GN ---
Behaviors/Verbalizations/Mental Status: [] Eye contact is good. Motor activity is appropriate. Appearance is casual. Speech is Appropriate. Mood is euthymic. Affect is full. Thoughts are linear and logical. No evidence of psychosis. Client Response/Progress/Benefit: [] Pt was an active participant in group discussions. Attentive during psychoeducation on Communication Styles (Passive, Passive-Aggressive, Aggressive, and Assertive). Participated during interactive discussion on obstacles to effective communication which included; assumptions, unmanaged emotions, minimizing symptoms, resentment, etc. Participated during interactive discussion on benefits to effective communication which included; getting needs met, increased trust, improved relationships, ability to better manage conflict, decreased stress, increased self-worth, and decreased anxiety. Pt was placed in small group and was engaged in identifying benefits and consequences of each communication style. Benefited from increased understanding of communication styles and the impact they have on mental wellness. Narrative Note: []
--- NOTE | 2022-08-06 11:10 | BH.SGPN.GN ---
Behaviors/Verbalizations/Mental Status: []Client alert and oriented, casually dressed and appropriately groomed. Eye contact good. Motor activity appropriate. Speech WNL. Affect constricted, mood euthymic. Thoughts linear, logical, no signs of hallucinations or delusions. Client Response/Progress/Benefit: []Client responded well to session AEB client listening attentively to others and providing input during group discussion on the pay offs and costs of the different communication styles. Client reported in the past she used mostly passive communication which contributed to not getting needs met. Client stated she is more assertive now and is able to see positive outcomes more often with improvement in communication. Client engaged in activity, worked cooperatively with peers to accomplish task. Connected with peers comments about importance of using assertive communication. Client seemed to benefit from increasing awareness of healthy strategies to improve communication. Will continue IOP tx to continue use of healthy coping, maintain gains, and prevent decompensation.
--- NOTE | 2022-08-06 15:27 | BH.IGGP_ITS ---
Aftercare Plan - Demographics Treatment End Date:: 08/07/22 Psychiatrist:: Shari Modi Psychiatrist Office #:: [id number] [facility] Therapist:: Shanna Pradhan Therapist Phone #:: [phone] - Plan Details Progress/Aftercare Plan Details:: Joan has made significant strides since starting IOP as shown by her improved mood, reduced anxiety and depression, and change in perspective. Joan's symptoms have reduced by 23% overall since admission! When Joan started IOP she was experiencing significant depression, anxiety, irritability, and suicidal ideations. Now, Joan can catch and manage thoughts that reinforce depression and suicidal ideations, use healthy coping skills more easily, and she has much higher distress tolerance. Joan has been able to manage triggers better and has made healthier habits. Joan was active in both group and individual therapy sessions. Joan contributed to group discussions, offered emotional support to peers, and followed through with her goals. In individual sessions, Joan was receptive to feedback, consistent with homework, and willing to push herself. Joan plans to follow up [facility] aftercare group and her outpatient providers at [place] [id number]. Strategies for Success:: 1. Opposite action! Continue to break that cycle of anxiety and depression by getting up and getting going. 2. Remember that thoughts are thoughts NOT facts! You have power in if you give thoughts the time of day or not. 3. self-care! You deserve to take time for you and you also deserve to face the not so fun self-care 4. Self-compassion! You are human and you will make a mistake?BUT that doesn?t mean you are a failure or not good enough. Setbacks do not equal restarting. Give yourself credit for all the wonderful things you do. 5. continue to identify the little things that you look forward to each day 6. Remember that even if it feels uncomfortable, it is good to be assertive and advocate for your needs. Don't wait for others to do this for you 7. Practice positive self-talk and keep track of your wins. 8. Remember progress isn?t linear! You may have a setback or bump in the road, but that doesn?t mean you?ve lost all progress. 9. self-reflect to help understand what your body needs vs what your emotions want you to do. 10. Live in the locke!! - Appointments Appointments/Referrals to Other Services:: 1. IOP aftercare starting 08/13/22 from 2:00-3:30pm 2. Radha Villanueva on 08/14/22. 3. Last saw Harper Siddiqui on 07/24/22. 4. DBT group at [place] [id number]. - Medications Home Medications: Home Medications lamotrigine 25 mg tablet (Lamictal) 50 mg PO BID 05/27/22 meclizine 25 mg tablet 25 mg PO TID PRN PRN Nausea And Vomiting 05/27/22 bupropion HCl 150 mg 24 hr tablet, extended release 150 mg PO LUNCH 06/16/22 levothyroxine 175 mcg tablet 175 mcg PO DAILY 06/16/22 citalopram 10 mg tablet (Celexa) 10 mg PO DAILY 07/01/22 quetiapine 100 mg tablet (Seroquel) 150 mg PO DAILY 07/01/22
--- NOTE | 2022-08-07 09:10 | BH.SGPN.GN ---
Behaviors/Verbalizations/Mental Status: [] Eye contact is poor. Motor activity is appropriate. Appearance is casual. Speech is Appropriate. Mood is euthymic. Affect is congruent. Thoughts are linear and logical. No evidence of psychosis. Reviewed daily check in sheet and pt reports 1/5 for SI and intent which is significant improvement since last week. Client Response/Progress/Benefit: [] Pt was an active participant in group discussions. Attentive. Daily symptom tracker notes 2/5 for anxiety and 1/5 for depression. Shared that today is her last day in IOP which is making her very nervous. Tearful at times. Anxious that she will regress w/o support from IOP level of care. Group was able to challenge these thoughts which was beneficial. Pt also states Its been 11 days since I used unhealthy coping referring to self-harm. She briefly shared her struggles early on in PHP/IOP which resulted in her being sent the ER twice while in the program. Praised for her continued effort and progress. Pt will be discharged from IOP today. Narrative Note: []
--- NOTE | 2022-08-07 10:08 | BH.SGPN.GN ---
Behaviors/Verbalizations/Mental Status: []Pt alert and oriented, casually dressed and appropriately groomed. Eye contact good. Motor activity appropriate. Speech within normal limits. Affect congruent, mood euthymic. Thoughts linear, logical, no signs of hallucinations or delusions. Client Response/Progress/Benefit: []Pt was an engaged participant AEB providing input, listening to others, and taking notes. Participated in interactive group discussion on internal and external barriers to mental health progress. Pt described current reality as using her resources to not eliminate barriers but better be able to work with and manage them. Reported desired reality is continuing to make progress in maintaining stability and effectively managing her barriers without becoming overwhelmed by them. Client shared personal barriers to desired realty include: difficulties communicating with supports, distortions, and low self-confidence. Benefited from increased awareness of current barriers to progress as well as current/desired realities. Pt will d/c from IOP on this date and continue with outpatient tx to maintain gains, increase consistent use of healthy coping, and prevent decompensation. Narrative Note: []
--- NOTE | 2022-08-07 11:10 | BH.SGPN.GN ---
Behaviors/Verbalizations/Mental Status: []Pt alert and oriented, neatly dressed and groomed. Eye contact good. Motor activity appropriate. Speech within normal limits. Affect congruent, mood euthymic and anxious. Thoughts linear, logical, no signs of hallucinations or delusions. Client Response/Progress/Benefit: []Pt engaged during activity, encouraging peers, and contributed as group brainstormed ideas on how to cope with internal barriers that keep pts stuck from moving towards goals. Able to identify barriers to desired reality. Identified barriers to current reality to include: fear of failure, negative self-talk, and fear of being ?okay?. Pt wants to work on overcoming the barrier of fear of failure by continuing to practice self-compassion, keeping an accomplishment journal, and reflecting on progress. Benefited from group by identifying obstacles and solutions to desired reality.? Pt will discharge from IOP tx today as pt has accomplished her tx goals and no longer meets criteria for IOP level of care. Narrative Note: []
--- NOTE | 2022-08-07 12:43 | BH.DS ---
Discharge Summary - Demographics Date of Admission:: 07/02/22 Discharge Date: 08/07/22 Presenting Problems at Admission:: At admission to [facility], pt had completed PHP at [facility] and had not been to work since 05/02/22 due to mental health symptoms and daily suicidal thoughts. PT had four hospitalizations within two months. Pt's relationships were impacted by pt's daily SI and hospitalizations. Pt reported not working was impacting pt's self-esteem and causing financial stress. Pt had ongoing difficulty with completing ADLs and was easily overwhelmed which triggered SI. Pt was self-harming and calling crisis frequently to cope with her stress and suicidal ideations. Discharge Diagnoses:: Bipolar disorder, NOS (F31.9); borderline personality disorder Reason for Discharge:: Pt has accomplished her treatment goals AEB her overall symptom reduction, ability to return to work successfully, and increased distress tolerance skills. Pt no longer meets criteria for [facility] level of care and will transition to outpatient counseling. - Treatment Progress During Treatment & Response: Pt has made significant strides since starting [facility] as shown by her improved mood, reduced anxiety and depression, and change in perspective. Pt's symptoms have reduced by 23% overall since admission with depression decreasing by 33%, anxiety by 14% and thoughts of hurting herself by 33%. When Pt started IOP she was experiencing significant depression, anxiety, irritability, and suicidal ideations. Now, Pt can catch and manage thoughts that reinforce depression and suicidal ideations, use healthy coping skills more easily, and she has much higher distress tolerance. Pt has been able to manage triggers better and has made healthier habits. Pt was active in both group and individual therapy sessions. Pt contributed to group discussions, offered emotional support to peers, and followed through with her goals. In individual sessions, Pt was receptive to feedback, consistent with homework, and willing to push herself. Pt plans to follow up [facility] aftercare group and her outpatient providers at [place] [address]. Issues Still to be Addressed:: Pt can continue to work on increasing distress tolerance skills, improving self-compassion and self-esteem, and increasing social supports. Discharge Recommendations/Instructions:: Pt will continue with her outpatient providers at [place] [address]. Pt is currently getting TMS therapy daily from [place] [address] and this will continue for several more weeks. Pt has an appointment with Harper Siddiqui for medication management on 08/21/22 and Radha Villanueva for counseling on 08/14/22. Pt plans to participate in IOP aftercare starting 08/13/22. Discharge Handout: Complete Discharge Handout with client on aftercare options and continuity of care.
--- NOTE | 2022-08-07 14:02 | BH.COMM ---
Communication Note - Communication with Client Communication Note: Met with pt briefly to review aftercare plan, appointments, and progress. Pt plans to start IOP aftercare next week.
== END 2022-08-07 13:20 | disposition home or self-care (01) ==
LOC: BHIOP 08:06
PROVIDERS: PCP Nurse Practitioner Family; Visit Provider Psychiatry & Neurology Psychiatry
DX: F31.9 Bipolar disorder, unspecified (principal); F60.3 Borderline personality disorder
CPT/HCPCS: S9480; 90853

== ENCOUNTER 2022-08-13 14:02 | Outpatient (RCR) | payer OTHER, SELFPAY ==
--- NOTE | 2022-08-13 14:00 | BH.SGPN.GN ---
Behaviors/Verbalizations/Mental Status: []Pt alert and oriented, casually dressed. Eye contact good. Motor activity appropriate. Speech within normal limits. Affect congruent, mood anxious/dysthymic. Thoughts linear, logical, no signs of hallucinations or delusions. Client Response/Progress/Benefit: []Pt responded well to session, engaged and providing input throughout. Pt checked in using aftercare worksheet and pt reports she did not see her therapist but has an appointment scheduled tomorrow, she meets with psychiatry tomorrow, and pt has been taking medications. Pt has been using coping skills such as thought challenging, removing herself from toxic settings, and opposite action. Pt participated in the discussion of self-love and how one can increase this. Pt reported it is challenging to have self-love when you don?t know how to practice it/what to do, but this is something pt continues to work on. Pt selected strategies to improve self-love and shared this week pt is going to focus on expressing gratitude for one thing about she appreciates about her life daily. Pt appeared to benefit from increasing skills to build self-love. Pt will continue IOP aftercare to further increase mood stability and promote gains made in IOP. Narrative Note: []
--- NOTE | 2022-08-13 14:42 | BH.MTP ---
Master Treatment Plan - Patient Information Program Physician:: Dr. Mustafa Primary Therapist:: Sushila Prather [facility] - Psychiatric Diagnoses Psychiatric Diagnoses:: Bipolar disorder, NOS (F31.9); borderline personality disorder Diagnosis Code(s):: F31.9 - Estimated LOS Estimated LOS (in weeks):: 8 Problem/Goal #1 - Problem/Goal #1 Stated Goal:: client will maintain or see a reduction in symptoms AEB client score on the DSM 5 cross-cutting measure and improve client's daily functioning. - Objectives Objective #1 Stated Objective: Client will continue to consistently apply healthy coping skills to maintain progress made in IOP tx. Interventions: Through group therapy, client will review warning signs and triggers as well as healthy coping skills learned in IOP tx to successfully maintain gains while transitioning into outpatient therapy. Discharge Criteria: Client will have accomplished this goal when client's score on the DSM-5 cross-cutting measure has either maintained or reduced over a 8 week period. Objective #2 Stated Objective: Client will learn and utilize 2-3 maintenance strategies to prevent decompensation. Interventions: Through group therapy, client will be provided with education on healthy maintenance behaviors, relapse prevention techniques, and healthy coping strategies. Discharge Criteria: Client will have accomplished this goal when can report using at least 2 maintenance skills to prevent decompensation.
--- NOTE | 2022-08-14 14:00 | BH.COMM ---
Communication Note - Communication with Client Communication Note: Presented completed IOP and presents today to starting relapse prevention group which meets once weekly (1.5 hours) for 10 weeks. Case discussed with Dr. Mustafa with plan to admit with dx of F31.9
--- NOTE | 2022-08-20 14:00 | BH.SGPN.GN ---
Behaviors/Verbalizations/Mental Status: []Pt alert and oriented, casually dressed and groomed. Eye contact good. Motor activity appropriate. Speech within normal limits. Affect congruent, mood stressed. Thoughts linear, logical, no signs of hallucinations or delusions. Client Response/Progress/Benefit: []Pt receptive of session, engaged throughout. Pt shared they have been taking their medications and maintaining appointments with her outpatient mental health providers. Pt reports using PMR, deep breathing, and challenging negative thoughts to cope with stressors and negative thoughts. Receptive of discussion on sitting with the uncomfortable and emotional urges. Pt contributed to the discussion of distress tolerance including benefits and pt identified personal examples of what happens if their distress tolerance is low. Pt shared to improve distress tolerance, pt is going to work on sitting in silence and accepting the quiet to help pt sit with the uncomfortable. Pt seemed to benefit from support from peers and increasing understanding of distress tolerance. Will continue IOP aftercare to reinforce healthy coping skills and maintain gains. ? Narrative Note: []
== END 2022-09-02 23:59 ==
LOC: BHOG 14:02
PROVIDERS: PCP Nurse Practitioner Family; Referring Provider Psychiatry & Neurology Psychiatry; Visit Provider Psychiatry & Neurology Psychiatry
DX: F31.9 Bipolar disorder, unspecified (principal); F60.3 Borderline personality disorder
CPT/HCPCS: 90853

== ENCOUNTER 2022-09-03 08:16 | Outpatient (RCR) | payer OTHER, SELFPAY ==
--- NOTE | 2022-09-03 14:00 | BH.SGPN.GN ---
Behaviors/Verbalizations/Mental Status: []Client alert and oriented, casually dressed and groomed. Eye contact fair to good. Motor activity appropriate. Speech within normal limits. Affect congruent, mood depressed. Thoughts linear, logical, no signs of hallucinations or delusions. Client Response/Progress/Benefit: []Responded well to session, reports feeling ?numb? today as she is continuing to struggle with managing occupational stressors and burnout. Pt shared she is struggling with using her coping skills as a result and is afraid she may be experiencing some regression as she has been inconsistent with medications as well. Able to identify the importance of healthy skill use to prevent further decompensating. Attentive during discussion of vulnerability and benefits of practicing vulnerability. Shared being vulnerable has not been easy for her as she has had negative experiences in trying to do so in the past. Pts discussed ways we avoid feeling vulnerable and how this negatively affects mental health and relationships. Appeared to benefit from group discussion reflecting on the positive impact vulnerability can have on mental health; however, struggled in identifying one way in which she could practice being vulnerable in the next week. Will continue IOP aftercare to promote gains and reinforce healthy coping skills. Narrative Note: []
--- NOTE | 2022-09-10 14:00 | BH.SGPN.GN ---
Behaviors/Verbalizations/Mental Status: []Pt alert and oriented, casually dressed and groomed. Eye contact good. Motor activity appropriate. Speech within normal limits. Affect congruent, mood stressed. Thoughts linear, logical, no signs of hallucinations or delusions. Client Response/Progress/Benefit: []Pt responded well to session AEB sharing and listening attentively to others. Pt has been consistently seeing her mental health providers, but she has been struggling to take her medication consistently. Pt shared she has been struggling more lately which pt believes is ?environmental? due to work. Pt recently applied for a new job which is significant for pt. Pt participated in group discussion defining affirmations and why they are important. Pt provided insight throughout clinician?s presentation of tips for writing personal affirmations. Pt wrote own affirmations, including ?you?re on the right track, keep going.? Pt appeared to benefit from increased knowledge of affirmation writing and increased self-awareness. Will continue aftercare treatment to reinforce healthy coping skills and promote gains. ? Narrative Note: []
--- NOTE | 2022-09-17 14:00 | BH.SGPN.GN ---
Behaviors/Verbalizations/Mental Status: []Pt alert and oriented, casually dressed and groomed. Eye contact good. Motor activity appropriate. Speech within normal limits. Affect congruent, mood euthymic. Thoughts linear, logical, no signs of hallucinations or delusions. Client Response/Progress/Benefit: []Pt responded well to session, Pt reports following through with outpatient counseling and seeing her psychiatrist. Pt continues to struggle with medication noncompliance, but pt is talking with her psychiatrist about other options tomorrow. Pt reports using deep breathing and being vulnerable. Pt got a new job and she is very excited.?Pt engaged well during the discussion of the components of self-compassion. Pt connected with the benefits of self-compassion and participated in the activity of reframing a recent setback using self-compassion. Pt used self-compassion to combat negative self-talk about her body.?Pt appeared to benefit from practicing self-compassion and connecting with peers. Will continue aftercare to promote mood stability and reinforce healthy coping skills.? Narrative Note: []
--- NOTE | 2022-09-17 16:53 | BH.TPR ---
Treatment Plan Review Date of Admission:: 08/13/22 Date of Treatment Plan Review:: 09/17/22 Admitting Diagnoses:: Bipolar disorder, NOS (F31.9); borderline personality disorder Current Diagnoses:: Bipolar disorder, NOS (F31.9); borderline personality disorder Patient's Response to Treatment:: Pt responding well to treatment AEB pt's consistent attendance, active engagement in group discussions, follow up with outpatient therapy and psychiatry, and reporting use of skills outside treatment environment. Pt utilizes IOP aftercare to process current stressors and identify coping strategies. Status of Current Problems and Symptoms: Ongoing stressors include maintaining progress made in IOP, getting ready to leave her current job for a new job in a few weeks, negative thought patterns, and struggling with medication noncompliance. Problem #1 Problem Name:: Pt will maintain or see a reduction in sx since IOP admission Status of Goals:: Obj 1 complete with ongoing work encouraged- Pt has been able to maintain gains made in IOP as pt?s DSM-5 scores are 23% lower than they were at IOP admission and depression is 33% lower than IOP admission. Based on pt's self-report she is currently experiencing anxiety from getting ready to change jobs, but pt thinks it is healthy anxiety. Obj 2 - complete with ongoing work encouraged. Pt has been consistently reporting using grounding skills, affirmations, and healthy distractions. Team Recommendations:: Recommended client continue IOP aftercare group in addition to attending regular outpatient counseling in order to maintain gains.
--- NOTE | 2022-10-01 14:00 | BH.SGPN.GN ---
Behaviors/Verbalizations/Mental Status: []Pt alert and oriented, casually dressed and groomed. Eye contact fair. Motor activity appropriate. Speech within normal limits. Affect congruent, mood stressed and motivated. Thoughts linear, logical, no signs of hallucinations or delusions. Client Response/Progress/Benefit: []Pt receptive of session, engaged throughout. Pt reports she has not met with her therapist this week, but she had an appointment with her psychiatrist and is now taking medications consistently. Pt reports she has been using deep breathing, self-compassion, and listening to music to cope with daily stressors. Receptive of discussion on personal accountability and its importance in maintaining mental health stability. Pt worked cooperatively with group to identify benefits of maintaining personal accountability. Engaged in brainstorming strategies for improving ability to hold themselves accountable. Reported wanting to work on doing her laundry quicker and she will hole herself accountable by ?throwing my dirty clothes down the steps so I have to.? Pt seemed to benefit from support from peers and increasing understanding of personal accountability benefits and strategies. Will continue IOP aftercare group to maintain gains and prevent decompensation Narrative Note: []
== END 2022-10-03 23:59 ==
LOC: BHOG 08:16
PROVIDERS: PCP Nurse Practitioner Family; Referring Provider Psychiatry & Neurology Psychiatry; Visit Provider Psychiatry & Neurology Psychiatry
DX: F31.9 Bipolar disorder, unspecified (principal); F60.3 Borderline personality disorder
CPT/HCPCS: 90853

== ENCOUNTER 2022-10-06 07:25 | Outpatient (RCR) | payer OTHER, SELFPAY ==
--- NOTE | 2022-10-08 14:00 | BH.SGPN.GN ---
Behaviors/Verbalizations/Mental Status: []Client alert and oriented, casual in appearance. Eye contact good.? Motor activity appropriate. Speech within normal limits. Affect congruent. Mood anxious and euthymic. Thoughts linear, logical, no signs of hallucinations or delusions Client Response/Progress/Benefit: []Pt responded well to session AEB providing input when prompted throughout and listening attentively to others. Pt reported she has an appointment with her outpatient counselor scheduled for next week and psychiatrist on 10/21. Reports she is taking her medications as prescribed. Identified using thought challenging, reaching out to supports, and opposite action, and small goal setting to help with mental health maintenance over the past week. Pt connected with self-reflection discussion and activity. Worked with group to identify the benefits of self-reflection. Seemed to benefit from identifying how to incorporate self-reflection more consistently into daily living. Identified a self-reflection goal of using regular therapy to check-in with herself and how things are going. Pt to d/c for aftercare on this date and will continue individual outpatient counseling to maintain gains and prevent decompensation. Narrative Note: []
--- NOTE | 2022-10-08 16:00 | BH.DS_ITS ---
Discharge Summary - Demographics Date of Admission:: 08/13/22 Discharge Date: 10/08/22 Presenting Problems at Admission:: Pt discharged from IOP tx and transitioned to IOP aftercare to maintain gains pt made in IOP and to reinforce healthy coping skills. At admission to IOP aftercare, pt continued to report symptoms of depression, anxiety, and mood instability but of reduced intensity and frequency. Pt also was experiencing work stress, negative thinking, and primary support issues. Discharge Diagnoses:: Bipolar disorder, NOS (F31.9); borderline personality disorder Reason for Discharge:: Pt has accomplished tx goals AEB ability to maintain mood stability and gains made in IOP. Pt's DSM-5 scores decreased by an additional 33% from IOP admission. Pt will transition to traditional outpatient counseling. - Treatment Progress During Treatment & Response: Pt responded well and made progress in IOP aftercare as evidenced by pt's participation in group discussions and self- report of consistently applying coping skills. Pt's overall DSM-5 scores decreased by 33% from IOP admission. Pt?s depression decreased by 33% since original IOP admission, and pt's scores for anxiety decreased by 57% compared to original IOP scores. Additionally, at discharge Pt was reporting consistently seeing her therapist, using healthy coping skills, and practicing affirmations. Pt also reported increased ability to manage urges and negative thought patterns. Issues Still to be Addressed:: replacing unhelpful core beliefs, distress tolerance, communication of needs, and self-esteem. Discharge Recommendations/Instructions:: Pt will follow up with her outpatient providers at [place] [id number] for medication management and individual therapy. Pt is also starting the DBT group at [place] [id number] as well. Discharge Handout: Complete Discharge Handout with client on aftercare options and continuity of care.
== END 2022-10-09 06:45 | disposition home or self-care (01) ==
LOC: BHOG 07:25
PROVIDERS: PCP Nurse Practitioner Family; Referring Provider Psychiatry & Neurology Psychiatry; Visit Provider Psychiatry & Neurology Psychiatry
DX: F31.9 Bipolar disorder, unspecified (principal); F60.3 Borderline personality disorder
CPT/HCPCS: 90853

== ENCOUNTER 2023-01-27 08:00 | Outpatient (RCR) | payer OTHER, SELFPAY ==
--- NOTE | 2023-01-27 10:35 | BH.NA ---
Physical Data - Vital Signs Pulse Rate: 68 Blood Pressure: 143/91 - Height/Weight Height: 1.68 m Weight:: 113.398 kg Weight in Pounds: 250.0 lbs Current Medication Compliance - Medication Compliance Do you take your medication as prescribed?: Yes Nutritional History - Appetite Nutritional Instructions:: If client shows signs of a swallowing problem, weight change of 10 pounds or more in the last month, or is on a diabetic diet, the physician will review and request a dietitian consult, as appropriate. All unintentional weight loss will be referred to the physician for decision on need for dietitian consult. Describe your appetite:: Fair - Client states she has not noticed a weight change, but has had some episodes of binge eating. Client has a history of bulimia but states she has not purged in a few months. Functional Assessment - Sleep Pattern Describe any problems with sleeping: Client states she sleeps about 8 hours per night. - Activities Motor Activity:: Functional Sensory/Communication Assess - Vision Problems Do you have any vision problems?: Glasses - Communication Problems Do you have difficulty understanding what people are saying?: No Medical Problems/History - Metabolic Conditions Metabolic: Hypothyroidism - Pain Assessment Do you have acute or chronic pain?: No - Additional History Additional comments:: Client states she was newly diagnosed with ADHD in August 2022 but was not started on medication due to her history of an eating disorder Surgical History - Surgical History Have you had any surgeries? If so, list type and date:: Yes - eye surgeries Substance Abuse - Substance Abuse Please describe substance abuse in the last 30 days:: Client denies alcohol, tobacco and substance use. Client reports rare caffeine use. Mental Status Summary - Mental Status Significant Findings/Observations on Appearance and Mood:: Client is alert and oriented x 4. Client is casually groomed with good hygiene. Client makes good eye contact. Clients voice has normal rate and volume. Client has a somewhat flat affect. Client makes logical associations and has normal processing. Client denies delusions/hallucinations. Client reports some passive SI, denies plan/intent. Suicide Assessment - Suicidal Ideation Are you currently or have you been suicidal in the past?: Yes - daily passive SI, denies plan/intent Suicidal Intentional Rating Scale (SIRS): Suicidal thoughts (past) Physician Notification: If Active suicidal thoughts/Will not contract for safety is checked, contact physician and document in the Physician Notification section below. Assault History/Potential Past Psychiatric History - MH Treatment Hx Past Psychiatric Medications:: Seroquel, Celexa, Wellbutrin, Lamictal Age of first mental health symptoms: Client states she first took medication for mental health around age 11. Client states in August 2022, she was diagnosed with ADHD. Describe (age, circumstance, etc) any past hospitalizations: Several hospitalizations in the past. She has had 3 hospitalizations at [facility] since November of 2022, the most recent being 01/13-01/18/23 for suicide attempt, client states due to cutting. Client has superficial cuts on her left arm. Current providers for mental health treatment (counselor, psychiatrist, case management coordinator, etc.): [place] [id number] for psychiatry and counseling Fall Risk Assessment - Age Age: Less than 60 - Mental Status Mental Status: Willing & able to ask for assistance when needed - Physical Status Physical Status: No problems - Impairments Impairments: None - Elimination Elimination: Continent AND independent - Gait or Balance Gait or Balance: Walks independently - Hx of Falls History of falls in the past 6 months: No known history - Medications/Substances Psychotropics:: Antipsychotics Medications/substances used within the past 24 hours or ordered to administer: 1-2 of the medications/substances listed above - Total Score Total Points:: 1 RN Summary of Impressions - Impressions Recommendations: Include psychiatric and medical issues, treatment planning recommendations, and discharge planning needs. Impressions: Psychiatric Issues: 1. Bipolar disorder, NOS (F31.9). 2. Borderline personality disorder. 3. Generalized anxiety disorder. 4. Bulimia nervosa with purging by emesis. 5. Rule out PTSD - Level of Care How do the client's current symptoms and functional deficits support need for this level of care?: Client did PHP/IOP in the fall of 2021. Client was referred back to IOP by her psychiatrist due to several recent hospitalizations for SI and mental health impacting function. Client states before her 01/13/23 hospitalization, she had a plan for a suicide attempt by cutting herself. Client has superficial cuts to her left arm. Client reports chronic passive SI, and denies plan/intent for SI at this time. Client endorses decreased motivation and energy. IOP will promote gains and prevent further decompensation while providing social support and skills training.
--- NOTE | 2023-01-27 11:15 | BH.SGPN.GN ---
Behaviors/Verbalizations/Mental Status: []Pt alert and oriented, casually dressed and groomed. Eye contact good. Motor activity appropriate. Speech within normal limits. Affect constricted, mood anxious and depressed. Thoughts linear, logical, no signs of hallucinations or delusions. Client Response/Progress/Benefit: []Pt was attentive and contributed to small group discussion. Pt completed strengths exploration worksheet. Pt able to acknowledge how these strengths are helping pt and can continue to help pt in mental health journey. With some promoting pt able to reflect on how pt?s flexibility, empathy, and open mindedness have helped pt in the past and continue to help pt with mental health. Pt worked with group to identify strategies that can help increase utilization of personal strengths and how to challenge one?s perspective in general. Benefited from identifying personal strengths and strategies for enhancing use of identified strengths. Pt to continue IOP tx to prevent decompensation, get support, promote mood stability, and continue to improve consistent skill application. ? Narrative Note: []
[2023-01-27 11:40] VITALS: BP 143/91; PULSE 68
--- NOTE | 2023-01-27 11:48 | BH.PSA_ITS ---
Suicide Assessment Treatment Plan Recommendations
--- NOTE | 2023-01-27 11:48 | BH.MTP ---
Master Treatment Plan - Patient Information Program Physician:: Dr. Shari Modi Primary Therapist:: Shanna WANG - Psychiatric Diagnoses Psychiatric Diagnoses:: Bipolar disorder, NOS (F31.9); Borderline personality disorder; Generalized anxiety disorder; Bulimia nervosa with purging by emesis; Rule out PTSD Diagnosis Code(s):: F 31.9 - Estimated LOS Estimated LOS (in weeks):: 6 Problem/Goal #1 - Problem/Goal #1 Stated Goal:: Pt will decrease depressive symptoms, hopelessness, worthlessness, negative self-talk, and reduce chronic SI. Description of Barriers: Three psychiatric admissions in past two months, hopelessness, work stressors, limited support, low frustration tolerance, and negative self-talk. Functional Impact: Pt has been hospitalized three times since November 2022 due to suicidal ideations with a plan to overdose. Pt's relationships and work are impacted by pt's daily SI and hospitalizations. Pt reported the excessive hours she was working at the job she started in October was the primary trigger for her decompensation. Ongoing difficulty with completing ADLs and easily overwhelmed which triggers SI. Goal Relevant Strengths/Supports: Pt successfully completed PHP and IOP at [facility] in the past and made significant progress. Pt has outpatient therapy and psychiatry. Pt reports increased use of healthy coping skills since her previous admission to [facility] in 2021. - Objectives Objective #1 Stated Objective: Pt will learn and utilize 2-3 healthy coping strategies to better manage depressive symptoms and decrease DMS-5 symptoms for depression and SI. Interventions: Through group and individual sessions, therapist will help pt identify triggers and warning signs of depression and guilt including emotional, physical, and behavioral changes. Therapist will teach pt various coping skills to manage symptoms and give pt tangible resources to use to regulate emotions. Therapist will use cognitive restructuring techniques and help pt gain awareness of negative thoughts that reinforce guilt and depression. Therapist will provide psychoeducation on maintenance cycles and help pt learn ways to break unhealthy maintenance cycles. Therapist will help pt incorporate behavioral activation and assist pt in setting SMART goals. Discharge Criteria: Pt will have met this goal when can report learning and using at least 2 coping skills to manage depressive symptoms and when pt's DSM-5 scores for depression and SI decrease. Target Date: 03/10/23 Review Date: 02/17/23 Status: open Objective #2 Stated Objective: Pt will identify at least 2-3 negative self-talk messages used to reinforce negative core beliefs, worthlessness, and isolation and replace thoughts with balanced, realistic messages. Interventions: Therapist will help pt identify distorted, negative beliefs about self and replace with more realistic, affirmative messages. Therapist will use CBT and DBT to help pt increase insight to the connection between thoughts, emotions, and behaviors. Therapist will encourage pt to practice thought challenging. Discharge Criteria: Pt will have achieved this goal when can verbalize at least 2 mistaken beliefs of self and effectively replace those thoughts with affirmative messages. Target Date: 03/10/23 Review Date: 02/17/23 Status: open Problem/Goal #2 - Problem/Goal #2 Stated Goal:: Will reduce impulsivity and anxiety through increasing emotional regulation and distress tolerance skills Description of Barriers: Three psychiatric admissions in past two months, hopelessness, work stressors, limited support, low frustration tolerance, and negative self-talk. Functional Impact: Pt has been hospitalized three times since November 2022 due to suicidal ideations with a plan to overdose. Pt's relationships and work are impacted by pt's daily SI and hospitalizations. Pt reported the excessive hours she was working at the job she started in October was the primary trigger for her decompensation. Ongoing difficulty with completing ADLs and easily overwhelmed which triggers SI. Goal Relevant Strengths/Supports: Pt successfully completed PHP and IOP at [facility] in the past and made significant progress. Pt has outpatient therapy and psychiatry. Pt reports increased use of healthy coping skills since her previous admission to [facility] in 2021. - Objectives Objective #1 Stated Objective: Pt will identify 2 triggers and 2 coping skills to use when pt experiences mood dysregulation and has increased urges to engage in unhealthy, impulsive coping skills. Interventions: Through individual and group counseling pt will be provided with education on healthy coping skills to manage mood symptoms, impulse, and crisis behaviors. Therapist will provide information on healthy alternatives to emotion release. Individual therapist will teach pt DBT techniques to increase emotional regulation and mindfulness. Therapist will also engage pt to use self-compassion while working to change behaviors. Discharge Criteria: pt will have accomplished this goal when pt can identify at least 2 triggers and 2 coping skills to increase mood stability and reduce unhealthy action urges. Target Date: 03/10/23 Review Date: 02/17/23 Status: open Objective #2 Stated Objective: Pt will identify 2-3 anxiety/panic triggers and 2 coping skills to use when feeling anxious to manage anxiety as shown by reducing DSM-5 scores for anxiety. Interventions: Therapist will provide education on anxiety, avoidance behaviors, and maintenance cycles. Therapist will help pt explore personal symptoms and warning signs of anxiety. Therapist will teach pt coping skills to improve emotional regulation, mindfulness, and distress tolerance to help pt cope with anxiety in the moment. Discharge Criteria: Pt will have accomplished this goal when she can identify at least 2 triggers and report using 2 coping skills to manage anxiety. Additionally, pt will have accomplished this goal AEB reduction of DSM-5 scores for anxiety. Target Date: 03/10/23 Review Date: 02/17/23 Status: open
--- NOTE | 2023-01-27 11:48 | BH.PSA ---
Suicide Assessment Treatment Plan Recommendations
--- NOTE | 2023-01-27 11:48 | BH.MDN ---
Multi-Disciplinary Note - Note 45-min Individual Time Started:: 08:45 Date: 01/27/23 Purpose of session/treatment goals addressed:: To gather information on pt's current stressors, symptoms, triggers, and tx goals. Another goal was to build rapport and provide emotional support. Eye Contact:: Good Motor Activity:: Appropriate Appearance:: Casual Speech:: Appropriate Mood:: Anxious Affect:: Congruent Thoughts:: Linear, Logical, No evidence of hallucinations/delusions noted Staff Interventions:: rapport building, strengths perspective, treatment planning, goal setting, other - Reviewed pt's self-reflections from the Borderline Personality Workbook. Client Response:: Pt responded well to session, open to meeting with therapist. Pt shared her mental health began to worsen after graduating from [facility] aftercare and starting a new job. Pt stated she had been doing well, but then she starting working a lot more than she was expecting. Pt reports the job was meant to be part-time, but pt was working 93 hours a pay period. Pt shared the stress from work triggered pt's suicidal ideations and pt began having difficulty managing her moods and thoughts. Pt was having panic attacks at work and started cutting again. Pt connects with the Borderline Personality Disorder diagnosis and she bought the BPD workbook. Pt has reflected on her attachment style (fearful) and her BPD subtype (self-destructive). Pt receptive to working on the workbook in session and for homework. Pt identified other goals for IOP which included increasing her distress tolerance at work and in general as well as getting into a routine. Pt receptive to working on a daily habit tracker. Risks/Concerns:: Pt has history of chronic, daily suicidal ideations that change in intensity. Pt admits to passive SI today, but pt denies any active SI since her discharge from the hospital. Pt has not engaged in non-suicidal, self-injurious cutting for two weeks. Pt's cat is her protective factor. Progress Toward Goals/Plan:: Pt's first day in IOP tx and pt reports being hopeful the program will work as pt has completed it in the past. Pt stated her mental health began decompensating two months ago due to increased work stress. Pt currently endorses a depressed mood, low distress tolerance, passive suicidal ideations, intense mood changes, frequent anxiety, negative self-talk, and inability to function at her baseline. Pt is only able to attend IOP tx twice a week due to work. Pt will continue IOP tx to prevent rehospitalization, increase distress tolerance skills, and improve daily functioning. Time Stopped:: 09:30
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
--- NOTE | 2023-01-27 12:12 | BH.DR.ITP ---
Initial Treatment Plan Patient Information Visit Information: ADMISSION DATE: EXPECTED LOS: 4-6 weeks Problems/Symptoms Problem #1:: Depression Symptom:: Sadness, hopelessness, worthlessness, anhedonia, guilt, passive thoughts of , passive suicidal ideation Problem #2:: Anxiety Symptom:: Worry, rumination, panic attacks, flashbacks, nightmares, avoidance
--- NOTE | 2023-01-28 09:02 | BH.SGPN.GN ---
Behaviors/Verbalizations/Mental Status: []Eye contact is good. Motor activity is appropriate. Appearance is casual. Speech is Appropriate. Mood is sad. Affect is congruent. Thoughts are linear and logical. No evidence of psychosis. Reviewed daily check in sheet and denies any active SI. Client Response/Progress/Benefit: []Pt responded well to session, attentive and willing to process with group. Pt reports feeling sad this morning as pt has been struggling with accepting the need for mental health support. Reports rationally knowing it?s ?okay? to be sad and need extra support but continues to feel this is a negative reflection on her. Did well to identify current mental health wins as taking her meds as prescribed, noting she has historically struggled with doing so. Additional win identified as getting her cat groomed. Pt will continue IOP tx to prevent decompensation, improve daily functioning, and increase distress tolerance skills. Narrative Note: []
--- NOTE | 2023-01-28 10:00 | BH.SGPN.GN ---
Behaviors/Verbalizations/Mental Status: [] Eye contact is good. Motor activity is appropriate. Appearance is casual. Speech is Appropriate. Mood is depressed. Affect is flat. Thoughts are linear and logical. No evidence of psychosis Client Response/Progress/Benefit: [] Pt participated when prompted during group discussions. Attentive during psychoeducation on Conflict Styles. Attentive during interactive discussion amongst group members in which they discussed perspective on conflict which was reported to be overall negative (yelling, shutting down, being mean, war, arguments, etc). Attentive during discussion on the benefits of conflict and pt along with peers identified several benefits which included; to obtain resolution to an issue, to set boundaries, for one's safety, to improve relationships, to address concerns, and for growth. Engaged with peers during small group assignment in which they identified positives and negatives to each conflict style. Benefited from increased understanding of conflict and ways individuals manage conflict. Will continue in IOP to prevent decompensation/ re-admission to psych unit, maintain safety, and to stabilize mood. Narrative Note: []
--- NOTE | 2023-01-28 11:10 | BH.SGPN.GN ---
Behaviors/Verbalizations/Mental Status: []Pt alert and oriented, casually dressed and groomed. Eye contact good. Motor activity appropriate. Speech within normal limits. Affect congruent, mood anxious and depressed. Thoughts linear, logical, no signs of hallucinations or delusions. Client Response/Progress/Benefit: []Pt engaged in session AEB contributing to discussion and engaging in activity. Pt did well to review current conflict styles of avoiding and accommodating and their impact on pt?s mental health. Attentive and taking notes during discussion on strategies for more effectively managing conflict in personal life.? Pt participated in activity and did well to talk through choices with peers. Pt given handout on fair fighting rules and identified that they want to work on less stonewalling and expressing her emotions by writing before she shares with others. Appeared to benefit from gaining strategies to help pt better manage conflict. Will continue IOP tx to increase distress tolerance skills, reduce negative self-talk, and improve daily functioning. Narrative Note: []
== END 2023-01-31 23:59 ==
LOC: BHIOP 08:00
PROVIDERS: PCP Nurse Practitioner Family; Referring Provider Psychiatry & Neurology Psychiatry; Visit Provider Psychiatry & Neurology Psychiatry
DX: F31.9 Bipolar disorder, unspecified (principal); F60.3 Borderline personality disorder; F41.1 Generalized anxiety disorder; F50.00 Anorexia nervosa, unspecified
CPT/HCPCS: S9480; 90834; 90853

== ENCOUNTER 2023-02-01 08:24 | Outpatient (RCR) | payer OTHER, SELFPAY ==
[2023-02-01 00:53] VITALS: BP 143/91; PULSE 68
--- NOTE | 2023-02-03 09:00 | BH.SGPN.GN ---
Behaviors/Verbalizations/Mental Status: []Pt alert and oriented, casually dressed and groomed. Eye contact fair. Motor activity appropriate. Speech within normal limits. Affect constricted, mood anxious. Thoughts linear, logical, no signs of hallucinations or delusions. Reviewed pt?s symptom tracker, indicates thoughts of suicide, but ability to manage thoughts. Pt has chronic suicidal thoughts, denies intention. Client Response/Progress/Benefit: []Pt responded well to session, attentive and engaged. Patient reported mental positive as not freaking out when she got a new cat over the weekend. Patient reported she is still nervous that the new cat and her old cat will get along but is handling it better. Patient reported another mental positive as being able to manage her anxiety when she was asked to work on the psychiatric unit at work which is the same psychiatric unit she was on a few weeks ago as a patient. Patient reported mental stressor is starting to have increased negative and self-harm thoughts. Pt appeared to benefit from support from peers. Pt will continue IOP tx to increase use of healthy coping skills, challenge distortions, and prevent decompensation.
--- NOTE | 2023-02-03 10:10 | BH.SGPN.GN ---
Behaviors/Verbalizations/Mental Status: []Eye contact is good. Motor activity is appropriate. Appearance is casual. Speech is Appropriate. Mood is anxious and depressed. Affect is congruent. Thoughts are linear and logical. No evidence of psychosis. Client Response/Progress/Benefit: []Pt was an active participant in group discussion and experiential activity, though remaining mostly passive throughout. Attentive during psychoeducation on resilience. Participated in interactive discussion with peers on the definition of resilience and where it comes from. Group identified that resiliency can be impacted by; past experiences, learned behaviors, and current mental health state. Group also worked together to identify the benefits of being resilient and how it is related to mental health. Able to relate experiential activity of group juggle to topics of resilience. Worked well with peers in small group in which they identified factors that contribute to resilience. Benefited from increased awareness of resilience and the factors that contribute to building resilience. Will continue in IOP to maintain safety, promote mood stability, as well as improve communication. Narrative Note: []
--- NOTE | 2023-02-03 11:10 | BH.SGPN.GN ---
Behaviors/Verbalizations/Mental Status: []Pt alert and oriented, casually dressed and groomed. Eye contact fair. Motor activity appropriate. Speech within normal limits. Affect congruent, mood depressed and anxious. Thoughts linear, logical, no signs of hallucinations or delusions. Client Response/Progress/Benefit: []Pt responded well to session AEB completing the resilience worksheet provided. Pt participated in the discussion and worked cooperatively with group to identify strategies to enhance each of the components discussed. Pt reports belief they already use resilience trait of??self-awareness? as pt feels she does well with asking for help and safety planning. Pt stated they would like to continue to develop resilience trait of ?taking care of herself? both at home and work. Pt seemed to benefit from discussing strategies for improving personal resilience and identifying resilience traits pt already possesses. Will continue IOP tx to prevent rehospitalization, improve daily functioning, and increase distress tolerance skills.? ? Narrative Note: []
--- NOTE | 2023-02-04 09:10 | BH.SGPN.GN ---
Behaviors/Verbalizations/Mental Status: [] Eye contact is good. Motor activity is appropriate. Appearance is casual. Speech is Appropriate. Mood is depressed. Affect is congruent. Thoughts are linear and logical. No evidence of psychosis. Reviewed daily check in sheet and pt reports /10 for suicidal thoughts and 3/5 for risk. Met with counseling this AM. Client Response/Progress/Benefit: [] Pt participated when prompted. Attentive. Daily symptom tracker notes 4/5 for depression and self-harm urges. Entered group late as she was meeting with her program therapist. Mental health win was that she ate lunch and dinner yesterday Shared that since her mental health decompensation she has not consistently eaten. Another win was that she had dinner with her mother in public. Shared that she struggles eating in public feeling that everyone is looking at her. Stressor for today is that this weekend is a slight trigger as this was the day she had planned to kill herself prior to her last hospitalization. States that she doesn't feel like this anymore don't worry I'm not going to do anything. Met with her program therapist and they developed a safety plan and activities for this weekend. Group was supportive and provided encouragement as well as feedback which was helpful. Narrative Note: []
--- NOTE | 2023-02-04 09:41 | BH.MDN_ITS ---
Multi-Disciplinary Note - Note 45-min Individual Time Started:: 08:35 Date: 02/04/23 Purpose of session/treatment goals addressed:: To assess risk and create a safety plan for the weekend. Another goal was to work on distress tolerance skills. Eye Contact:: Fair Motor Activity:: Appropriate Appearance:: Neat Speech:: Appropriate Mood:: Anxious, Depressed Affect:: Congruent Thoughts:: Other - Distorted thought patterns. Staff Interventions:: thought challenging, psychoeducation on: - management of intrusive thoughts, mindfulness skills, strengths perspective, completed risk assessment / safety planning, goal setting, other - reviewed DBT distress tolerance skills Client Response:: Pt responded well to session, open to meeting with therapist. Pt shared her biggest stressor is the upcoming weekend. Pt is worried as this weekend was the weekend pt had planned to kill herself prior to being hospitalization. Pt shared she does not feel like she did prior to being hospitalized and pt's thoughts are not active. However, pt is worried this will happen. Discussed creating a plan which would involve identifying skills, supports, and reducing access to self-harming items. Pt stated she works this weekend which is both helpful and a trigger. 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 Pt shared she often gets angry with herself when she has suicidal thoughts because part of me wants it and part of me doesn't. Pt receptive to learning about how intrusive thoughts work and how telling herself don't think this actually makes her think more about suicide. Practiced allowing thoughts to enter her mind without judgement using the carrot technique or the ironic process. Discussed using thoughts are thoughts not facts to help pt. Pt identified several protective factors that have prevented her from killing herself in the past. Pt also receptive to identifying strategies to increase distress tolerance in the moment and pt will put up affirmations around her house. Risks/Concerns:: Pt has chronic suicidal ideations and reports feeling anxious about this weekend because this was the weekend pt had originally planned to kill herself prior to her hospitalization in January. Pt reports that the thoughts are always there but pt denies any intent or plan. Pt is future oriented and willing to establish plans for the weekend. Pt has disposed of her excess medications. Progress Toward Goals/Plan:: Pt's second week of IOP tx and reports benefitting from the structure, routine, and support from group. Pt reports her symptoms have not decreased yet. Pt's biggest stressor today is the upcoming weekend as pt had planned to kill herself this weekend prior to getting hospitalized. Pt denies any active SI, but she is worried that her thoughts will get worse. Pt receptive to creating a plan for the weekend. Pt's anxiety about work and being alone are exacerbating this. Pt is however more optimistic about her ability to cope with stressors than pt felt in the past. Pt will continue IOP tx to prevent decompensation and rehospitalization. Time Stopped:: 09:25
--- NOTE | 2023-02-04 10:15 | BH.SGPN.GN ---
Behaviors/Verbalizations/Mental Status: []Pt alert and oriented, casually dressed and groomed. Eye contact good. Motor activity appropriate. Speech within normal limits. Affect constricted, mood depressed and anxious. Thoughts linear, logical, no signs of hallucinations or delusions. Client Response/Progress/Benefit: []Pt responded well to session AEB contributing to discussion, taking notes, and listening attentively to others. Group discussed the benefits of managed anger and anger as a secondary emotion. Pt shared perspective on personal benefits of anger as motivation for change. Pt completed worksheet on anger triggers and personal warning signs of anger. Pt identified their biggest triggers as being in a stressful environment, negative thinking, and getting unwanted feedback. Appeared to benefit from increased knowledge of the anger cycle as well as personal triggers. Will continue IOP tx to prevent decompensation, increase distress tolerance skills, and improve self-compassion. Narrative Note: []
--- NOTE | 2023-02-04 11:10 | BH.SGPN.GN ---
Behaviors/Verbalizations/Mental Status: []Client alert and oriented, casually dressed and groomed. Eye contact good. Motor activity appropriate. Speech within normal limits. Affect constricted, mood anxious. Thoughts linear, logical, no signs of hallucinations or delusions. Client Response/Progress/Benefit: []Pt was engaged throughout AEB contributing to group discussion and self-reflection. Group finished processing cues to anger worksheet. Pt contributed as group brainstormed healthy coping skills for better managing anger which included: music, walking/exercise, taking a break, grounding tools, reflection, and journaling. Pt reported she would like to work on skills of belly breathing and meditation to help manage anger responses. Pt appeared to benefit from identifying different techniques to manage anger as well as gaining awareness of potential consequences of unmanaged anger. Will continue IOP tx to increase consistent use of skills, increase confidence, and prevent decompensation.
--- NOTE | 2023-02-10 09:00 | BH.SGPN.GN ---
Behaviors/Verbalizations/Mental Status: []Pt alert and oriented, casually dressed and groomed. Eye contact good. Motor activity appropriate. Speech within normal limits. Affect flat, mood depressed. Thoughts linear, logical, no signs of hallucinations or delusions. Reviewed pt?s symptom tracker, no risk for suicidal ideation, plan, or intent as of 02/10/23 as pt's scores for SI are within her baseline. Client Response/Progress/Benefit: []Pt responded somewhat well to session, attentive, but declining to check-in with her wins and stressor. Pt appeared to be anxious and depressed per her affect. Pt did appeared to be listening attentively to peers during their check-ins. Pt has awareness that when she is ruminating she withdraws which reinforces depression. Pt will continue to be encouraged to use her healthy coping skills today. Pt will continue IOP tx to prevent decompensation, increase distress tolerance skills, and improve daily functioning. Narrative Note: []
--- NOTE | 2023-02-10 11:10 | BH.SGPN.GN ---
Behaviors/Verbalizations/Mental Status: [] Client alert and oriented, casually dressed and groomed. Eye contact poor. Motor activity appropriate. Speech within normal limits. Affect constricted, mood depressed. Thoughts linear, logical, no signs of hallucinations or delusions. Client Response/Progress/Benefit: [] Client responded well to session AEB client listening attentively to others and providing input during group discussion. Client mostly stayed passive during activity, appeared anxious. Shook head to agree with others comments that if the whole group was passive they would not have been successful. Discussed with group communication strategies used to make activity successful. Attentive during psychoeducation on interpersonal DBT skill PETERSON. Client seemed to benefit from increasing awareness of healthy strategies to improve communication. Will continue IOP tx to increase consistent use of healthy coping skills, improve distress tolerance, and prevent decompensation.
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
--- NOTE | 2023-02-11 09:01 | BH.SGPN.GN ---
Behaviors/Verbalizations/Mental Status: []Pt alert and oriented, casually dressed and groomed. Eye contact poor. Motor activity appropriate. Speech within normal limits. Affect constricted, mood anxious. Thoughts linear, logical, no signs of hallucinations or delusions. Reviewed pt?s symptom tracker, indicates thoughts of suicide, but ability to manage thoughts. This is pt's baseline. Client Response/Progress/Benefit: []Pt responded well to session, attentive and receptive to feedback. Client reported mental positive as getting a tattoo today for to cover up one of her old tattoos. Client did note some nervousness because the tattoo is to cover up some of the scars on her arm which she is worried could be triggering. However client did report she is more excited about the tattoo and what it would look like. Client stated she is struggling because she went to her psychiatrist appointment is today and the psychiatrist told her client is making no progress. Client stated the psychiatrist was wanting client to be at IOP more frequently and does not believe 2 days a week is sufficient. Client stated she is not sure how to come here more frequently due to her work and not having eligibility for disability. Client agreed something does need to change because she has been having more bad thoughts and has been struggling with acting on her self-harm thoughts. Seemed to benefit from support from peers. Pt will continue IOP tx to increase emotion regulation, challenge distorted thoughts, and prevent decompensation.
--- NOTE | 2023-02-11 10:10 | BH.SGPN.GN ---
Behaviors/Verbalizations/Mental Status: [] Eye contact is good. Motor activity is appropriate. Appearance is casual. Speech is Appropriate. Mood is depressed/anxious. Affect is congruent. Thoughts are linear and logical. No evidence of psychosis. Client Response/Progress/Benefit: [] Pt participated at times during the group discussion. Attentive during psychoeducation on stages of change. Participated at times during experiential activity. Interactive group discussion on why change is difficult in which group verbalized that change involves the unknown, is scary, leads to uncertainly, makes one feel vulnerable, leads to fear of failure, and challenges one's comfort zone. Pt states change is terrifying. Group discussion on how emotions such as loneliness, confusion, happy, frightened, hopeful, and guilt impact or prevent change. Benefited from increased awareness of stages of changes and how emotions impact change. Will continue in IOP to prevent decompensation, stabilize anxiety, and improve functioning to return to to work. Narrative Note: []
--- NOTE | 2023-02-11 11:10 | BH.SGPN.GN ---
Behaviors/Verbalizations/Mental Status: []Pt alert and oriented, casually dressed and groomed. Eye contact good. Motor activity appropriate. Speech within normal limits. Affect congruent, mood anxious. Thoughts linear, logical, no signs of hallucinations or delusions. Client Response/Progress/Benefit: []Pt responded well to session, attentive AEB participating in activity and actively engaging in group discussion. Group processed activity to relate the strategies used to overcome barriers in the activity to managing change in own life. Discussed and set SMART goal in group as it relates to change group members are wanting to make. Pt identified change they want as reducing self-harming behaviors. Identified being in the preparation stage. Pt stated to get to the action stage, she needs to find and try new coping skills that work more consistently and removing triggering objects from her house. Appeared to benefit from identifying a small goal to work towards. Pt will continue IOP tx to prevent rehospitalization, increase distress tolerance skills, and develop self-compassion. ? Narrative Note: []
--- NOTE | 2023-02-17 09:00 | BH.SGPN.GN ---
Behaviors/Verbalizations/Mental Status: []Pt alert and oriented, casually dressed and groomed. Eye contact fair to poor. Motor activity WNL. Speech within normal limits. Affect constricted, mood anxious and depressed. Thoughts linear, logical, no signs of hallucinations or delusions. Reviewed pt?s symptom tracker and pt reports suicidal ideation with need of external support. Pt will be meeting with IOP therapist today to assess risk further. Client Response/Progress/Benefit: []Client responded well to session AEB listening attentively to peers and sharing thoughts and feelings. client stated ?I'm not doing well today?. Client needed assistance with identifying mental health positives. Eventually client identified mental health win as going to work this week despite wanting to call off. Client stated her work environment continues to be stressful because they are not respecting her request to not work on this cathi unit that she had been admitted to last month. Client identified additional win as getting her tattoo last week. Client identified stressor as knowing she's not doing well mentally but unable to go on disability because she hasn't been at this job long enough. Client seemed to benefit from support from peers. Will continue IOP tx to Increase consistent use of healthy coping skills, challenge negative thoughts, and prevent decompensation. Narrative Note: []
--- NOTE | 2023-02-17 10:05 | BH.SGPN.GN ---
Behaviors/Verbalizations/Mental Status: []Pt alert and oriented, casually dressed and groomed. Eye contact poor. Motor activity appropriate. Speech within normal limits. Affect flat, mood agitated and depressed. Thoughts linear, logical, no signs of hallucinations or delusions. Client Response/Progress/Benefit: []Pt receptive of session, mostly passively engaged throughout AEB taking notes and listening to discussion. Appeared to connect with group topic of cognitive distortions and the impact of thought patterns on mental health, coping behaviors, and relationships. Pt reports connecting with distortions of all or nothing thinking and mental filtering. Pt appeared to benefit from gaining insight on distorted thinking patterns and how this impacts overall mental health. Pt struggles with engagement when pt is stuck in her thoughts, pt encouraged to utilize opposite action and talk with therapist. Will continue IOP tx to prevent decompensation and rehospitalization. ? Narrative Note: []
--- NOTE | 2023-02-17 12:04 | PCM.BH.PN ---
Progress Note Progress Note: History of Present Illness/Interim History: The patient is a 22-year-old single female with a history of borderline personality disorder possible bipolar not otherwise specified disorder, PTSD, anxiety and bulimia nervosa who is seen in follow-up at the [facility] behavioral health IOP program. The patient is known to the program as she has participated in the program last year. I last saw the patient 3 weeks ago. The patient has had consistent attendance according to the staff and is trying to use skills she has learned to stay out of the hospital. Patient states that she does not feel she has improved at all and feels that she may even feel a little bit worse this week. She is uncertain what could be triggering this. Discussed with the patient the goal of keeping her out of the hospital unless absolutely needed and the patient states that I want to finish the IOP program so I can say that I finished something for wants. The patient continues to have longstanding daily suicidal ideation and passive to active at times. She has a low frustration tolerance and has urges to self-harm but has not cut herself since she started the program. She was she is working a reduced schedule of 64 hours a week while during the IOP program. She also endorses passive thoughts of . She states that she may have worsened recently because she has been off her Abilify for 1 week as they are changing medication and the new medication has not been approved yet by her insurance company. She denies homicidal ideation, definitive plan for suicide, hallucinations or delusions. Current Psychiatric Medications: [] Abilify 15 mg nightly was weaned and discontinued 1 week ago by her outpatient provider. The patient is supposed to start Vraylar 1.5 mg daily but is waiting on approval from her insurance company. Mental Status Examination: [] The patient is a 21-year-old overweight female who appears normal for stated age and is casually dressed and groomed with good hygiene. She has no psychomotor agitation or retardation and is ambulatory with a normal gait. She is cooperative but somewhat guarded during the interview. Eye contact is good and speech is normal rate and rhythm and fluent with no pressure. Mood is depressed. Affect is constricted. Thought process is goal-directed and organized. Thought content: There is evidence of passive thoughts of and daily, fleeting passive to active suicidal ideation according to the patient. There is evidence of thoughts of self-harm. There is no evidence of homicidal ideation, plan for suicide, hallucinations or delusions. Reality testing is intact. Impulsivity is high. Judgment is fair but limited. Insight is limited. Diagnoses: [] 1. Bipolar disorder, NOS (F31.9) 2. Borderline personality disorder 3. Generalized anxiety disorder 4. Bulimia nervosa with purging by emesis 5. Rule out PTSD 6. Primary support and work issues Plan: [] The patient will continue the IOP program at [facility] as the structure, support, education and group therapy will hopefully prevent worsening of the patient's symptoms that might require rehospitalization. The patient felt safe during the interview and if it anytime she does not feel safe she agrees to let us know or go to the emergency room. No medication changes were made today as the patient has had recent changes made and is awaiting approval of her Vraylar prescription. Discussed with the patient that she could call her outpatient provider and possibly get put placed on a low-dose of Abilify like 5 mg p.o. nightly to tide her over until the approval of the Vraylar comes through. Patient will continue to follow-up with her outpatient providers and I will see the patient in follow-up in 1 to 2 weeks.
--- NOTE | 2023-02-17 13:36 | BH.MDN_ITS ---
Multi-Disciplinary Note - Note 45-min Individual Time Started:: 11:50 Date: 02/17/23 Purpose of session/treatment goals addressed:: To review pt's progress since admission and to work on goal #2 of pt's tx plan. Eye Contact:: Good Motor Activity:: Restless Appearance:: Disheveled Speech:: Soft Mood:: Depressed Affect:: Constricted - tearful Thoughts:: Other - distorted thought patterns, No evidence of hallucinations/delusions noted Staff Interventions:: thought challenging, strengths perspective, reviewed DSM- 5, completed risk assessment / safety planning, other - solution-focused problem-solving; reviewed DBT skills Client Response:: Pt responded well to session, open to meeting with therapist. Pt was tearful and shared that she is tired of having to deal with this and stressed about work. Pt stated her current work environment has not improved for pt and pt constantly feels overwhelmed. Pt has awareness that she associates stress with the desire to escape pain which triggers suicidal ideations. Pt is working on the skill of riding the wave to increase distress tolerance, but pt is anxious that she will go to the ER later. Pt is future oriented and does not report active SI, pt reports that there is a part of her that wants to keep going. Pt reached out to her old boss today and pt has a phone call with her today about returning to this job. Pt acknowledges that her old job was also highly stressful and triggered SI as well. Pt shared she feels more confident in returning to that job because it has better work-life balance and she could be more assertive. Pt receptive to identifying coping skills to help pt manage anxiety and the unknowns. Discussed and problem-solved for best case, worst case, and most likely scenarios. Pt shared that the most likely thing to happen is pt will get her job back after interviewing. Pt is worried she will get turned down and this will trigger SI. Pt feels that if this happens she will have to go to the hospital. Pt responded well to challenging this perspective and identifying other coping skills. Pt also able to identify some of her strengths and utilize her ho mind. Pt also receptive to the thought that she could try a different profession in the future or apply for disability. Pt also participated in an art activity during session which pt reported was kind of fun and pt is willing to try this on her own today to help increase distress tolerance. Risks/Concerns:: Pt has history of chronic, daily suicidal ideations that change in intensity. Pt admits to passive SI today, but pt denies any active SI since her discharge from the hospital. Pt has not engaged in non-suicidal, self- injurious cutting since discharging from the hospital. Pt's cat is her protective factor and pt is future oriented AEB pt reaching out to her old boss about returning to work and pt has a phone call with her today. Pt is worried that she will need to go to the ER if the phone call does not go well. Pt is not an imminent threat to herself. Progress Toward Goals/Plan:: Pt has responded well to treatment AEB pt consistently attending IOP sessions and reduction of symptoms by 33% since admission. Pt's depression has decreased by 14% since admission and anxiety has decreased by 50%. Pt's suicidal ideations have not decreased since admission, but pt continues to report ability to control these thoughts and has no active SI. Pt's engagement in group and individual sessions is variable and depends on pt's mood for the day. Pt has been able to prevent rehospitalization and has reduced self-harm since admission. Pt is more receptive to thought challenging than she was in her previous IOP admission. Pt will continue IOP tx to prevent decompensation and rehospitalization while increasing distress tolerance skills. Time Stopped:: 12:30
--- NOTE | 2023-02-17 13:37 | BH.MTP_ITS ---
Treatment Plan Review Date of Admission:: 01/27/23 Date of Treatment Plan Review:: 02/17/23 Admitting Diagnoses:: Bipolar disorder, NOS (F31.9); Borderline personality disorder; Generalized anxiety disorder; Bulimia nervosa with purging by emesis; Rule out PTSD Current Diagnoses:: Bipolar disorder, NOS (F31.9); Borderline personality disorder; Generalized anxiety disorder; Bulimia nervosa with purging by emesis; Rule out PTSD Patient's Response to Treatment:: Pt has responded well to treatment AEB pt consistently attending IOP sessions and reduction of symptoms by 33% since admission. Pt's depression has decreased by 14% since admission and anxiety has decreased by 50%. Pt's suicidal ideations have not decreased since admission, but pt continues to report ability to control these thoughts and has no active SI. Pt's engagement in group and individual sessions is variable and depends on pt's mood for the day. Pt has been able to prevent rehospitalization and has reduced self-harm since admission. Pt is more receptive to thought challenging than she was in her previous IOP admission. Status of Current Problems and Symptoms: Pt's symptoms are ongoing, but her anxiety is decreasing per her DSM-5. Pt's biggest stressor is her job which is highly stressful and unpredictable for pt which triggers suicidal ideations. Pt reports ongoing negative thinking patterns, urges to self-harm (but no self-harm since discharge from [facility]), ruminations, chronic SI that is fleeting and no active SI, panic, and hopelessness. Pt has limited supports and still does not enjoy doing much and has few hobbies which reinforces hopelessness and depression. Problem #1 Problem Name:: Depression, chronic SI, hopelessness, worthlessness, and anhedonia Status of Goals:: Objective 1-complete with ongoing work encouraged. Pt?s DSM-5 scores for depression has decreased by 14% since admission but pt's scores for SI have not decreased since admission. Pt can identify healthy coping skills such as cleaning, showering, and challenging thoughts. Pt has a lot of stressors with work which often trigger SI, so ongoing work is recommended. Objective 2- in progress. Pt has practiced cognitive reframing and pt can identify distortions. Pt struggles to challenge thoughts without the help of support but she is much more receptive to giving herself credit than she had been. Team Recommendations:: Treatment team encourages pt to continue working on these goals to reinforce healthy coping skills, increase ability to combat distortions, and improve self-compassion. Therapist continues to encourage pt to build her support system and find hobbies and activities she enjoys. Problem #2 Problem Name:: Anxiety, low distress tolerance, panic Status of Goals:: Objective 1- in progress. Pt has learned about the different kinds of distress tolerance skills and has gained awareness of her self-s abotaging behaviors. Pt has been able to prevent rehospitalization and has reduced self-harm. Pt continues to struggle when her supports are gone/not available. Objective 2-in progress. Pt?s anxiety has decreased by 50% since admission, but pt still sees herself as unable to handle any stress which then triggers suicidal ideations. Pt is getting better at combating catastrophizing and all or nothing thinking. Team Recommendations:: Treatment team encourages pt to continue working on this goal as pt's anxiety has decreased since admission, but she continues to struggle with building distress tolerance skills. Pt's work is a significant stressor and trigger for pt and pt is considering quitting to return to her old job. Therapist encouraged pt to advocate for herself and potentially explore alternative career options that are less stressful.
--- NOTE | 2023-02-18 09:01 | BH.SGPN.GN ---
Behaviors/Verbalizations/Mental Status: []Pt alert and oriented, casually dressed and groomed. Eye contact poor. Motor activity appropriate. Speech within normal limits. Affect constricted, mood depressed. Thoughts linear, logical, no signs of hallucinations or delusions. Reviewed pt?s symptom tracker, she indicates increased thoughts of suicide today with need for external support. Pt was evaluated by ER yesterday and not admitted to psychiatric care. Pt will meet with IOP therapist to further assess risk. Client Response/Progress/Benefit: []Pt responded well to session, attentive and receptive to feedback. Patient reported mental positive as taking herself to the emergency department yesterday because she realized she needed extra help due to having suicidal ideation. Client stated she was not hospitalized but is happy that she chose to reach out for support. Client noted additional months of positive as opening up to her roommate yesterday that she was struggling. Client noted it did not go well with sharing how she was feeling with the roommate but is still happy she chose to open up. Client noted current stressor is still having suicidal thoughts. Identified she can use distraction skills to help her manage thoughts. Seemed to benefit from support from peers. Progress is limited as evidenced by continuing to have increased suicidal ideation. Due to work client is unable to attend IOP more than 2 times a week and work continues to be a significant stressor in her life. Pt will continue IOP tx to maintain safety, increase utilization of healthy coping skills, and prevent decompensation.
--- NOTE | 2023-02-18 11:15 | BH.SGPN.GN ---
Behaviors/Verbalizations/Mental Status: []Client alert and oriented, casually dressed, appropriately groomed. Eye contact good. Motor activity appropriate. Speech within normal limits. Affect congruent, mood depressed and anxious. Thoughts linear, logical, no signs of hallucinations or delusions. Client Response/Progress/Benefit: []Client was engaged during discussion and willing to complete the worksheet challenging them to develop a personal SMART goal. Client chose the goal of cleaning her room at least once in the next week. Client stated this will benefit them by helping them feel more comfortable in their own space and improve motivation to clean other areas of the home. Client identified barriers which included lack of motivation and feeling overwhelmed. Identified several strategies for addressing barriers, such as using opposite action and starting with one task at a time. Client willing to begin working on this goal. Benefited from group by developing a short-term SMART goal related to mental health. Will continue IOP tx to increase healthy coping, improve daily functioning, and prevent decompensation. Narrative Note: []
--- NOTE | 2023-02-18 13:19 | BH.MDN ---
Multi-Disciplinary Note - Note 30-min Individual Time Started:: 10:30 Date: 02/18/23 Purpose of session/treatment goals addressed:: To work on distress tolerance skills to improve pt's ability to manage suicidal ideations. Eye Contact:: Good Motor Activity:: Appropriate Appearance:: Casual Speech:: Appropriate Mood:: Anxious, Depressed Affect:: Congruent Thoughts:: Other - ruminations, No evidence of hallucinations/delusions noted Staff Interventions:: thought challenging, mindfulness skills, strengths perspective, completed risk assessment / safety planning, goal setting Client Response:: Pt responded well to session, open to meeting with therapist. Pt reports she went to the ER yesterday, but they sent her home. Pt shared she struggled with suicidal ideations from the time she got up yesterday until 5pm when she went to the ER. Pt unable to identify skills she used or healthy choices she made yesterday. Pt receptive to thought challenging and this helped pt see that she used several distress tolerance skills yesterday which helped pt not act on her self-harm urges or suicidal ideations. Pt praised for her use of opposite action, music, and communication with her roommate. Pt stated her stress levels continue to increase and coming home to a mess her cat made was the tipping point yesterday. Pt shared her response to the mess then led to an argument with her roommate. Pt was using numerous cognitive distortions, but she was receptive to challenging her perspective. Pt reminded of her resilience, strengths, and internal coping skills that have helped her each time she is in a stressful situation. Pt was smiling by the end of session and more receptive to a different perspective. Pt can still work on increasing self-care and finding hobbies she enjoys to help pt in these moments in the future. Risks/Concerns:: Per pt's daily symptom tracker, pt is having passive suicidal ideations with urges to self-harm. Pt denies any active SI, plan, or intent s of 02/18/23. Pt is overwhelmed, but future oriented still. Pt does not have access to a guns or stockpiles of medication. Pt's roommate has pt's current meds. Pt was given the number for the warmline in [place] as requested. Progress Toward Goals/Plan:: No significant changes since session yesterday. Pt's symptoms are ongoing and pt is worried about her ability to cope through the weekend. Due to pt's work schedule, pt is only able to attend IOP twice a week which is not ideal for the severity of pt's symptoms. Pt will continue IOP tx and therapist will meet with pt twice a week to prevent further decompensation and rehospitalization. Time Stopped:: 11:05
--- NOTE | 2023-02-24 09:00 | BH.SGPN.GN ---
Behaviors/Verbalizations/Mental Status: []Pt alert and oriented, casually dressed and groomed. Eye contact good. Motor activity appropriate. Speech within normal limits. Affect constricted, mood anxious. Thoughts linear, logical, no signs of hallucinations or delusions. Reviewed pt?s symptom tracker, no risk for suicidal ideation, plan, or intent as of 02/24/23 Client Response/Progress/Benefit: []Pt responded well to session, attentive and engaged. Pt reports feeling stressed this morning as pt continues to report work as her primary stressor. Pt's did talk with her boss about getting more training which could result in a different role in the future. Pt shared today she is trying to be here and be positive. Pt is working on increasing her distress tolerance which will help pt at work and with relationships. Pt admits that she struggles with consistently utilizing healthy coping skills. Pt will continue IOP tx to reduce negative thinking patterns, improve self-confidence, and increase work-related functioning. Narrative Note: []
--- NOTE | 2023-02-24 14:07 | BH.MDN_ITS ---
Multi-Disciplinary Note - Note 30-min Individual Time Started:: 11:30 Date: 02/24/23 Purpose of session/treatment goals addressed:: To work on increasing distress tolerance skills to manage SI triggers. Eye Contact:: Good Motor Activity:: Appropriate Appearance:: Casual Speech:: Appropriate Mood:: Euthymic, Anxious Affect:: Congruent Thoughts:: Linear, Logical, No evidence of hallucinations/delusions noted Staff Interventions:: thought challenging, motivational interviewing, mindfulness skills, strengths perspective, other - DBT techniques and took a short walk to practice mindfulness. Client Response:: Pt responded well to session, open to going for a walk to practice mindfulness. Pt reported that she enjoyed the walk and it made her want to get out more. Pt worked over the weekend and this was one of her biggest stressors last session. Pt shared work went better than expected and that she felt she coped better. Pt continues to report low frustration tolerance which triggers the urge to escape and SI. Pt shared she struggles with practicing healthy coping skills in the moment either because she forgets, does not think they will help, or does not have hobbies she enjoys. Pt receptive to trying watercolor painting. Therapist helped pt challenge her expectations as pt shared she has a hard time trying new things because if I'm not good at it I quit. Pt responded well to therapist helping pt identify and challenge distortions. Pt also has responded well in the past to affirmations and pt is receptive to starting a daily affirmation practice again. Pt has awareness that her frustration tolerance is low which triggers desire to escape pain and SI. Pt is working on using delay, distract, decide when unhelpful urges arise. Risks/Concerns:: Per pt's daily symptom tracker, pt is having passive suicidal ideations with urges to self-harm. Pt denies any active SI, plan, or intent s of 02/24/23. Pt is overwhelmed, but future oriented still. Pt does not have access to a guns or stockpiles of medication. Pt's roommate has pt's current meds. Pt reports feeling better today. Progress Toward Goals/Plan:: Progress noted as pt has not had a rehospitalizati on in a month, however, pt's self-report is that her symptoms are not improving. Pt's frustration tolerance is low and pt self-reports being overwhelmed by most things which triggers SI. Pt's symptoms are ongoing and pt's biggest stressors are her roommate potentially moving and work. Due to pt's work schedule, pt is only able to attend IOP twice a week which is not ideal for the severity of pt's symptoms. Pt will continue IOP tx and therapist will meet with pt twice a week to prevent further decompensation and rehospitalization. Time Stopped:: 12:05
--- NOTE | 2023-02-25 09:03 | BH.SGPN.GN ---
Behaviors/Verbalizations/Mental Status: []Pt alert and oriented, casually dressed and groomed. Eye contact good. Motor activity appropriate. Speech within normal limits. Affect congruent, mood depressed and anxious. Thoughts linear, logical, no signs of hallucinations or delusions. Reviewed pt?s symptom tracker, risk for suicidal ideation below usual baseline, denies plan, or intent. Client Response/Progress/Benefit: []Pt responded well to session, attentive and receptive of feedback. Pt shared mental positive as using opposite action and discussing a concern with her roommate. Noted that although her roommate asked to have the discussion another time, she is glad to have brought the concern up. Struggled with identifying another mental health win; however, with the encouragement of the group pt identified completing her personal hygiene routine last night as a win. Current stressor shared as struggling with negative/self-critical thoughts about her body image. Several participants shared their own experiences with body image and provided several coping and self-compassionate approaches to pt. Seemed to benefit from support from peers and identifying what is in pt?s control to begin addressing her stressors and improving her mental health. Pt will continue IOP tx to continue to promote use of healthy coping skills, challenge negative and anxious thinking, and prevent decompensation. Narrative Note: []
--- NOTE | 2023-02-25 10:10 | BH.SGPN.GN ---
Behaviors/Verbalizations/Mental Status: []Eye contact is good. Motor activity is appropriate. Appearance is casual. Speech is Appropriate. Mood is anxious. Affect is flat. Thoughts are linear and logical. No evidence of psychosis. Client Response/Progress/Benefit: []Pt was an active participant in group discussions. Attentive during psychoeducation. Engaged and provided feedback along with peers on defining anxiety. Along with peers worked together to identify the benefits of anxiety which included; motivates us, helps us prepare, helps us identify danger, and can keep us safe. Participated during interactive discussion on how anxiety impacts one physically, cognitively, and behaviorally. Completed worksheet on how anxiety impacts her physically, cognitively, and behaviorally. Pt shared physically pt experiences dizziness and shaking, cognitively pt has memory issues and becomes all or nothing, and behaviorally pt self-harms and over-prepares for things. Benefited from increased insight into anxiety's benefits and detriments. Will continue in IOP to reduce use of unhealthy coping skills, improve mood stability, and gain self-confidence. Narrative Note: []
--- NOTE | 2023-02-25 11:10 | BH.SGPN.GN ---
Behaviors/Verbalizations/Mental Status: []Pt alert and oriented, casually dressed and groomed. Eye contact good. Motor activity appropriate. Speech within normal limits. Affect flat, mood anxious. Thoughts linear, logical, no signs of hallucinations or delusions. Client Response/Progress/Benefit: []Pt was an active participant in group discussion AEB providing contributions throughout group and listening attentively to others. Attentive during psychoeducation on mindfulness and ways to utilize mindfulness techniques to improve anxiety management. The group practiced deep breathing and the 5-senses during session. Engaged and attentive during group brainstorm of healthy anxiety reduction skills including thought challenging and behavioral changes. Appeared to benefit from practicing in the moment coping skills and increasing repertoire of anxiety management skills. Pt selected wanting to work on using deep breathing to manage her physical symptoms of anxiety. Pt will continue IOP tx to reduce use of unhealthy coping skills, improve daily functioning, and prevent rehospitalization. Narrative Note: []
--- NOTE | 2023-02-25 13:24 | BH.COMM ---
Communication Note - Communication with Client Communication Note: Sent a fax of pt's [facility] for IOP to pt's outpatient therapist.
--- NOTE | 2023-03-03 09:00 | BH.SGPN.GN ---
Behaviors/Verbalizations/Mental Status: [] Eye contact poor. Motor activity appropriate. Speech within normal limits. Affect constricted, at times incongruent AEB smiling when talking about feeling suicidal. Mood depressed. Thoughts linear, logical, no signs of hallucinations or delusions. Reviewed client?s symptom tracker, indicates thoughts of suicide denies intention. Client has daily thoughts of suicide, this is her baseline. Client Response/Progress/Benefit: [] Client responded well to session, attentive and willing to process with group. Client struggled with identifying a mental health positive, stating I'm not doing well. Client reported she had tried a new activity of [place] and stated it made her feel worse because the outcome looked crappy. Client receptive to thought challenge by therapist reminding her if she expects perfection, especially when doing a new activity, she will likely be disappointed. Client reported she doesn't feel like she is getting better. Client stated her outpatient providers want her to come to IOP more often, but she can't because of her work. Client struggling with challenging negative thoughts and continues to focus on the negative. Although client reports no progress, she has been able to stay out of the hospital for 5 weeks, which is considerable progress for her. Client to continue IOP to increase emotion regulation, challenge distortions, and prevent decompensation.
--- NOTE | 2023-03-03 10:10 | BH.SGPN.GN ---
Behaviors/Verbalizations/Mental Status: []Eye contact is fair to good. Motor activity is appropriate. Appearance is casual. Speech is soft, limited input. Mood is depressed. Affect is congruent. Thoughts are linear and logical. No evidence of psychosis. Client Response/Progress/Benefit: []Pt was attentive throughout group discussion and experiential activity, though remaining mostly passive throughout. Actively listening and taking notes during psychoeducation on resilience. Participated in interactive discussion with peers on the definition of resilience and where it comes from. Group identified that resiliency can be impacted by; past experiences, learned behaviors, and current mental health state. Group also worked together to identify the benefits of being resilient and how it is related to mental health. Able to relate experiential activity of group juggle to topics of resilience. Worked well with peers in small group in which they identified factors that contribute to resilience. Benefited from increased awareness of resilience and the factors that contribute to building resilience. Pt continues to struggle with negative thoughts which reinforce hopelessness that her mental health can improve, impeding consistent progress. Will continue in IOP to prevent decompensation and further promote mood stability, as well as improve ability to manage daily living stressors and further reduce passive SI. Narrative Note: []
--- NOTE | 2023-03-03 11:10 | BH.SGPN.GN ---
Behaviors/Verbalizations/Mental Status: []Pt alert and oriented, neatly dressed and groomed. Eye contact fair. Motor activity appropriate. Speech within normal limits. Affect flat, mood depressed. Thoughts linear, logical, no signs of hallucinations or delusions Client Response/Progress/Benefit: []Pt responded well to session AEB completing the resilience worksheet provided. Pt participated in the discussion and worked cooperatively with group to identify strategies to enhance each of the components discussed. Pt reports belief they already use resilience trait of??self-awareness.? Pt shared she knows what her triggers and warning signs are. ?Pt stated they would like to continue to develop resilience trait of ?maintaining a hopeful outlook.? Pt seemed to benefit from discussing strategies for improving personal resilience and identifying resilience traits pt already possesses. Progress noted in pt?s report of not self-harming this week, but pt continues to struggle with consistent use of healthy coping skills. ?Will continue IOP tx to promote mood stability, reduce negative thinking patterns, and increase distress tolerance skills. ?? Narrative Note: []
--- NOTE | 2023-03-03 14:54 | BH.MDN_ITS ---
Multi-Disciplinary Note - Note 45-min Individual Time Started:: 12:05 Date: 03/03/23 Purpose of session/treatment goals addressed:: To work on goal #1 of pt's tx plan and to practice mindfulness. Eye Contact:: Good Motor Activity:: Appropriate Appearance:: Casual Speech:: Appropriate Mood:: Anxious, Depressed Affect:: Congruent Thoughts:: Linear, Logical, No evidence of hallucinations/delusions noted Staff Interventions:: thought challenging, CBT techniques, mindfulness skills, strengths perspective, taught coping skills Client Response:: Pt responded well to session, open to meeting with therapist. Pt responded well to a brief walk during session and pt reports being outside is helpful. Pt stated her weekend was not great but with further exploration, pt identified several wins such as going to her mother's camper, water coloring, and having a better day at work yesterday. Pt shared she tried to water color, but it looked terrible which made pt feel bad about myself. Pt receptive to challenging this perspective and practice opposite action by water coloring in session. Pt stated that the activity itself is soothing, so pt was encouraged to do it for the self-soothing and not the visual. Pt stated it also made her forget about her SI. Pt does well in session with practicing skills and challenging her perspective, but pt struggles without external support. Pt processed other triggers contributing to her depressed mood and anxiety which included work and feeling that she isn't getting better. Pt able to identify ways that she has improved since admission and see that thinking about a future career in dietary is one way she has improved. Pt also acknowledges that she is more receptive to thought challenging than she was before. Pt practiced writing out her daily affirmation which was I'm doing the best I can. Risks/Concerns:: Pt has history of chronic, daily suicidal ideations that change in intensity. Pt admits to passive SI today, but pt denies any active SI. 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 Pt had urges to self-harm by cutting last night, but pt did not. Pt reports ability to maintain safety. Pt is not an imminent threat to herself. Progress Toward Goals/Plan:: Pt has responded well to treatment AEB pt consistently attending IOP sessions and pt's ability to prevent rehospitaliz ation since her IOP admission on 01/27/23. Pt's engagement in group and individual sessions is variable and depends on pt's mood for the day. Pt continues to report daily SI, but not active SI. Pt's mood is still depressed and pt feels overwhelmed at work still. Pt's self-esteem is low and pt reports when she is not perfect she shuts down. Pt is trying more coping skills AEB pt water coloring and doing her laundry this weekend. Pt is still receptive to thought challenging and has been responding well to walking during session. Pt will continue IOP tx to prevent decompensation and rehospitalization while increasing distress tolerance skills. Time Stopped:: 12:45
== END 2023-03-03 23:59 ==
LOC: BHIOP 08:24
PROVIDERS: PCP Nurse Practitioner Family; Referring Provider Psychiatry & Neurology Psychiatry; Visit Provider Psychiatry & Neurology Psychiatry
DX: F31.9 Bipolar disorder, unspecified (principal); F41.1 Generalized anxiety disorder; F50.2 Bulimia nervosa; F60.3 Borderline personality disorder
CPT/HCPCS: S9480; 90832; 90834; 90853

== ENCOUNTER 2023-03-04 07:40 | Outpatient (RCR) | payer OTHER, SELFPAY ==
[2023-03-04 00:42] VITALS: BP 143/91; PULSE 68
--- NOTE | 2023-03-04 10:10 | BH.SGPN.GN ---
Behaviors/Verbalizations/Mental Status: []Client alert and oriented, casually dressed and groomed. Eye contact fair. Motor activity appropriate. Speech within normal limits. Affect constricted, mood depressed and anxious. Thoughts linear, logical, no signs of hallucinations or delusions. Client Response/Progress/Benefit: []Client was an active participant in group discussions and activity. Attentive during psychoeducation. Client engaged in activity in which group was able to make connections about how can be easier to find positives in others compared to self. Engaged in interactive discussion on the definition of perspective, how perspective is formed, and why perspective is important in treatment. Client shared her perspective towards treatment today is more positive. Will continue in IOP to challenge negative thinking, improve distress tolerance, and prevent decompensation.
--- NOTE | 2023-03-04 11:13 | BH.SGPN.GN ---
Behaviors/Verbalizations/Mental Status: []Pt alert and oriented, casually dressed and groomed. Eye contact fair. Motor activity appropriate. Speech within normal limits. Affect flat, mood depressed. Thoughts linear, logical, no signs of hallucinations or delusions. Client Response/Progress/Benefit: []Pt was attentive and contributed to small group discussion. Pt reflected on their perspective today which pt shared was pessimistic and negative. Pt shared this makes pt feel like she is not making progress and more depressed. Group offered support and feedback. Pt worked with group to identify strategies to challenge one?s perspective and one of these strategies was identifying and using strengths. Pt acknowledged one of their personal strengths as being persistent and pt wants to work on challenging perspective by using opposite action when her negative thoughts become too intense. Benefited from identifying personal strengths and strategies for challenging perspective. Pt to continue IOP tx to reduce negative thinking patterns, prevent rehospitalization, and increase distress tolerance skills. Narrative Note: []
--- NOTE | 2023-03-04 13:39 | BH.MDN_ITS ---
Multi-Disciplinary Note - Note 45-min Individual Time Started:: 09:15 Date: 03/04/23 Purpose of session/treatment goals addressed:: To work on increasing distress tolerance skills and thought challenging. Eye Contact:: Fair Motor Activity:: Appropriate Appearance:: Casual Speech:: Appropriate Mood:: Dysthymic Affect:: Constricted Thoughts:: Circular, No evidence of hallucinations/delusions noted Staff Interventions:: thought challenging, motivational interviewing, mindfulness skills, goal setting, other - DBT Client Response:: Pt responded well to session, open to meeting with therapist and taking a walk. Pt shared she had a relapse last night and self-harmed. Pt stated she tried listening to music, but pt ended up isolating in her bedroom. Pt's trigger was work, her roommate potentially moving, and feeling overwhelmed. Pt reports she is not consistent with using healthy coping skills. Pt is not sure if she is able to continue with her job, but pt does not qualify for short- term disability. Pt reports feeling torn because she sees how stressful her job is and what it does to pt, but pt also needs the job for financial reasons. Discussed alternative jobs, reaching out to [employer], and setting boundaries at work. Pt admits that she struggles with indecisiveness which keeps pt stuck. Pt acknowledged that she has been isolating and this does not help her work stress or her depression. Discussed what pt could do before going into her house and pt was receptive to taking a short walk. Risks/Concerns:: Pt has history of chronic, daily suicidal ideations that change in intensity. Pt admits to passive SI today, but pt denies any active SI. Pt did self-harm by cutting last night, but pt stated it was just to cope and not to kill herself. Pt reports ability to maintain safety. Pt is not an imminent threat to herself. Progress Toward Goals/Plan:: Pt's progress is mild AEB pt's report of limited improvement in depressive symptoms, recent self-harming, and self-report of limited benefit from using healthy coping skills. Progress noted in prevent rehospitalization and pt's receptiveness in individual sessions. Pt's tentative discharge date was next week, but due to pt's ongoing symptoms, pt will extend IOP tx. There is a concern that pt's mood instability will continue as pt reports limited social support, ongoing work stress that is unchanged, and self- report of limited benefit from healthy coping skills. Time Stopped:: 09:55
--- NOTE | 2023-03-09 11:19 | BH.COMM ---
Communication Note - Communication with Client Communication Note: Received a call from pt's meteorologist in charge Harper Siddiqui. According to Harper she met with patient this AM and pt verbalized SI with plan to use her mother's guns. Harper called 911 and patient was taken to [facility] for evaluation. Harper reports that pt was just approved for TMS, which was helpful in the past. The plan at discharge would be for pt to enroll in TMS and Harper is hoping that pt is agreeable to PHP or increased days at [facility].
--- NOTE | 2023-03-09 13:08 | BH.DS_ITS ---
Discharge Summary - Demographics Date of Admission:: 01/27/23 Discharge Date: 03/09/23 Presenting Problems at Admission:: Pt has been hospitalized three times since November 2022 due to suicidal ideations with a plan to overdose. Pt's relationships and work are impacted by pt's daily SI and hospitalizations. Pt reported the excessive hours she was working at the job she started in October was the primary trigger for her decompensation. Ongoing difficulty with comple ting ADLs and easily overwhelmed which triggers SI. Discharge Diagnoses:: Bipolar disorder, NOS (F31.9); Borderline personality disorder; Generalized anxiety disorder; Bulimia nervosa with purging by emesis; Rule out PTSD Reason for Discharge:: Pt admitted to [facility] psychiatric inpatient unit due to suicidal ideation with a plan to use her mother's firearm. See communication note on 03/09/23 for more information. - Treatment Progress During Treatment & Response: Pt's engagement in group and individual s essions was variable and depended on pt's mood for the day. Pt was only attending [facility] twice a week due to work which made it difficult for pt to make significant progress. Pt was quiet and passive in most group sessions, but she was engaged individually. Pt was receptive during individual sessions with learning and trying skills, but pt often reported nothing helped when she was at home or at work. Issues Still to be Addressed:: Mood instability, SI, low distress and frustration tolerance, lack of support, negative thinking, use of unhelpful coping skills, self-harm, work stress, and medication noncompliance. Discharge Recommendations/Instructions:: Pt plans to follow up with her outpatient psych providers through [id number] and can return to [facility] tx after discharging from [facility]. Discharge Handout: Complete Discharge Handout with client on aftercare options and continuity of care.
== END 2023-03-09 12:03 ==
LOC: BHIOP 07:40
PROVIDERS: PCP Nurse Practitioner Family; Referring Provider Psychiatry & Neurology Psychiatry; Visit Provider Psychiatry & Neurology Psychiatry
DX: F31.9 Bipolar disorder, unspecified (principal); F60.3 Borderline personality disorder; F41.1 Generalized anxiety disorder; F50.2 Bulimia nervosa
CPT/HCPCS: S9480; 90834; 90853

== ENCOUNTER 2023-03-18 10:21 | Outpatient (RCR) | payer OTHER, SELFPAY ==
--- NOTE | 2023-03-18 09:00 | BH.SGPN.GN ---
Behaviors/Verbalizations/Mental Status: []Pt alert and oriented, casually dressed and groomed. Eye contact fair. Motor activity appropriate. Speech within normal limits. Affect flat, mood calm. Thoughts linear, logical, no signs of hallucinations or delusions. Reviewed pt?s symptom tracker, no risk for suicidal ideation, plan, or intent as 03/18/23 Client Response/Progress/Benefit: []Pt responded well to session, attentive and engaged. Pt was readmitted to IOP tx after getting hospitalized for suicidal ideations. Pt was on her sixth week when she got hospitalized, so pt is looking to prevent hospitalization again, but pt also wants to see progress in utilizing healthy coping skills. Pt shared she feels anxious and optimistic this morning. Pt's mental health wins include coming back to IOP tx despite feeling anxious and reaching out to her boss about work boundaries. Pt appeared to benefit from connecting with peers. Pt will continue IOP tx to prevent rehospitalization, reduce self-harm urges, and increase distress tolerance skills. Narrative Note: []
--- NOTE | 2023-03-18 10:05 | BH.SGPN.GN ---
Behaviors/Verbalizations/Mental Status: []Pt alert and oriented, casually dressed and groomed. Eye contact fair. Motor activity appropriate. Speech within normal limits. Affect constricted, mood depressed. Thoughts linear, logical, no signs of hallucinations or delusions. Client Response/Progress/Benefit: []Pt responded well to session AEB contributing to discussion, taking notes, and listening attentively to others. Group discussed the benefits of managed anger and anger as a secondary emotion. Pt shared perspective on personal benefits of anger as processing emotions. Pt completed worksheet on anger triggers and personal warning signs of anger. Pt identified their biggest triggers as daily routine changes, feeling unheard, past trauma, running late, and being in pain. Appeared to benefit from increased knowledge of the anger cycle as well as personal triggers. Pt to continue IOP to improve distress tolerance, challenge negative/distorted thoughts, and prevent decompensation.
--- NOTE | 2023-03-18 11:05 | BH.SGPN.GN ---
Behaviors/Verbalizations/Mental Status: []Client alert and oriented, casually dressed and groomed. Eye contact fair. Motor activity appropriate. Speech within normal limits. Affect constricted, mood depressed. Thoughts linear, logical, no signs of hallucinations or delusions. Client Response/Progress/Benefit: []Pt was engaged throughout AEB contributing to group discussion and self-reflection. Group finished processing cues to anger worksheet. Pt contributed as group brainstormed healthy coping skills for better managing anger which included: music, walking/exercise, taking a break, grounding tools, reflection, and journaling. Pt identified personal anger cycle and stated she could use thought challenging, journaling, and engaging in hobbies to help her interrupt the cycle. Pt appeared to benefit from identifying different techniques to manage anger as well as gaining awareness of potential consequences of unmanaged anger. Pt to continue IOP to increase healthy coping skills, challenge distorted thoughts, and prevent decompensation.
--- NOTE | 2023-03-18 11:30 | BH.COMM ---
Communication Note - Communication with Client Communication Note: Pt presented today for re-admission to [facility]. She was discharged from [facility] and admitted to higher level of care on 03/09/23 due to verbalizing to disk grinder SI with plan (obtain her mother's guns). Spent 6 days at [facility] psychiatric unit and was discharged on 03/15/23. Pt met with her disk grinder yesterday and she is agreeable to re-entering [facility] for a minimum of 3 days a week. Pt refused PHP due to work and financial responsibilities and plans to return to work on 03/19/23. She denies active suicidal ideations, plan, or intent. Pt reports that her mother was informed of her plan to use guns and those are locked up. Pt reports that she is motivated to not return to the hospital as her recent experience was not positive. Reports occasional passive thoughts of since discharge, which she has been able to control easily. Future-oriented. Verbalizes ability to keep herself safe. Consulted with Dr. Rojo with plan to re-admit to [facility] with dx of F31.9.
--- NOTE | 2023-03-18 11:30 | BH.COMM_ITS ---
Communication Note - Communication with Client Communication Note: Pt presented today for re-admission to [facility]. She was di scharged from [facility] and admitted to higher level of care on 03/09/23 due to verbalizing to lens molding equipment operator SI with plan (obtain her mother's guns). Spent 6 days at [facility] psychiatric unit and was discharged on 03/15/23. Pt met with her lens molding equipment operator yesterday and she is agreeable to re-entering [facility] for a minimum of 3 days a week. Pt refused PHP due to work and financial responsibilities and plans to return to work on 03/19/23. She denies active suicidal ideations, plan, or intent. Pt reports that her mother was informed of her plan to use guns and those are locked up. Pt reports that she is motivated to not return to the hospital as her recent experience was not positive.
--- NOTE | 2023-03-23 09:02 | BH.SGPN.GN ---
Behaviors/Verbalizations/Mental Status: []Eye contact good. Motor activity appropriate. Speech within normal limits. Affect congruent, mood anxious and depressed. Thoughts linear, logical, no signs of hallucinations or delusions. Reviewed client?s symptom tracker, no risk for suicidal ideation, plan, or intent as of 03/23/2023. Client Response/Progress/Benefit: []Client responded well to session, attentive and willing to process with group. Improved engagement compared with prior sessions. Identified current mental health wins as using opposite action and positive self-talk to reach out to a new provider, as well as discuss taking time off to attend IOP tx with her job. Shared that texting and setting up an appointment ahead of time to discuss her mental health needs with her boss aided in pt following through with doing so. Discussed that this is also her stressor, as attending IOP tx 3x/week would require pt to take weekend shifts at work. Able to identify the importance of ensuring a healthy balance and prioritizing self-care needs as well. Client appeared to benefit from group support and encouragement. Client gave positive feedback to other group members as they shared. Recommended continued IOP tx to continue to increase overall functioning, improve engagement in healthy self-care and hobbies, and maintain safety/prevent decompensation. Narrative Note: []
--- NOTE | 2023-03-23 10:15 | BH.SGPN.GN ---
Behaviors/Verbalizations/Mental Status: []Pt alert and oriented, casually dressed and groomed. Eye contact good. Motor activity appropriate. Speech within normal limits. Affect congruent, mood anxious. Thoughts linear, logical, no signs of hallucinations or delusions. Client Response/Progress/Benefit: []Pt was an active participant during interactive group discussions. Attentive during psychoeducation on the six types of boundaries. Pt along with peers contributed to interactive discussion on defining what a boundary is and group identified challenges to setting boundaries. Pt discussed personal barriers of fear of hurting others and losing relationships. Group reviewed the 6 types of boundaries. Pt gave example of what it could look like to violate someone?s emotional boundaries which included invalidating them and using passive aggressive remarks. benefited from increased awareness and insight on the importance/benefit to setting health boundaries. Will continue IOP tx to prevent rehospitalization, increase distress tolerance skills, and reduce intensity of self-harm urges. Narrative Note: []
--- NOTE | 2023-03-23 15:32 | BH.MDN ---
Multi-Disciplinary Note - Note 45-min Individual Time Started:: 11:40 Date: 03/23/23 Eye Contact:: Good Motor Activity:: Appropriate Appearance:: Casual Speech:: Appropriate Mood:: Anxious Affect:: Congruent Thoughts:: Linear, Logical, No evidence of hallucinations/delusions noted Staff Interventions:: thought challenging, mindfulness skills - went for a walk to practice grounding, strengths perspective, goal setting, other - reviewed DBT diary card from the weekend Time Stopped:: 12:20
--- NOTE | 2023-03-24 09:00 | BH.SGPN.GN ---
Behaviors/Verbalizations/Mental Status: [] Pt alert and oriented, neatly dressed and groomed. Eye contact good. Motor activity appropriate. Speech within normal limits. Affect congruent, mood anxious. Thoughts linear, logical, no signs of hallucinations or delusions. Reviewed pt?s symptom tracker, no risk for suicidal ideation, plan, or intent 03/24/23 Client Response/Progress/Benefit: []Pt responded well to session, attentive and engaged. Pt reports feeling anxious this morning due to a friend of pt's coming to visit this weekend. Pt shared she is excited but there is also a lot that needs cleaned. Pt shared she used opposite action recently and it went well. Pt also reported that she was able to prevent a panic attack at work which was positive. Pt appeared to benefit from reflecting on application of healthy coping skills. Pt will continue IOP tx to promote mood stability, reduce self-harm urges, and increase distress tolerance skills. Narrative Note: []
--- NOTE | 2023-03-24 10:10 | BH.SGPN.GN ---
Behaviors/Verbalizations/Mental Status: [] Eye contact is good. Motor activity is appropriate. Appearance is casual. Speech is Appropriate. Mood is depressed. Affect is congruent. Thoughts are linear and logical. No evidence of psychosis. Client Response/Progress/Benefit: [] Pt did not participate group discussions and interactions. Attentive during psychoeducation on automatic negative thoughts (ANTS) and cognitive distortions. This group was very psychoeducation heavy. Pt did participated during interactive discussions in which peers defined and gave examples of ANTS. Participated during interactive discussion on definition of cognitive distortions and examples related to the 10 cognitive distortions presented. Benefited from increased insight and awareness of cognitive distortions and their impact on emotions and behaviors. Will continue in IOP to maintain safety, prevent decompensation/ re-admission, and increase healthy coping. Narrative Note: []
--- NOTE | 2023-03-24 11:20 | BH.SGPN.GN ---
Behaviors/Verbalizations/Mental Status: []Eye contact is good. Motor activity is appropriate. Appearance is casual. Speech is WNL. Mood is depressed and anxious. Affect is congruent. Thoughts are linear and logical. No evidence of psychosis. Client Response/Progress/Benefit: []Pt did well to remain an engaged participant AEB providing input during small group discussion and engaging in activity. Activity involved working with peers to answer questions related to psychoeducation on cognitive distortions and practicing reframing distorted thoughts. Pt collaborated with the group to determine the answers. Able to identify the impact distortions has on pt?s mental health and shared learning that she has more ?should and must? type thoughts than she had previously recognized. Shared these often reinforces her anxiety cycle and feelings of hopelessness. Benefited from rehearsing ways to challenge/reframe cognitive distortions and by gaining increased insight into examples/definitions of 10 most common cognitive distortions. Will continue IOP to improve coping skill application, challenge distorted thought patterns, maintain safety, and prevent decompensation. Narrative Note: []
--- NOTE | 2023-03-24 11:20 | BH.NA_ITS ---
Physical Data - Vital Signs Pulse Rate: 64 Blood Pressure: 131/83 - Height/Weight Height: 1.68 m Weight:: 113.398 kg Weight in Pounds: 250.0 lbs Current Medication Compliance - Medication Compliance Do you take your medication as prescribed?: Yes Nutritional History - Appetite Nutritional Instructions:: If client shows signs of a swallowing problem, weight change of 10 pounds or more in the last month, or is on a diabetic diet, the physician will review and request a dietitian consult, as appropriate. All unintentional weight loss will be referred to the physician for decision on need for dietitian consult. Describe your appetite:: Fair - Client denies recent change in weight. Client states she has binged and purged a couple of times in the last few months. Functional Assessment - Sleep Pattern Describe any problems with sleeping: Client states she is sleeping about 6 hours per night. Sensory/Communication Assess - Vision Problems Do you have any vision problems?: Glasses - Communication Problems Do you have difficulty understanding what people are saying?: No Medical Problems/History - Metabolic Conditions Metabolic: Hypothyroidism - Additional History Additional comments:: bulimia, ADHD diagnosis in August 2022, borderline personality disorder, bipolar Surgical History - Surgical History Have you had any surgeries? If so, list type and date:: Yes - eye surgeries Substance Abuse - Substance Abuse Please describe substance abuse in the last 30 days:: Client denies alcohol, tobacco or substance use. Client states she rarely drinks caffeine. Mental Status Summary - Mental Status Significant Findings/Observations on Appearance and Mood:: Client is alert and oriented x 4. Client is casually groomed. Client is cooperative with assessment. Client makes good eye contact. Client's voice has normal rate and volume. Client has a somewhat flat affect. Client makes logical associations and has normal processing. Client denies delusions/hallucinations. Client does admit to some passive SI, but denies intent or plan. Suicide Assessment - Suicidal Ideation Are you currently or have you been suicidal in the past?: Yes - passive SI, denies intent/plan Suicidal Intentional Rating Scale (SIRS): Suicidal thoughts (past) Physician Notification: If Active suicidal thoughts/Will not contract for safety is checked, contact physician and document in the Physician Notification section below. Assault History/Potential Past Psychiatric History - MH Treatment Hx Past Psychiatric Medications:: Seroquel, Celexa, Lamictal, Wellbutrin Age of first mental health symptoms: Client states she first started medication around age 11 for mental health. Describe (age, circumstance, etc) any past hospitalizations: several in the past, now 4 hospitalizations since November 2022 - most recent March 2023 for SI with plan to shoot self with gun Current providers for mental health treatment (counselor, psychiatrist, counter caser, etc.): [facility] for counseling and psychiatry Fall Risk Assessment - Age Age: Less than 60 - Mental Status Mental Status: Willing & able to ask for assistance when needed - Physical Status Physical Status: No problems - Impairments Impairments: None - Elimination Elimination: Continent AND independent - Gait or Balance Gait or Balance: Walks independently - Hx of Falls History of falls in the past 6 months: No known history - Medications/Substances Psychotropics:: Antipsychotics Medications/substances used within the past 24 hours or ordered to administer: 1-2 of the medications/substances listed above - Total Score Total Points:: 1 RN Summary of Impressions - Impressions Recommendations: Include psychiatric and medical issues, treatment planning recommendations, and discharge planning needs. Impressions: Psychiatric Issues: Bipolar disorder, NOS, borderline personality disorder, generalized anxiety disorder, bulmia - Level of Care How do the client's current symptoms and functional deficits support need for this level of care?: Client was in IOP January 2023 until she was hospitalized March 09, 2023, for SI with plan to shoot herself with a gun. Client states since her hospitalization, she has had some passive SI but denies intent or plan. Client states she did self-harm right before her hospitalization but denies any open areas/wounds to skin. IOP will promote gains and prevent further decompensation while providing social support and skills training.
[2023-03-24 12:14] VITALS: BP 131/83; PULSE 64
--- NOTE | 2023-03-24 13:06 | BH.PSY.EVA_ITS ---
Psychiatric Evaluation Initial Evaluation Initial Evaluation: The patient is a 22-year-old single, female who is readmitted to the [facility] behavioral health IOP program. This note will serve as an update for and for further detail when should refer to the initial evaluation done several weeks ago. The patient has a history of borderline personality disorder, bipolar, NOS; anxiety and bulimia nervosa and is well-known to the [facility] IOP program. She participated in the program from July 2022 to October 2022 and again participated from January to 2022 until she was admitted to the hospital on March 09, 2023. She was admitted for suicidal thoughts with a plan to shoot herself and was discharged March 18, 2023 to restart the IOP program. She has now been hospitalized 4 times since November 2022. Her most recent suicidal thoughts and admission were triggered by her roommate planning to move out and the patient worried about an increase in rent. She states she is better now because her roommate broke up with her boyfriend and so is no longer moving out of the apartment. The patient's mood and anxiety have lessened because of the roommate no longer moving. She has also reduced her work hours to 32 hours a week but continues to complain of work stress. Sleep is 6 hours a night and appetite is okay. She has not purged at all. She has not had any panic attacks since March 09, 2023. She endorses passive thoughts of which are chronic but she has not had these since a few days ago. She endorses passive suicidal ideation a few days ago but none since. She denies any plan for suicide. She denies active suicidal ideation, homicidal ideation, hallucinations, delusions or symptoms of lolis. She has urges to self-harm but has not cut herself since March 09, 2023 when she was admitted and this cut did not require stitches. Current psych medications: Abilify was discontinued on March 09, 2023 at the hospital. She is now on Vraylar 1.5 mg which was increased to 3 mg p.o. daily 1 week ago. She is tolerating this well. She is also taking Vistaril 25 mg as needed but she takes this about once a day or so. She is also on Synthroid 175 mcg and her thyroid labs were checked in the hospital on March 09, 2023 and were normal. Review of systems is negative and her last menstrual period was was several weeks ago. For further information see the prior psychiatric evaluation. Mental status exam: The patient is a 21-year-old overweight female who has pink hair in the bottom half of her hair and is casually dressed and groomed with good hygiene. She has no psychomotor agitation or retardation. She is cooperative during the interview. Eye contact is good and speech is normal rate and rhythm and fluent with no pressure. Mood is minimally depressed. Affect is mildly constricted. Thought process is goal-directed and organized. Thought content: There is evidence of passive thoughts of recently and passive suicidal ideation several days ago but none currently. There is no evidence of active suicidal ideation, plan for suicide, self-harm, hallucinations or delusions. Intelligence is average. Reality testing is intact. Impulsivity is high. Judgment is fair but limited. Insight is limited. Plan: The patient will start the IOP program at [facility] as the structure, support, education and group therapy will hopefully prevent worsening of the patient's symptoms that might require rehospitalization. The patient felt safe during the interview and if it anytime she does not feel safe she will let us know or go to the emergency room. The risks, options, possible complications and side effects of the patient's medications were discussed again with the patient and she understands and accepts these. No medication changes were made today and she will continue to follow-up with her outpatient providers. Refill was sent in for Synthroid 175 mcg as the patient does not have a primary care doctor and she is encouraged also to make an appointment [facility] with a primary care provider. I will see the patient in follow-up in 1 to 2 weeks.
--- NOTE | 2023-03-24 13:13 | BH.DR.ITP ---
Initial Treatment Plan Patient Information Visit Information: ADMISSION DATE: EXPECTED LOS: 4-6 weeks Problems/Symptoms Problem #1:: Mood instability Symptom:: Depression, sadness, exaggerated reaction to perceived abandonment, recent passive thoughts of , recent suicidal ideation, recent urges to self-harm,. Problem #2:: Anxiety Symptom:: Worry, rumination, avoidance
--- NOTE | 2023-03-25 09:00 | BH.SGPN.GN ---
Behaviors/Verbalizations/Mental Status: [] Eye contact is good. Motor activity is appropriate. Appearance is casual. Speech is Appropriate. Mood is depressed. Affect is congruent. Thoughts are linear and logical. No evidence of psychosis. Reviewed daily check in sheet and pt reports /10 for suicidal thoughts and 1/5 for risk. This is below baseline. Client Response/Progress/Benefit: [] Pt participated at times during the group discussion. Attentive. Daily symptom tracker notes 4/5 for anxiety and 2/5 for depression. Mental health win was first day that I don't have suicidal thoughts. Unable to identify any strategies that led to improvement. She is looking forward to social events this weekend with her roommate and friend. Limited insight that social activities and connection with peers are linked with improved mood. Increased energy and motivation as she cleaned the apartment. Smiling and volunteering to check-in first for group this AM. Benefited from group support, encouragement, and feedback. Progress noted per pt report. Will continue in IOP to maintain safety, stabilize mood, and prevent decompensation/ re-admission. Narrative Note: []
--- NOTE | 2023-03-25 10:15 | BH.SGPN.GN ---
Behaviors/Verbalizations/Mental Status: []Eye contact is good. Motor activity is appropriate. Appearance is casual. Speech is Appropriate. Mood is calm. Affect is congruent. Thoughts are linear and logical. No evidence of psychosis. Client Response/Progress/Benefit: [] Pt was a passive participant in group discussions. Attentive during psychoeducation on the 4 communication styles and the obstacles to effective communication. listened during interactive discussion on the benefits of communicating effectively which included; having one's needs met, helping others get their needs met, and building connection with others. Worked well in small group in which pt and peers identified the benefits and disadvantages to the different communication styles. Pt reports being a passive-aggressive communicator which results in pt getting into arguments with her roommate and then isolating. Benefited from increased understanding of communication styles and how these can impact effective communication. Will continue IOP tx to prevent decompensation, reduce suicidal ideations, and maintain safety. Narrative Note: []
--- NOTE | 2023-03-25 13:51 | BH.MDN ---
Multi-Disciplinary Note - Note 45-min Individual Time Started:: 11:35 Date: 03/25/23 Time Stopped:: 12:25
--- NOTE | 2023-03-30 09:05 | BH.SGPN.GN ---
Behaviors/Verbalizations/Mental Status: [] Eye contact is good. Motor activity is appropriate. Appearance is casual. Speech is Appropriate. Mood is anxious. Affect is congruent. Thoughts are linear and logical. No evidence of psychosis. Reviewed daily check in sheet and pt reports 2/10 for suicidal thoughts and 1/5 for risk, which is below baseline. Client Response/Progress/Benefit: [] Pt participated when prompted. Attentive. Daily symptom tracker notes 4/5 for anxiety and 3/5 for depression. Shared with the group that she had 2 panic attacks this weekend mainly due to work stressors. Utilized assertive communication and advocacy for herself with her supervisors. 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 According to patient going to the floor causes her to think about what led her to admissions and her struggles which can lead to decompensation and suicidal thoughts. Her supervisor [employer] asked her to take food to the unit and she declined. Previously she would have taken the food to avoid conflict however had insight that being passive would have led to significant internal conflict and possibly re-admission. Shared another example of advocating for her needs, not being passive, and being assertive which also decreased internal conflict, resentments, and depression. Progress noted as she is beginning to implement skills to decrease people-pleasing behaviors. and assertive communication. Will continue in [facility] to maintain safety, prevent decompensation/re-admission, and to increase healthy coping skills. Narrative Note: []
--- NOTE | 2023-03-30 10:10 | BH.SGPN.GN ---
Behaviors/Verbalizations/Mental Status: []Pt alert and oriented, casually dressed and groomed. Eye contact good. Motor activity appropriate. Speech within normal limits. Affect congruent, mood content. Thoughts linear, logical, no signs of hallucinations or delusions. Client Response/Progress/Benefit: []Pt was a more active participant than in prior groups AEB taking notes and contributing in group discussions and activities. Pt engaged during interactive discussion in which the group defined self-care and discussed its benefits. Group identified improved motivation, decreased depression, reduced stress, and better relationships.?Pt worked with peers in a small group to identify myths related to self-care and worked within group to bust these self-care myths. Pt identified personal barrier of feeling it takes too much energy which keeps pt from practicing self-care. Benefited from increased awareness of self-care, its benefits, and the consequences of not utilizing self-care strategies. Will continue IOP tx to prevent decompensation/maintain safety, promote consistent application of healthy coping skills, and improve mood stability. Narrative Note: []
--- NOTE | 2023-03-30 11:15 | BH.SGPN.GN ---
Behaviors/Verbalizations/Mental Status: []Pt alert and oriented, casually dressed and groomed. Eye contact good. Motor activity appropriate. Speech within normal limits. Affect constricted, mood anxious. Thoughts linear, logical, no signs of hallucinations or delusions. Client Response/Progress/Benefit: []Pt engaged participant AEB completing self-assessment worksheet and providing input throughout discussion. Participated in group discussion on the various areas of self-care. Pt completed worksheet identifying current self-care practices and what self-care activities pt wants to start using. Pt selected social self-care to begin practicing more consistently. Pt plans to do this by initiating plans with others. Appeared to benefit from completing the self-care evaluation and gaining insights into current self-care practices, as well as identifying areas in which pt ?would like to improve upon.?Client to continue IOP to increase consistent use of healthy skills, challenge distorted thoughts, and prevent decompensation.
--- NOTE | 2023-03-31 09:05 | BH.SGPN.GN ---
Behaviors/Verbalizations/Mental Status: [] Eye contact fair to good. Motor activity appropriate. Speech within normal limits. Affect congruent, mood anxious and depressed. Thoughts linear, logical, no signs of hallucinations or delusions. Reviewed client?s symptom tracker, reported suicidal ideation within pt baseline, denies plan, or intent as of 03/31/2023. Client Response/Progress/Benefit: [] Client receptive of session, attentive and willing to process with group despite self-reports of wanting to shut down. Shared feeling really low and not having energy or motivation recently. Discussed that her depressive sx have started increasing an she feels this may be associated with recently experience more flashbacks. Did well to work with therapist on identifying skills she can use to improve her mood in the moment and prevent further decompensation. Identified plans to go on a walk during break as well as listen to music she enjoys. Client appeared to benefit from group support and encouragement. Recommended continued IOP tx to continue to improve consistency healthy coping skill application, maintain safety, as well as promote mood stability. Narrative Note: []
--- NOTE | 2023-03-31 10:15 | BH.SGPN.GN ---
Behaviors/Verbalizations/Mental Status: [] Client alert and oriented, casually dressed and groomed. Eye contact fair. Motor activity appropriate. Speech within normal limits. Affect flat, mood depressed. Thoughts linear, logical, no signs of hallucinations or delusions. Client Response/Progress/Benefit: [] Client responded session by being attentive and taking notes. Client provided limited input during discussion. Group identified the benefits of change which included: personal growth, positive perspective, increased confidence and better mental health. Worked with the group to identify barriers to change, which included: uncomfortable emotions such as anxiety, lack of awareness, low energy, support system, and negative thinking. Stated barrier to change is when she believes something is wrong with me. Client attentive in activity where they identified and discussed the emotions related to change. Appear to benefit from increased awareness and understanding of emotions, benefits, and barriers related to change. Will continue IOP tx to challenge distorted thoughts, improve distress tolerance, and prevent decompensation.
--- NOTE | 2023-03-31 11:15 | BH.SGPN.GN ---
Behaviors/Verbalizations/Mental Status: []Pt alert and oriented, casually dressed and groomed. Eye contact good. Motor activity appropriate. Speech within normal limits. Affect flat, mood depressed. Thoughts linear, logical, no signs of hallucinations or delusions Client Response/Progress/Benefit: [] Pt responded well to session, attentive AEB participating in activity and actively engaging in group discussion. Group processed activity to relate the strategies used to overcome barriers in the activity to managing change in own life. Discussed and set SMART goal in group as it relates to change group members are wanting to make. Pt identified change they want as taking showers four times a week. Identified being in the preparation stage as not scheduling time and lack of motivation is keeping pt from following through. Pt stated to get to the action stage consistently, pt will need to use opposite action and schedule time. Appeared to benefit from identifying a small goal to work towards. Pt will continue IOP tx to reduce self-sabotaging behaviors and increase distress tolerance skills. Narrative Note: []
--- NOTE | 2023-04-01 09:00 | BH.SGPN.GN ---
Behaviors/Verbalizations/Mental Status: [] Eye contact is good. Motor activity is appropriate. Appearance is casual. Speech is Appropriate. Mood is depressed/irritable. Affect is congruent. Thoughts are linear and logical. No evidence of psychosis. Reviewed daily check in sheet and pt reports 3/10 for suicidal thoughts. This is close to baseline since admission. Client Response/Progress/Benefit: [] Pt participated when prompted. Attentive. Daily symptom tracker notes 01/06 for depression/anxiety. Pt was able to identify a mental health win which included distraction and self-care. Admits that today she feels like I have plateaued regarding her mental health progress. Shared progress and feeling hopeful last week however currently feels as if she will never get better. Group discussion on the struggles with mental health progress as its typically not linear and often there are set-backs and struggles along the way. Group also was able to reframe her perspective in that her current depression and struggles are only temporary as last week she was motivated, energetic, and utilizing skills. Group attempted to challenge the idea that she has not control over her thoughts, mood, and mental health as their are skills/strategies that she has used that were effective. Challenged that she has felt as if she would never get better in the past and did get better. Group support, feedback, and reframing was beneficial. Limited progress as pt is currently reporting increased depression and hoplessness. Will continue in IOP to maintain safety, stablize mood, and prevent decompensation/re-admission. Narrative Note: []
--- NOTE | 2023-04-01 10:15 | BH.SGPN.GN ---
Behaviors/Verbalizations/Mental Status: []Pt alert and oriented, casually dressed and groomed. Eye contact good. Motor activity appropriate. Speech within normal limits. Affect congruent, mood depressed. Thoughts linear, logical, no signs of hallucinations or delusions. Client Response/Progress/Benefit: []Pt receptive to session AEB contributing to discussion, as well listening attentively to others, and taking notes. Worked with group to brainstorm the positive and negative aspects of stress on physical and mental health. Group did well to identify the benefits of stress as well as the impact of distress on performance, relationships, and mental health. Pt identified their personal top stressors as: work, self-upkeep, and mental health. ?Pt seemed to benefit from increased awareness of current stressors and impact stress has on mental health. Pt continues to struggle with challenging distorted thought patterns which reinforce depressive symptoms. Recommended to continue IOP tx to prevent decompensation and rehospitalization. ??? Narrative Note: []
--- NOTE | 2023-04-01 11:15 | BH.SGPN.GN ---
Behaviors/Verbalizations/Mental Status: [] Eye contact is good. Motor activity is appropriate. Appearance is casual. Speech is Appropriate. Mood is anxious and depressed. Affect is congruent. Thoughts are linear and logical. No evidence of psychosis. Client Response/Progress/Benefit: []Pt was an active participant in group discussions and experiential activity. Attentive during psychoeducation on the 4 A's (Avoid, adapt, alter, accept) of coping with stress as well as strategies to identify stressors in which one has no control, little control, or a great deal of control over. Shared that she would benefit most from working on accept in regards to coping with stress of her current mental health struggles. Was able to identify the connection between the experimental activity and utilization of stress management skills. Benefited from increased awareness of stress management strategies. Will continue in IOP to maintain progress, prevent decompensation, and to increase healthy coping skill application. Narrative Note: []
--- NOTE | 2023-04-01 14:19 | BH.MDN ---
Multi-Disciplinary Note Note 60-min Individual: Time Started:: 12:00 Date: 04/01/23 Purpose of session/treatment goals addressed:: To work on increasing distress tolerance skills and combat distorted thought patterns. Eye Contact:: Fair Motor Activity:: Appropriate Appearance:: Casual Speech:: Soft Mood:: Anxious and Depressed Affect:: Congruent Thoughts:: Linear and No evidence of hallucinations/delusions noted Staff Interventions:: thought challenging, motivational interviewing, CBT techniques, mindfulness skills, strengths perspective, goal setting, taught coping skills and other (DBT diary card) Client Response:: Pt responded well to session, receptive to thought challenging by therapist. Pt stated she is not doing well today because pt recently had suicidal ideations after not having them as frequently. Pt also read articles about borderline personality disorder and how this diagnosis requires lifelong treatment. Pt shared reading this got me stuck in my head and now pt feels that she will not get better and that being suicidal will just be my baseline. Pt receptive to thought challenging as well as completing the pros and cons worksheet for building distress tolerance. Pt identified her current trigger: reading that BPD is lifelong. This triggered: frustration, hopelessness, and discouragement. Pt identified three options/paths she could take to manage this trigger which included: keep researching BPD, self-harm, or use self-soothing skills. Pt weighed the pros and cons of all three and determined that self-soothing had the most benefit and fewest consequences. Pt also practiced some mindfulness skills at the end of session which pt reported was relaxing. Pt is encouraged to review the worksheet when she gets home and then write out what she chose and how this impacted pt. Risks/Concerns:: Pt had chronic suicidal ideations that are passive today. Pt reports no intent or plan. Pt has not cut since last week per her report. Progress Toward Goals/Plan:: Progress noted in pt's consistent completion of homework and report of no self-harm in a week. However, pt continues to struggle with negative thought patterns that are very difficult for pt to challenge without external support. Pt did well in session with thought challenging and is receptive to reviewing her pros and cons before engaging in unhealthy coping skills for homework. Pt will continue IOP tx to prevent decompensation, increase distress tolerance skills, and combat distorted thought patterns. Time Stopped:: 13:00
--- NOTE | 2023-04-08 13:58 | BH.DS ---
Discharge Summary Demographics Date of Admission:: 03/18/23 Discharge Date: 04/08/23 Presenting Problems at Admission:: Pt has been hospitalized four times since November 2022 due to suicidal ideations with a plan to overdose. Pt's relationships and work are impacted by pt's daily SI and hospitalizations. Pt reported the excessive hours she was working at the job she started in October was the primary trigger for her decompensation. Ongoing difficulty with completing ADLs and easily overwhelmed which triggers SI. Discharge Diagnoses:: Bipolar disorder, NOS (F31.9); Borderline personality disorder; Generalized anxiety disorder; Bulimia nervosa with purging by emesis; Rule out PTSD Reason for Discharge:: Pt presented this AM reporting suicidal ideations with plan an intent as well as an interrupted attempt last night. She was unable to contract for safety and was escorted to [facility] ER for evaluation. Treatment Progress During Treatment & Response: Limited progress as pt reported nothing is working and shared having suicidal ideations most days. Pt reported using the coping skills did not manage pt's suicidal ideations and distress. Pt reports constant work stress and limited social support. Limited benefit reported from the group sessions after 10+ weeks of treatment. Issues Still to be Addressed:: Mood instability, SI, low distress and frustration tolerance, lack of support, negative thinking, use of unhelpful coping skills, self-harm, work stress, and medication noncompliance. This was pt's fifth admission to [facility] IOP program, so there is a concern that pt is not benefitting from the group content and pt has repeated the groups numerous times. For this reason, pt was recommended to try a DBT skills IOP in [place] to increase distress tolerance skills and improve mood stability. Discharge Recommendations/Instructions:: Pt has an appointment with a new provider at [place] [address] next 04/14/23 for medication management. Pt has a therapist through [place] [address], Radha Villanueva, but pt needs to schedule an appointment. Discussed with IOP tx team and it is recommended that pt attempt a DBT IOP to help pt increase distress tolerance skills. Discharge Handout
--- NOTE | 2023-04-08 14:15 | BH.MDN_ITS ---
Multi-Disciplinary Note Note 45-min Individual: Time Started:: 12:10 Date: 04/08/23 Purpose of session/treatment goals addressed:: To process triggers, assess risk, and refer pt to a higher level of care. Eye Contact:: Fair Motor Activity:: Restless Appearance:: Disheveled Speech:: Soft Mood:: Anxious and Depressed Affect:: Other (incongruent AEB laughing and smiling while talking about her suicidal ideations) Thoughts:: Other (distorted thought patterns and hopelessness) and No evidence of hallucinations/delusions noted Staff Interventions:: thought challenging, completed risk assessment / safety planning and other (walked pt to ER for evaluation; spoke with pt's roommate per pt request.) Client Response:: Pt reported she is struggling today and wants to just quit everything due to nothing working. Pt shared she feels overwhelmed and that everything is just too much. Pt stated she has been trying to use the coping skills, but they are not helping. Pt was reminded of her resilience and progress in the past, but pt feels like the only option is . Pt continues to feel overwhelmed by work which is pt's biggest trigger. Pt disclosed she had an interrupted attempt last night and was stopped by her roommate. Pt was not t aken to the ER despite the Crisis line informing pt to do so last night. Pt unable to contract for safety today and roommate is unable to drive to [place] to be with pt. Pt did not want to go to the ER initially, but ultimately pt was agreeable to maintain safety. Risks/Concerns:: Pt reports active suicidal ideations today with plans to overdose, wreck her car, or cut herself. Pt shared she was holding a cup full of pills (mood stabilizers, thyroid medication, and antidepressants) last night and pt was about to take them, but her roommate came home and stopped pt. Pt unable to contract for safety today. Progress Toward Goals/Plan:: Pt presented this AM reporting suicidal ideations with plan an intent as well as an interrupted attempt last night. She was unable to contract for safety and was escorted to [facility] ER for evaluation. Pt will be discharged from IOP tx due to needing higher level of care. Due to pt's limited benefit from IOP tx after approximately five admissions and pt repeating IOP groups, pt was referred to a DBT IOP in [place] to increase distress tolerance skills. Time Stopped:: 13:00
== END 2023-04-02 23:59 ==
LOC: BHIOP 10:21
PROVIDERS: PCP Nurse Practitioner Family; Referring Provider Psychiatry & Neurology Psychiatry; Visit Provider Psychiatry & Neurology Psychiatry
DX: F31.9 Bipolar disorder, unspecified (principal); F60.3 Borderline personality disorder; F41.1 Generalized anxiety disorder; F50.2 Bulimia nervosa
CPT/HCPCS: S9480; 90832; 90834; 90837; 90853

== ENCOUNTER 2023-04-05 07:17 | Outpatient (RCR) | payer OTHER, SELFPAY ==
[2023-04-03 01:44] VITALS: BP 131/83; PULSE 64
--- NOTE | 2023-04-07 09:03 | BH.SGPN.GN ---
Behaviors/Verbalizations/Mental Status: [] Eye contact good. Motor activity appropriate. Speech within normal limits. Affect congruent, mood anxious and depressed. Thoughts linear, logical, no signs of hallucinations or delusions. Reviewed client?s symptom tracker, reported suicidal ideation within pt baseline, denies plan, or intent as of 04/07/2023. Client Response/Progress/Benefit: []Pt was an active listener for much of the process group session, however appeared more depressed and reported struggling with negative thinking impacting her ability to fully engage in group session. Pt therefore opted not to participate in processing portion of session. Appeared to benefit from supportive group environment and listening as others processed. Recommended continued IOP tx to improve mood stability and distress tolerance, as well as prevent decompensation. Narrative Note: []
--- NOTE | 2023-04-07 10:05 | BH.SGPN.GN ---
Behaviors/Verbalizations/Mental Status: [] Client alert and oriented, casually dressed and groomed. Eye contact good. Motor activity appropriate. Speech within normal limits. Affect constricted, mood dysthymic. Thoughts linear, logical, no signs of hallucinations or delusions. Client Response/Progress/Benefit: [] Client was an active participant in activity and taking notes during group discussion. Attentive during psychoeducation on coping skills, why people use unhealthy coping skills, and how to replace unhealthy coping skills. Group came up with list of negative coping skills that included substance use, avoidance, lashing out, and escaping from reality. Group discussed the effects of how negative coping skills can impact mental health in a negative way. Benefited from increased understanding of unhealthy coping skills and the need for developing healthy interna and external coping skills. client will continue IOP tx to challenge negative thought patterns, regulate emotions and prevent decompensation. Narrative Note: []
--- NOTE | 2023-04-07 11:05 | BH.SGPN.GN ---
Behaviors/Verbalizations/Mental Status: [] Client alert and oriented, neatly dressed and groomed. Eye contact fair to good. Motor activity appropriate. Speech within normal limits. Affect constricted, mood depressed. Thoughts linear, logical, no signs of hallucinations or delusions. Client Response/Progress/Benefit: [] Client responded well to session AEB taking notes and providing input and examples throughout. Group discussed the different categories of coping skills which included distraction, emotional release, grounding, self-love, and thought challenging. Client created a coping skill menu identifying various skills to try in each category. Client?s coping skill menu included: cleaning, talking it out, 5 senses technique, making bed, and radical acceptance. Appeared to benefit from increasing repertoire of healthy coping skills. Client will continue IOP tx to improve daily functioning, reduce negative thinking, and increase application of healthy coping skills. Narrative Note: []
--- NOTE | 2023-04-08 09:00 | BH.SGPN.GN ---
Behaviors/Verbalizations/Mental Status: []Pt alert and oriented, disheveled appearance. Eye contact good. Motor activity appropriate. Speech within normal limits. Affect flat, mood depressed. Thoughts linear, logical, no signs of hallucinations or delusions. Reviewed pt?s symptom tracker, pt scored higher than her baseline today and will meet with individual therapist. Client Response/Progress/Benefit: []Pt declined to share this morning and declined to share yesterday as well. Pt reported she is not in the right head space to share and when asked what she needs today pt stated to meet with someone. Pt will meet with her individual therapist today to process current emotions, assess risk, and identify healthy coping skills pt can use. Pt's progress is limited as pt continues to struggle with utilizing distress tolerance skills and reports ongoing urges for self-harm and chronic SI. Pt will continue IOP tx to prevent further decompensation and rehospitalization. Narrative Note: []
--- NOTE | 2023-04-08 10:15 | BH.SGPN.GN ---
Behaviors/Verbalizations/Mental Status: []Client alert and oriented, casual dress, hygiene tended to. Eye contact poor. Motor activity appropriate. Speech within normal limits. Affect flat, mood depressed. Thoughts linear, logical, no signs of hallucinations or delusions. Client Response/Progress/Benefit: []Client responded well to session, attentive to discussions, taking notes. Did not provide input throughout group discussions. Client worked cooperatively with the group to identify factors that contributed to how we define ourselves which included: upbringing, societal expectations, labels, failures, trauma, shame/guilt, others opinions, and diagnosis. Attentive during group discussion about social and perceived stigma. Client seemed to benefit from increased awareness of how mental health stigma can impact progress and self-worth. Client to continue IOP tx to increase consistent use of healthy coping, improve distress tolerance, decrease negative thoughts, and prevent decompensation.
--- NOTE | 2023-04-08 11:16 | BH.SGPN.GN ---
Behaviors/Verbalizations/Mental Status: []Client alert and oriented, casually dressed and groomed. Eye contact fair to good. Motor activity appropriate. Speech within normal limits. Affect constricted, mood anxious and depressed. Thoughts linear, logical, no signs of hallucinations or delusions. Client Response/Progress/Benefit:?[]Client engaged participant AEB client participating in the activity, providing some input during small group discussion, and listening attentively to others. Client appeared to connect with discussion in the benefits of addressing mental health stigma which included: improved relationships, validation, increased happiness, and improved confidence. Group brainstormed strategies to combat social and perceived stigma. ?Client shared one thing she can personally do to combat stigma is to challenge herself to be more open and honest with others when struggling. Appeared to benefit from increasing awareness of strategies to combat stigma. Will continue IOP tx to continue to reduce negative self-talk, improve consistent skill application, improve mood stability, and prevent decompensation. Narrative Note: []
--- NOTE | 2023-04-09 08:32 | BH.COMM ---
Communication Note Communication with Client Communication Note: Pt was discharged from the [facility] ER after creating a safety plan and reporting no longer having active suicidal ideations. In the last two weeks of IOP tx pt has self-reported lack of progress, shown limited engagement in group sessions, and often reported that nothing is working. IOP tx team has reviewed pt's plan of care and determined after five IOP admissions and numerous repeats of group session content with inability to prevent decompensation and rehospitalization, pt could benefit more from a DBT focused treatment and TMS. This therapist spoke with [place] [id number] and pt is scheduled to see her outpatient therapist on 04/14/23. Pt is also going to start the weekly DBT group at [place] [address] and restart TMS treatment. Pt is scheduled to see her new psych PA at [place] [address] in the next two weeks.
== END 2023-04-08 13:17 ==
LOC: BHIOP 07:17
PROVIDERS: Referring Provider Psychiatry & Neurology Psychiatry; Visit Provider Psychiatry & Neurology Psychiatry
DX: F31.9 Bipolar disorder, unspecified (principal); F60.3 Borderline personality disorder; F41.1 Generalized anxiety disorder
CPT/HCPCS: S9480; 90834; 90853

== ENCOUNTER 2023-04-08 13:06 | Emergency (ER) | payer OTHER, SELFPAY ==
[2023-04-08 13:06] VITALS: BP 107/85; PULSE 67; RESP 18; TEMP 36; O2SAT 97; BMI 41.1
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
[2023-04-08 14:01] LABS: Absolute Lymphocyte Count 2.81 X10^3/uL (0.83-4.51); Absolute Neutrophil Count 7.6 X10^3/uL (2.0-7.7); Basophil# 0.08 X10^3/uL; Basophil% 0.7 % (0-1); Eosinophil# 0.07 X10^3/uL; Eosinophils% 0.6 % (0-5); Hematocrit 40.8 % (37-47); Hemoglobin 14.1 g/dL (12.0-15.0); Lymphocyte # 2.81 X10^3/ul (0.83-4.51); Lymphocyte % 25.3 % (19-41); Mean Corp Hgb Conc 34.6 g/dL (32-36); Mean Corpuscular Hgb 28.3 pg (27.0-32.0); Mean Corpuscular Volume 81.8 fL (81-99); Mean Platelet Vol. 8.4 fl (6.2-12.0); Monocyte% 4.5 % (0-10); NRBC Flagged by Analyzer 0 % (0-5); Neutrophil % 68.6 % (47-70); Platelet Count 323 K/mm3 (150-450); RBC Distribution Width SD 38.7 fl (35.1-43.9); Red Blood Count 4.99 M/mm3 (4.2-5.4); White Blood Count 11.1 K/mm3 (4.4-11.0)
[2023-04-08 14:09] LABS: Internal QC Validated? YES +Cl - CLEAR BKGD; Pregnancy, Serum, hCG Quali. NEGATIVE Negative
[2023-04-08 14:18] LABS: Anion Gap 7 (5-15); BUN 12 mg/dL (7-18); BUN/Creat Ratio 16.2 RATIO (10-20); Calcium,Total 9.3 mg/dL (8.5-10.1); Chloride 106 mmol/L (98-107); Creatinine, Serum 0.74 mg/dL (0.55-1.02); EST Glomerular Filtration Rate 103 mL/min (>60); Est Glom Filt Rate - Afr Amer 124 mL/min (>60); Estimated Creatinine Clearance 110.69 ml/min; Glucose 92 mg/dL (74-106); Potassium 3.6 mmol/L (3.5-5.1); Sodium Level 138 mmol/L (136-145)
[2023-04-08 14:27] LABS: Alcohol, Blood (Medical)-Serum < 3.0 mg/dL
[2023-04-08 14:55] LABS: Amphetamine Urine VISTA NEGATIVE (<1000 ng/mL); Barbiturate Urine VISTA NEGATIVE (< 200 ng/mL); Benzodiazepine Urine VISTA NEGATIVE (< 200 ng/mL); Cocaine Urine VISTA NEGATIVE (< 300 ng/mL); Ecstacy Urine VISTA NEGATIVE (< 500 ng/mL); Methadone Urine VISTA NEGATIVE (< 300 ng/mL); PCP Urine VISTA NEGATIVE (< 25 ng/mL); THC Urine VISTA NEGATIVE (< 50 ng/mL); Vista UDS pH Range 5
--- NOTE | 2023-04-08 15:17 | EDS_ITS ---
HPI <MATEUS Engle - Last Filed: 04/08/23 17:45> History of Present Illness Chief Complaint: Suicidal Narrative Narrative: Patient presenting today due to suicidal thoughts that she has had chronically. She reports they come and go. She was brought in today by her counselor due to a suicide attempt that occurred last night. She reports that she had a handful of pills that included her thyroid medication and anxiety medication and right as she was going to swallow them her roommate walked in and stopped her. She reports, if I had the chance I would do it. She reports that she did cut her left shoulder last night as well due to the way that she was feeling. She has a history of bipolar disorder, depression, and anxiety. She reports that she has been placed several times in the past due to suicidal ideation. She is in IOP and does have a psychiatrist that she follows with. She denies any substance use. PFS <MATEUS Engle - Last Filed: 04/08/23 17:45> [facility] Medical History Bipolar disorder, unspecified Borderline personality disorder Bulimia nervosa, purging type Generalized anxiety disorder Hypothyroidism Home Medications cariprazine 3 mg capsule (Vraylar) 3 mg PO DAILY 03/24/23 [History Last Taken Unknown] hydroxyzine pamoate 25 mg capsule (Vistaril) 25 mg PO TID PRN PRN Anxiety 03/24/23 [History Last Taken Unknown] levothyroxine 175 mcg tablet 175 mcg PO DAILY #30 tabs 03/24/23 [Rx Last Taken Unknown] Allergy/AdvReac Type Severity Reaction Status Date / Time amoxicillin [From Augmentin] Allergy Rash Verified 01/27/23 10:45 clavulanic acid Allergy Rash Verified 01/27/23 10:45 [From Augmentin] Penicillins Allergy Rash Verified 01/27/23 10:45 Surgical History Hx of eye surgery Social History Smoking Status: Never smoker ROS <MATEUS Engle - Last Filed: 04/08/23 17:45> ROS ED Constitutional Constitutional ED: Denies chills or fever(s) Cardiovascular Cardiovascular: Denies chest pain Respiratory/Chest Respiratory/Chest: Denies cough or dyspnea Gastrointestinal Gastrointestinal: Denies abdominal pain, nausea or vomiting Genitourinary Genitourinary ED: Denies dysuria or hematuria Musculoskeletal Musculoskeletal: Denies arthralgias or myalgias Integumentary Reports laceration Neurologic Neurologic: Denies weakness Psychiatric Psychiatric: Reports anxiety, depression, suicidal ideation and suicidal thoughts EXAM <MATEUS Engle - Last Filed: 04/08/23 17:45> Physical Exam Const Vital Signs: 04/08/23 13:06 Temperature 96.8 F L Temperature Source Temporal Pulse Rate 67 Respiratory Rate 18 Blood Pressure 107/85 H Blood Pressure Mean 92 Pulse Ox 97 Positive well nourished, well developed and no apparent distress General Appearance ED: well developed HEENT Reports normocephalic and head/scalp atraumatic Mouth ED: Yes moist mucous membranes normal Eyes PERRL and EOMs intact bilaterally Neck full ROM and supple Chest Wall inspection of chest normal Resp normal respiratory effort and clear to auscultation bilaterally Cardio regular rate and regular rhythm GI soft to palpation, non-tender, non-distended and no masses Back/Spine normal ROM and normal to inspection Extremity normal to inspection and full ROM Neuro oriented x3, CN's II-XII intact bilaterally, moves all extremities, no focal motor deficits and no sensory deficits noted Sensorium / Orientation: awake and alert Psych mental status grossly normal and thought process normal Skin Skin Narrative: 4 superficial lacerations to the left shoulder. <Dr. Telly Roca MD - Last Filed: 04/08/23 15:36> Physical Exam Const Vital Signs: 04/08/23 13:06 Temperature 96.8 F L Temperature Source Temporal Pulse Rate 67 Respiratory Rate 18 Blood Pressure 107/85 H Blood Pressure Mean 92 Pulse Ox 97 MDM <MATEUS Engle - Last Filed: 04/08/23 17:45> [facility] Narrative Medical decision making narrative: Patient was brought in today by her IOP counselor due to intermittent suicidal thoughts that she has had chronically and a suicide attempt that occurred yesterday. She is well-appearing and in no acute distress. She admits that she has had these thoughts on and off for several years and has been admitted to inpatient treatment several times throughout her life which has not helped her. She does not want to be admitted to a facility today. Our social services manager did evaluate patient and do not feel that she is still currently suicidal, they did speak with her counselor and they feel that the suicidal thoughts have passed and that she can be discharged home to have close outpatient follow-up. They do not feel that admission to psychiatric facility would be beneficial for her as she has been admitted several times in the past. She has been given strict return instructions and will be discharged home in stable condition. She is comfortable with plan. CBC shows minimal elevation of white count which is nonspecific and does not need treatment. Patient's electrolytes are normal. Patient's serum is negative. Patient's serum alcohol level is negative. Patient's urine toxicology screen is negative. Lab Data Attestation: I reviewed the patient's lab results. Labs: Laboratory Results - last 24 hr 04/08/23 04/08/23 13:39 14:30 WBC 11.1 H RBC 4.99 Hgb 14.1 Hct 40.8 MCV 81.8 MCH 28.3 MCHC 34.6 RDW Std Deviation 38.7 RDW Coeff of Seth 13.0 Plt Count 323 MPV 8.4 Immature Gran % (Auto) 0.300 Neut % (Auto) 68.6 Lymph % (Auto) 25.3 Benson % (Auto) 4.5 Eos % (Auto) 0.6 Baso % (Auto) 0.7 Absolute Neuts (auto) 7.6 Absolute Lymphs (auto) 2.81 Nucleated RBC % 0 Sodium 138 Potassium 3.6 Chloride 106 Carbon Dioxide 25.0 Anion Gap 7 BUN 12 Creatinine 0.74 Estim Creat Clear Calc 110.69 Est GFR (MDRD) Af Amer 124 Est GFR (MDRD) Non-Af 103 BUN/Creatinine Ratio 16.2 Glucose 92 Calcium 9.3 Serum , Qual NEGATIVE Urine Opiates Screen NEGATIVE Urine Methadone Screen NEGATIVE Ur Barbiturates Screen NEGATIVE Ur Phencyclidine Scrn NEGATIVE Ur Amphetamines Screen NEGATIVE MDMA (Ecstasy) Screen NEGATIVE U Benzodiazepines Scrn NEGATIVE Urine Cocaine Screen NEGATIVE U Cannabinoids Screen NEGATIVE Ur Drug Screen Comment Ethyl Alcohol < 3.0 <Dr. Telly Roca MD - Last Filed: 04/08/23 15:36> MDM MDM Narrative Medical decision making narrative: CBC shows minimal elevation of white count which is nonspecific and does not need treatment. Patient's electrolytes are normal. Patient's serum is negative. Patient's serum alcohol level is negative. Patient's urine toxicology screen is negative. Lab Data Labs: Laboratory Results - last 24 hr 04/08/23 04/08/23 13:39 14:30 WBC 11.1 H RBC 4.99 Hgb 14.1 Hct 40.8 MCV 81.8 MCH 28.3 MCHC 34.6 RDW Std Deviation 38.7 RDW Coeff of Seth 13.0 Plt Count 323 MPV 8.4 Immature Gran % (Auto) 0.300 Neut % (Auto) 68.6 Lymph % (Auto) 25.3 Benson % (Auto) 4.5 Eos % (Auto) 0.6 Baso % (Auto) 0.7 Absolute Neuts (auto) 7.6 Absolute Lymphs (auto) 2.81 Nucleated RBC % 0 Sodium 138 Potassium 3.6 Chloride 106 Carbon Dioxide 25.0 Anion Gap 7 BUN 12 Creatinine 0.74 Estim Creat Clear Calc 110.69 Est GFR (MDRD) Af Amer 124 Est GFR (MDRD) Non-Af 103 BUN/Creatinine Ratio 16.2 Glucose 92 Calcium 9.3 Serum , Qual NEGATIVE Urine Opiates Screen NEGATIVE Urine Methadone Screen NEGATIVE Ur Barbiturates Screen NEGATIVE Ur Phencyclidine Scrn NEGATIVE Ur Amphetamines Screen NEGATIVE MDMA (Ecstasy) Screen NEGATIVE U Benzodiazepines Scrn NEGATIVE Urine Cocaine Screen NEGATIVE U Cannabinoids Screen NEGATIVE Ur Drug Screen Comment Ethyl Alcohol < 3.0 Treatment and Re-Evaluation :: I have personally performed a face to face assessment of the patient and have reviewed the MALACHI Note. I performed a substantive portion of the visit including all aspects of the following. My choi findings include: History:. Patient states she had suicidal thoughts. She states her roommate came home and prevented her from taking pills. She did not actually take any. She is not now feeling suicidal. She has no physical complaint. Exam: Patient awake alert no acute distress. She is cooperative here. HEENT is normal. Lungs are clear. Heart is regular. Saturations are normal at 97% on room air showing no hypoxia. Abdomen is mildly obese but nontender. No sign of extremity trauma. Medical Decision Making: Patient has a history of bipolar disorder. She has been hospitalized 7 or 8 times in the past year. She is very impulsive. She is no longer suicidal. Our social services manager saw her. She also discussed the case with the counselor that sent the patient over. They feel that her suicidal thoughts past. These thoughts have been coming and going for years. There is nothing new that has really changed. It is doubtful that readmission would change this. They are comfortable with her following up as an outpatient and have encouraged patient to come back if she has further thoughts. Discharge Plan Triage Chief Complaint: Suicidal ED Midlevel Provider: Alice Mak ED Provider: Telly Roca Dx/Rx/DC Orders Clinical Impression: Suicidal thoughts, Anxiety, Bipolar disorder, Depression Instructions: ED Bipolar Disorder Prescriptions: No Action levothyroxine 175 mcg tablet 175 mcg PO DAILY Qty: 30 2RF hydroxyzine pamoate [Vistaril] 25 mg Capsule 25 mg PO TID PRN PRN (Reason: Anxiety) Vraylar 3 mg Capsule 3 mg PO DAILY Primary Care Provider: Care Physician,No Primary Referrals: Care Physician,No Primary [Primary Care Provider] - Activity Restrictions/Additional Instructions: Please follow-up with your counselor/psychiatrist and follow-up for your IOP meetings. Please return for any worsening of your symptoms. Disposition Disposition: Home, Self Care Discharge Date/Time: 04/08/23 15:40
== END 2023-04-08 15:40 | disposition home or self-care (01) ==
PROVIDERS: Physician Assistant; Emergency Provider Emergency Medicine; Visit Provider Emergency Medicine
DX: R45.851 Suicidal ideations (principal); F31.9 Bipolar disorder, unspecified; F41.1 Generalized anxiety disorder; E03.9 Hypothyroidism, unspecified; Z79.899 Other long term (current) drug therapy
CPT/HCPCS: 36415; 80048; 80307; 82077; 84703; 85025; 99283

== ENCOUNTER 2025-05-17 08:00 | Outpatient (RCR) | payer OTHER, SELFPAY ==
--- NOTE | 2025-05-17 09:05 | BH.SGPN.GN ---
Behaviors/Verbalizations/Mental Status: []Pt alert and oriented, casually dressed and groomed. Eye contact good. Motor activity appropriate. Speech within normal limits. Affect congruent, mood anxious. Thoughts linear, logical, no signs of hallucinations or delusions. Reviewed pt?s symptom tracker, pt scores within established baseline. Client Response/Progress/Benefit: []Pt was an active participant in group discussions. Attentive. Able to identify mental health wins including being able to challenge herself to?reach out for help and return to IOP tx. Additional win noted as being willing to advocate for herself and address a concern with her ex best friend. Reports feeling empowered as a result. Stressor noted as struggling with taking the time to care for herself and not overworking herself to the point of burnout. Benefited from group support, encouragement, and feedback. Will continue in IOP to prevent decompensation, gain healthy coping skills, and promote mood stability. Narrative Note: []
--- NOTE | 2025-05-17 10:05 | BH.SGPN.GN ---
Behaviors/Verbalizations/Mental Status: [] Eye contact is good. Motor activity is appropriate. Appearance is casual. Speech is Appropriate. Mood is anxious and depressed. Affect is congruent. Thoughts are linear and logical. No evidence of psychosis. Client Response/Progress/Benefit: [] Client responded well to session, contributing at times to discussion and engaged during the activity. Attentive during interactive discussions and psychoeducation. Group identified the benefits of change as well as common emotions associated with change. Group identified several emotions associated with change (anxious, excited, overwhelmed, discouraged, torn, embarrassed, exhausted, cautious, and guilty) and discussed how these emotions can be both positive (motivate one to change) and also be an obstacle to change. Benefited from increased awareness and understanding of emotions, benefits, and barriers related to change. Will continue IOP to prevent decompensation/re-admission to psych unit, maintain safety, and increase healthy coping. Narrative Note: []
--- NOTE | 2025-05-17 11:15 | BH.SGPN.GN ---
Behaviors/Verbalizations/Mental Status: []Client alert and oriented, casually dressed and groomed. Eye contact good. Motor activity appropriate. Speech within normal limits. Affect congruent, mood euthymic/anxious. Thoughts linear, logical, no signs of hallucinations or delusions Client Response/Progress/Benefit: [] Pt responded well to session, attentive. Did well to process activity and work with group to relate the strategies used to overcome barriers in the activity to managing change in own life. Pt identified a change they would like to make is talking about her stressors more before getting to crisis. Pt identified currently being in preparation stage for this change. Pt stated goal is to talk to a friend today after IOP. Appeared to benefit from identifying a small goal to work towards. Pt will continue IOP tx to prevent rehospitalization and gain distress tolerance skills. ? Narrative Note: []
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
--- NOTE | 2025-05-18 08:11 | BH.DR.ITP ---
Initial Treatment Plan Patient Information Visit Information: ADMISSION DATE: EXPECTED LOS: 4-6 weeks Problems/Symptoms Problem #1:: Depression Symptom:: Sadness, lack of motivation, suicidality Symptom:: Anxiety Problem #2:: Panic, restlessness, agitation
--- NOTE | 2025-05-18 10:00 | BH.SGPN.GN ---
Behaviors/Verbalizations/Mental Status: []Pt alert and oriented, casually dressed and groomed. Eye contact good. Motor activity appropriate. Speech within normal limits. Affect congruent, mood anxious. Thoughts linear, logical, no signs of hallucinations or delusions. Client Response/Progress/Benefit: [] Pt was an active participant in group discussions. Attentive during psychoeducation on the CBT [place] (Thoughts, Behaviors, Emotions). Engaged in group discussion on how thoughts and behaviors can contribute to maintaining adverse feelings, such as depression, anxiety, and irritability. Completed worksheet in which pt identified obstacles and/or thoughts that are keeping them stuck. Shared obstacles that included; ?being too much? and thinking she will never feel better. Pt benefited from increased awareness of the basis of CBT therapy as well as specific thoughts that are impacting pt's progress. Will continue in IOP to prevent rehospitalization, improve daily functioning, and increase distress tolerance. ? Narrative Note: []
--- NOTE | 2025-05-18 10:21 | BH.MDN_ITS ---
Multi-Disciplinary Note Note 30-min Individual: Time Started:: 09:35 Date: 05/18/25 Purpose of session/treatment goals addressed:: To gather information on pt's current stressors, symptoms, triggers, history, and tx goals. Another goal was to build rapport and provide emotional support. Eye Contact:: Good and Fair Motor Activity:: Appropriate Appearance:: Neat Speech:: Soft Mood:: Anxious and Depressed Affect:: Constricted Thoughts:: Linear, Logical and No evidence of hallucinations/delusions noted Staff Interventions:: rapport building, strengths perspective, treatment planning, completed risk assessment / safety planning and goal setting Client Response:: Pt responded well to session, open to meeting with therapist. Pt and therapist worked together previously, so there is already rapport. Pt caught therapist up on what has been going on in pt's life over the past year or so since pt has been in [facility]. Pt stated she had long moments of stability, but what triggered her recent psychiatric admission were several interpersonal relationship issues. These included her long-time therapist leaving and pt not getting to say goodbye to her, issues with her now ex- roommate, not being able to see her cats, and feeling burnout at work. Pt reports she has been struggling a lot with not being able to see her cats because her ex-roommate will not allow this. Pt also has a lot of expensive stuff in her apartment that her roommate is not willing to give pt or pay pt for. Pt shared she is not sure what to do and has considered taking legal action if her ex-roommate does not come to an agreement. Pt stated she has been feeling so stressed lately that my arms have been going numb and she has been having stomach issues. Pt noted that she is supposed to have FMLA for work, but they would not honor this which was a major trigger for pt's hospitalization. 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 Pt stated she is supposed to recent to work this weekend which is stressful, but pt hopes her boss is more understanding in the future. Work has been a major stressor for pt in the past as well and led to other hospitalizations. Pt felt her meeting with the [facility] psychiatrist went well today and she was given a medication to help with her anxiety. Pt and therapist will meet again next week. Risks/Concerns:: Pt endorses chronic suicidal ideations that range in intensity and severity, depending on pt's psychosocial stressors. Pt reports today having passive suicidal ideations with no plan or intent. Progress Toward Goals/Plan:: Pt's first week of IOP tx. Pt has previously completed IOP and done well in the past, so pt recognizes she can do well again. Pt's symptoms of anxiety, depression, and BPD have been impacting pt's ability to function and led to a recent hospitalization. Pt wants to work on increasing her distress tolerance and improve her ability to manage her chronic SI without having to go to the hospital. Pt will continue IOP tx to prevent rehospitalization and improve distress tolerance needed to manage stressors. Time Stopped:: 10:05
--- NOTE | 2025-05-18 10:24 | BH.MTP ---
Master Treatment Plan Patient Information Program Physician:: Dr. Dylan Gross; Dr. Carina Cornejo Primary Therapist:: Shanna WANG Psychiatric Diagnoses Psychiatric Diagnoses:: Bipolar disorder, NOS (F31.9); borderline personality disorder Diagnosis Code(s):: F 31.9 Estimated LOS Estimated LOS (in weeks):: 6 Problem/Goal #1 Problem/Goal #1 Stated Goal:: Pt will decrease depressive symptoms, hopelessness, worthlessness, negative self-talk, and intensity of chronic SI. Description of Barriers: Pt has history of numerous psychiatric hospitalizations due to suicidal ideations. Pt has chronic suicidal ideations that increase and decrease in intensity and frequency depending on pt's life stressors and a history of self-harming by cutting. Pt has limited supports and recently moved out of her old apartment and has not been able to see her cats. Pt has work stress and she has struggled to maintain a consistent work schedule in the past due to her stress levels. Functional Impact: Pt is a 24-year-old female with a history of bipolar disorder, unspecified, BPD, and ARMIN. Pt has history of over ten hospitalizations in her lifetime, but the most recent one was at [facility] in [place] from 05/09/25-05/11/25 due to suicidal ideations and inability to keep herself safe. At admission, pt reported worsening depression and anxiety due to work-related stressor and recent estrangement from her long-time roommate. Pt's symptoms of depression and anxiety are impacting her ability to function at work, complete her ADLs, and her overall quality of life. Pt currently endorses hopelessness, worthlessness, chronic SI, lack of motivation, lack of energy, constant anxiety, erratic appetite, increase sleep, and lack of concentration. Goal Relevant Strengths/Supports: Pt has mental health providers through [facility] for individual counseling and medication management. Pt has also been successful in IOP in the past and she has had long periods of stability since her last IOP session. Objectives Objective #1: Stated Objective: Pt will learn and utilize 2-3 healthy coping strategies to better manage depressive symptoms and decrease DMS-5 symptoms for depression and SI. Interventions: Through group and individual sessions, therapist will help pt identify triggers and warning signs of depression and guilt including emotional, physical, and behavioral changes. Therapist will teach pt various coping skills to manage symptoms and give pt tangible resources to use to regulate emotions. Therapist will use cognitive restructuring techniques and help pt gain awareness of negative thoughts that reinforce guilt and depression. Therapist will provide psychoeducation on maintenance cycles and help pt learn ways to break unhealthy maintenance cycles. Therapist will help pt incorporate behavioral activation and assist pt in setting SMART goals. Discharge Criteria: Pt will have met this goal when can report learning and using at least 2 coping skills to manage depressive symptoms and when pt's DSM-5 scores for depression and SI decrease. Target Date: 06/28/25 Review Date: 06/07/25 Status: open Objective #2: Stated Objective: Pt will identify at least 2-3 negative self-talk messages used to reinforce negative core beliefs, worthlessness, and isolation and replace thoughts with balanced, realistic messages. Interventions: Therapist will help pt identify distorted, negative beliefs about self and replace with more realistic, affirmative messages. Therapist will use CBT and DBT to help pt increase insight to the connection between thoughts, emotions, and behaviors. Therapist will encourage pt to practice thought challenging. Discharge Criteria: Pt will have achieved this goal when can verbalize at least 2 cognitive distortions and effectively replace those thoughts with affirmative messages. Target Date: 06/28/25 Review Date: 06/07/25 Status: open Problem/Goal #2 Problem/Goal #2 Stated Goal:: Will reduce impulsivity and anxiety through increasing emotional regulation and distress tolerance skills. Description of Barriers: Pt has history of numerous psychiatric hospitalizations due to suicidal ideations. Pt has chronic suicidal ideations that increase and decrease in intensity and frequency depending on pt's life stressors and a history of self-harming by cutting. Pt has limited supports and recently moved out of her old apartment and has not been able to see her cats. Pt has work stress and she has struggled to maintain a consistent work schedule in the past due to her stress levels. Functional Impact: Pt is a 24-year-old female with a history of bipolar disorder, unspecified, BPD, and ARMIN. Pt has history of over ten hospitalizations in her lifetime, but the most recent one was at [facility] in [place] from 05/09/25-05/11/25 due to suicidal ideations and inability to keep herself safe. At admission, pt reported worsening depression and anxiety due to work-related stressor and recent estrangement from her long-time roommate. Pt's symptoms of depression and anxiety are impacting her ability to function at work, complete her ADLs, and her overall quality of life. Pt currently endorses hopelessness, worthlessness, chronic SI, lack of motivation, lack of energy, constant anxiety, erratic appetite, increase sleep, and lack of concentration. Goal Relevant Strengths/Supports: Pt has mental health providers through [facility] for individual counseling and medication management. Pt has also been successful in IOP in the past and she has had long periods of stability since her last IOP session. Objectives Objective #1: Stated Objective: Pt will identify 2 triggers and 2 coping skills to use when pt experiences mood dysregulation and has increased urges to engage in unhealthy, impulsive coping skills. Interventions: Through individual and group counseling pt will be provided with education on healthy coping skills to manage mood symptoms, impulse, and crisis behaviors. Therapist will provide information on healthy alternatives to emotion release. Individual therapist will teach pt DBT techniques to increase emotional regulation and mindfulness. Therapist will also engage pt to use self-compassion while working to change behaviors. Discharge Criteria: pt will have accomplished this goal when pt can identify at least 2 triggers and 2 coping skills to increase mood stability and reduce unhealthy action urges. Target Date: 06/28/25 Review Date: 06/07/25 Status: open Objective #2: Stated Objective: Pt will increase structure, routine, and stress management skills by accomplishing 2-3 small self-care goals a week. Interventions: Through group and individual sessions, pt will learn how to set small SMART goals to promote self-care and stress management. Therapist will provide education on stress and teach pt effective stress management strategies and how these strategies can help pt better manage her symptoms of BDP and Bipolar NOS. Discharge Criteria: Pt will have accomplished this goal when can report accomplishing at least two small goals a week to improve self-care and stress management. Target Date: 06/28/25 Review Date: 06/07/25 Status: open
--- NOTE | 2025-05-18 10:35 | BH.NA_ITS ---
Physical Data Vital Signs Pulse Rate: 76 Blood Pressure: 154/99 Height/Weight Height: 1.7 m Weight:: 119.295 kg Weight in Pounds: 263.0 lbs Current Medication Compliance Medication Compliance Do you take your medication as prescribed?: No (supposed to be on Protonix, states she can't afford it at this time) Functional Assessment Sleep Pattern Describe any problems with sleeping: Client states she sleeps 5-6 hours per night. Sensory/Communication Assess Vision Problems Do you have any vision problems?: Glasses Communication Problems Do you have difficulty understanding what people are saying?: No Medical Problems/History Metabolic Conditions Metabolic: Hypothyroidism (states when she was at [facility] last week, her thyroid labs were elevated - she has been on Levothyroxine in the past. Client states she sees her PCP next week to discuss.) Gastrointestinal Conditions Gastrointestinal: Other (See comments) (GERD) Additional History Additional comments:: history of bulimia- client states she has been binging at times but denies purging in the last few months Surgical History Surgical History Have you had any surgeries? If so, list type and date:: Yes (eyes) Substance Abuse Substance Abuse Please describe substance abuse in the last 30 days:: Client reports some social alcohol use in the past but denies at this time. Client denies tobacco use or substance use. Client denies caffeine use. Mental Status Summary Mental Status Significant Findings/Observations on Appearance and Mood:: Client is alert and oriented x 4. Client is casually groomed. Client is cooperative with assessment. Client makes good eye contact. Client's voice has normal rate and volume. Client has a somewhat restricted affect. Client makes logical associations and has normal processing. Client denies delusions/hallucinations. Client has a history of chronic SI- client states she does have fleeting SI but denies plan/intent at this time and states she can keep herself safe. Suicide Assessment Suicidal Ideation Are you currently or have you been suicidal in the past?: Yes Suicidal Intentional Rating Scale (SIRS): Current suicidal thoughts/No plan/Contracts for safety Physician Notification Past Psychiatric History MH Treatment Hx Past Psychiatric Medications:: Seroquel, Celexa, Wellbutrin, Lamictal, Vraylar, more that she can't remember names of at this time Age of first mental health symptoms: Client states she was first on medication for anxiety/depression at age 11. Client states she was diagnosed with ADHD in 2021. Describe (age, circumstance, etc) any past hospitalizations: Client has had a total of 10 hospitalizations, the last being 05/09/25-05/11/25 at [facility] for SI and not feeling she could contract for safety. Current providers for mental health treatment (counselor, psychiatrist, registered nurse hh case manager, etc.): Paula Merino for therapy at [place] [id number], Dr. Nissa Ramirez for psychiatry at [place] [address] Fall Risk Assessment Age Age: Less than 60 Mental Status Mental Status: Willing & able to ask for assistance when needed Physical Status Physical Status: No problems Impairments Impairments: None Elimination Elimination: Continent AND independent Gait or Balance Gait or Balance: Walks independently Hx of Falls History of falls in the past 6 months: No known history Medications/Substances Psychotropics:: Antipsychotics Medications/substances used within the past 24 hours or ordered to administer: 1-2 of the medications/substances listed above Total Score Total Points:: 1 RN Summary of Impressions Impressions Recommendations Impressions: Psychiatric Issues: bipolar disorder, borderline personality disorder, generalized anxiety disorder Level of Care How do the client's current symptoms and functional deficits support need for this level of care?: Client has been in IOP in the past, last being 2022, and returns at this time due to a recent hospitalization for SI. Client states she was scheduled to work 26 days in a row and after her 11th day in a row, tried to take a FMLA day and was denied. Client states after this she felt suicidal and was unable to keep herself safe. Client was hospitalized at [facility] 05/09- 05/11/25. Client states she feels slightly better since being discharged, stating she still have chronic SI but denies plan/intent at this time and states she can keep herself safe. Client reports some isolation and avoidance. IOP will promote gains and prevent further decompensation while providing social support and skills training. Nutritional Screen Height/Weight Height: 1.7 m Weight:: 119.295 kg Weight in Pounds: 263.0 lbs Nutrition Screening Normal Weight: 117.934 kg Normal/Usual Weight in Pounds: 260.0 lbs Have you lost weight without trying: No Have you been eating poorly because of a decreased appetite: No Recently been on tube feeds, TPN, or have any nutritional access device in place: No Have any large open wounds or wounds that are not healing: No Calculated Weight Change: [id number] Change in weight Score: 1 MST Screening Tool Score: 1
[2025-05-18 10:48] VITALS: BP 154/99; PULSE 76
--- NOTE | 2025-05-18 11:00 | BH.SGPN.GN ---
Behaviors/Verbalizations/Mental Status: []Pt alert and oriented, casually dressed and groomed. Eye contact good. Motor activity appropriate. Speech within normal limits. Affect congruent, mood anxious and depressed. Thoughts linear, logical, no signs of hallucinations or delusions. Client Response/Progress/Benefit: [] Pt responded well to session, contributing to discussion and attentive throughout. Pt identified a negative thought that has kept them stuck. Pt's thought was This will never get better?. Pt reported when they think this way, pt isolates, lashes out, or shuts down. Pt worked to reframe the thought by finding more rational, realistic ways to look at the thoughts and then processed them within group setting. Pt reframed the thought to ?I have worked through this before and it has gotten better?. Pt appeared to benefit from practicing challenging negative thinking with peers and gaining coping skills. Pt will continue IOP tx to promote mood stability, increase thought challenging, and further increase self-compassion. Narrative Note: []
--- NOTE | 2025-05-23 10:15 | BH.SGPN.GN ---
Behaviors/Verbalizations/Mental Status: []Eye contact is good. Motor activity is appropriate. Appearance is casual. Speech is Appropriate. Mood is anxious. Affect is congruent. Thoughts are linear and logical. No evidence of psychosis. Client Response/Progress/Benefit: [] Pt receptive to session AEB listening attentively to others and taking notes. Pt attentive and contributed throughout psychoeducation on the cognitive triangle and maintenance cycles. Pt engaged during group discussion reviewing the impact of daily activities and behaviors in either reinforcing unhealthy maintenance cycles and depression or assisting in reducing symptoms (?down? vs ?up? activities). Pt participated during interactive discussion in which pt identified their own common up activities (?floor time? and going for walks) and down activities (isolating, doom scrolling, and not practicing self-care). Appeared to benefit from increased awareness of current behaviors and impact these have on mental health. Will continue IOP to increase distress tolerance, prevent rehospitalization, and improve self-confidence. Narrative Note: []
--- NOTE | 2025-05-23 10:26 | BH.MDN ---
Multi-Disciplinary Note Note 45-min Individual: Time Started:: 09:15 Date: 05/23/25 Purpose of session/treatment goals addressed:: To work on goal #2 of pt's tx plan. Eye Contact:: Good and Fair Motor Activity:: Appropriate Appearance:: Casual Speech:: Soft Mood:: Anxious and Depressed Affect:: Constricted Thoughts:: Linear, Logical and No evidence of hallucinations/delusions noted Staff Interventions:: thought challenging, motivational interviewing, strengths perspective, taught coping skills (dialectical thinking and distress tolerance skills.) and other (homework to identify current and past self-care practices) Client Response:: Pt responded well to session, open to meeting with therapist. Pt stated since last session she went back to work and she made it through but pt felt that her boss and co-workers were deliberately ignoring her. Pt shared this triggered a lot of anxiety and negative thinking and pt ended up self-harming in her car at work. Work has been a primary stressor for pt for many years and pt has sought help to get FMLA and other accommodations. Pt stated her boss did not abide to her FMLA and when pt went to HR, pt's boss became upset. Pt receptive to talking with one of her work friends, her mom, and potentially HR again. Pt shared it is hard to cope with work stress because when she gets home from work she has no energy and I just want to sleep. Pt has been sleeping to avoid and she recognizes this does not help, but pt has lack of motivation to try other things. Discussed behavioral activation and why opposite action can help increase motivation. Pt was receptive to identifying past and current self-care practices as she has been able to maintain wellness in the past using these practices. Pt also reported benefitting from reviewing dialectical thinking as a coping skill to help pt get through difficult moments at work. Risks/Concerns:: Pt endorses chronic suicidal ideations that range in intensity and severity, depending on pt's psychosocial stressors. Pt reports today having passive suicidal ideations with no plan or intent. Pt does report she self-harmed since last session. Progress Toward Goals/Plan:: Pt's second week of IOP tx and pt reports benefitting from the extra support and structure. Pt's symptoms are unchanged since admission, but pt continues to be willing to work on skills and she is engaged in group, so some progress is noted. Pt willing to work on self-care for homework. Pt will continue IOP tx to prevent decompensation, improve distress tolerance skills, and increase implementation of self-care practices. Time Stopped:: 10:00
--- NOTE | 2025-05-23 11:15 | BH.SGPN.GN ---
Behaviors/Verbalizations/Mental Status: []Pt alert and oriented, casually dressed and groomed. Eye contact fair. Motor activity appropriate. Speech within normal limits. Affect constricted, mood dysthymic. Thoughts linear, logical, no signs of hallucinations or delusions. Client Response/Progress/Benefit: [] Pt responded well to session, attentive and engaged in group discussions and activity. Actively engaged in continued discussion about up activities and down activities. Active participant as group discussed values and the benefits that knowing one's values can have on one's mental health. Client shared she would like to focus on strengthening her value of mental/emotional health by prioritizing cleaning her space this weekend and challenging at least one negative thought daily. Benefited from increased awareness of their up activities and how incorporating their values into behavioral activation goals can positively impact mental health. Will continue in IOP to improve distress tolerance, challenge negative thoughts, and prevent decompensation.
--- NOTE | 2025-05-24 09:05 | BH.SGPN.GN ---
Behaviors/Verbalizations/Mental Status: [] Eye contact is good. Motor activity is appropriate. Appearance is casual. Speech is Appropriate. Mood is euthymic. Affect is full. Thoughts are linear and logical. No evidence of psychosis. Reviewed daily check in sheet and pt reports 4/5 for suicidal thoughts/not wanting to be alive and 0/4 for intent. Long-standing suicidality. Baseline. Client Response/Progress/Benefit: [] Pt participated at times during the group discussions. Attentive. Daily symptom tracker notes 4/5 for self-harm urges and anxiety as well as 3/5 for depression and agitation. According to pt she was able to utilize anger management and emotion regulation skills. Identified an upcoming stressful event and group worked through skills for acceptance and reframing to prevent catastrophizing. Feeling ?jumbled and tangled? today. Benefited from group support, encouragement, and feedback. Will continue in IOP to maintain safety, prevent decompensation/re-admission to psych unit, and to increase healthy coping. Narrative Note: []
--- NOTE | 2025-05-24 10:10 | BH.SGPN.GN ---
Behaviors/Verbalizations/Mental Status: [] Eye contact is fair. Motor activity is appropriate. Appearance is casual. Speech is Appropriate. Mood is depressed and anxious. Affect is constricted. Thoughts are linear and logical. No evidence of psychosis. Client Response/Progress/Benefit: [] Pt engaged in session AEB listening attentively to others and providing input throughout. Pt engaged in activity, able to connect how it can be uncomfortable and difficult to practice acceptance when situations are out of one?s own control. Identified what they are struggling to accept in personal life. Worked with peer group to define acceptance and identify the benefits that acceptance can bring. Benefits included; reduce stuckness, reduced stress, helps one to focus on situations we can change, and decreased negative self-talk. Seemed to benefit from increased awareness of the meaning as well as the importance of acceptance. Will continue in IOP to improve distress tolerance, challenge negative thoughts, and prevent decompensation.
--- NOTE | 2025-05-24 11:15 | BH.SGPN.GN ---
Behaviors/Verbalizations/Mental Status: []Pt alert and oriented, casually dressed and groomed. Eye contact good. Motor activity appropriate. Speech within normal limits. Affect congruent, mood depressed. Thoughts linear, logical, no signs of hallucinations or delusions. Client Response/Progress/Benefit: [] Pt responded well to session AEB taking notes and contributing to discussion throughout. Pt engaged as group continued discussion on acceptance and the mental health benefits of practicing acceptance. Pt and peers identified what makes acceptance challenging and pt completed a self-reflection exercise on what is hard to accept in pt's life. Pt identified something that is currently hard to accept as friendships ending. Client stated by not accepting this it leads to anger and loneliness. Group identified strategies to increase acceptance. Pt noted wanting to work on trying to find new connections as a strategy for improving acceptance in this area. Pt appeared to benefit from gaining insight and learning strategies to increase acceptance. Pt will continue IOP tx to improve view of self, increase mood stability, and prevent decompensation. Narrative Note: []
--- NOTE | 2025-05-25 09:00 | BH.SGPN.GN ---
Behaviors/Verbalizations/Mental Status: [] Pt alert and oriented, neatly dressed and groomed. Eye contact good. Motor activity appropriate. Speech within normal limits. Affect constricted, mood anxious. Thoughts linear, logical, no signs of hallucinations or delusions. Reviewed pt?s symptom tracker, no risk for suicidal ideation, plan, or intent 05/25/25. Client Response/Progress/Benefit: []Pt was an active participant in group discussions. Attentive. Able to identify mental health wins including ?I didn?t self-harm last night and I really wanted to.? ?Pt's stressor today is ?I have a doctor?s appointment I?m worried about because what if they turn me away because I can?t pay.? The group offered pt suggests to manage this stressor and emotional support which pt reported was helpful. Pt is feeling ?frantic.? this morning. Pt receptive to feedback from peers. Benefited from group support, encouragement, and feedback. Progress noted. Will continue IOP tx to increase distress tolerance skills to prevent decompensation, combat distortions, and increase self-confidence. Narrative Note: []
--- NOTE | 2025-05-25 10:10 | BH.SGPN.GN ---
Behaviors/Verbalizations/Mental Status: []Pt alert and oriented, casually dressed and groomed. Eye contact good. Motor activity appropriate. Speech within normal limits. Affect constricted, mood anxious. Thoughts linear, logical, no signs of hallucinations or delusions. Client Response/Progress/Benefit: [] Pt responded well to session AEB sharing and listening attentively to others. Group provided examples of types of support (professional, pets, hobbies, community, spouse, derek, etc) as well as benefits of having social support, including: validation, get perspective, and accountability. Pt also participated in group discussion regarding the barriers to accessing support and pt?s barriers included; negative thinking, isolation, and lack of people to turn to. Pt participated in experiential activity illustrating the impact communication, boundaries, and patience play in creating healthy support systems. Pt appeared to benefit from increased knowledge of the benefits of social support and greater self-awareness. Pt to continue IOP to prevent decompensation, improve distress tolerance skills, and improve self-confidence. Narrative Note: []
--- NOTE | 2025-05-25 11:15 | BH.SGPN.GN ---
Behaviors/Verbalizations/Mental Status: []Client alert and oriented, casually dressed and groomed. Eye contact good. Motor activity appropriate. Speech within normal limits. Affect congruent, mood depressed. Thoughts linear, logical, no signs of hallucinations or delusions. Client Response/Progress/Benefit: [] Pt participated throughout AEB contributing to discussion, providing examples, and taking notes. Pt provided input during discussion on the types of support our supports can provide. Pt able to identify current support system and barriers that get in the way of using supports. Pt reported after identifying what type of supports pt receives, pt gained awareness that pt could benefit from more social support by putting more effort into consistently reaching out to healthy supports and setting boundaries with supports. Pt seemed to benefit from identifying the type of support pt needs to work on improving. Pt recommended to continue IOP tx to promote increase positive self-talk and self-compassion, improve healthy communication, and prevent decompensation. Narrative Note: []
--- NOTE | 2025-05-30 09:05 | BH.SGPN.GN ---
Behaviors/Verbalizations/Mental Status: [] Eye contact is good. Motor activity is appropriate. Appearance is casual. Speech is Appropriate. Mood is euthymic. Affect is full. Thoughts are linear and logical. No evidence of psychosis. Reviewed daily check in sheet and pt reports 4/5 for suicidal ideations and 0/5 for intent. Long-standing daily SI which is baseline for patient. Client Response/Progress/Benefit: [] Pt participated at times during the group discussions. Attentive. Daily symptom tracker notes 4/5 for depression and 3/5 for anxiety/irritability. Able to identify mental health wins as having a crucial conversation with her psychiatrist and no self-harm in a week. She continues to report strong urges to cut or self-injure however has discovered a few new coping strategies. She also discussed in length awareness of grief reactions related to the loss of friendship and how this has impacted her emotions, thoughts, and behaviors. Progress noted. Benefited from group support, encouragement, and feedback. Will continue in IOP to maintain safety, prevent decompensation/re-admission to psych unit, and to increase healthy coping. Narrative Note: []
--- NOTE | 2025-05-30 10:10 | BH.SGPN.GN ---
Behaviors/Verbalizations/Mental Status: [] Pt alert and oriented, casually dressed and groomed. Eye contact good. Motor activity appropriate. Speech within normal limits. Affect congruent, mood anxious and depressed. Thoughts linear, logical, no signs of hallucinations or delusions. Client Response/Progress/Benefit: [] Pt participated in group discussions. Attentive during psychoeducation on the CBT [place] (Thoughts, Behaviors, Emotions). Engaged in group discussion on how thoughts and behaviors can contribute to maintaining adverse feelings, such as depression, anxiety, and irritability. Completed worksheet in which pt identified obstacles and/or thoughts that are keeping them stuck. Shared obstacles that included; negative self-talk, shutting down, poor coping. Pt benefited from increased awareness of the basis of CBT therapy as well as specific thoughts that are impacting pt's progress. Will continue in IOP to prevent decompensation, increase healthy coping, and improve functioning. Narrative Note: []
--- NOTE | 2025-05-30 10:10 | BH.SGPN.GN ---
Behaviors/Verbalizations/Mental Status: [] Pt alert and oriented, casually dressed and groomed. Eye contact good. Motor activity appropriate. Speech within normal limits. Affect congruent. mood depressed, anxious. Thoughts linear, logical, no signs of hallucinations or delusions. Client Response/Progress/Benefit: [] Pt was an engaged participant AEB listening attentively to others, taking notes, and providing feedback in group discussions. Attentive during psychoeducation AEB by note taking. Pt worked along with peers in groups to define inappropriate guilt and appropriate guilt. Group worked together to provide examples of both inappropriate and appropriate guilt. Group identified a lashing out and breaking something as appropriate guilt examples. Group identified setting a boundary and needing help as having inappropriate guilt about. Pt able to connect impact inappropriate guilt can have on MH and overall functioning. Noted that it has led to accepting unfair treatment from others or not reaching out for help. Benefited from increased awareness of guilt and the differences between appropriate and inappropriate guilt. Pt to continue IOP tx to prevent decompensation, gain healthy coping skills, and increase communication skills. Narrative Note: []
--- NOTE | 2025-05-30 11:10 | BH.SGPN.GN ---
Behaviors/Verbalizations/Mental Status: []Eye contact is good. Motor activity is appropriate. Appearance is casual. Speech is Appropriate. Mood is anxious Affect is congruent. Thoughts are linear and logical. No evidence of psychosis. Client Response/Progress/Benefit: [] Pt was an engaged participant AEB listening attentively to others and providing input throughout group. Pt along with group members, identified strategies to manage inappropriate guilt. Identified a personal example of inappropriate guilt as ?feeling bad when I can?t do things because of my mental health.? Pt wants to work on combatting inappropriate guilt by reminding myself that inappropriate guilt only hinders me.? Pt seemed to benefit from learning about strategies to manage appropriate and inappropriate guilt. Pt to continue IOP tx to prevent decompensation, increase distress tolerance skills, and improve social supports. Narrative Note: []
--- NOTE | 2025-05-31 09:00 | BH.SGPN.GN ---
Behaviors/Verbalizations/Mental Status: [] Eye contact is poor. Motor activity is appropriate. Appearance is casual. Speech is Appropriate but limited. Mood is depressed. Affect is constricted. Thoughts are linear and logical. No evidence of psychosis. Reviewed daily check in sheet and no reports of suicidal ideations or intent. Client Response/Progress/Benefit: [] Pt was an inactive participant in group discussions. Looking down at floor the majority of session. Declined to share or offer feedback/suggestions to fellow participants. Did appear to benefit from group support however. Pt recommended continued IOP tx to improve mood stability, prevent decompensation, and promote healthy skill application. Narrative Note: []
--- NOTE | 2025-05-31 10:00 | BH.SGPN.GN ---
Behaviors/Verbalizations/Mental Status: []Pt alert and oriented, neatly dressed and groomed. Eye contact fair. Motor activity appropriate. Speech within normal limits. Affect congruent, mood anxious. Thoughts linear, logical, no signs of hallucinations or delusions. Client Response/Progress/Benefit: [] Pt was an active participant in group discussion and experiential activity. Attentive during psychoeducation on resilience and provided input throughout. Participated in interactive discussion with peers on the definition of resilience and where it comes from. Group identified that resiliency can be impacted by; past experiences, upbringing, and personality traits. Able to relate experiential activity of group juggle to topics of resilience. Worked with peers in small group in which they identified factors that contribute to resilience and did well providing ideas. Benefited from increased awareness of resilience and the factors that contribute to building resilience. Will continue in IOP tx to prevent rehospitalization, improve distress tolerance skills, and improve daily functioning. Narrative Note: []
--- NOTE | 2025-05-31 11:00 | BH.SGPN.GN ---
Behaviors/Verbalizations/Mental Status: [] Eye contact is good. Motor activity is appropriate. Appearance is casual. Speech is Appropriate. Mood is depressed. Affect is congruent. Thoughts are linear and logical. No evidence of psychosis. Client Response/Progress/Benefit: [] Pt responded well to session AEB completing the resilience worksheet provided. Limited participation in the discussion unless prompted however did work cooperatively with group to identify strategies to enhance each of the components discussed. Pt was able to identify resiliency traits they already possess as well as areas related to resilience to focus on in the future which included avoid seeing a crisis as insurmountable. Pt seemed to benefit from discussing strategies for improving personal resilience and identifying resilience traits Pt already possesses. Will continue IOP tx to prevent decompensation/re-admission to psych unit, maintain safety, and increase healthy coping skills. Narrative Note: []
--- NOTE | 2025-06-01 08:52 | PCM.BH.PN_ITS ---
Intake Vital Signs 04/08/23 13:06 05/18/25 08:10 05/18/25 10:48 06/01/25 09:00 Height 5 ft 6 in 5 ft 6 in 5 ft 7 in 5 ft 7 in Weight: 263 lb BP 154/99 H Pulse 76 Intake Visit Reasons: follow up Allergies amoxicillin (From Augmentin) Allergy (Verified 05/18/25 10:39) Rash clavulanic acid (From Augmentin) Allergy (Verified 05/18/25 10:39) Rash Penicillins Allergy (Verified 05/18/25 10:39) Rash Medications ?Medication ?Instructions ?Recorded ?Confirmed ?Type lumateperone 42 mg capsule 42 mg PO DAILY 05/18/25 History (Caplyta) propranolol 10 mg tablet 10 mg PO BID PRN anxiety 7 d ays 05/18/25 Rx #14 tabs HPI () History of Present Illness History provided by: patient Chief complaint: follow up HPI: Joan Damon is a 24 year old female who presents today for follow up evaluation. Patient reports that she has been stressed and depressed. [facility]. Reports that she was cool with it. Continues to take Caplyta 42 mg every day. Group has been going well. Work has been somewhat stressful as she generally goes to work directly after group and feels like she just has a full days work in a shorter amount of time. Sleep has been doing well. Tends to fall asleep a little later and getting 5 hours on average. Has had some continue passive SI. Denies any plan or intent. 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 Has not had any contact with her ex-roommate but she has not responded to her. Review of systems () Constitutional Denies: fever(s), chills, change in weight or fatigue Eyes Denies: change in vision or blurry vision Ears, Nose, Mouth, Throat Denies: throat pain, neck pain or change in hearing Cardiovascular Denies: chest pain, palpitations or dyspnea Respiratory Denies: dyspnea, cough or wheezing Gastrointestinal Reports: nausea; Denies: abdominal pain, vomiting, diarrhea or constipation Genitourinary Denies: dysuria or urinary frequency Musculoskeletal Denies: back pain, neck pain, joint pain or muscle weakness Integumentary/Breast Denies: rash or new lesions Neurological Reports: headache(s) and dizziness; Denies: confusion Endocrine Denies: fatigue or excessive sweating Hematologic/Lymphatic Denies: easy bruising or easy bleeding Allergic/Immunologic Denies: wheezing Exam Mental Status Exam- Psych () Appearance casually dressed Attitude cooperative Activity/Motor Behavior MSE activity/motor behavior finding no adventitious movements Speech regular rate, regular volume and regular prosody Mood other (stressed and depressed) Affect constricted Thought Process linear, logical and coherent Thought Content no delusions and no hallucinations Suicidal Ideation none (although present in recent past) Homicidal Ideation none Attention intact Concentration intact Sensorium/Orientation awake, alert and oriented x3 Memory/Cognition other (appropriate for stated age) Insight fair Judgement fair Assessment & Plan () Assessment & Plan (1) Bipolar disorder, unspecified: Plan: - Continue Caplyta per outside psychiatrist - returned to 42 mg Caplyta in relative recent past, will allow more time on increased dose (2) Generalized anxiety disorder: Plan: -continue propranolol as needed (3) Borderline personality disorder: Plan: - Engage in counseling Medications: Discontinued levothyroxine Discontinued Reason: Completed therapy 175 mcg PO DAILY 30 tabs 2RF Charges/Coding Multi Select Codes Behavior Health Behavior Health EST Pt E/M: 05858 Est Pt Level IV
--- NOTE | 2025-06-01 09:00 | BH.SGPN.GN ---
Behaviors/Verbalizations/Mental Status: [] Pt alert and oriented, neatly dressed and groomed. Eye contact poor. Motor activity appropriate. Speech within normal limits. Affect constricted, mood anxious. Thoughts linear, logical, no signs of hallucinations or delusions. Reviewed pt?s symptom tracker, no risk for suicidal ideation, plan, or intent 06/01/25. Client Response/Progress/Benefit: []Pt was an active participant in group discussions. Attentive. Able to identify mental health wins including ?well I made it through work and I?m here.? Pt's stressor today is ?I have a doctors apt today and work.? The group offered pt suggests to manage this stressor and emotional support which pt reported was helpful. Pt is feeling ?overwhelmed.? this morning. Pt receptive to feedback from peers. Benefited from group support, encouragement, and feedback. Progress noted. Will continue IOP tx to increase distress tolerance skills, improve daily functioning, and reduce avoidance behaviors. ? Narrative Note: []
--- NOTE | 2025-06-01 10:10 | BH.SGPN.GN ---
Behaviors/Verbalizations/Mental Status: []Eye contact is good. Motor activity is appropriate. Appearance is casual. Speech is Appropriate. Mood is content. Affect is congruent. Thoughts are linear and logical. No evidence of psychosis. Client Response/Progress/Benefit: []Pt was an active participant in group discussion. Engaged and attentive during psychoeducation and interactive discussion on coping skills, why people use unhealthy coping skills, how to replace unhealthy coping skills, and internal vs external coping skills. Attentive as peers came up with list of unhealthy coping skills. Pt reported personally, they tend to either self-harm or shut down. Group discussed the effects of maladaptive coping skills on mental health. Benefited from increased understanding of unhealthy coping skills and the need for developing healthy internal and external coping skills. Actively participated during experiential group activity and was able to related this activity to group topic. Will continue in IOP to promote healthy thinking patterns, apply healthy coping skills, and promote mood stability. Narrative Note: []
--- NOTE | 2025-06-01 11:10 | BH.SGPN.GN ---
Behaviors/Verbalizations/Mental Status: [] Pt alert and oriented, casual in appearance. Eye contact fair. Motor activity appropriate. Speech within normal limits. Affect constricted, mood dysthymic. Thoughts linear, logical, no signs of hallucinations or delusions. Client Response/Progress/Benefit: [] Pt did not engage in group discussions however was attentive AEB taking notes, and listening attentively to others. Group discussed the different categories of coping skills which included distraction, emotional release, grounding, self-love, and thought challenging. Pt participated in creating a coping skills ?menu? from the different categories of coping skills. Pt's coping skill menu included: walking, looking for evidence against, affirmations. Appeared to benefit from increasing repertoire of healthy coping skills. Will continue IOP to improve distress tolerance, improve healthy coping, and prevent decompensation.
--- NOTE | 2025-06-01 12:54 | BH.MDN ---
Multi-Disciplinary Note Note 30-min Individual: Time Started:: 11:55 Date: 06/01/25 Purpose of session/treatment goals addressed:: To work on acceptance and distress tolerance skills to help pt better manage work-related stressors. Eye Contact:: Fair Motor Activity:: Appropriate Appearance:: Neat Speech:: Soft Mood:: Anxious Affect:: Constricted Thoughts:: Racing and No evidence of hallucinations/delusions noted Staff Interventions:: thought challenging, motivational interviewing, CBT techniques, mindfulness skills, strengths perspective and other (acceptance skills and reviewed pt's values) Client Response:: Pt responded well to session, open to meeting with therapist. Pt reports she has been stressed and sad. Pt is missing her cats as pt has not been able to see them since she and her ex-roommate stopped talking. Pt thinks eventually she will get another cat or a dog, but pt is not ready for this yet. Work continues to be one of pt's primary stressors and pt shared overall work has not been going well, but she recognizes she needs this job. One of pt's biggest goals/ values is to be financially stable and be able to get a new apartment. Pt recognizes that although work is a stressor, not going to work is more stressful as pt does not get paid for days she misses. Discussed acceptance skills that pt could use to better tolerate work. Pt reports today she will remind herself that she just needs to make it through today and then I have a few days off. Also processed other ways to earn income and pt stated she has been wanting to do [employer] or [employer]. Pt is anxious about this, but pt noted she can talk to her sister about what to expect because her sister also does this. Last session we reviewed self-care practices pt can use including floor time and taking walks outside. Pt encouraged to continue using opposite action to help build distress tolerance. Risks/Concerns:: Pt endorses chronic suicidal ideations that range in intensity and severity, depending on pt's psychosocial stressors. Pt reports today having passive suicidal ideations with no plan or intent. Pt does report she self-harmed since last session. Progress Toward Goals/Plan:: Pt reports benefitting from the extra support and structure. Pt's symptoms have mildly changed since admission, but pt continues to be willing to work on skills and she is engaged in group, so some progress is noted. Pt has future orientation and insight to her urges to escape/avoid distress and she is working on not avoiding these strong emotions. Pt will continue IOP tx to prevent decompensation, improve distress tolerance skills, and increase implementation of self-care practices. Time Stopped:: 12:25
== END 2025-06-03 23:59 ==
LOC: BHIOP 08:00
PROVIDERS: Referring Provider Student in an Organized Health Care Education/Training Program; Visit Provider Student in an Organized Health Care Education/Training Program
DX: F31.9 Bipolar disorder, unspecified (principal); F60.3 Borderline personality disorder; F41.1 Generalized anxiety disorder
CPT/HCPCS: S9480; 90832; 90834; 90853

== ENCOUNTER 2025-06-05 07:15 | Outpatient (RCR) | payer OTHER, SELFPAY ==
--- NOTE | 2025-06-06 09:05 | BH.SGPN.GN ---
Behaviors/Verbalizations/Mental Status: [] Eye contact is good. Motor activity is appropriate. Appearance is casual. Speech is Appropriate. Mood is dysthymic. Affect is congruent. Thoughts are linear and logical. No evidence of psychosis. Reviewed daily check in sheet and sucidal ideations are at baseline. Client Response/Progress/Benefit: [] Pt was an active participant in group discussions. Attentive. Daily??symptom tracker notes 5/5 for depression and self-harm urges. Able to identify mental health wins and healthy habits. She is utilizing opposite actions and challenging negative thoughts. This has been challenging. She reported self-injurious behaviors last night. Long-standing history of superficial cutting. Group empathized and was supportive which was beneficial. Limited progress noted. Will continue in IOP to maintain safety, stabilize mood, prevent decompensation/re-admission, and increase healthy coping. Narrative Note: []
--- NOTE | 2025-06-06 10:10 | BH.SGPN.GN ---
Behaviors/Verbalizations/Mental Status: [] Client alert and oriented, casually dressed and groomed. Eye contact good. Motor activity appropriate. Speech within normal limits. Affect congruent, mood depressed. Thoughts linear, logical, no signs of hallucinations or delusions. Client Response/Progress/Benefit: [] Client responded well to session AEB contributing to discussion, taking notes, and listening attentively to others. Group discussed the benefits of managed anger and anger as a secondary emotion. Client participated in anger iceberg discussion. Group reported outward personal signs of anger as lashing out verbally, physical fights, destruction of property, self-harm, and self-sabotage. Group Identified underlying emotions that contribute to anger including being dismissed, rejection, assumptions, being lied too, and micromanaging. Appeared to benefit from increased knowledge of the underlying emotions that impact anger and increased self-awareness of the internal and external consequences of anger. Client will continue IOP program to stabilize mood, reduce maladaptive coping, and prevent decompensation/rehospitalization. Narrative Note: []
--- NOTE | 2025-06-06 11:10 | BH.SGPN.GN ---
Behaviors/Verbalizations/Mental Status: [] client alert and oriented, casually dressed and groomed. Eye contact fair. Motor activity appropriate. Speech within normal limits. Affect constricted, mood dysthymic. Thoughts linear, logical, no signs of hallucinations or delusions. Client Response/Progress/Benefit: [] Client was an engaged participant throughout group AEB client providing input throughout discussion. Client contributed to the continued discussion of how people express anger as well as the underlying emotions of anger. Client participated in group activity that highlighted strategies to cope with anger. Group brainstormed healthy coping skills to help prevent anger and cope with it in the moment which included: mindfulness, deep breathing, journaling, going outside, and music. Client stated would like to work on adjusting her perspective by reminding self it's better to start over than to give up. Client appeared to benefit from brainstorming with the group potential strategies to manage anger in healthy ways. Recommended continued IOP to improve emotion regulation, challenge negative thoughts, and prevent decompensation.
--- NOTE | 2025-06-07 09:05 | BH.SGPN.GN ---
Behaviors/Verbalizations/Mental Status: [] Eye contact is good. Motor activity is appropriate. Appearance is casual. Speech is Appropriate. Mood is dysthymic. Affect is congruent. Thoughts are linear and logical. No evidence of psychosis. Reviewed daily check in sheet and suicidal thoughts are at baseline. Client Response/Progress/Benefit: [] Pt was an active participant in group discussions. Attentive. Daily symptom tracker notes 5/5 for depression and 4/5 for self-harm urges. Able to identify mental wins and healthy habits. no self-harm in two days. She also was able to let somebody help me out. Discussed the obstacles and thoughts that have made it difficult for pt to be vulnerable and the mental health benefits to recieving help from support. Did well with reframing and challenging intially negative thoughts throughout her check-in. Feels content today. Progress noted. Benefited from group support, encouragement, and feedback. Will continue in IOP to maintain safety, prevent decompensation/re-admission to psych, and increase healthy coping. Narrative Note: []
--- NOTE | 2025-06-07 10:10 | BH.SGPN.GN ---
Behaviors/Verbalizations/Mental Status: []Eye contact is fair. Motor activity is appropriate. Appearance is casual. Speech is Appropriate. Mood is dysthymic. Affect is constricted. Thoughts are linear and logical. No evidence of psychosis. Client Response/Progress/Benefit: [] Pt participated in the group discussions AEB providing input and taking notes at times. Attentive during psychoeducation on SMART Goal Setting. Pt worked with group to identify common barriers to goal setting which included; mental health struggles, energy/motivation, limited support, change to routine, lack or resources, having unrealistic goals, and our internal expectations. Group also identified benefits of goals, which included: promotes a sense of accomplishment, it challenges oneself, can boast confidence, and can cause positive change/growth. Pt able to identify personal benefits to goal setting. Benefited from increased awareness of mental health benefits of goals as well as psychoeducation on SMART goal criteria. Will continue in IOP to improve emotion regulation, challenge distorted thoughts, and prevent decompensation.
--- NOTE | 2025-06-07 11:10 | BH.SGPN.GN ---
Behaviors/Verbalizations/Mental Status: [] Pt alert and oriented. Appearance is casual, hygiene is appropriate. Eye contact fair. Motor activity appropriate. Speech within normal limits. Affect is dysthymic. Mood is constricted. Thoughts linear, logical, no signs of hallucinations or delusions. Client Response/Progress/Benefit: [] Pt was engaged during discussion and experiential activity. Completed the worksheet challenging them to develop a personal SMART goal. Pt chose a SMART goal to write down two wins everyday in her phone. Believes this goal will benefit her by improving positive thoughts. Identified obstacles such as forgetting and low motivation. Pt able to identify several solutions to help overcome barriers. Benefited from this group by developing a short-term SMART goal related to mental health. Will continue IOP to impove distress tolerance, improve healthy coping skills, and prevent decompensation.
--- NOTE | 2025-06-08 09:05 | BH.SGPN.GN ---
Behaviors/Verbalizations/Mental Status: [] Eye contact is fair. Motor activity is appropriate. Appearance is casual. Speech is Appropriate. Mood is dysthymic. Affect is congruent. Thoughts are linear and logical. No evidence of psychosis. Reviewed daily check in sheet and suicidal thoughts are at baseline. Client Response/Progress/Benefit: [] Pt participated when prompted. Attentive. Daily symptom tracker notes Daily symptom tracker notes /5 for depression and self-harm urges. Able to identify mental health wins and healthy habits. ? I was able to calm myself at work?. More consistent with healthy coping strategies and awareness which has benefited mental health stability and functioning. Increased confidence in managing her stressors which has led to consistent work attendance. She discussed stressors related to ? bad news last night? however did not elaborate. Progress noted. Benefited from group support, encouragement, and feedback. Will continue in IOP to maintain safety, prevent decompensation/re-admission to psych, and to increase healthy coping. Narrative Note: []
--- NOTE | 2025-06-08 10:10 | BH.SGPN.GN ---
Behaviors/Verbalizations/Mental Status: [] Eye contact is good. Motor activity is appropriate. Appearance is casual. Speech is Appropriate. Mood is euythmic. Affect is congruent. Thoughts are linear and logical. No evidence of psychosis Client Response/Progress/Benefit: [] Pt receptive of session, actively engaged throughout AEB taking notes, providing input, and contributing in small group discussion. Appeared to connect with group topic of automatic thoughts and cognitive distortions, as well as the impact of thought patterns on mental health, coping behaviors, and relationships. This particular group is very heavy on psychoeducation and pt appeared to connect with distortions and how they can impact functioning. Identified struggling with all or nothing distortions. Pt appeared to benefit from gaining insight on distorted thinking patterns and how this impacts overall mental health. Will continue IOP to stabilize mood, improve ability to function, and prevent decompensation. Narrative Note: []
--- NOTE | 2025-06-08 11:10 | BH.SGPN.GN ---
Behaviors/Verbalizations/Mental Status: [] Eye contact is good. Motor activity is appropriate. Appearance is casual. Speech is Appropriate. Mood is euthymic. Affect is congruent. Thoughts are linear and logical. No evidence of psychosis. Client Response/Progress/Benefit: [] Pt was an active participant and responded well to session AEB input and examples during group activity. Group discussed and practiced methods of reframing cognitive distortions. Client participated in identifying cognitive distortions when examples were provided. Client discussed in group the different strategies to overcome the distortions. Client identified cognitive distortion they used most often and made plan to identify and challenge thoughts that contribute to it as homework over the next couple of days. Will continue tx to further promote mood stability, improve distress tolerance skill application, maintain safety, and prevent decompensation. Narrative Note: []
--- NOTE | 2025-06-08 12:05 | BH.MDN_ITS ---
Multi-Disciplinary Note Note 30-min Individual: Time Started:: 10:56 Date: 06/08/25 Purpose of session/treatment goals addressed:: Purpose of session was to address current stressors and create a plan for the weekend. Eye Contact:: Good Motor Activity:: Appropriate Appearance:: Casual Speech:: Appropriate Mood:: Dysthymic Affect:: Congruent Thoughts:: Linear, Logical and No evidence of hallucinations/delusions noted Staff Interventions:: motivational interviewing, CBT techniques, strengths perspective and goal setting Client Response:: Pt receptive of session, willing to meet with this therapist as pt regular therapist is out of the office. She reports struggling today as work was overwhelming yesterday. Discussed difficulties adjusting to going in right after IOP, as she gets there during the busiest part of the shift. Did well to identify supportive coworkers she use as encouragement, as well as noted that putting affirmations up in her locker would be beneficial in challenging her perspective. Pt shared trying to remind herself of the importance of maintaining employment to reach her goal of financial security and moving into a new apartment. Went on to discuss struggling with loneliness without her cat and not knowing what to do with herself. Expressed not knowing who she is or what she enjoys as she often molds her interests around friendships and recently ended a friendship. Receptive of working with therapist to identify activities she has enjoyed in the past or might want to try. Pt noted that she had done watercolor in the past and enjoyed this. Shared willingness to give it another try over the weekend. Additionally noted a desire to get outside more often. Shared plans to move to the [facility] in the near future and indicated interest in exploring a local walking path as well. Risks/Concerns:: Pt endorses chronic suicidal ideations that range in intensity and severity, depending on pt's psychosocial stressors. Pt reports today having passive suicidal ideations with no plan or intent. Pt does report she self-harmed this past weekend, but feels more prepared to manage ongoing psychosocial stressors going into this weekend. Progress Toward Goals/Plan:: Progress noted. Pt reports improved confidence in her ability to manage daily stressors and was able to successfully apply grounding and emotion regulation skills to get through her work shift yesterday. Additionally, pt reports applying the skills she is learning in [facility] tx to navigate ongoing grief associated with recent end in friendship. Motivated to continue to work on self-care and identity discovery. Pt recommended continued IOP tx to improve mood stability, interpersonal effectiveness, and prevent decompensation. Time Stopped:: 11:16
--- NOTE | 2025-06-08 15:11 | BH.TPR ---
Treatment Plan Review Demographics Date of Admission:: 05/17/25 Date of Treatment Plan Review:: 06/08/25 Admitting Diagnoses:: Bipolar disorder, NOS (F31.9); borderline personality disorder Current Diagnoses:: Bipolar disorder, NOS (F31.9); borderline personality disorder Patient Status Patient's Response to Treatment:: Pt has responded mostly well to IOP treatment. Pt's attendance is consistent and engaged through note taking and engaging in discussions. Pt does well with peers and reports benefitting from the group topics. Pt engages well individually and is open to ideas. Pt has been more consistent with coping skills and she has been out of the hospital now for over a month which is significant. Status of Current Problems and Symptoms: Pt's work and lack of support are pt's primary stressors. Pt is coping better with her stressors, but pt continues to report feeling overwhelmed very easily and this triggers an urge to escape and/or self-harm. Pt's lack of support and grief from not having her cats impacts pt's depressive symptoms including isolation, lack of motivation, and negative thinking. Pt's chronic SI has been less intense since starting IOP, but it is still present daily. Progress Problem #1: Problem Name:: Depression, chronic SI, and lack of motivation Status of Goals:: Objective 1- in progress. Pt?s DSM-5 scores have not decreased since admission, but pt has not been rehospitalized which is significant as pt?s stressors have not resolved. Pt?s SI is still present daily, but pt has not expressed any active SI, plan, or intent since admission. Objective 2- in progress. Pt is working on using affirmational statements and reframing negative thinking patterns when she catching them. Team Recommendations:: Pt is encouraged to continue this goal to reduce symptoms, increase ability to give herself credit, and reduce use of maladaptive coping skills through building self-care and distress tolerance. Pt is also encouraged to set daily goals and advocate for herself at work. Problem #2: Problem Name:: Low distress tolerance, anxiety, and mood dysregulation Status of Goals:: Objective 1- in progress. Pt continues to engage in self-harming behaviors, but pt reports she has also been trying to use more healthy grounding skills like sounds, breathing, and laying on the floor. Objective 2- in progress. Objective 2- in progress. Pt is working on a goal of saying positive affirmations each day and pt is working on doing chores more proactively to avoid feeling overwhelmed on work days. Team Recommendations:: Team recommends pt to continue working on increasing distress tolerance and improving ability to regulate when experiencing triggers.
--- NOTE | 2025-06-14 09:05 | BH.SGPN.GN ---
Behaviors/Verbalizations/Mental Status: [] Pt alert and oriented, casually dressed and groomed. Eye contact fair. Motor activity appropriate. Speech within normal limits. Affect congruent, mood anxious. Thoughts linear, logical, no signs of hallucinations or delusions. Reviewed pt?s symptom tracker, no reported Si, plan, or intention. Client Response/Progress/Benefit: []Pt was an active participant in group discussions. Attentive. Pt stated that her mental health positive as completing a goal she set for herself last week. Pt reported additional mental health positive as using opposite action to go to her serve safe class. Pt reported her stressor as not sure she passed the test for her serve safe class because she felt like she blanked during the test. Pt seemed to benefit from support from peers. Will continue IOP services to promote healthy coping skills, challenge distortions, and prevent decompensation.
--- NOTE | 2025-06-14 10:05 | BH.SGPN.GN ---
Behaviors/Verbalizations/Mental Status: [] Eye contact is good. Motor activity is appropriate. Appearance is casual. Speech is Appropriate. Mood is content. Affect is congruent. Thoughts are linear and logical. No evidence of psychosis. Client Response/Progress/Benefit: [] Pt engaged participant AEB listening to others, engaging in activity, and providing feedback throughout. Attentive during psychoeducation and provided insight into obstacles that impede mental wellness. Pt shared with group current mental health reality and desired mental health reality. Identified barriers to desired reality which included difficulties with communication and negative self-talk. Benefited from taking look at current mental health state and obstacles for progress. Pt to continue in IOP tx to prevent decompensation, stabilize mood, and improve functioning. Narrative Note: []
--- NOTE | 2025-06-14 11:10 | BH.SGPN.GN ---
Behaviors/Verbalizations/Mental Status: []Eye contact is good. Motor activity is appropriate. Appearance is casual. Speech is Appropriate. Mood is depressed and anxious. Affect is congruent. Thoughts are linear and logical. No evidence of psychosis. Client Response/Progress/Benefit: [] Pt was an engaged participant in group discussion and activity. Worked with group to identify strategies to help overcome barriers and obstacles to desired reality. Group developed strategies for the common barriers. Identified personal barriers to desired reality which included negative view of self, unhealthy coping, and difficulty with being vulnerable. Was able to identify a skill to implement immediately to address low self-image. Pt seemed to benefit from increased repertoire of healthy coping skills/strategies to overcome common barriers to moving forward. Pt is to continue IOP prevent decompensation/re-admission to psych unit, increase healty coping, and improve functioning.
--- NOTE | 2025-06-15 10:15 | BH.SGPN.GN ---
Behaviors/Verbalizations/Mental Status: []Pt alert and oriented, neatly dressed and groomed. Eye contact fair. Motor activity appropriate. Speech within normal limits. Affect constricted, mood anxious. Thoughts linear, logical, no signs of hallucinations or delusions. Client Response/Progress/Benefit: [] Pt was attentive during psychoeducation and participated in group activity. Group discussed what influences a person?s perspective and how perspective can positively or negatively impact mental health treatment. Group identified several factors that can influence perspective which include; mood, current stressors, sleep, health, hunger, and several others.?Pt appeared to benefit from increasing awareness of different perspectives and how they can affect mental health. Pt noted that their perspective today is ?I?m in the middle. I?m beginning to participate more but I?m struggling to identify good things daily.? Pt will continue IOP tx to prevent decompensation, gain healthy coping skills, and gain self-confidence. Narrative Note: []
--- NOTE | 2025-06-15 10:31 | BH.MDN_ITS ---
Multi-Disciplinary Note Note 45-min Individual: Time Started:: 09:15 Date: 06/15/25 Purpose of session/treatment goals addressed:: To work on distress tolerance skills to improve pt's ability to manage stressors. Eye Contact:: Fair Motor Activity:: Restless Appearance:: Casual Speech:: Appropriate and Soft Mood:: Anxious Affect:: Constricted Thoughts:: Circular and No evidence of hallucinations/delusions noted Staff Interventions:: thought challenging, motivational interviewing, min dfulness skills (rehearsed calming skills in session to help reduce anxiety.), discharge planning (Pt likely to complete two more weeks of IOP), strengths perspective and goal setting (planning for the weekend) Client Response:: Pt responded well to session, open to meeting with therapist. Pt shared that she has been feeling sad lately because she is stephanie cathi and misses her cats. Pt has been considering getting a new cat and has been feeling torn about this, but she made the decision to apply for a cat. Pt shared she was approved to adopt, but pt noted part of me wishes I didn't get it because I'm scared of who will take care of the cat if I go to the hospital. Pt has history of numerous psychiatric admission and pt has awareness that her admissions are often triggered when pt feels overwhelmed and I need an escape. Pt has been working on how to better manage stress so that she can prevent the cycle of hospitalization and feeling overwhelmed. Pt stated she feels that the way things have been going I might be in the hospital again. Therapist helped pt see that pt is actually coping better with her stressors since starting IOP. Pt noted that her work stress, her living situation, and her loneliness have not changed since IOP started and yet pt has been able to remain out of the hospital which is progress. Took a moment to reflect on pt's level of anxiety in session and pt shared she was feeling on edge. Pt willing to rehearse a grounding technique using sound. Pt reported this strategy did help pt temporarily and pt was willing to try this at home. Discussed plans for the weekend and pt shared she wants to push herself and go to an event, but she is worried about people talking about politics there. Discussed what pt could do if this does happen and pt identified going for walks and leaving the situation for a few minutes. Pt noted progress in doing her laundry yesterday after work which pt feels will give her more free time tonight. Risks/Concerns:: Pt endorses chronic suicidal ideations that range in intensity and severity, depending on pt's psychosocial stressors. Pt reports today having passive suicidal ideations with no plan or intent. Progress Toward Goals/Plan:: Per pt's DSM-5 she is showing symptom reduction in areas of anxiety, but pt's scores for depression remain unchanged since admission. Pt has been reporting less intensity of her passive SI this week which is significant. Pt accomplished a goal she set over the past week and pt feels some pride in this. Pt continues to struggle with challenging her perspective without assistance from peers or therapist. Pt is encouraged to practice the ground skill rehearsed today. Pt will continue IOP tx to promote use of healthy coping skills, increase distress tolerance, and establish healthy habits. Time Stopped:: 09:55
--- NOTE | 2025-06-15 11:10 | BH.SGPN.GN ---
Behaviors/Verbalizations/Mental Status: []Pt alert and oriented, casually dressed and groomed. Eye contact fair. Motor activity appropriate. Speech within normal limits. Affect constricted, mood dysthymic. Thoughts linear, logical, no signs of hallucinations or delusions. Client Response/Progress/Benefit: [] Pt was attentive and contributed to group discussion. Pt worked with group to identify strategies that can help with challenging negative perspective. Pt stated she wants to practice dialectical thinking and being kind to herself as strategies she can use when her perspective is negative. Benefited from identifying strategies that can help with improving perspective and identifying one strategy to focus on to improve current perspective. Pt will continue IOP tx to improve emotion regulation, improve view of self, and prevent decompensation.
--- NOTE | 2025-06-20 09:00 | BH.SGPN.GN ---
Behaviors/Verbalizations/Mental Status: [] Client alert and oriented, casual appearance. Eye contact fair. Motor activity appropriate. Speech within normal limits. Affect congruent, mood euthymic. Thoughts linear, logical, no signs of hallucinations or delusions. Reviewed client's symptom tracker, no risk for suicidal ideation, plan, or intent. Client Response/Progress/Benefit: [] Client responded well to session AEB listening to others and sharing thoughts/feelings. Client reported mental positive as finding out she passed her serve safe class which she stated has decreased some stress. Client stated additional mental health positive was watching a movie she wanted to see for self-care. Client stated she has no current stressor. Appeared to benefit from support from peers. Will continue IOP tx to challenge distorted thoughts, promote healthy coping and prevent decompensation.
--- NOTE | 2025-06-20 10:10 | BH.SGPN.GN ---
Behaviors/Verbalizations/Mental Status: []Pt alert and oriented, neatly dressed and groomed. Eye contact fair. Motor activity appropriate. Speech within normal limits. Affect congruent, mood anxious and euthymic. Thoughts linear, logical, no signs of hallucinations or delusions Client Response/Progress/Benefit: [] Pt took notes and contributed to group discussions. Attentive during psychoeducation on growth mindset. Interactive group discussion on fixed mindset in which group verbalized their current fixed mindsets and how they affect their mental health. Pt shared common fixed mindset thoughts they have. Pt shared a personal fixed thought I can?t focus so I can?t do this.? Pt able to connect negative impact fixed thoughts have on functioning. Pt benefited from increased awareness of growth mindset and fixed thoughts and how fixed thoughts impact their mental health. Will continue IOP tx to promote mood stability, reduce use of maladaptive coping skills, and improve self-confidence. ? Narrative Note: []
--- NOTE | 2025-06-20 11:15 | BH.SGPN.GN ---
Behaviors/Verbalizations/Mental Status: []Pt alert and oriented, casually dressed and groomed. Eye contact good. Motor activity appropriate. Speech within normal limits. Affect congruent, mood content. Thoughts linear, logical, no signs of hallucinations or delusions. Client Response/Progress/Benefit: [] Pt was an active participant during activity and discussion. Pt did well to remain attentive and participate as group worked on identifying characteristics and benefits of adopting a growth mindset. Worked with fellow participants in reframing the example fixed thoughts into growth mindset thoughts. Pt worked on changing own fixed thought. Pt?s reframed thought was ?I am continuing to make progress even if this feel hard? Pt attentive during discussion about different strategies that can help with fostering a growth mindset. Pt appeared to benefit from challenging own thoughts and engaging in the activity. Pt will continue IOP tx to increase distress tolerance, improve self-compassion, and prevent decompensation. Narrative Note: []
--- NOTE | 2025-06-21 09:05 | BH.SGPN.GN ---
Behaviors/Verbalizations/Mental Status: [] Eye contact is good. Motor activity is appropriate. Appearance is casual. Speech is Appropriate. Mood is euthymic. Affect is full. Thoughts are linear and logical. No evidence of psychosis. Reviewed daily check in sheet indicate increase in suicidal ideations. Therapist informed. Pt has long-term daily SI. Client Response/Progress/Benefit: [] Pt participated at times during the group discussions. Attentive. Daily symptom tracker notes 2/5 for depression and anxiety as well as 3/5 for self-harm urges. Able to identify mental health wins and healthy habits. She is completing tasks and following through with responsibilities. Reached out to a friend and talked. ? No stressors just chillin today?. Progress noted. Benefited from group support, encouragement, and feedback. Will continue in IOP to maintain safety, prevent decompensation/re-admission to psych, and increase healthy coping. Narrative Note: []
--- NOTE | 2025-06-21 10:10 | BH.SGPN.GN ---
Behaviors/Verbalizations/Mental Status: [] Eye contact is fair. Motor activity is appropriate. Appearance is casual. Speech is Appropriate. Mood is dysthymic. Affect is constricted. Thoughts are linear and logical. No evidence of psychosis. Client Response/Progress/Benefit: [] Pt was engaged and participating throughout, providing input and taking notes. Attentive during psychoeducation on anxiety and cognitive triangle. Participated in an interactive discussion on defining anxiety and identifying cognitive and physiological symptoms of anxiety. The group discussed helpful vs harmful anxiety. Pt identified their physical/physiological signs of anxiety which includes: rapid breathing, skin picking, and stomach issues. Benefited from increased awareness and insight on anxiety and its impact. Will continue in IOP to prevent decompensation, promote healthy coping, and improve emotion regulation.
--- NOTE | 2025-06-21 11:15 | BH.SGPN.GN ---
Behaviors/Verbalizations/Mental Status: []Pt alert and oriented, casually dressed and groomed. Eye contact good. Motor activity appropriate. Speech within normal limits. Affect congruent, mood calm. Thoughts linear, logical, no signs of hallucinations or delusions. Client Response/Progress/Benefit: [] Pt was an active participant AEB pt providing input and listening attentively to peers. Attentive during psychoeducation on mindfulness coping skills and their impact on reducing anxiety and improving overall mental health wellness. Group was able to identify self-soothing and mind-based coping skills which included: 5-senses, meditation, deep breathing, TIPP, thought challenging, categories, and progressive muscle relaxation. Pt would like to work on using walks and self-talk more regularly to reduce anxiety. Appeared to benefit from increasing repertoire of anxiety reduction skills. Pt will continue IOP to increase self-confidence, increase distress tolerance skills, and improve self-care practices. Narrative Note: []
--- NOTE | 2025-06-22 10:10 | BH.SGPN.GN ---
Behaviors/Verbalizations/Mental Status: [] Pt alert and oriented, casually dressed and groomed. Eye contact poor. Motor activity appropriate. Speech within normal limits. Mood: depressed. Affect: congruent. Thoughts linear, logical, no signs of hallucinations or delusions. Client Response/Progress/Benefit: [] Pt participated when prompted during group discussions. Attentive during psychoeducation on self-sabotage and its impact on mental health. Attentive as peers worked to define self-sabotage and identify reasons individuals perform self-sabotage behaviors (easy route at the time, feel as those we don't deserve any better, FOF, comfortable, etc). Attentive as peers identified the forms of self-sabotage that impact their mental health. Attentive during psychoeducation on types of self-sabotage; Procrastination, perfectionism, self-medication, poor communication,and chronic cancelling. Seemed to benefit from gaining awareness about the self-sabotage. Pt to continue IOP tx to prevent decompensation/re-admission to psych unit, maintain safety, increase healthy coping, and improve functioning. Narrative Note: []
--- NOTE | 2025-06-22 11:10 | BH.SGPN.GN ---
Behaviors/Verbalizations/Mental Status: []Pt alert and oriented, casually dressed and groomed. Eye contact good. Motor activity appropriate. Speech within normal limits. Affect congruent, mood anxious and overwhelmed. Thoughts linear, logical, no signs of hallucinations or delusions. Client Response/Progress/Benefit: []Pt responded well to session, engaged and contributing. Pt discussed with group things that contribute to mental wellness life. With peers, pt discussed things that would sabotage one's mental health wellness. Pt identified things pt personally does to sabotage as self-harming, people pleasing, and perfectionism. Pt attentive during psychoeducation on ways to reduce self-sabotage and pt selected learning acceptance?as the skill that could help pt reduce self-sabotaging behaviors. Pt appeared to benefit from learning skills and gaining awareness of self-sabotaging behaviors. Pt will continue IOP tx to prevent decompensation, improve daily functioning, and reduce self-sabotaging behaviors. Narrative Note: []
--- NOTE | 2025-06-22 11:11 | PCM.BH.PN ---
Intake Vital Signs 06/01/25 09:00 06/22/25 11:11 Height 1.7 m 1.7 m Intake Visit Reasons: f/u bipolar disorder Allergies amoxicillin (From Augmentin) Allergy (Verified 05/18/25 10:39) Rash clavulanic acid (From Augmentin) Allergy (Verified 05/18/25 10:39) Rash Penicillins Allergy (Verified 05/18/25 10:39) Rash Medications ?Medication ?Instructions ?Recorded ?Confirmed ?Type lumateperone 42 mg capsule 42 mg PO DAILY 05/18/25 05/18/25 History (Caplyta) propranolol 10 mg tablet 10 mg PO BID PRN anxiety 7 days 05/18/25 Rx #14 tabs lamotrigine 25 mg (42)-100 mg (7) See Rx Instructions PO .COMPLEX 06/22/25 Rx tablets in a dose pack (Lamictal #49 tabs Starter ([place]) Kit) HPI () History of Present Illness History provided by: patient Chief complaint: Follow-up bipolar disorder HPI: -Current psychiatric medications: Caplyta 42 mg daily, propranolol 10 mg twice daily as needed anxiety -SUBJECTVE: Not feeling great today. Reports still having a lot of stress and feeling overwhelmed, chronically has suicidal thoughts but reports they have been more intense over the past week but does not have a definitive plan or intent to act on them. Sleeping has not been restful and she has had a hard time falling asleep and staying asleep. Has previously tried trazodone which was not very effective, amitriptyline which stopped working, melatonin had side effects and Seroquel worked but she reports she will never take it again but did not expand on this. Denies any HI, no AH/VH. Is not sure how much the Caplyta is helping, interested in addition or change of medications. Is finding propranolol helpful. Discussed Lamictal, she had taken this multiple years ago but was started at the same time as Seroquel and she is unsure if there was any benefit or not but she is open to trying this again as adjunct after reviewing multiple medications with her this seems to be most viable option for adjunct at this time. Patient agreeable. Patient commits to safety and notes if she were to have any serious thoughts of killing herself she would go to the hospital Exam Mental Status Exam- Psych () Appearance casually dressed, adequately groomed and no apparent distress Attitude calm and other (Overall cooperative) Activity/Motor Behavior fidgeting Speech regular rate and other (Somewhat limited in flexion, speaks slightly soft) Mood depressed Affect restricted Thought Process linear and logical Thought Content no delusions and no hallucinations Suicidal Ideation passive Homicidal Ideation none Attention intact Concentration intact Sensorium/Orientation awake and alert Memory/Cognition intact Insight questionable Judgement questionable Assessment & Plan () Assessment & Plan (1) Bipolar disorder, unspecified: Plan: Continue patient's Caplyta per her outpatient psychiatrist, discussed medication changes and patient reports she had previously discussed with her psychiatrist he was okay with medications being adjusted here if needed. Discussed multiple medications the patient has trialed, ultimately decided to augment with Lamictal, will prescribe starter pack. Discussed that medications in general take some time to work and that this does start small and increases and patient verbalized understanding, agreeable to going to hospital if she has any serious thoughts of committing suicide, presently has passive thoughts and is just feeling overwhelmed. Continue propranolol (2) Generalized anxiety disorder: Plan: Patient does seem to be deriving benefit from propranolol as needed, will continue (3) Borderline personality disorder: Plan: - Supportive care, symptomatic management as above, continue to engage in groups and counseling Medications: New lamotrigine (Lamictal Starter ([place]) Kit) orally per package directions 49 tabs 0RF Visit Details Comments: Spent a total of [ ] minutes on the date of the service which included [ ]. Charges/Coding Behavior Health Behavior Health EST Pt E/M: 32377 Est Pt Level IV
--- NOTE | 2025-06-22 14:21 | BH.MDN_ITS ---
Multi-Disciplinary Note Note 30-min Individual: Time Started:: 09:20 Date: 06/22/25 Purpose of session/treatment goals addressed:: To work on distress tolerance skills and emotional urges. Eye Contact:: Good and Fair Motor Activity:: Appropriate Appearance:: Casual Speech:: Soft Mood:: Anxious and Depressed Affect:: Constricted Thoughts:: Circular and No evidence of hallucinations/delusions noted Staff Interventions:: thought challenging, motivational interviewing, CBT techniques, mindfulness skills, discharge planning, strengths perspective and taught coping skills Client Response:: Pt entered session visibly stressed AEB some restlessn ess and holding tightly to her stuffed animal. Pt and therapist used a song bowl in a previous session and pt shared this was helpful. Pt receptive to doing this again. Pt practiced deep breathing and using an affirmational statement while listening. Pt shared she is feeling stressed and overwhelmed because she is lonely, she is stressed at work, and financial stress. Pt has awareness of her emotional urges when she feels this way as well as maladaptive coping skills that follow. Pt has been working hard to not give into her urge to escape which as noted below, often leads to going to the ER. Discussed pt's cycle of low distress tolerance and the ways pt is trying to break this cycle. Pt acknowledges that she wants to build her coping skills and be more consistent. Discussed things she could do to charge her battery vs drain it. Pt receptive to working on a chart for this and together therapist and pt made a chart. Pt will work on this for homework and pt will attempt using healthier skills. Risks/Concerns:: Pt endorses chronic suicidal ideations that range in intensity and severity, depending on pt's psychosocial stressors. Pt reports t venancio having passive suicidal ideations with no plan or intent, but pt reports due to work stress she is feeling an increased urge to escape which in the past has led to hospitalizations. Pt reports ability to maintain safety. Progress Toward Goals/Plan:: Pt reports an increase in distressing emotions today triggered by work and loneliness. Pt receptive to engaging in a mindfulness activity which pt shared helped somewhat. Pt receptive to creating an coping skill chart to help pt be more accountable and see what skills drain or charge her battery. Pt will continue IOP tx to promote use of healthy coping skills and increase distress tolerance. Time Stopped:: 09:50
--- NOTE | 2025-06-27 09:00 | BH.SGPN.GN ---
Behaviors/Verbalizations/Mental Status: [] Pt alert and oriented, neatly dressed and groomed. Eye contact good. Motor activity appropriate. Speech within normal limits. Affect flat, mood sad. Thoughts linear, logical, no signs of hallucinations or delusions. Reviewed pt?s symptom tracker, low risk for suicidal ideation, no risk of plan and intent 06/27/25. Client Response/Progress/Benefit: []Pt was an active participant in group discussions. Attentive. Per patients daily symptom tracker, pt indicates a 4/5 for depression and a 3/5 for anxiety, with 5 being severe. Pt chose not to participate in sharing mental health wins or stressors this week as she reported being the in ER for the past two days. Will continue IOP tx to promote healthy coping mechanisms, reduce negative thinking patterns, and gain self-confidence.
--- NOTE | 2025-06-27 14:59 | BH.MDN ---
Multi-Disciplinary Note Note 45-min Individual: Time Started:: 10:50 Date: 06/27/25 Purpose of session/treatment goals addressed:: To work on distress tolerance skills and to utilize thought challenging techniques. Another goal was to discuss upcoming discharge. Eye Contact:: Good and Fair Motor Activity:: Appropriate Appearance:: Casual Speech:: Appropriate Mood:: Anxious Affect:: Constricted Thoughts:: Racing and No evidence of hallucinations/delusions noted Staff Interventions:: thought challenging, motivational interviewing, CBT techniques, discharge planning, strengths perspective, completed risk assessment / safety planning, goal setting, taught coping skills (cognitive diffusion) and other (reviewed pt's coping skill chart from last session and processed this.) Client Response:: Pt responded well to session, open to meeting with therapist. Pt started session by sharing her coping skill tracker chart. Pt identified coping skills she used since last session, identifying if they charged her battery, left her neutral, or drained her battery as well as how long she used the skill and her emotion before and after. Discussed how most of pt's coping skills ended up draining her battery. These skills included scrolling on her phone, self-harming, binge eating, and watching TV. Pt shared she struggled with using the healthy coping skills because most of her days start with a draining skill and this leads to a cycle of more draining skills. Pt stated she did have some good moments over the weekend including cleaning her room and taking a shower. Pt reports on Wednesday work was terrible and then Wednesday when pt was at her therapy apt, pt was sent to the ER. Pt shared I was having suicidal thoughts with a plan, so they wanted me to go. Pt spent the night at the ER and was sent home the next day with a safety plan. Pt has a history of numerous hospitalizations and pt is working on not getting hospitalized as it typically makes stress and finances more difficult for pt. Pt shared she is feeling overwhelmed because of work and money and her hating my apartment. Pt expressed that the solution for this would be to go to a residential program to get away from al my triggers. Discussed the pros and cons of this and also discussed ways pt can increase distress tolerance in her current setting. Pt receptive to working on a cognitive diffusion skill by naming her negative thinking/SI. Pt also willing to work on another coping skill chart. Pt was less distressed by the end of session. Risks/Concerns:: Pt reports she went to the ER on Wednesday night and spent the night there due to suicidal ideations. Pt was then safety planned home on Wednesday06/26/25. Pt reports today she is feeling overwhelmed and having a lot of distress and suicidal ideations. Pt denies that she has any intent to follow through with her thoughts and she reports she has to go to work tonight which is keeping pt safe. Pt reports future orientation with plans to meet with her therapist next week and a new Margie Blake album coming out. Progress Toward Goals/Plan:: Pt reports ability to maintain safety and pt recognizes that she is more distressed right now, so pt is having urges to escape. Pt did well with her homework from last session and asked therapist to make her another chart. Pt reports plan to work today and attend IOP tomorrow. Pt wants to discharge from IOP this week as pt wants to get back to her usual work routine. Pt can benefit from finishing this week of IOP to promote use of healthy coping skills and improve distress tolerance. Time Stopped:: 11:35
--- NOTE | 2025-06-28 09:05 | BH.SGPN.GN ---
Behaviors/Verbalizations/Mental Status: [] Eye contact is good. Motor activity is appropriate. Appearance is casual. Speech is Appropriate. Mood is dysthymic and anxious. Affect is congruent. Thoughts are linear and logical. No evidence of psychosis. Reviewed daily check in sheet and suicidal thoughts are below baseline. Client Response/Progress/Benefit: [] Pt participated when prompted. Attentive during group discussions. Daily symptom tracker note 5/5 for depression and 4/5 for anxiety. Notes improvement from yesterday however continued perceived stressors. Shared with the group that after getting assessed in the ER over the weekend her mother picked her up and they went to lunch. During lunch a co-worker was there and took a picture of her. This was sent to her paster supervisor. Unknown reasons for sending the pic or how pt found out. Pt does not appear to be concerned with any consequences from work but rather her future interaction with her co-worker and the environment all together. Feeling panicked. She plans to speak with her paster supervisor today and hopes this will ease her tension and allow her to vent. Benefited from group support and encouragement. Progress noted as she is understandably upset however has not let this escalated to crisis level. Will continue in IOP to maintain safety, prevent decompensation/re-admission to psych, and stabilize mood. Narrative Note: []
--- NOTE | 2025-06-28 10:15 | BH.SGPN.GN ---
Behaviors/Verbalizations/Mental Status: [] Eye contact is good. Motor activity is appropriate. Appearance is casual. Speech is Appropriate. Mood is dysthymic. Affect is congruent. Thoughts are linear and logical. No evidence of psychosis. Client Response/Progress/Benefit: [] Client engaged during group session as evidenced by contributions during group discussions, appearing to listen to others, and taking notes. Client engaged in discussion about barriers that keep people from having difficult conversations. Group identified potential reasons individuals avoid difficult conversations which included; feeling uncomfortable, reaction of others, fear, and avoiding conflict. Group also identified benefits to having crucial conversations. Pt identified things they do that impact their communication as communicating over text or shutting down. Client seemed to benefit from increased awareness and education about importance of having difficult conversations and recognizing the impact of avoiding such conversations. Client to continue IOP to prevent decompensation, increase healthy coping, and improve functioning. Narrative Note: []
--- NOTE | 2025-06-28 11:15 | BH.SGPN.GN ---
Behaviors/Verbalizations/Mental Status: []Pt alert and oriented, neatly dressed and groomed. Eye contact good. Motor activity appropriate. Speech within normal limits. Affect constricted, mood anxious. Thoughts linear, logical, no signs of hallucinations or delusions. Client Response/Progress/Benefit: [] Pt was an active participant, engaged in activities and discussion. Pt able to identify ways they negatively contribute to crucial conversations and pt was engaged during psychoeducation of the different ways to build interpersonal effectiveness skills. Pt and peers practiced mirroring and active listening in partners. Group reviewed [employer] and used the handout to help map out how they would like a crucial conversation in their life to go. Pt shared they want to work on providing more feedback during conversations so pt know that pt is listening. Pt appeared to benefit from learning and practicing interpersonal effectiveness skills. Pt will continue IOP tx to establish aftercare plan and reinforce healthy coping skills. ? Narrative Note: []
--- NOTE | 2025-06-28 14:01 | BH.AFTERPLAN ---
Aftercare Plan Demographics Treatment End Date:: 06/29/25 Psychiatrist:: Dylan Gross Psychiatrist Office #:: [phone] [facility]/IOP Therapist:: Shanna Pradhan Therapist Phone #:: [phone] Medications Home Medications lumateperone 42 mg capsule (Caplyta) 42 mg PO DAILY 05/18/25 propranolol 10 mg tablet 10 mg PO BID PRN anxiety 7 days #14 tabs 05/18/25 lamotrigine 25 mg (42)-100 mg (7) tablets in a dose pack (Lamictal Starter ([place]) Kit) See Rx Instructions PO .COMPLEX #49 tabs 06/22/25 Plan Details Progress/Aftercare Plan Details:: Pt has responded well to treatment as evidenced by Pt consistently attending IOP sessions and her reduction of DSM-5 scores since admission. Pt was always attentive and receptive to learning during group and individual sessions. Pt did well with homework and worked well with therapist to create goals. Pt's scores for depression and SI did not decrease, but it is significant that pt has been able to avoid rehospitalization for over two months. Pt?s overall symptom reduction is 31% since admission with anxiety decreasing by 50% and memory and sleep improving by 67%. Pt will continue seeing her outpatient therapist and her psychiatrist. Strategies for Success:: 1. Opposite action! Continue to break that cycle of anxiety, guilt, and depression by not letting emotions be the only drivers of your bus. 2. Remember that thoughts are thoughts NOT facts! You have power in if you give thoughts the time of day or not. 3. self-care! You deserve to take time for you and you also deserve to face the not so fun self-care like setting boundaries with family and giving yourself validation 4. Self-compassion! You are human and you will make a mistake?BUT that doesn?t mean you are a failure or not good enough. Remember there are no bad parts and no bad feelings-it's what you do with them! 5. Continue to practice self-compassion and identify things YOU bring to others! 6. Practice positive self-talk and keep track of your wins. 7. Remember progress isn?t linear! You may have a setback or bump in the road, but that doesn?t mean you?ve lost all progress. 8. self-reflection and self-awareness. 9. Be understanding with yourself and try to see the whole picture, not just the snapshot. 10. Live in the duran!! Appointments Appointments/Referrals to Other Services:: Pt is encouraged to follow up with her outpatient providers at [place] [id number] for medication management and individual therapy. Pt has an appointment with Dr. Ramirez on 07/02/25 and pt sees her therapist, Paula weekly. Pt was unable to do IOP aftercare due to her insurance not covering it.
--- NOTE | 2025-06-28 14:04 | BH.DS_ITS ---
Discharge Summary Demographics Date of Admission:: 05/17/25 Discharge Date: 06/29/25 Presenting Problems at Admission:: Pt is a 24-year-old female with a history of bipolar disorder, unspecified, BPD, and ARMIN. Pt has history of over ten hospitalizations in her lifetime, but the most recent one was at [facility] in [place] from 05/09/25-05/11/25 due to suicidal ideations and inability to keep herself safe. At admission, pt reported worsening depression and anxiety due to work-related stressor and recent estrangement from her long-time roommate. Pt's symptoms of depression and anxiety are impacting her ability to function at work, complete her ADLs, and her overall quality of life. Pt currently endorses hopelessness, worthlessness, chronic SI, lack of motivation, lack of energy, constant anxiety, erratic appetite, increase sleep, and lack of concentration. Discharge Diagnoses:: Bipolar disorder, NOS (F31.9); borderline personality disorder Reason for Discharge:: Pt has accomplished her tx goals AEB her reduction of DM S-5 symptoms, her self-report of improved functioning , and her report of wanting to return to work. Pt no longer meets criteria for IOP level of care and will discharge to outpatient counseling. Treatment Progress During Treatment & Response: Pt has responded well to treatment as evidenced by Pt consistently attending IOP sessions and her reduction of DSM-5 scores since admission. Pt was always attentive and receptive to learning during group and individual sessions. Pt did well with homework and worked well with therapist to create goals. Pt's scores for depression and SI did not decrease, but it is significant that pt has been able to avoid rehospitalization for over two months. Pt?s overall symptom reduction is 31% since admission with anxiety decreasing by 50% and memory and sleep improving by 67%. Pt will continue seeing her outpatient therapist and her psychiatrist. Issues Still to be Addressed:: Pt can continue to improve her distress tolerance skills, self-confidence, self-compassion, and thought challenging skills. Pt also can benefit from gaining social support and reaching out for help. Discharge Recommendations/Instructions:: Pt is encouraged to follow up with her outpatient providers at [place] [address] for medication management and individual therapy. Pt has an appointment with Dr. Ramirez on 07/02/25 and pt sees her therapist, Paula weekly. Pt was unable to do IOP aftercare due to her insurance not covering it. Discharge Handout
--- NOTE | 2025-06-29 09:05 | BH.SGPN.GN ---
Behaviors/Verbalizations/Mental Status: [] Eye contact is good. Motor activity is appropriate. Appearance is casual. Speech is Appropriate. Mood is euthymic. Affect is full. Thoughts are linear and logical. No evidence of psychosis. Reviewed daily check in sheet and symptoms and suicidal ideations are at baseline. Client Response/Progress/Benefit: [] Pt participated at times during the group discussions. Attentive. Daily symptom tracker and suicidal thoughts are at baseline. Shared with the group that she is set to discharge successfully from [facility] today. ? I made it through the program w/o getting admitted to the hospital?. Elaborated on why this is significant to her due to her numerous psychiatric hospitalizations in the past. Proud of herself for utilizing skills to manage daily stressors. Smiling and engaged throughout group today. She briefly discussed the progress and struggles she has had in [facility]. Plan to discharge from [facility] today. Narrative Note: []
--- NOTE | 2025-06-29 10:10 | BH.SGPN.GN ---
Behaviors/Verbalizations/Mental Status: [] Client alert and oriented, casual appearance. Eye contact fair. Motor activity appropriate. Speech within normal limits. Affect constricted, mood euthymic. Thoughts linear, logical, no signs of hallucinations or delusions. Client Response/Progress/Benefit: [] Pt receptive to session AEB contributing to small group discussion, as well as listening attentively to others, and taking notes. Worked with group to brainstorm the positive and negative aspects of stress on physical and mental health. Group did well to identify the benefits of stress as well as the impact of distress on performance, relationships, and mental health. Pt identified their personal top stressors as: finances, mental health struggles, and work. Patient stated when stress is overwhelming they tend to lash out, isolate, feel apathetic, and shut down. Pt seemed to benefit from increased awareness of current stressors and impact stress has on mental health. Pt will continue IOP tx to improve distress tolerance, improve confidence, and prevent decompensation.
--- NOTE | 2025-06-29 11:05 | BH.SGPN.GN ---
Behaviors/Verbalizations/Mental Status: [] Eye contact is good. Motor activity is appropriate. Appearance is casual. Speech is Appropriate. Mood is dysthymic. Affect is congruent. Thoughts are linear and logical. No evidence of psychosis. Client Response/Progress/Benefit: [] Pt participated at times in group discussions and actively engaged during experiential activity. Attentive during psychoeducation on the 4 A's (Avoid, adapt, alter, accept) of coping with stress. Identified one of the 4 A's to address their top stressors. Participated with peers on identifying the connection between the experiential activity and utilization of stress management skills. According to group both the activity and stress management require; adjusting strategies, reliance on larger support group, and oftentimes can't be done alone. Benefited from increased awareness of stress management strategies. Plan to discharge from [facility] today. Narrative Note: []
== END 2025-06-29 12:20 | disposition home or self-care (01) ==
LOC: BHIOP 07:15
PROVIDERS: Referring Provider Student in an Organized Health Care Education/Training Program; Visit Provider Student in an Organized Health Care Education/Training Program
DX: F31.9 Bipolar disorder, unspecified (principal); F60.3 Borderline personality disorder
CPT/HCPCS: S9480; 90832; 90834; 90853